=== PATIENT | male | born 1970 | race Two or more races ===

== ENCOUNTER 2024-03-09 21:14 | Inpatient (IN) | payer OTHER, SELFPAY ==
[~2024-03-09] VITALS: Ht 180.3 cm; Wt 65.9 kg
--- NOTE | 2024-03-09 21:38 | ED.PDOC ---
GI ASSESSMENT HPI Comments 53y M who presents to the ED for chief complaint of abdominal pain. Pt presents with the following ED course: - pt has been having epigastric abdominal pain radiating to the RUQ for the past 6 days. - pt states the pain is intermittent, with no noted exacerbating or relieving factors - pt has associated green vomit and states he has also has green colored bowel movements for 4 days - pt states over the past 2 weeks, he had had bowel troubles and has had episodes of diarrhea with intermittent episodes of constipation with noted bowel movement today - pt states he has been alternating taking Tylenol and ibuprofen for his pain - pt has noted history of gallstones past medical history; gallstones, thyroid past surgical history: intestinal blockage as infant medications; denies; social history; denies tobacco use, denies drug use, denies ETOH use allergies: denies Esperanza HPI: Poor Historian. 53-year-old male presents to emergency department for five day history of epigastric right upper quadrant pain that is intermittent in nature with the associated nausea and vomiting nonbloody. Patient denies any particular alleviating or precipitating factors. Patient states he had these episodes at least twice in the past and had imaging studies and he was told he has got gallbladder problems. Patient denies any diarrhea. Past Medcial History: Thyroid disease Past Surgical History: REVIEW OF SYSTEMS: CONSTITUTIONAL: Denies acute: fever, diaphoresis, chills, generalized weakness. HEAD: Denies acute: headache, photophobia Eyes: Denies acute: Double vision, vision loss, eye pain, eye discharge. EARS: Denies acute: tinnitus, hearing loss, ear discharge, ear pain, THROAT: Denies acute: sore throat, swelling, difficulty swallowing , pain with swallowing, change in voice. NECK: Denies acute: neck pain, neck swelling, stiff neck. HEART: Denies acute : chest pain, palpitations, LUNGS: Denies acute: SOB, wheezing, cough, hemoptysis ABDOMEN: Denies acute: diarrhea, melena , hematemesis, hematochezia SKIN: Denies acute: rash, redness, lesions, itchiness. EXTREMITIES: Denies acute: calf pain, numbness, tingling, weakness, denies pain in extremity. Denies acute: Low back pain. Neuro: Denies acute: focal neurological deficit, motor or sensory focal neurological deficit, tremors, seizure like activity, confusion, dizziness, change in mental status, loss of bowel or bladder function, cauda equina like symptoms. : Denies acute: dysuria, hematuria, flank pain, increase in urinary frequency. PSYCH: Denies acute: hallucination, suicidal ideation, homicidal ideation. PHYSICAL EXAM: General: Mild acute distress, awake and alert. Head: normocephalic, atraumatic. Neck: supple, trachea is midline, no swelling. Throat: Normal phonation. Eyes:, no erythema, no purulent discharge, no proptosis, no icterus. Heart: regular rate, regular rhythm, no significant murmur appreciated. Lungs: no apparent respiratory distress, Able to speak in full sentences. No wheezing, no rhonchi, no crackles. No stridors Clear to auscultation bilaterally. Abdomen: Epigastric and right upper quadrant tender to palpation, non distended, soft, no guarding, no rebound, + bowel sounds. Neuro: Awake, Alert, oriented to name, self, situation, follows commands GCS=15. Speech is normal. Skin: no petechia, no purpura, no cyanosis, non-pale, not jaundice. Lower extremities: --no - Pitting edema no deformity, no focal swelling, no calf TTP. Makes eye contact. moves all four extremities. Face: no apparent facial droop. Ambulating in the ED independently. Chief Complaint: Abdominal Pain Time Seen by MD: 21:37 Reviewed Notes: Medications, Allergies Allergies: Coded Allergies: No Known Drug Allergy (Verified Allergy, Unknown, 03/09/24) Home Meds Reported Medications Levothyroxine Sodium (Levothyroxine Sodium) 88 Mcg Tab, 88 MCG PO DAILY, TAB 03/10/24 Omeprazole (Gnp Omeprazole) 20 Mg Tab, 1 TAB PO DAILY, #90 TAB 1 Refill 03/10/24 Information Source: Patient Mode of Arrival: Ambulatory Brought in by: self Past Medical History PAST MEDICAL HISTORY: Thyroid Family History Family History: Unknown Social History Smoker: Non-Smoker Alcohol: Denies ETOH Use Drugs: Denies Drug Use Lives In: Home Was a procedure done? Was a procedure done?: No GI differential Dx Differential Diagnosis: Other (DDX include but not limited to diverticulitis, colitis, gastroenteritis, acute abdomen, SBO, enteritis, constipation, volvulus, appendicitis, Gallbladder disease, choledocolithiasis, ascending cholangitis, pancreatitis, intraAbdominal mass/neoplasm, hepatitis, UTI, pylonephritis, kidney stone, aneurysm, dissection, Inflammatory bowel disease, gastroparesis, ischemic bowel.) X-Ray, Labs, Meds, VS Vital Signs Date Time Temp Pulse Resp B/P (MAP) Pulse Ox O2 Delivery O2 Flow Rate FiO2 03/09/24 21:35 99.2 106 18 107/79 (88) 98 Lab Test 03/09/24 22:57 03/09/24 22:01 03/09/24 21:51 Range/Units Troponin I High Sensitivity 5 3 L </=54 ng/L Urine Color Yellow Yellow Urine Clarity Clear Clear Urine pH 6.0 5.0-9.0 Urine Specific [place] 1.030 1.001-1.035 Urine Protein 1+ H Negative Urine Ketones Negative Negative Urine Blood Negative Negative /uL Urine Nitrite Negative Negative Urine Bilirubin Negative Negative Urine Urobilinogen Normal Negative mg/dL Urine Leukocyte Esterase Negative Negative /uL Urine RBC 10 0 - 3 /hpf Urine Microscopic WBC 1 0-3 /HPF Urine Squamous Epithelial Cells None seen <5 /hpf Urine Bacteria None seen None Seen /hpf Urine Mucus Few None Seen Urine Glucose Normal Normal mg/dL White Blood Count 10.4 4.4-10.8 10^3/uL Red Blood Count 4.88 4.5-5.90 10^6/uL Hemoglobin 14.3 13.5-17.5 g/dL Hematocrit 41.9 41.0-53.0 % Mean Corpuscular Volume 85.8 80.0-100.0 fL Mean Corpuscular Hemoglobin 29.3 28.0-32.0 pg Mean Corpuscular Hemoglobin Concent 34.2 32.0-36.0 g/dL Red Cell Distribution Width 14.5 H 11.8-14.3 % Platelet Count 336 140-450 10^3/uL Mean Platelet Volume 7.3 6.9-10.8 fL Neutrophils (%) (Auto) 80.2 H 37.0-80.0 % Lymphocytes (%) (Auto) 12.9 10.0-50.0 % Monocytes (%) (Auto) 5.5 0.0-12.0 % Eosinophils (%) (Auto) 1.0 0.0-7.0 % Basophils (%) (Auto) 0.4 0.0-2.0 % Neutrophils # (Auto) 8.4 1.6-8.6 10 ^3/uL Lymphocytes # (Auto) 1.3 0.4-5.4 10 ^3/uL Monocytes # (Auto) 0.6 0-1.3 10 ^3/uL Eosinophils # (Auto) 0.1 0-0.8 10 ^3/uL Basophils # (Auto) 0 0-0.2 10 ^3/uL Nucleated Red Blood Cells 0.0 % Sodium Level 140 136-145 mmol/L Potassium Level 3.4 L 3.5-5.1 mmol/L Chloride Level 101 98-107 mmol/L Carbon Dioxide Level 31 20-31 mmol/L Anion Gap 8 5-15 Blood Urea Nitrogen 11 9-23 mg/dL Creatinine 0.92 0.700-1.30 mg/dL Glomerular Filtration Rate Calc 99 >90 mL/min BUN/Creatinine Ratio 12.0 10.0-20.0 Serum Glucose 111 H 74-106 mg/dL Lactic Acid Level 1.4 0.4-2.0 mmol/L Calcium Level 10.2 8.7-10.4 mg/dL Total Bilirubin 0.3 0.2-1.0 mg/dL Aspartate Amino Transferase (AST) 12 L 13-40 U/L Alanine Aminotransferase (ALT) 9 7-40 U/L Alkaline Phosphatase 70 46-116 U/L Total Protein 7.2 5.7-8.2 g/dL Albumin 4.5 3.2-4.8 g/dL Lipase 55 H 12-53 U/L [place] [id number] Ph: [phone] DIAGNOSTIC IMAGING Diagnostic Imaging Report : [id number] Signed PATIENT: DIANA TAMAYO ACCT: [id number] UNIT: [id number] : 1970 LOC: ER ROOM / BED: / AGE / SEX: 53 / M ADM STATUS: REG ER SERVICE 26 ORDERING PHYSICIAN: OSBALDO PLASCENCIA DO PROCEDURE(s): ABPL - CT AB PEL WO CON-NO ORAL OR IV REASON: epig/ruq pain n/v ORDER NUMBER(s): [id number], ACCESSION NUMBER(s): [id number] Exam: CT CT AB PEL WO CON-NO ORAL OR IV History: epig/ruq pain n/v Comparison Study: None available at time of dictation. TECHNIQUE: Multidetector CT of the abdomen and pelvis without contrast. Axial, coronal and sagittal multiplanar reformats were obtained from the axial data set by the technologist. Radiation Dose Information: CT Dose: CTDI volume is 5.67 mGy. Dose-length product is 286.61 mGy*cm FINDINGS: Bibasilar atelectasis. Partially visualized heart is unremarkable. Subcentimeter hypodense hepatic lesion that is too small to characterize. Otherwise, liver, spleen, adrenal glands unremarkable. Cholelithiasis with limited evaluation for acute cholecystitis. Punctate nonobstructing right renal calculi. Duplicated right renal collecting system Otherwise, kidneysureters unremarkable. Minimal wall thickening of the urinary bladder. Prostate measures 3.6 x 5 by 4.6 cm. There is moderate distention of the proximal stomach with the wall thickening of the mid stomach. There is wall thickening of the duodenum and proximal jejunum with distended loops of small bowel noted extending from the distal end of the thickened proximal duodenum measuring up to 4.7 cm. Segmental wall thickening of the distal transverse colon with liquid stool filled colon proximal to in the wall thickening. The descending colon and sigmoid are unremarkable. Unable to distinguish the cecum from the liquid stool filled proximal large bowel. The appendix is not visualized. Rectal wall thickening. No evidence of intraperitoneal free air or free fluid. No evidence of aortic aneurysm. No significant lymphadenopathy. Possibly scarring of the right paraumbilical region. No destructive osseous lesions are noted. IMPRESSION: Wall thickening of the mid stomach which may be due to gastritis/neoplasm. Wall thickening of the duodenum and proximal jejunum with fluid-filled distended small bowel loops extending from the wall thickened proximal jejunum which may represent enteritis with associated ileus/ bowel obstruction. There is focal wall thickening of the distal transverse colon concerning for possible neoplasm with liquid stool within the borderline distended proximal large bowel measuring up to 6 cm. The descending colon and sigmoid are unremarkable. Rectal wall thickening. Correlate for proctitis/neoplasm. ATED BY: LILLY PITT DO DICTATED DATE/TIME: 03/09/242209 SIGNED BY: LILLY PITT DO SIGNED DATE/TIME: 03/09/24 2210 CC: Time of 1ST Reevaluation: 00:00 Reevaluation 1ST: Improved Patient Education/Counseling: Diagnosis, Treatment Family Education/Counseling: No Family Present Comments Patient presented with the above HPI. Gastrointestinal workup was initiated. patient was found with the above mentioned diagnosis. the following medications were ordered: lidocaine, Protonix, sucralfate, Zofran, IV fluids the following tests were ordered: CMP, CBC, UA, EKG, CT abdomen/pelvis w/o contrast, troponin, lipase, lactic acid please refer to order lists of meds and tests obtained by myself Dr. Plascencia. Patient ED course and VS have been stabilized. Patient has been reassessed in the ED and remained in a stable condition. Pertinent incidental findings were discussed with the patient and/or family. Patient/family voices understanding and is agreeable with plan. Patient has been observed in the ED adequate length of time to insure improvement/stability. Escalation of care considered: Consideration of escalation to observation or admission Patient was ADMITTED to the medicine team for further evaluation and treatment of their presentation. All the reports of any imaging studies that were ordered by myself were reviewed by myself. Departure 1 Departure Time of Disposition: 22:39 Impression: Primary Impression: Abdominal pain Additional Impressions: Abnormal finding on CT scan Nausea and vomiting Disposition: ADMITTED INPATIENT Admit to: [facility] Condition: Guarded Discharged With: Self Critical Care Note Critical Care Time?: No I personally scribed for OSBALDO PLASCENCIA DO ([email or web address]) on 03/09/24 at 21:38. Electronically submitted by Bill Kearney ([email or web address]). I personally scribed for OSBALDO PLASCENCIA DO ([email or web address]) on 03/10/24 at 00:35. Electronically submitted by Braden Dutton ([email or web address]). OSBALDO PLASCENCIA DO Mar 09, 2024 21:38
[2024-03-09 22:02] LABS: Urine Bacteria None Seen /hpf (None Seen)
[2024-03-09 22:08] LABS: Basophils # (auto) 0 10 ^3/uL (0-0.2); Basophils % (auto) 0.4 % (0.0-2.0); Eosinophils # (auto) 0.1 10 ^3/uL (0-0.8); Hematocrit 41.9 % (41.0-53.0); Hemoglobin 14.3 g/dL (13.5-17.5); Lymphocytes # (auto) 1.3 10 ^3/uL (0.4-5.4); Lymphocytes % (auto) 12.9 % (10.0-50.0); Mean Corpuscular Hemoglobin 29.3 pg (28.0-32.0); Mean Corpuscular Hgb Conc. 34.2 g/dL (32.0-36.0); Mean Corpuscular Volume 85.8 fL (80.0-100.0); Monocytes # (auto) 0.6 10 ^3/uL (0-1.3); Monocytes % (auto) 5.5 % (0.0-12.0); Neutrophils # (auto) 8.4 10 ^3/uL (1.6-8.6); Neutrophils % (auto) 80.2 % (37.0-80.0); Platelet Count (auto) 336 10^3/uL (140-450); Red Blood Cells 4.88 10^6/uL (4.5-5.90); Red Cell Distribution Width 14.5 % (11.8-14.3); White Blood Cell 10.4 10^3/uL (4.4-10.8)
--- NOTE | 2024-03-09 22:13 | DVH ---
Exam: CT CT AB PEL WO CON-NO ORAL OR IV History: epig/ruq pain n/v Comparison Study: None available at time of dictation. TECHNIQUE: Multidetector CT of the abdomen and pelvis without contrast. Axial, coronal and sagittal m ultiplanar reformats were obtained from the axial data set by the technologist. Radiation Dose Information: CT Dose: CTDI volume is 5.67 mGy. Dose-length product is 286.61 mGy*cm FINDINGS: Bibasilar atelectasis. Partially visualized heart is unremarkable. Subcentimeter hypodense hepatic lesion that is too small to characterize. Otherwise, liver, spleen, adrenal glands unremarkable. Cholelithiasis with limited evaluation for acute cholecystitis. Punctate nonobstructing right renal calculi. Duplicated right renal collecting system Otherwise, kidn eysureters unremarkable. Minimal wall thickening of the urinary bladder. Prostate measures 3.6 x 5 by 4.6 cm. There is moderate distention of the proximal stomach with the wall thickening of the mid stomach. Th ere is wall thickening of the duodenum and proximal jejunum with distended loops of small bowel noted extending from the distal end of the thickened proximal duodenum measuring up to 4.7 cm. Segmental w all thickening of the distal transverse colon with liquid stool filled colon proximal to in the wall thickening. The descending colon and sigmoid are unremarkable. Unable to distinguish the cecum from the liquid stool filled proximal large bowel. The appendix is not visualized. Rectal wall thickening . No evidence of intraperitoneal free air or free fluid. No evidence of aortic aneurysm. No significant lymphadenopathy. Possibly scarring of the right paraumbilical region. No destructive osseous lesions are noted. IMPRESSION: Wall thickening of the mid stomach which may be due to gastritis/neoplasm. Wall thickening of the duodenum and proximal jejunum with fluid-filled distended small bowel loops ex tending from the wall thickened proximal jejunum which may represent enteritis with associated ileus/ bowel obstruction. There is focal wall thickening of the distal transverse colon concerning for possible neoplasm with l iquid stool within the borderline distended proximal large bowel measuring up to 6 cm. The descending colon and sigmoid are unremarkable. Rectal wall thickening. Correlate for proctitis/neoplasm.
[2024-03-09 22:19] LABS: Urine Blood Negative /uL (Negative); Urine Clarity Clear (Clear); Urine Color Yellow (Yellow); Urine Mucus FEW (None Seen); Urine Protein, UAD 1+ (Negative); Urine Squamous Epithelial Cell None Seen /hpf (<5); Urine Urobilinogen Normal (Negative); Urine WBC 1 /HPF (0-3)
[2024-03-09 22:37] LABS: Albumin 4.5 g/dL (3.2-4.8); Alkaline Phosphatase 70 U/L (46-116); Anion Gap 8 (5-15); Bilirubin, Total 0.3 mg/dL (0.2-1.0); Blood Urea Nitrogen 11 mg/dL (9-23); Calcium 10.2 mg/dL (8.7-10.4); Chloride 101 mmol/L (98-107); Sodium 140 mmol/L (136-145); Total Protein 7.2 g/dL (5.7-8.2)
[2024-03-09 22:41] LABS: Alanine Aminotransferase 9 U/L (7-40); Aspartate Aminotransferase 12 U/L (13-40); Carbon Dioxide 31 mmol/L (20-31); Glucose 111 mg/dL (74-106); Lipase 55 U/L (12-53); Potassium 3.4 mmol/L (3.5-5.1)
[2024-03-09] MEDS ORDERED: MORPHINE SULFATE INJ 2 MG/ml SYRG IV PRN (23:30)
[2024-03-09] MEDS ORDERED: ONDANSETRON HCL 4 MG/2 ML VIAL IV PRN (23:30)
[2024-03-09] MEDS ORDERED: NITROGLYCERIN 0.4 MG SL TAB SL PRN (23:30)
--- NOTE | 2024-03-10 02:31 | DVHHPRES ---
History of Present Illness Resident Creating Document: JOANNA WEBB RESIDENT Reason for Visit: Abdominal pain History of Present Illness 53-year-old male presents to the ED with severe abdominal pain. The pain has been present for more than one week, localized to the epigastric and right upper quadrant regions. Initially intermittent, the pain worsened today, accompanied by nausea and vomiting 4-5 times. Patient rates the pain as 9.5/10 in severity. The pain is constant with intermittent sharp exacerbations, significantly impacting daily activities. Associated symptoms include heartburn, nausea, and vomiting. Patient reports an ultrasound one month ago revealed gallstones. He al so experiences intermittent episodes of weakness and dizziness with movement. Patient reports constipation and green-colored bowel movements for 4 days. Over the past 2 weeks, he has experienced bowel troubles with episodes of diarrhea alternating with constipation. He has been taking Tylenol and Ibuprofen for pain relief without significant improvement. Patient denies hematochezia, melena, fever, cough, runny nose, shortness of breath, chest pain, chest tightness, urinary symptoms, joint pain, or edema. Past Social History Denies tobacco use, alcohol use, or any other drug abuse Review of Systems Review of Systems - Constitutional: Weakness, dizziness with movement - Gastrointestinal: Admits abdominal pain, epigastric and right upper quadrant pain, nausea, vomiting, heartburn, constipation, diarrhea, green-colored bowel movements - Respiratory: Denies cough, runny nose, shortness of breath - Cardiovascular: Denies chest pain, chest tightness - Genitourinary: Denies urinary urgency, frequency - Musculoskeletal: Denies joint pain, edema - Neurological: Denies headache, photophobia Allergies: Coded Allergies: No Known Drug Allergy (Verified Allergy, Unknown, 03/09/24) Medications Current Medications Medications Dose Ordered Sig/Yasmany Route Start Time Stop Time Status Last Admin Dose Admin Sodium Chloride 10 ml Q8HR IV 03/10/24 06:00 Ondansetron HCl 4 mg Q4HP PRN IV 03/09/24 23:30 Morphine Sulfate 2 mg Q4HPRN PRN IV 03/09/24 23:30 Nitroglycerin 0.4 mg Q5MINP PRN SL 03/09/24 23:30 Morphine Sulfate 2 mg Q30M PRN IV 03/09/24 23:30 Sodium Chloride 1,000 ml @ 100 mls/hr Q10H IV 03/09/24 23:30 Pantoprazole Sodium 40 mg DAILY IV 03/10/24 10:00 Ceftriaxone Sodium 50 ml @ 100 mls/hr DAILY@0900 IV 03/11/24 09:00 Metronidazole 100 ml @ 100 mls/hr Q8HR IV 03/10/24 06:00 Exam Vital Signs Vital Signs Date Time Temp Pulse Resp B/P (MAP) Pulse Ox O2 Delivery O2 Flow Rate FiO2 03/09/24 21:35 99.2 106 18 107/79 (88) 98 Exam Physical Examination - General: Not in acute distress - Cardiovascular: normal rate and rhythm with S1, S2, and no murmur. - Respiratory: Lungs are clear on auscultation. - Abdomen: Tenderness on palpation on the right side of the abdomen. Abdomen is non-distended. Bowel sounds are present. - Neurological: Patient is alert and oriented X 4. No focal deficit. Labs/Xrays Labs Test 03/09/24 22:57 03/09/24 22:01 03/09/24 21:51 Range/Units Troponin I High Sensitivity 5 </=54 ng/L Urine Color Yellow Yellow Urine Clarity Clear Clear Urine pH 6.0 5.0-9.0 Urine Specific [place] 1.030 1.001-1.035 Urine Protein 1+ H Negative Urine Ketones Negative Negative Urine Blood Negative Negative /uL Urine Nitrite Negative Negative Urine Bilirubin Negative Negative Urine Urobilinogen Normal Negative mg/dL Urine Leukocyte Esterase Negative Negative /uL Urine RBC 10 0 - 3 /hpf Urine Microscopic WBC 1 0-3 /HPF Urine Squamous Epithelial Cells None seen <5 /hpf Urine Bacteria None seen None Seen /hpf Urine Mucus Few None Seen Urine Glucose Normal Normal mg/dL White Blood Count 10.4 4.4-10.8 10^3/uL Red Blood Count 4.88 4.5-5.90 10^6/uL Hemoglobin 14.3 13.5-17.5 g/dL Hematocrit 41.9 41.0-53.0 % Mean Corpuscular Volume 85.8 80.0-100.0 fL Mean Corpuscular Hemoglobin 29.3 28.0-32.0 pg Mean Corpuscular Hemoglobin Concent 34.2 32.0-36.0 g/dL Red Cell Distribution Width 14.5 H 11.8-14.3 % Platelet Count 336 140-450 10^3/uL Mean Platelet Volume 7.3 6.9-10.8 fL Neutrophils (%) (Auto) 80.2 H 37.0-80.0 % Lymphocytes (%) (Auto) 12.9 10.0-50.0 % Monocytes (%) (Auto) 5.5 0.0-12.0 % Eosinophils (%) (Auto) 1.0 0.0-7.0 % Basophils (%) (Auto) 0.4 0.0-2.0 % Neutrophils # (Auto) 8.4 1.6-8.6 10 ^3/uL Lymphocytes # (Auto) 1.3 0.4-5.4 10 ^3/uL Monocytes # (Auto) 0.6 0-1.3 10 ^3/uL Eosinophils # (Auto) 0.1 0-0.8 10 ^3/uL Basophils # (Auto) 0 0-0.2 10 ^3/uL Nucleated Red Blood Cells 0.0 % Sodium Level 140 136-145 mmol/L Potassium Level 3.4 L 3.5-5.1 mmol/L Chloride Level 101 98-107 mmol/L Carbon Dioxide Level 31 20-31 mmol/L Anion Gap 8 5-15 Blood Urea Nitrogen 11 9-23 mg/dL Creatinine 0.92 0.700-1.30 mg/dL Glomerular Filtration Rate Calc 99 >90 mL/min BUN/Creatinine Ratio 12.0 10.0-20.0 Serum Glucose 111 H 74-106 mg/dL Lactic Acid Level 1.4 0.4-2.0 mmol/L Calcium Level 10.2 8.7-10.4 mg/dL Total Bilirubin 0.3 0.2-1.0 mg/dL Aspartate Amino Transferase (AST) 12 L 13-40 U/L Alanine Aminotransferase (ALT) 9 7-40 U/L Alkaline Phosphatase 70 46-116 U/L Total Protein 7.2 5.7-8.2 g/dL Albumin 4.5 3.2-4.8 g/dL Lipase 55 H 12-53 U/L Assessment/Plan Assessment/Plan Assessment & Plan : # Acute abdominal pain with suspected gastritis and possible neoplasm # intractable nausea and vomiting - CT abdomen shows wall thickening of mid-stomach, duodenum, and proximal jejunum with fluid-filled distended small bowel loops. There is also focal wall thickening of the distal transverse colon and rectal wall, concerning for possible neoplasm. - NPO status -IV fluid NS 100 mL/hour - Protonix 40 mg IV daily - Empiric antibiotic therapy with Rocephin - GI consultation - Follow-up on CT abdomen findings # Possible proctitis - CT shows Rectal wall thickening. Correlate for proctitis/neoplasm. - continue antibiotics # cholelithiasis without cholecystitis - Schwartz's sign is negative - Recent ultrasound revealed gallstones. # Altered bowel habits - Patient reports alternating episodes of diarrhea and constipation over the past 2 weeks, Monitor bowel movements - GI consultation # Mild hypokalemia Patient has mild hypokalemia, likely secondary to vomiting. - Follow-up morning BMP Goal of care discussed with patient for 39 minutes: Full code Case discussed with Dr. Lopez Plan discussed with: Patient My Orders Orders - JOANNA WEBB RESIDENT Procedure Category Date Status Time Admit ADMIT 03/09/24 Transmitted 23:19 Allergies MAXIMILIANO 03/09/24 In Process 23:19 Code Status CODE 03/09/24 Transmitted 23:19 Sodium Chloride Lock PHA 03/10/24 In Process (Saline Lock Ns) 06:00 Ondansetron Hcl PHA 03/09/24 In Process (Zofran) 23:30 Complete Blood Count LAB 03/10/24 Logged 04:00 Comprehensive LAB 03/10/24 Logged Metabolic Panel 04:00 Npo (Nothing By DIET 03/10/24 Transmitted Mouth) Diet Breakfast Morphine Sulfate PHA 03/09/24 In Process Injection 23:30 Nitroglycerin PHA 03/09/24 In Process Sublingual (Ntrostat 23:30 Morphine Sulfate PHA 03/09/24 In Process Injection 23:30 Oxygen By Nasal RT 03/09/24 Transmitted Cannula 23:19 Stat Ekg For Chest MAXIMILIANO 03/09/24 In Process Pain 23:19 Notify Md Of Changes MAXIMILIANO 03/09/24 In Process From Base 23:19 Template Cutter For MAXIMILIANO 03/09/24 In Process 24 Hours 23:19 Emergency Dysrhythmia MAXIMILIANO 03/09/24 In Process Protocol 23:19 Rhythm Strips Once MAXIMILIANO 03/09/24 In Process Every Shift 23:19 Sodium Chloride 0.9% PHA 03/09/24 In Process 23:30 Pantoprazole PHA 03/10/24 In Process (Protonix) 10:00 Ceftriaxone 1gm/50ml PHA 03/10/24 In Process D5w (Rocephin) 02:15 Metronidazole PHA 03/10/24 In Process 500mg/100ml (Flagyl 06:00 Ceftriaxone 1gm/50ml PHA 03/11/24 In Process D5w (Rocephin) 09:00 Date of Service: Mar 09, 2024 Billing Provider: ZOHREH VELIZ MD Common Visit Codes: [id number] INP/OBS CARE (HIGH) JOANNA WEBB RESIDENT Mar 10, 2024 02:31 ZOHREH VELIZ MD Mar 10, 2024 23:14
[2024-03-10 03:03] VITALS: O2SAT 99
[2024-03-10] MEDS: ONDANSETRON HCL 4 MG/2 ML VIAL IV ONE (03:17)
[2024-03-10] MEDS: PANTOPRAZOLE 40 MG/10 ML VIAL INJ IV ONE (03:17)
[2024-03-10] MEDS: SODIUM CHLORIDE 0.9% 1,000 ML IV ONE (03:18)
[2024-03-10] MEDS: cefTRIAXone 1GM/50ML D5W 50 ML IV ONE (03:18)
[2024-03-10] MEDS: LIDOCAINE VISCOUS 2% 15ML UD PO ONE (03:19)
[2024-03-10] MEDS: SUCRALFATE 1 GM TAB PO ONE (03:19)
[2024-03-10] MEDS: SODIUM CHLORIDE 0.9% 1,000 ML IV SCH (03:53)
[2024-03-10 04:57] LABS: Basophils # (auto) 0 10 ^3/uL (0-0.2); Basophils % (auto) 0.5 % (0.0-2.0); Eosinophils # (auto) 0.1 10 ^3/uL (0-0.8); Eosinophils % (auto) 1.6 % (0.0-7.0); Hematocrit 35.9 % (41.0-53.0); Lymphocytes # (auto) 1.3 10 ^3/uL (0.4-5.4); Lymphocytes % (auto) 17.1 % (10.0-50.0); Mean Corpuscular Hemoglobin 28.5 pg (28.0-32.0); Mean Corpuscular Hgb Conc. 33.4 g/dL (32.0-36.0); Mean Corpuscular Volume 85.4 fL (80.0-100.0); Monocytes # (auto) 0.5 10 ^3/uL (0-1.3); Monocytes % (auto) 6.3 % (0.0-12.0); Neutrophils # (auto) 5.9 10 ^3/uL (1.6-8.6); Neutrophils % (auto) 74.5 % (37.0-80.0); Platelet Count (auto) 273 10^3/uL (140-450); Red Blood Cells 4.21 10^6/uL (4.5-5.90); Red Cell Distribution Width 14.4 % (11.8-14.3); White Blood Cell 7.9 10^3/uL (4.4-10.8)
[2024-03-10 05:18] LABS: Alanine Aminotransferase < 9 U/L (7-40); Albumin 3.8 g/dL (3.2-4.8); Alkaline Phosphatase 61 U/L (46-116); Anion Gap 8 (5-15); Aspartate Aminotransferase 11 U/L (13-40); BUN/Creatinine Ratio 13.3 (10.0-20.0); Bilirubin, Total 0.3 mg/dL (0.2-1.0); Blood Urea Nitrogen 12 mg/dL (9-23); Calcium 8.4 mg/dL (8.7-10.4); Carbon Dioxide 28 mmol/L (20-31); Chloride 105 mmol/L (98-107); Glucose 104 mg/dL (74-106); Sodium 141 mmol/L (136-145); Total Protein 5.8 g/dL (5.7-8.2)
[2024-03-10] MEDS: SODIUM CHLOR 0.9% PF (SALINE LOCK) 10ML VIAL/SYR IV SCH (05:30)
[2024-03-10] MEDS: metroNIDAZOLE 500MG/100ML 100 ML IV SCH (05:30)
[2024-03-10] MEDS: MORPHINE SULFATE INJ 2 MG/ml SYRG IV PRN (05:35)
--- NOTE | 2024-03-10 09:00 | DVH ---
CHEST RADIOGRAPH Indication: chest pain Technique: Single frontal view of the chest was obtained Comparison: None FINDINGS: Lines and Tubes: None Lungs: No focal consolidation. Pleura: No effusion. No pneumothorax. Cardiomediastinal contours: Unremarkable Bones: No acute osseous abnormality. IMPRESSION: No acute cardiopulmonary disease.
[2024-03-10 09:47] VITALS: BP 113/75; PULSE 80; RESP 16; TEMP 98.5; O2SAT 94
[2024-03-10] MEDS ORDERED: PNEUMOCOCCAL VACC POLYS 25 MCG/0.5 ML VIAL IM ONE (10:15)
[2024-03-10] MEDS: POTASSIUM EFFERVESENT TAB 25 MEQ PO ONE (10:21)
[2024-03-10] MEDS: PANTOPRAZOLE 40 MG/10 ML VIAL INJ IV SCH (10:21)
[2024-03-10] MEDS ORDERED: OMEP20TA PO (11:15)
[2024-03-10 12:41] VITALS: BP 114/70; PULSE 76; RESP 18; TEMP 98.2; O2SAT 97
--- NOTE | 2024-03-10 13:55 | DVHCONRES ---
Date Seen: Mar 10, 2024 Resident Creating Document: RISA CEE History of Present Illness Mr. Kenyon is a 53-year-old male with intestinal surgery as a child who presented to the ER with the chief complaint of right upper quadrant and epigastric pain for about a week associated with nausea and vomiting for the same time. He reports that the vomiting preceded the pain which is yellowish greenish in color, he is unable to tolerate any solid or liquid diet. 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 He reports unintentional weight loss of around 20 lb. He reports intermittent diarrhea for whole of his life which is greenish bilious in color and foul-smelling. He has a colonoscopy more than 20 years back and does not remember the results. CT abdomen completed shows wall thickening of med stomach consistent with gastritis. Distal colon thickening and rectal wall thickening. Patient seen and examined at the bedside. No active complaint. Family History: Diabetes mellitus G8 MOTHER Allergies: Coded Allergies: No Known Drug Allergy (Verified Allergy, Unknown, 03/09/24) Home Meds Reported Medications Omeprazole (Gnp Omeprazole) 20 Mg Tab, 1 TAB PO DAILY, #90 TAB 1 Refill 03/10/24 Current Medications Current Medications Medications (Trade) Dose Ordered Sig/Yasmany Route PRN Reason Start Time Stop Time Status Last Admin Sodium Chloride (Saline Lock Ns) 10 ml Q8HR IV 03/10/24 06:00 03/10/24 05:30 Ondansetron HCl (Zofran) 4 mg Q4HP PRN IV NAUSEA / VOMITING 03/09/24 23:30 Morphine Sulfate 2 mg Q4HPRN PRN IV SEVERE PAIN (7-10 PAIN SCALE) 03/09/24 23:30 03/10/24 05:35 Nitroglycerin (Ntrostat Sublingual) 0.4 mg Q5MINP PRN SL FOR CHEST PAIN 03/09/24 23:30 Morphine Sulfate 2 mg Q30M PRN IV FOR CHEST PAIN 03/09/24 23:30 Sodium Chloride 1,000 ml @ 100 mls/hr Q10H IV 03/09/24 23:30 03/10/24 03:53 Pantoprazole Sodium (Protonix) 40 mg DAILY IV 03/10/24 10:00 03/10/24 10:21 Ceftriaxone Sodium 50 ml @ 100 mls/hr DAILY@0900 IV 03/11/24 09:00 Metronidazole 100 ml @ 100 mls/hr Q8HR IV 03/10/24 06:00 03/10/24 05:30 Acetaminophen (Tylenol Tablet) 650 mg Q8HP PRN PO PAIN SCALE 1-3 OR TEMP>100.4 03/10/24 09:45 Vital Signs Vital Signs Date Time Temp Pulse Resp B/P (MAP) Pulse Ox O2 Delivery O2 Flow Rate FiO2 03/10/24 12:41 98.2 76 18 114/70 (85) 97 98.2 03/10/24 09:47 Room Air* 0 21 Physical Exam Patient lying in bed, in no acute distress General: Well-built, afebrile, palor, mucosae are moist Cardiovascular: Regular S1 and S2. No murmurs, gallops or rubs. No JVD elevation. No pedal edema Respiratory: Normal B/L air entry on room air. Clear lung sounds on ausculta tion Abdomen: Soft, nontender, nondistended, normoactive bowel sounds, no rebound tenderness, no organomegaly, no masses Genitourinary: Deferred MSK/skin: Mobilizes 4 limbs. Skin is dry and warm Neurological: No motor, no sensitive deficits, normal speech. Pupils are isocoric and reactive. Psych/Mental Status: A/Ox3 Labs/Diagnostic Data Labs Test 03/10/24 09:23 03/10/24 04:36 03/09/24 22:57 03/09/24 22:01 Range/Units Carcinoembryonic Antigen 3.57 <=5.0 ng/mL White Blood Count 7.9 4.4-10.8 10^3/uL Red Blood Count 4.21 L 4.5-5.90 10^6/uL Hemoglobin 12.0 #L 13.5-17.5 g/dL Hematocrit 35.9 #L 41.0-53.0 % Mean Corpuscular Volume 85.4 80.0-100.0 fL Mean Corpuscular Hemoglobin 28.5 28.0-32.0 pg Mean Corpuscular Hemoglobin Concent 33.4 32.0-36.0 g/dL Red Cell Distribution Width 14.4 H 11.8-14.3 % Platelet Count 273 140-450 10^3/uL Mean Platelet Volume 7.3 6.9-10.8 fL Neutrophils (%) (Auto) 74.5 37.0-80.0 % Lymphocytes (%) (Auto) 17.1 10.0-50.0 % Monocytes (%) (Auto) 6.3 0.0-12.0 % Eosinophils (%) (Auto) 1.6 0.0-7.0 % Basophils (%) (Auto) 0.5 0.0-2.0 % Neutrophils # (Auto) 5.9 1.6-8.6 10 ^3/uL Lymphocytes # (Auto) 1.3 0.4-5.4 10 ^3/uL Monocytes # (Auto) 0.5 0-1.3 10 ^3/uL Eosinophils # (Auto) 0.1 0-0.8 10 ^3/uL Basophils # (Auto) 0 0-0.2 10 ^3/uL Nucleated Red Blood Cells 0.0 % Sodium Level 141 136-145 mmol/L Potassium Level 3.0 L 3.5-5.1 mmol/L Chloride Level 105 98-107 mmol/L Carbon Dioxide Level 28 20-31 mmol/L Anion Gap 8 5-15 Blood Urea Nitrogen 12 9-23 mg/dL Creatinine 0.90 0.700-1.30 mg/dL Glomerular Filtration Rate Calc 102 >90 mL/min BUN/Creatinine Ratio 13.3 10.0-20.0 Serum Glucose 104 74-106 mg/dL Hemoglobin A1c 5.4 <5.7 % A1C Calcium Level 8.4 L 8.7-10.4 mg/dL Total Bilirubin 0.3 0.2-1.0 mg/dL Aspartate Amino Transferase (AST) 11 L 13-40 U/L Alanine Aminotransferase (ALT) < 9 7-40 U/L Alkaline Phosphatase 61 46-116 U/L Total Protein 5.8 5.7-8.2 g/dL Albumin 3.8 3.2-4.8 g/dL Thyroid Stimulating Hormone (TSH) 2.65 0.55-4.78 uIU/mL Troponin I High Sensitivity 5 </=54 ng/L Urine Color Yellow Yellow Urine Clarity Clear Clear Urine pH 6.0 5.0-9.0 Urine Specific [place] 1.030 1.001-1.035 Urine Protein 1+ H Negative Urine Ketones Negative Negative Urine Blood Negative Negative /uL Urine Nitrite Negative Negative Urine Bilirubin Negative Negative Urine Urobilinogen Normal Negative mg/dL Urine Leukocyte Esterase Negative Negative /uL Urine RBC 10 0 - 3 /hpf Urine Microscopic WBC 1 0-3 /HPF Urine Squamous Epithelial Cells None seen <5 /hpf Urine Bacteria None seen None Seen /hpf Urine Mucus Few None Seen Urine Glucose Normal Normal mg/dL Test 03/09/24 21:51 Range/Units Lactic Acid Level 1.4 0.4-2.0 mmol/L Lipase 55 H 12-53 U/L Assessment Intractable nausea and vomiting Abdominal pain secondary to possible gastritis Probable proctitis Focal wall thickening of the distal transverse colon ? 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 Wall thickening of the duodenum and proximal jejunum with fluid-filled distended small bowel loops extending from the wall thickened proximal jejunum which may represent enteritis with associated ileus/ bowel ob struction. There is focal wall thickening of the distal transverse colon concerning for possible neoplasm with liquid stool within the borderline distended proximal large bowel measuring up to 6 cm. Plan: Scheduled for upper EGD 03/11. NPO starting breakfast 03/11 Patient will require colonoscopy once stabilized. Last colonoscopy more than 20 years back Continue Protonix 40 mg daily, Carafate q.i.d. and clear liquid diet for now Continue antibiotics per primary team Follow up with the stool studies Correct underlying electrolyte imbalances Plan discussed with patient in which all questions have been answered Case discussed with Dr. Henderson Plan discussed with: Patient RISA CEE RESIDENT Mar 10, 2024 13:55
[2024-03-10 16:10] VITALS: BP 116/77; PULSE 61; RESP 17; TEMP 98.3; O2SAT 99
--- NOTE | 2024-03-10 17:51 | DVHPNRES ---
Progress Note Date Seen: Mar 10, 2024 Resident Creating Document: LAURIE FINCH RESIDENT Medical Necessity Reason Pt with a Central, PICC or Fol: No Subjective Review of Systems This is a 53 year-old man with past medical history of GERD presented to the ED with a chief complaint of abdominal pain with vomiting for last 1 week prior to this presentation. the patient stated that abdominal pain started intermittently 1 month ago and located in the epigastric and right subcostal region, sharp colicky in nature, 10/10 and radiates to the back and associated with nausea and vomiting and he also mentioned altered bowel habits for last 1 month. He had this kind of pain 1 year ago and lost almost 20 lb unintentionally in last 1 year. Patient was seen and examined on the blood side. He is alert oriented x3. Complains of abdominal pain, nausea and generalized weakness. Constitutional: No: Fever, Chills, Sweats, Weakness, Malaise, Other Eyes: No: Pain, Vision change, Conjunctivae inflammation, Eyelid inflammation, Other, Redness ENT: No: Ear pain, Ear discharge, Nose pain, Nose discharge, Nose congestion, Mouth pain, Mouth swelling, Throat pain, Throat swelling, Other Respiratory: Shortness of breath, improving No: Cough, Dry,Wheezing, Hemoptysis, Pleuritic Pain, Sputum, Wheezing, Other Cardiovascular: No: Chest Pain, Palpitations, Orthopnea, Paroxysmal Noc. Dyspnea, Edema, Lt Headedness, Other Gastrointestinal: Nausea, Vomiting, Abdominal Pain, Diarrhea, Constipation, no Melena, Hematochezia, Other Musculoskeletal: No: other, neck pain, shoulder pain, arm pain, back pain, hand pain, leg pain, foot pain Neurological:; No: Weakness, Numbness, Incoordination, Change in speech, Confusion, Seizures Objective vital signs Vital Sign Date Time Temp Pulse Resp B/P (MAP) Pulse Ox O2 Delivery O2 Flow Rate FiO2 03/10/24 16:10 98.3 61 17 116/77 (90) 99 98.3 03/10/24 09:47 Room Air* 0 21 Total Intake and Output 03/09/24 03/09/24 03/10/24 15:00 23:00 07:00 Intake Total 300 ml Balance 300 ml medications Current Medications Medications Dose Ordered Sig/Yasmany Route Start Time Stop Time Status Last Admin Dose Admin Sodium Chloride 10 ml Q8HR IV 03/10/24 06:00 03/10/24 14:00 10 ML Ondansetron HCl 4 mg Q4HP PRN IV 03/09/24 23:30 Morphine Sulfate 2 mg Q4HPRN PRN IV 03/09/24 23:30 03/10/24 05:35 2 MG Nitroglycerin 0.4 mg Q5MINP PRN SL 03/09/24 23:30 Morphine Sulfate 2 mg Q30M PRN IV 03/09/24 23:30 Sodium Chloride 1,000 ml @ 100 mls/hr Q10H IV 03/09/24 23:30 03/10/24 15:05 100 MLS/HR Pantoprazole Sodium 40 mg DAILY IV 03/10/24 10:00 03/10/24 10:21 40 MG Ceftriaxone Sodium 50 ml @ 100 mls/hr DAILY@0900 IV 03/11/24 09:00 Metronidazole 100 ml @ 100 mls/hr Q8HR IV 03/10/24 06:00 03/10/24 15:03 100 MLS/HR Acetaminophen 650 mg Q8HP PRN PO 03/10/24 09:45 Examination Physical examination: General Appearance: Alert, Oriented X3, Cooperative, No acute distress HEENT: Atraumatic, PERRLA, EOMI, Mucous membrane moist/pink Respiratory: Clear to auscultation, Normal air movement Cardiovascular: Regular rate, Normal S1, Normal S2, No murmurs, no chest wall tenderness Abdominal: Normal bowel sounds, Soft, tenderness in the rt subcostal region, No hepatospenomegaly, No masses Extremities: No clubbing, No cyanosis, No edema, Normal pulses, No tenderness/swelling Skin: No rashes, No breakdown, No significant lesion Neuro: Normal gait, Normal speech, Strength at 5/5 X4 ext, Normal tone, Sensation intact, grossly intact cranial nerves. Psych/Mental Status: Mental status NL, Mood NL laboratory and microbiology Laboratory Tests 03/10/24 04:36 Test 03/10/24 04:36 Range/Units Serum Glucose 104 74-106 mg/dL Labs and/or images reviewed: Labs reviewed by me, Image(s) reviewed by me Problem List/Assessment/Plan Problem List/Assessment/Plan Assessment and plan: # Intractable abdominal pain, nausea and vomiting # Possible gastritis, rule out GI malignancy # Possible Ileus, rule out colonic malignacy # Possible proctitis # History of cholelithiasis # Rule out pancreatitis - CT abdomen pelvis revealed Wall thickening of the mid stomach which may be due to gastritis/neoplasm. Wall thickening of the duodenum and proximal jejunum with fluid-filled distended small bowel loops extending from the wall thickened proximal jejunum which may represent enteritis with associated ileus/ bowel obstruction. There is focal wall thickening of the distal transverse colon concerning for possible neoplasm with liquid stool within the borderline distended proximal large bowel measuring up to 6 cm. - GI on board and recommended EGD on 03/11/24 - IV Protonix 40 mg daily - Clear liquid diet - IV normal saline at 100 mL/hours - IV ceftriaxone 1 g daily and IV metronidazole 500 mg t.i.d. - Acetaminophen 650 mg p.o. Q 8 hours p.r.n. - IV ondansetron 4 mg q.4 p.r.n. - Lipase is mildly elevated - CEA is negative and pending CA19-9 - Ordered stool occult blood # Hypokalemia - Replenished. Code status discussed with the patient for more than 20 minutes full code Plan discussed with Dr. Lopez Plan discussed with: Patient, Other My Orders My Orders Orders - LAURIE FINCH RESIDENT Procedure Category Date Status Time Stool Occult Blood LAB 03/10/24 Uncollected 08:17 Carbohydrate Antigen LAB 03/10/24 In Process 19-9 Chest Portable XY 03/10/24 Resulted 08:19 * Dietary Consult CONS 03/10/24 Transmitted 10:11 * [facility] CONS 03/10/24 Transmitted Consult LAURIE FINCH RESIDENT Mar 10, 2024 17:51
[2024-03-10 22:14] VITALS: PULSE 64; RESP 17; O2SAT 98
[2024-03-10 22:20] VITALS: BP 122/79; PULSE 64; RESP 17; TEMP 98.6; O2SAT 98
[2024-03-10] MEDS: ACETAMINOPHEN 325 MG TAB PO PRN (22:30)
[2024-03-10] MEDS ORDERED: LEVO88TA4 PO (22:35)
[2024-03-11] VITALS (8 sets, daily range): BP systolic 109–118; BP diastolic 69–79; PULSE 60–77; RESP 12–20; TEMP 97.6–98.5; O2SAT 96–100
[2024-03-11 08:01] LABS: Basophils # (auto) 0 10 ^3/uL (0-0.2); Basophils % (auto) 0.5 % (0.0-2.0); Eosinophils # (auto) 0.2 10 ^3/uL (0-0.8); Eosinophils % (auto) 3.9 % (0.0-7.0); Hematocrit 36.1 % (41.0-53.0); Lymphocytes # (auto) 1.2 10 ^3/uL (0.4-5.4); Lymphocytes % (auto) 18.7 % (10.0-50.0); Mean Corpuscular Hemoglobin 28.7 pg (28.0-32.0); Mean Corpuscular Hgb Conc. 33.2 g/dL (32.0-36.0); Mean Corpuscular Volume 86.6 fL (80.0-100.0); Monocytes # (auto) 0.4 10 ^3/uL (0-1.3); Monocytes % (auto) 5.6 % (0.0-12.0); Neutrophils # (auto) 4.5 10 ^3/uL (1.6-8.6); Neutrophils % (auto) 71.3 % (37.0-80.0); Platelet Count (auto) 254 10^3/uL (140-450); Red Blood Cells 4.17 10^6/uL (4.5-5.90); Red Cell Distribution Width 14.8 % (11.8-14.3); White Blood Cell 6.3 10^3/uL (4.4-10.8)
--- NOTE | 2024-03-11 08:18 | ECG ---
[facility] Test Date: 2024-03-11 Test Time: 00:52:06 Pat Name: DIANA TAMAYO Department: Room: 0295 B Gender: M Content Designer: [id number] : 1970 Requested By: LAURIE FINCH Order Number: [id number] Reading MD: Luis De Guzman Measurements Intervals [facility] Rate: 62 P: 75 MS: 123 QRS: 71 QRSD: 93 T: 63 QT: 418 QTc: 425 Interpretive Statements Sinus rhythm Electronically Signed On 03-11-2024 8:52:12 PST by Luis De Guzman Please click the below link to view image of tracing.
[2024-03-11] MEDS: cefTRIAXone 1GM/50ML D5W 50 ML IV SCH (08:50)
[2024-03-11 09:23] LABS: Albumin 3.3 g/dL (3.2-4.8); Alkaline Phosphatase 56 U/L (46-116); Anion Gap 5 (5-15); BUN/Creatinine Ratio 8.5 (10.0-20.0); Carbon Dioxide 28 mmol/L (20-31); Glucose 102 mg/dL (74-106); Sodium 141 mmol/L (136-145)
[2024-03-11 09:24] LABS: Bilirubin, Total 0.4 mg/dL (0.2-1.0)
[2024-03-11 09:25] LABS: Alanine Aminotransferase < 9 U/L (7-40); Aspartate Aminotransferase < 8 U/L (13-40); Blood Urea Nitrogen 7 mg/dL (9-23); Calcium 8.5 mg/dL (8.7-10.4); Chloride 108 mmol/L (98-107); Potassium 3.3 mmol/L (3.5-5.1); Total Protein 4.9 g/dL (5.7-8.2)
[2024-03-11 09:49] LABS: INR 1.07 (0.9-1.15); Partial Thromboplastin Time 28.1 SEC (24.5-34.5); Prothrombin Time 11.3 sec (9.3-11.8)
[2024-03-11] MEDS: KETOROLAC TROMETH 30 MG/ML 1ML VIAL IV ONE (11:02)
[2024-03-11] MEDS ORDERED: LIDOCAINE VISCOUS 2% 15ML UD ONE (14:18)
[2024-03-11] MEDS ORDERED: MIDAZOLAM HCL 2MG/2ML 2ml VIAL (1mg/ml) ONE (14:22)
[2024-03-11] MEDS ORDERED: fentaNYL CITRATE 100 MCG/2 ML VL ONE (14:22)
[2024-03-11] MEDS ORDERED: DexAMETHasone SOD PHOS 10MG/1ML VIAL INJ ONE (14:50)
[2024-03-11] MEDS ORDERED: PROPOFOL 10 MG/ML 20 ML IV ONE (14:50)
--- NOTE | 2024-03-11 14:59 | DVHOP2 ---
Operative Report DATE OF OPERATION: 03/11/24 PROCEDURE: Upper Endoscopy with biopsy. PREOPERATIVE INDICATION: The patient is a 53 -year-old male undergoing endoscopy for abdominal pain and abnormal finding GI tract imaging POSTOPERATIVE DIAGNOSES: 1. 2 cm sliding-type hiatal hernia with the acute grade B linear erosive esophagitis with esophageal ulcers extending into the distal 5 cm of the esophagus from which biopsies were obtained 2. Mild to moderate gastritis with multiple pre-pyloric antral gastric erosions 3. Otherwise normal examination up to the 2nd and 3rd part of the duodenal with good bile drainage and no active bleeding PROCEDURE PERFORMED BY: Chapo Henderson GI NURSE: Anclemo SCOPE: Olympus videoendoscope. ASA CLASS: 2. PREOPERATIVE MEDICATIONS: Mac sedation, Dr. Orozco PROCEDURE IN DETAIL: After obtaining an informed consent, the patient was placed on left lateral decubitus position. The patient was then sedated with the above medications. A bite block was placed between his teeth. The endoscope was then passed through the oropharynx, into the esophagus, and through the stomach and pylorus up to the second and third part of the duodenum. The endoscope was then withdrawn. The 2nd and 3rd part of the duodenal and the duodenal bulb were normal. Patient had good bile drainage The pre-pyloric area antrum and distal body showed [id number] gastritis and there were multiple pre-pyloric antral gastric erosions On retroflexion the fundus cardia and angularis were normal. Duodenal and gastric biopsies were obtained. The endoscope was then withdrawn into the distal esophagus where the patient had a 2 cm sliding-type hiatal hernia with acute grade B linear erosive esophagitis There were esophageal ulcers that were healing and extending into the distal 5 cm of the esophagus from which biopsies were obtained The remaining mid to proximal esophagus and oropharynx were unremarkable The patient tolerated the procedure well without difficulty. COMPLICATIONS : None SPECIMENS: Duodenal biopsies Gastric biopsies GE junction biopsies DISPOSITION: Transfer back to the floor Stable PLAN: 1. Await for biopsy result 2. Will place pt on Protonix 40 mg bid 3. Carafate 1 g p.o. 4 times a day 4. Resume full liquid diet advance as tolerated 5. Outpatient follow up with me in two weeks to arrange outpatient elective colonoscopy CHAPO HENDERSON MD Mar 11, 2024 14:59
[2024-03-11] MEDS: SUCRALFATE 1 GM/10 ML ORAL SUSP PO SCH (17:53)
--- NOTE | 2024-03-11 19:11 | DVHPNRES ---
Progress Note Date Seen: Mar 11, 2024 Resident Creating Document: LAURIE FINCH RESIDENT Medical Necessity Reason Pt with a Central, PICC or Fol: No Objective vital signs Vital Sign Date Time Temp Pulse Resp B/P (MAP) Pulse Ox O2 Delivery O2 Flow Rate FiO2 03/11/24 17:00 97.8 61 17 116/73 (87) 100 97.8 03/11/24 14:40 Mask 6.0 100 Total Intake and Output 03/10/24 03/10/24 03/11/24 15:00 23:00 07:00 Intake Total 100 ml 1300 ml Balance 100 ml 1300 ml medications Current Medications Medications Dose Ordered Sig/Yasmany Route Start Time Stop Time Status Last Admin Dose Admin Sodium Chloride 10 ml Q8HR IV 03/10/24 06:00 03/11/24 15:23 10 ML Ondansetron HCl 4 mg Q4HP PRN IV 03/09/24 23:30 Nitroglycerin 0.4 mg Q5MINP PRN SL 03/09/24 23:30 Morphine Sulfate 2 mg Q30M PRN IV 03/09/24 23:30 Sodium Chloride 1,000 ml @ 100 mls/hr Q10H IV 03/09/24 23:30 03/10/24 15:05 100 MLS/HR Pantoprazole Sodium 40 mg DAILY IV 03/10/24 10:00 03/11/24 09:18 40 MG Ceftriaxone Sodium 50 ml @ 100 mls/hr DAILY@0900 IV 03/11/24 09:00 03/11/24 08:50 100 MLS/HR Metronidazole 100 ml @ 100 mls/hr Q8HR IV 03/10/24 06:00 03/11/24 15:23 100 MLS/HR Acetaminophen 650 mg Q8HP PRN PO 03/10/24 09:45 03/10/24 22:30 650 MG Sucralfate 1 gm QID@0600,1130,1700,2200 PO 03/11/24 17:00 03/11/24 17:53 1 GM laboratory and microbiology Laboratory Tests 03/11/24 07:24 Test 03/11/24 07:24 Range/Units Serum Glucose 102 74-106 mg/dL Microbiology Date/Time Source Procedure Growth Status 03/10/24 23:25 Stool Stool Culture - Preliminary Resulted 03/10/24 23:25 Stool Shiga Toxin I & II - Final Resulted Problem List/Assessment/Plan Problem List/Assessment/Plan Assessment and plan: # Intractable abdominal pain, nausea and vomiting # Possible gastritis, rule out GI malignancy # Possible Ileus, rule out colonic malignacy # Possible proctitis # History of cholelithiasis # Rule out pancreatitis - CT abdomen pelvis revealed Wall thickening of the mid stomach which may be due to gastritis/neoplasm. Wall thickening of the duodenum and proximal jejunum with fluid-filled distended small bowel loops extending from the wall thickened proximal jejunum which may represent enteritis with associated ileus/ bowel obstruction. There is focal wall thickening of the distal transverse colon concerning for possible neoplasm with liquid stool within the borderline distended proximal large bowel measuring up to 6 cm. - GI on board and recommended EGD on 03/11/24 - IV Protonix 40 mg daily - Clear liquid diet - IV normal saline at 100 mL/hours - IV ceftriaxone 1 g daily and IV metronidazole 500 mg t.i.d. - Acetaminophen 650 mg p.o. Q 8 hours p.r.n. - IV ondansetron 4 mg q.4 p.r.n. - Lipase is mildly elevated - CEA is negative and pending CA19-9 - Ordered stool occult blood # Hypokalemia - Replenished. Code status discussed with the patient for more than 20 minutes full code Plan discussed with Dr. John Wynn Orders My Orders Orders - LAURIE FINCH Procedure Category Date Status Time Electrocardigram EKG 03/11/24 Logged 00:59 Electrocardigram EKG 03/11/24 Resulted 01:59 LAURIE FINCH RESIDENT Mar 11, 2024 19:11
--- NOTE | 2024-03-11 19:21 | DVHPNRES ---
Progress Note Date Seen: Mar 11, 2024 Resident Creating Document: LAURIE FINCH RESIDENT Medical Necessity Reason Pt with a Central, PICC or Fol: No Subjective Review of Systems This is a 53 year-old man with past medical history of GERD presented to the ED with a chief complaint of abdominal pain with vomiting for last 1 week prior to this presentation. the patient stated that abdominal pain started intermittently 1 month ago and located in the epigastric and right subcostal region, sharp colicky in nature, 10/10 and radiates to the back and associated with nausea and vomiting and he also mentioned altered bowel habits for last 1 month. He had this kind of pain 1 year ago and lost almost 20 lb unintentionally in last 1 year. Patient was seen and examined on the blood side. He is alert oriented x3. Complains of improved abdominal pain, and 2 bowel movement sice yesterday. EGD today on 03/11/2024 2 cm sliding hiatal hernia with acute grade B linear erosive esophagitis with esophageal ulcer extending into the distal 5 cm of the esophagus, [id number] gastritis with multiple pre-pyloric antral gastric erosion and otherwise normal examination examination of 2nd and that part of the duodenum with good bile drainage and no active bleeding. GI recommended Protonix 40 mg b.i.d., Carafate 1 g p.o. 4 times daily and full liquid diet and advance as tolerated and outpatient follow up in 2 weeks to arrange outpatient elective colonoscopy. Objective vital signs Vital Sign Date Time Temp Pulse Resp B/P (MAP) Pulse Ox O2 Delivery O2 Flow Rate FiO2 03/11/24 17:00 97.8 61 17 116/73 (87) 100 97.8 03/11/24 14:40 Mask 6.0 100 Total Intake and Output 03/10/24 03/10/24 03/11/24 15:00 23:00 07:00 Intake Total 100 ml 1300 ml Balance 100 ml 1300 ml medications Current Medications Medications Dose Ordered Sig/Yasmany Route Start Time Stop Time Status Last Admin Dose Admin Sodium Chloride 10 ml Q8HR IV 03/10/24 06:00 03/11/24 15:23 10 ML Ondansetron HCl 4 mg Q4HP PRN IV 03/09/24 23:30 Nitroglycerin 0.4 mg Q5MINP PRN SL 03/09/24 23:30 Morphine Sulfate 2 mg Q30M PRN IV 03/09/24 23:30 Sodium Chloride 1,000 ml @ 100 mls/hr Q10H IV 03/09/24 23:30 03/10/24 15:05 100 MLS/HR Pantoprazole Sodium 40 mg DAILY IV 03/10/24 10:00 03/11/24 09:18 40 MG Ceftriaxone Sodium 50 ml @ 100 mls/hr DAILY@0900 IV 03/11/24 09:00 03/11/24 08:50 100 MLS/HR Metronidazole 100 ml @ 100 mls/hr Q8HR IV 03/10/24 06:00 03/11/24 15:23 100 MLS/HR Acetaminophen 650 mg Q8HP PRN PO 03/10/24 09:45 03/10/24 22:30 650 MG Sucralfate 1 gm QID@0600,1130,1700,2200 PO 03/11/24 17:00 03/11/24 17:53 1 GM Examination Physical examination: General Appearance: Alert, Oriented X3, Cooperative, No acute distress HEENT: Atraumatic, PERRLA, EOMI, Mucous membrane moist/pink Respiratory: Clear to auscultation, Normal air movement Cardiovascular: Regular rate, Normal S1, Normal S2, No murmurs, no chest wall tenderness Abdominal: Normal bowel sounds, Soft, tenderness in the rt subcostal region, No hepatospenomegaly, No masses Extremities: No clubbing, No cyanosis, No edema, Normal pulses, No tenderness/swelling Skin: No rashes, No breakdown, No significant lesion Neuro: Normal gait, Normal speech, Strength at 5/5 X4 ext, Normal tone, Sensation intact, grossly intact cranial nerves. Psych/Mental Status: Mental status NL, Mood NL laboratory and microbiology Laboratory Tests 03/11/24 07:24 Test 03/11/24 07:24 Range/Units Serum Glucose 102 74-106 mg/dL Microbiology Date/Time Source Procedure Growth Status 03/10/24 23:25 Stool Stool Culture - Preliminary Resulted 03/10/24 23:25 Stool Shiga Toxin I & II - Final Resulted Labs and/or images reviewed: Labs reviewed by me, Image(s) reviewed by me Problem List/Assessment/Plan Problem List/Assessment/Plan Assessment and plan: # Intractable abdominal pain, nausea and vomiting # Possible gastritis, rule out GI malignancy # Possible Ileus, rule out colonic malignacy # Possible proctitis # History of cholelithiasis # Rule out pancreatitis - CT abdomen pelvis revealed Wall thickening of the mid stomach which may be due to gastritis/neoplasm. Wall thickening of the duodenum and proximal jejunum with fluid-filled distended small bowel loops extending from the wall thickened proximal jejunum which may represent enteritis with associated ileus/ bowel obstruction. There is focal wall thickening of the distal transverse colon concerning for possible neoplasm with liquid stool within the borderline distended proximal large bowel measuring up to 6 cm. - GI on board and recommended EGD on 03/11/24 Patient underwent EGD today on 03/11/2024 and revealed 2 cm sliding hiatal hernia with acute grade B linear erosive esophagitis with esophageal ulcer extending into the distal 5 cm of the esophagus, [id number] gastritis with multiple pre-pyloric antral gastric erosion and otherwise normal examination examination of 2nd and that part of the duodenum with good bile drainage and no active bleeding. GI recommended Protonix 40 mg b.i.d., Carafate 1 g p.o. 4 times daily and full liquid diet and advance as tolerated and outpatient follow up in 2 weeks to arrange outpatient elective colonoscopy. - Clear liquid diet - Protonix 40 mg b.i.d, carafate 1 gm q.i.d - IV normal saline at 100 mL/hours - IV ceftriaxone 1 g daily and IV metronidazole 500 mg t.i.d. - Acetaminophen 650 mg p.o. Q 8 hours p.r.n. - IV ondansetron 4 mg q.4 p.r.n. - Lipase is mildly elevated - CEA is negative and pending [id number] - Ordered stool occult blood # Hypokalemia - Replenished. Code status discussed with the patient for more than 20 minutes full code Plan discussed with Dr. Lopez Plan discussed with: Patient, Other My Orders My Orders Orders - LAURIE FINCH Procedure Category Date Status Time Electrocardigram EKG 03/11/24 Logged 00:59 Electrocardigram EKG 03/11/24 Resulted 01:59 LAURIE FINCH Mar 11, 2024 19:21
[2024-03-12 01:00] VITALS: BP 114/78; PULSE 68; RESP 20; TEMP 98.2; O2SAT 97
[2024-03-12 05:00] VITALS: BP 104/70; PULSE 62; RESP 20; TEMP 97.9; O2SAT 96
[2024-03-12] MEDS: PANTOPRAZOLE 40 MG TAB PO SCH (05:42)
[2024-03-12] MEDS: POTASSIUM CHL 20 Meq TABLET PO ONE (06:38)
[2024-03-12 07:26] LABS: Basophils # (auto) 0 10 ^3/uL (0-0.2); Basophils % (auto) 0.3 % (0.0-2.0); Eosinophils # (auto) 0.1 10 ^3/uL (0-0.8); Eosinophils % (auto) 2.1 % (0.0-7.0); Hematocrit 35.8 % (41.0-53.0); Hemoglobin 12.2 g/dL (13.5-17.5); Lymphocytes # (auto) 1.3 10 ^3/uL (0.4-5.4); Lymphocytes % (auto) 19.1 % (10.0-50.0); Mean Corpuscular Hemoglobin 29.8 pg (28.0-32.0); Mean Corpuscular Hgb Conc. 34.1 g/dL (32.0-36.0); Mean Corpuscular Volume 87.5 fL (80.0-100.0); Monocytes # (auto) 0.3 10 ^3/uL (0-1.3); Monocytes % (auto) 4.9 % (0.0-12.0); Neutrophils # (auto) 4.9 10 ^3/uL (1.6-8.6); Neutrophils % (auto) 73.6 % (37.0-80.0); Platelet Count (auto) 274 10^3/uL (140-450); Red Blood Cells 4.09 10^6/uL (4.5-5.90); Red Cell Distribution Width 14.7 % (11.8-14.3); White Blood Cell 6.7 10^3/uL (4.4-10.8)
[2024-03-12 07:39] LABS: Alanine Aminotransferase < 9 U/L (7-40); Alkaline Phosphatase 59 U/L (46-116); Anion Gap 9 (5-15); Calcium 8.9 mg/dL (8.7-10.4); Carbon Dioxide 26 mmol/L (20-31); Chloride 107 mmol/L (98-107); Glucose 95 mg/dL (74-106); Potassium 3.3 mmol/L (3.5-5.1); Sodium 142 mmol/L (136-145)
[2024-03-12 07:40] LABS: Albumin 3.6 g/dL (3.2-4.8); Aspartate Aminotransferase < 8 U/L (13-40); BUN/Creatinine Ratio 6.3 (10.0-20.0); Blood Urea Nitrogen < 5 mg/dL (9-23)
[2024-03-12 07:42] LABS: Bilirubin, Total 0.3 mg/dL (0.2-1.0); Total Protein 5.5 g/dL (5.7-8.2)
[2024-03-12 08:00] VITALS: PULSE 67; RESP 16; O2SAT 100
[2024-03-12 09:00] VITALS: BP 106/61; PULSE 67; RESP 16; TEMP 98; O2SAT 100
--- NOTE | 2024-03-12 10:14 | DVH ---
Date: 03/12/2024 09:42 AM Examination: XY KUB ABDOMEN SINGLE VIEW History: EVAL INTERVAL CHANGES Comparison: 03/09/2024 TECHNIQUE: Frontal views of the abdomen was obtained. FINDINGS: Bowel gas pattern is unremarkable. The lung bases are collimated from field of view. No acute osseous abnormality identified. IMPRESSION: Nonobstructive bowel gas pattern.
--- NOTE | 2024-03-12 10:26 | DVHPN2 ---
Progress Note Date Seen: Mar 12, 2024 Resident Creating Document: RISA CEE RESIDENT Medical Necessity Reason Pt with a Central, PICC or Fol: No Subjective Review of Systems Mr. Kenyon is a 53-year-old male with intestinal surgery as a child who presented to the ER with the chief complaint of right upper quadrant and epigastric pain for about a week associated with nausea and vomiting for the same time. He reports that the vomiting preceded the pain which is yellowish greenish in color, he is unable to tolerate any solid or liquid diet. 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 He reports unintentional weight loss of around 20 lb. He reports intermittent diarrhea for whole of his life which is greenish bilious in color and foul-smelling. He has a colonoscopy more than 20 years back and does not remember the results. CT abdomen completed shows wall thickening of med stomach consistent with gastritis. Distal colon thickening and rectal wall thickening. Patient seen and examined at the bedside. No active complaint. Objective vital signs Vital Sign Date Time Temp Pulse Resp B/P (MAP) Pulse Ox O2 Delivery O2 Flow Rate FiO2 03/12/24 09:00 98.0 67 16 106/61 (76) 100 98.0 03/12/24 08:00 Room Air* 0 21 Total Intake and Output 03/11/24 03/11/24 03/12/24 15:00 23:00 07:00 Intake Total 150 ml 336 ml 1300 ml Output Total 850 ml Balance 150 ml 336 ml 450 ml medications Current Medications Medications Dose Ordered Sig/Yasmany Route Start Time Stop Time Status Last Admin Dose Admin Sodium Chloride 10 ml Q8HR IV 03/10/24 06:00 03/12/24 05:42 10 ML Ondansetron HCl 4 mg Q4HP PRN IV 03/09/24 23:30 Nitroglycerin 0.4 mg Q5MINP PRN SL 03/09/24 23:30 Morphine Sulfate 2 mg Q30M PRN IV 03/09/24 23:30 Sodium Chloride 1,000 ml @ 100 mls/hr Q10H IV 03/09/24 23:30 03/10/24 15:05 100 MLS/HR Ceftriaxone Sodium 50 ml @ 100 mls/hr DAILY@0900 IV 03/11/24 09:00 03/12/24 09:07 100 MLS/HR Metronidazole 100 ml @ 100 mls/hr Q8HR IV 03/10/24 06:00 03/12/24 05:42 100 MLS/HR Acetaminophen 650 mg Q8HP PRN PO 03/10/24 09:45 03/11/24 22:12 650 MG Sucralfate 1 gm QID@0600,1130,1700,2200 PO 03/11/24 17:00 03/12/24 05:42 1 GM Pantoprazole Sodium 40 mg BID@0600,1700 PO 03/12/24 06:00 03/12/24 05:42 40 MG Examination Patient lying in bed, in no acute distress General: Well-built, afebrile, palor, mucosae are moist Cardiovascular: Regular S1 and S2. No murmurs, gallops or rubs. No JVD elevation. No pedal edema Respiratory: Normal B/L air entry on room air. Clear lung sounds on auscultation Abdomen: Soft, nontender, nondistended, normoactive bowel sounds, no rebound tenderness, no organomegaly, no masses Genitourinary: Deferred MSK/skin: Mobilizes 4 limbs. Skin is dry and warm Neurological: No motor, no sensitive deficits, normal speech. Pupils are isocoric and reactive. Psych/Mental Status: A/Ox3 laboratory and microbiology Laboratory Tests 03/12/24 06:05 Test 03/12/24 06:05 Range/Units Serum Glucose 95 74-106 mg/dL Microbiology Date/Time Source Procedure Growth Status 03/10/24 23:25 Stool Stool Culture - Preliminary Resulted 03/10/24 23:25 Stool Shiga Toxin I & II - Final Resulted Labs and/or images reviewed: Labs reviewed by me, Image(s) reviewed by me Problem List/Assessment/Plan Problem List/Assessment/Plan Intractable nausea and vomiting Abdominal pain secondary to erosive esophagitis and moderate gastritis 2 cm sliding-type hiatal hernia Probable proctitis Focal wall thickening of the distal transverse colon ? 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 Wall thickening of the duodenum and proximal jejunum with fluid-filled distended small bowel loops extending from the wall thickened proximal jejunum which may represent enteritis with associated ileus/ bowel obstruction. There is focal wall thickening of the distal transverse colon concerning for possible neoplasm with liquid stool within the borderline distended proximal large bowel measuring up to 6 cm. EGD completed shows 2 cm sliding-type hiatal hernia with grade B a linear erosive esophagitis with esophageal ulcer extending into the distal 5 cm of the suspicious biopsies were obtained. [id number] gastritis Plan: EGD completed 03/11/2024. Patient advised for outpatient GI follow up for screening colonoscopy and biopsy results and further management. Continue Protonix 40 mg twice daily and Carafate 1 g p.o. 4 times a day. Advanced diet as tolerated. Patient is stable to be discharged. Last colonoscopy more than 20 years back Continue antibiotics per primary team Stool culture negative Correct underlying electrolyte imbalances Plan discussed with patient in which all questions have been answered Case discussed with Dr. Henderson Plan discussed with: Patient RISA CEE RESIDENT Mar 12, 2024 10:26
[2024-03-12] MEDS ORDERED: SUCR1SUS5 PO (11:36)
[2024-03-12] MEDS ORDERED: PANT40TA2 PO (11:36)
--- NOTE | 2024-03-12 11:43 | DVHDSRES ---
Discharge Summary Date of Admission Resident Creating Document: RISA CEE RESIDENT Mar 09, 2024 at 23:19 Date of Discharge: Mar 12, 2024 Admitting Diagnosis Intractable abdominal pain, vomiting and diarrhea Wounds: No wound was present Labs/Diagnostic Data: Laboratory Results Test 03/12/24 06:05 03/11/24 07:24 03/10/24 23:25 03/10/24 09:23 White Blood Count 6.7 10^3/uL (4.4-10.8) Red Blood Count 4.09 10^6/uL (4.5-5.90) Hemoglobin 12.2 g/dL (13.5-17.5) Hematocrit 35.8 % (41.0-53.0) Mean Corpuscular Volume 87.5 fL (80.0-100.0) Mean Corpuscular Hemoglobin 29.8 pg (28.0-32.0) Mean Corpuscular Hemoglobin Concent 34.1 g/dL (32.0-36.0) Red Cell Distribution Width 14.7 % (11.8-14.3) Platelet Count 274 10^3/uL (140-450) Mean Platelet Volume 7.8 fL (6.9-10.8) Neutrophils (%) (Auto) 73.6 % (37.0-80.0) Lymphocytes (%) (Auto) 19.1 % (10.0-50.0) Monocytes (%) (Auto) 4.9 % (0.0-12.0) Eosinophils (%) (Auto) 2.1 % (0.0-7.0) Basophils (%) (Auto) 0.3 % (0.0-2.0) Neutrophils # (Auto) 4.9 10 ^3/uL (1.6-8.6) Lymphocytes # (Auto) 1.3 10 ^3/uL (0.4-5.4) Monocytes # (Auto) 0.3 10 ^3/uL (0-1.3) Eosinophils # (Auto) 0.1 10 ^3/uL (0-0.8) Basophils # (Auto) 0 10 ^3/uL (0-0.2) Nucleated Red Blood Cells 0.0 % Sodium Level 142 mmol/L (136-145) Potassium Level 3.3 mmol/L (3.5-5.1) Chloride Level 107 mmol/L (98-107) Carbon Dioxide Level 26 mmol/L (20-31) Anion Gap 9 (5-15) Blood Urea Nitrogen < 5 mg/dL (9-23) Creatinine 0.80 mg/dL (0.700-1.30) Glomerular Filtration Rate Calc 106 mL/min (>90) BUN/Creatinine Ratio 6.3 (10.0-20.0) Serum Glucose 95 mg/dL (74-106) Calcium Level 8.9 mg/dL (8.7-10.4) Total Bilirubin 0.3 mg/dL (0.2-1.0) Aspartate Amino Transferase (AST) < 8 U/L (13-40) Alanine Aminotransferase (ALT) < 9 U/L (7-40) Alkaline Phosphatase 59 U/L (46-116) Total Protein 5.5 g/dL (5.7-8.2) Albumin 3.6 g/dL (3.2-4.8) Prothrombin Time 11.3 sec (9.3-11.8) Prothrombin Time INR 1.07 (0.9-1.15) Activated Partial Thromboplast Time 28.1 SEC (24.5-34.5) Stool Occult Blood Negative (Negative) Stool Occult Blood Sample #3 (Negative) Stool for White Cells None seen Carcinoembryonic Antigen 3.57 ng/mL (<=5.0) CA 19-9 Antigen 8 U/mL (0-35) Test 03/10/24 04:36 03/09/24 22:57 03/09/24 22:01 03/09/24 21:51 Hemoglobin A1c 5.4 % A1C (<5.7) Thyroid Stimulating Hormone (TSH) 2.65 uIU/mL (0.55-4.78) Troponin I High Sensitivity 5 ng/L (</=54) Urine Color Yellow (Yellow) Urine Clarity Clear (Clear) Urine pH 6.0 (5.0-9.0) Urine Specific [place] 1.030 (1.001-1.035) Urine Protein 1+ (Negative) Urine Ketones Negative (Negative) Urine Blood Negative /uL (Negative) Urine Nitrite Negative (Negative) Urine Bilirubin Negative (Negative) Urine Urobilinogen Normal mg/dL (Negative) Urine Leukocyte Esterase Negative /uL (Negative) Urine RBC 10 /hpf (0 - 3) Urine Microscopic WBC 1 /HPF (0-3) Urine Squamous Epithelial Cells None seen /hpf (<5) Urine Bacteria None seen /hpf (None Seen) Urine Mucus Few (None Seen) Urine Glucose Normal mg/dL (Normal) Lactic Acid Level 1.4 mmol/L (0.4-2.0) Lipase 55 U/L (12-53) Other Laboratory Tests 03/12/24 06:05 Brief Hx & Hospital Course: This is a 53 year-old man with past medical history of GERD presented to the ED with a chief complaint of abdominal pain with vomiting for last 1 week prior to this presentation. the patient stated that abdominal pain started intermittently 1 month ago and located in the epigastric and right subcostal region, sharp colicky in nature, 10/10 and radiates to the back and associated with nausea and vomiting and he also mentioned altered bowel habits for last 1 month. He also had this kind of pain 1 year ago and lost almost 20 lb unintentionally in last 1 year. Hospital course: CT abdomen pelvis revealed Wall thickening of the mid stomach which may be due to gastritis/neoplasm. Wall thickening of the duodenum and proximal jejunum with fluid-filled distended small bowel loops extending from the wall thickened proximal jejunum which may represent enteritis with associated ileus/ bowel obstruction. There is focal wall thickening of the distal transverse colon concerning for possible neoplasm with liquid stool within the borderline distended proximal large bowel measuring up to 6 cm. was treated with 1st NPO and then advanced diet to mechanical soft diet, IV normal saline nonlabored mL per hours, IV ceftriaxone 1 g daily, IV metronidazole 500 mg t.i.d., IV ondansetron 4 mg q.4 p.r.n. stool occult blood was negative and CEA, CA 19-9 were also negative.Patient underwent EGD today on 03/11/2024 and revealed 2 cm sliding hiatal hernia with acute grade B linear erosive esophagitis with esophageal ulcer extending into the distal 5 cm of the esophagus, [id number] gastritis with multiple pre-pyloric antral gastric erosion and otherwise normal examination examination of 2nd and that part of the duodenum with good bile drainage and no active bleeding. GI recommended Protonix 40 mg b.i.d., Carafate 1 g p.o. 4 times daily and full liquid diet and advance as tolerated and outpatient follow up in 2 weeks to arrange outpatient elective colonoscopy. Discharge plan was discussed with the patient and all questions were answered. Patient is being discharged to home Discharge diagnosis: # Intractable abdominal pain, nausea and vomiting # Gastritis/PUD, rule out GI malignancy # Possible Ileus, rule out colonic malignacy # Possible proctitis # History of cholelithiasis # Ruled out pancreatitis # Hypokalemia Discharge plan: Disposition : Home Medications : Protonix 40 mg p.o. daily, Carafate 1 g p.o. q.i.d. and continue home medication Follow up : [facility] 1 week Outpatient GI in 2 weeks to schedule elective colonoscopy Consults/Reason for consult GI was consulted Operations or Procedures Exam: CT CT AB PEL WO CON-NO ORAL OR IV History: epig/ruq pain n/v Comparison Study: None available at time of dictation. TECHNIQUE: Multidetector CT of the abdomen and pelvis without contrast. Axial, coronal and sagittal multiplanar reformats were obtained from the axial data set by the technologist. Radiation Dose Information: CT Dose: CTDI volume is 5.67 mGy. Dose-length product is 286.61 mGy*cm FINDINGS: Bibasilar atelectasis. Partially visualized heart is unremarkable. Subcentimeter hypodense hepatic lesion that is too small to characterize. Otherwise, liver, spleen, adrenal glands unremarkable. Cholelithiasis with limited evaluation for acute cholecystitis. Punctate nonobstructing right renal calculi. Duplicated right renal collecting system Otherwise, kidneysureters unremarkable. Minimal wall thickening of the urinary bladder. Prostate measures 3.6 x 5 by 4.6 cm. There is moderate distention of the proximal stomach with the wall thickening of the mid stomach. There is wall thickening of the duodenum and proximal jejunum with distended loops of small bowel noted extending from the distal end of the thickened proximal duodenum measuring up to 4.7 cm. Segmental wall thickening of the distal transverse colon with liquid stool filled colon proximal to in the wall thickening. The descending colon and sigmoid are unremarkable. Unable to distinguish the cecum from the liquid stool filled proximal large bowel. The appendix is not visualized. Rectal wall thickening. No evidence of intraperitoneal free air or free fluid. No evidence of aortic aneurysm. No significant lymphadenopathy. Possibly scarring of the right paraumbilical region. No destructive osseous lesions are noted. IMPRESSION: Wall thickening of the mid stomach which may be due to gastritis/neoplasm. Wall thickening of the duodenum and proximal jejunum with fluid-filled distended small bowel loops extending from the wall thickened proximal jejunum which may represent enteritis with associated ileus/ bowel obstruction. There is focal wall thickening of the distal transverse colon concerning for possible neoplasm with liquid stool within the borderline distended proximal large bowel measuring up to 6 cm. The descending colon and sigmoid are unremarkable. Rectal wall thickening. Correlate for proctitis/neoplasm. DATE OF OPERATION: 03/11/24 PROCEDURE: Upper Endoscopy with biopsy. PREOPERATIVE INDICATION: The patient is a 53 -year-old male undergoing endoscopy for abdominal pain and abnormal finding GI tract imaging POSTOPERATIVE DIAGNOSES: 1. 2 cm sliding-type hiatal hernia with the acute grade B linear erosive esophagitis with esophageal ulcers extending into the distal 5 cm of the esophagus from which biopsies were obtained 2. Mild to moderate gastritis with multiple pre-pyloric antral gastric erosions 3. Otherwise normal examination up to the 2nd and 3rd part of the duodenal with good bile drainage and no active bleeding PROCEDURE PERFORMED BY: Angelita Henderson GI NURSE: Ancelmo SCOPE: Olympus videoendoscope. ASA CLASS: 2. PREOPERATIVE MEDICATIONS: Dr. Pam Stephens PROCEDURE IN DETAIL: After obtaining an informed consent, the patient was placed on left lateral decubitus position. The patient was then sedated with the above medications. A bite block was placed between his teeth. The endoscope was then passed through the oropharynx, into the esophagus, and through the stomach and pylorus up to the second and third part of the duodenum. The endoscope was then withdrawn. The 2nd and 3rd part of the duodenal and the duodenal bulb were normal. Patient had good bile drainage The pre-pyloric area antrum and distal body showed [id number] gastritis and there were multiple pre-pyloric antral gastric erosions On retroflexion the fundus cardia and angularis were normal. Duodenal and gastric biopsies were obtained. The endoscope was then withdrawn into the distal esophagus where the patient had a 2 cm sliding-type hiatal hernia with acute grade B linear erosive esophagitis There were esophageal ulcers that were healing and extending into the distal 5 cm of the esophagus from which biopsies were obtained The remaining mid to proximal esophagus and oropharynx were unremarkable The patient tolerated the procedure well without difficulty. COMPLICATIONS : None SPECIMENS: Duodenal biopsies Gastric biopsies GE junction biopsies DISPOSITION: Transfer back to the floor Stable PLAN: 1. Await for biopsy result 2. Will place pt on Protonix 40 mg bid 3. Carafate 1 g p.o. 4 times a day 4. Resume full liquid diet advance as tolerated 5. Outpatient follow up with me in two weeks to arrange outpatient elective colonoscopy Condition at Discharge: Guarded Final Diagnosis/Problems List # Intractable abdominal pain, nausea and vomiting # Gastritis/PUD, rule out GI malignancy # Possible Ileus, rule out colonic malignacy # Possible proctitis # History of cholelithiasis # Ruled out pancreatitis # Hypokalemia Discharge Disposition: Home Discharge Instruct/Medications Diet: Regular Diet comment: Mechanical soft diet Activity: No Restrictions, As Tolerated Follow Up/Referral: Follow up with [facility] clinic in 1 week Follow up with outpatient GI to schedule elective colonoscopy. Medications: As per EMR Discharge Statement: "Patient was advised to return to the ER or call 911 if any headaches, dizziness, shortness of breath, chest pain, abdominal pain, bleeding, fevers, or worsening of medical condition. Patient was counseled about treatment plan, medications, possible side effects, patientverbalized understanding. All questions were answered to the best of my ability. This discharge took greater then 30 minutes in planning, reviewing documentation, counseling the patient, and discussing with other team members." ASSESSMENT ASSESSMENT Assessment # Intractable abdominal pain, nausea and vomiting # Gastritis/PUD, rule out GI malignancy # Possible Ileus, rule out colonic malignacy # Possible proctitis # History of cholelithiasis # Ruled out pancreatitis # Hypokalemia LAURIE FINCH RESIDENT Mar 12, 2024 11:42
[2024-03-12] MEDS: PNEUMOCOCCAL VACC POLYS 25 MCG/0.5 ML VIAL IM ONE (12:19)
[2024-03-12 12:41] VITALS: BP 106/61; PULSE 67; RESP 16; TEMP 98; O2SAT 100
[2024-03-12 13:00] VITALS: BP 114/73; PULSE 65; RESP 18; TEMP 97.9; O2SAT 100
== END 2024-03-12 15:11 | disposition home or self-care (01) | DRG 381 ==
LOC: ER 21:14 → OVERFLOW 23:19 → WEST WING 03-10 21:41
PROVIDERS: ADMIT Student in an Organized Health Care Education/Training Program; ATTEND Student in an Organized Health Care Education/Training Program
PROC: 0DB98ZX Excision of Duodenum, Via Natural or Artificial Opening Endoscopic, Diagnostic (ICD-10-PCS; 2024-03-11)
PROC: 0DB48ZX Excision of Esophagogastric Junction, Via Natural or Artificial Opening Endoscopic, Diagnostic (ICD-10-PCS; 2024-03-11)
PROC: 0DB68ZX Excision of Stomach, Via Natural or Artificial Opening Endoscopic, Diagnostic (ICD-10-PCS; principal; 2024-03-11 14:20)
DX: K22.10 Ulcer of esophagus without bleeding (principal); C18.9 Malignant neoplasm of colon, unspecified; K56.7 Ileus, unspecified; K29.70 Gastritis, unspecified, without bleeding; K25.9 Gastric ulcer, unspecified as acute or chronic, without hemorrhage or perforation; K62.89 Other specified diseases of anus and rectum; E87.6 Hypokalemia; K44.9 Diaphragmatic hernia without obstruction or gangrene; K21.9 Gastro-esophageal reflux disease without esophagitis; K80.20 Calculus of gallbladder without cholecystitis without obstruction; Z83.3 Family history of diabetes mellitus; Z79.899 Other long term (current) drug therapy
CPT/HCPCS: 36415; 71045; 74018; 74176; 80053; 81001; 82270; 82378; 83036; 83605; 83690; 84132; 84443; 84484; 85025; 85048; 85610; 85730; 86301; 86850; 86900; 86901; 87045; 87427; 93005; G0378; J1100; J1885; J2250; J2405; J2470; J2704; J3490

== ENCOUNTER 2024-03-19 15:14 | Inpatient (IN) | payer SELFPAY ==
[~2024-03-19] VITALS: Ht 180.3 cm; Wt 64.2 kg
[~2024-03-19 15:14] MED LIST: LEVO88TA4 PO; PANT40TA2 PO; SUCR1SUS5 PO
--- NOTE | 2024-03-19 15:37 | ED.PDOC ---
GI ASSESSMENT HPI Comments 53-year-old male with PMHx Gallstones presents with a chief complaint of abdominal pain with associated nausea and diarrhea. Patient states that his pain is localized to his epigastric region, nonradiating, describes as aching, and rates his pain a 8/10. Patient mentions that he was recently here and discharged from upstairs after being inpatient for a few days. Patient had a esophageal ulcer related to a hiatal hernia that extended into his stomach at that time. Patient mentions that the pain is similar to his gallstones problem. Patient denies any new injuries or trauma prior to onset of symptoms this episode. Patient states he has been noncompliant with the medication as directed by the discharging provider. Patient denies any new pain concerns. Time Seen by MD: 15:22 Reviewed Notes: Nurses Notes, Medications, Allergies Allergies: Coded Allergies: No Known Drug Allergy (Verified Allergy, Unknown, 03/09/24) Home Meds Active Scripts Sucralfate (Carafate) 1 Gm/10 Ml Jeanne, 1 GM PO QID for 30 Days, #120 GM Prov:LAURIE FINCH RESIDENT 03/12/24 Pantoprazole Sodium Sesquihydr (Protonix) 40 Mg Tab, 40 MG PO BID for 30 Days, #60 TAB Prov:LAURIE FINCH RESIDENT 03/12/24 Reported Medications Levothyroxine Sodium (Levothyroxine Sodium) 88 Mcg Tab, 88 MCG PO DAILY, TAB 03/10/24 Discontinued Reported Medications Omeprazole (Gnp Omeprazole) 20 Mg Tab, 1 TAB PO DAILY, #90 TAB 1 Refill 03/10/24 Information Source: Patient Mode of Arrival: Ambulatory Timing: Days Duration: Intermittent Prehospital treatment: Treatment Quality: Aching Vomitus: None Stool: Watery, Brown Severity: Moderate Recent: None Recent Hx of: Other (Esophageal ulceration extending into the stomach due to a hiatal hernia) Pain Location: Epigastric Associated sign and symptoms: Nausea, Diarrhea, Abdominal Pain Past Medical History PAST MEDICAL HISTORY: Gallstones, Thyroid Past Medical History (Other): Recent history of esophageal ulcer due to hiatal hernia Surgical History: Denies all surgeries Family History Family History: Unknown Social History Smoker: Non-Smoker Alcohol: Denies ETOH Use Drugs: Denies Drug Use Lives In: Home Constitutional: denies: chills, diaphoresis, fatigue, fever, malaise, sweats, weakness, others EENTM: denies: blurred vision, double vision, ear bleeding, ear discharge, ear drainage, ear pain, ear ringing, eye pain, eye redness, hearing loss, mouth pain, mouth swelling, nasal discharge, nose bleeding, nose congestion, nose pain, photophobia, tearing, throat pain, throat swelling, voice changes, others Respiratory: denies: cough, hemoptysis, orthopnea, SOB at rest, shortness of breath, SOB with excertion, stridor, wheezing, others Cardiovascular: denies: chest pain, dizzy spells, diaphoresis, Dyspnea on exertion, edema, irregular heart beat, left arm pain, lightheadedness, palpitations, PND, syncope, others Gastrointestinal: reports: abdominal pain, diarrhea, nausea; denies: abdomen distended, blood streaked bowels, constipated, dysphagia, difficulty swallowing, hematemesis, melena, poor appetite, poor fluid intake, rectal bleeding, rectal pain, vomiting, others Genitourinary: denies: burning, dysuria, flank pain, frequency, hematuria, in continence, penile discharge, penile sore, pain, testicle pain, testicle swelling, urgency, others Neurological: denies: dizziness, fainting, headache, left sided numbness, left sided weakness, numbness, paresthesia, pre-existing deficit, right sided numbness, right sided weakness, seizure, speech problems, tingling, tremors, weakness, others Musculoskeletal: denies: back pain, gout, joint pain, joint swelling, muscle pain, muscle stiffness, neck pain, others Integumetry: denies: bruises, change in color, change in hair/nails, dryness, laceration, lesions, lumps, rash, wounds, others Allergic/Immunocompromised: denies: Difficulty Healing, Frequent Infections, Hives, Itching, others Hematologic/Lymphatic: denies: anemia, blood clots, easy bleeding, easy bruising, swollen glands, others Endocrine: denies: excessive hunger, excessive sweating, excessive thirst, excessive urination, flushing, intolerance to cold, intolerance to heat, unexplained weight gain, unexplained weight loss, others Psychiatric: denies: anxiety, bipolar disorder, depression, hopeless, panic disorder, schizophrenia, sleepless, suicidal, others All Other Systems: Reviewed and Negative Physical Exam General Appearance: Moderate Distress (Due to abdominal pain concerns.), Obese, Thin HEENT: Normal ENT Inspection, Pharynx Normal, TMs Normal Neck: Full Range of Motion, Non-Tender, Normal, Normal Inspection Respiratory: Chest Non-Tender, Lungs Clear, No Accessory Muscle Use, No Respiratory Distress, Normal Breath Sounds Cardiovascular: No Edema, No JVD, No Murmur, No Gallop, Normal Peripheral Pulses, Regular Rate/Rhythm Breast Exam: Deferred Gastrointestinal: Other (Diffuse epigastric tenderness to palpation extending mildly towards the umbilicus. Abdomen was mildly rigid. No pulsatile masses. No signs of trauma.) Genitalia: Deferred Pelvic: Deferred Rectal: Deferred Extremities: No calf tenderness, Normal capillary refill, Normal inspection, Normal range of motion, Non-tender, No pedal edema Musculoskeletal : Apperance: Normal Neurologic: Alert, No Motor Deficits, Normal Affect, Normal Mood, No Sensory Deficits Cerebellar Function: Normal Reflexes: Normal Skin: Dry, Normal Color, Warm Lymphatic: No Adenopathy Was a procedure done? Was a procedure done?: No GI differential Dx Differential Diagnosis: Other (Sepsis, electrolyte abnormality, pancreatitis, gastric ulcers) X-Ray, Labs, Meds, VS Vital Signs Date Time Temp Pulse Resp B/P (MAP) Pulse Ox O2 Delivery O2 Flow Rate FiO2 03/19/24 16:20 93 16 98 Room Air 03/19/24 16:20 98.4 93 16 111/75 (87) 98 98.4 03/19/24 15:43 97.6 93 16 125/85 (98) 97 Lab Test 03/19/24 15:41 03/19/24 15:38 Range/Units Urine Color Yellow Yellow Urine Clarity Clear Clear Urine pH 5.5 5.0-9.0 Urine Specific [place] 1.028 1.001-1.035 Urine Protein Trace H Negative Urine Ketones Trace Negative Urine Blood Negative Negative /uL Urine Nitrite Negative Negative Urine Bilirubin Negative Negative Urine Urobilinogen Normal Negative mg/dL Urine Leukocyte Esterase Negative Negative /uL Urine RBC 6 0 - 3 /hpf Urine Microscopic WBC < 1 0-3 /HPF Urine Squamous Epithelial Cells Few <5 /hpf Urine Bacteria None seen None Seen /hpf Urine Mucus Few None Seen Urine Glucose Normal Normal mg/dL White Blood Count 10.3 4.4-10.8 10^3/uL Red Blood Count 4.17 L 4.5-5.90 10^6/uL Hemoglobin 13.2 L 13.5-17.5 g/dL Hematocrit 38.0 L 41.0-53.0 % Mean Corpuscular Volume 91.1 80.0-100.0 fL Mean Corpuscular Hemoglobin 31.6 28.0-32.0 pg Mean Corpuscular Hemoglobin Concent 34.7 32.0-36.0 g/dL Red Cell Distribution Width 15.1 H 11.8-14.3 % Platelet Count 372 140-450 10^3/uL Mean Platelet Volume 7.4 6.9-10.8 fL Neutrophils (%) (Auto) 83.9 H 37.0-80.0 % Lymphocytes (%) (Auto) 8.9 L 10.0-50.0 % Monocytes (%) (Auto) 6.0 0.0-12.0 % Eosinophils (%) (Auto) 0.8 0.0-7.0 % Basophils (%) (Auto) 0.4 0.0-2.0 % Neutrophils # (Auto) 8.6 1.6-8.6 10 ^3/uL Lymphocytes # (Auto) 0.9 0.4-5.4 10 ^3/uL Monocytes # (Auto) 0.6 0-1.3 10 ^3/uL Eosinophils # (Auto) 0.1 0-0.8 10 ^3/uL Basophils # (Auto) 0 0-0.2 10 ^3/uL Nucleated Red Blood Cells 0.0 % Sodium Level 140 136-145 mmol/L Potassium Level 3.7 3.5-5.1 mmol/L Chloride Level 102 98-107 mmol/L Carbon Dioxide Level 31 20-31 mmol/L Anion Gap 7 5-15 Blood Urea Nitrogen 9 9-23 mg/dL Creatinine 0.94 0.700-1.30 mg/dL Glomerular Filtration Rate Calc 97 >90 mL/min BUN/Creatinine Ratio 9.6 L 10.0-20.0 Serum Glucose 111 H 74-106 mg/dL Lactic Acid Level 1.3 0.4-2.0 mmol/L Calcium Level 9.4 8.7-10.4 mg/dL Total Bilirubin 0.5 0.2-1.0 mg/dL Aspartate Amino Transferase (AST) 13 13-40 U/L Alanine Aminotransferase (ALT) 16 7-40 U/L Alkaline Phosphatase 67 46-116 U/L Total Protein 6.8 5.7-8.2 g/dL Albumin 4.4 3.2-4.8 g/dL Lipase 43 12-53 U/L Current Medications Medications (Trade) Dose Ordered Sig/Yasmany Route Start Time Stop Time Status Last Admin Al Hydrox/Mg Hydrox/Simethicone (Maalox Plus) 30 ml ONCE ONCE PO 03/19/24 15:30 03/19/24 15:32 DC 03/19/24 16:17 Lidocaine HCl (Xylocaine 2% Viscous) 3 ml ONCE ONCE PO 03/19/24 15:30 03/19/24 15:32 DC 03/19/24 16:17 X-Ray, Labs, Meds, VS Comment All studies performed the ED were evaluated by me personally. Laboratories were unremarkable for any acute concern. Due to the recent admission due to the same complaints with the patient's presenting with today, patient will be admitted for a GI evaluation and medication options moving forward. Time of 1ST Reevaluation: 16:57 Reevaluation 1ST: Improved Consultation: PCP, GI Patient Education/Counseling: Diagnosis, Treatment, Prognosis Family Education/Counseling: Diagnosis, Treatment, Prognosis Departure 1 Departure Time of Disposition: 16:57 Impression: Primary Impression: Intractable abdominal pain Additional Impression: Gastric ulcer Disposition: ADMITTED INPATIENT Condition: Stable Discharged With: Self Critical Care Note Critical Care Time?: No Stability Stability form required: No I personally scribed for DANYA ROWELL PAC ([email or web address]) on 03/19/24 at 15:36. Electronically submitted by Richard Holder ([email or web address]). DANYA ROWELL PAC Mar 19, 2024 15:36
[2024-03-19 15:55] LABS: Urine Bacteria None Seen /hpf (None Seen)
[2024-03-19 16:08] LABS: Urine Blood Negative /uL (Negative); Urine Clarity Clear (Clear); Urine Color Yellow (Yellow); Urine Mucus FEW (None Seen); Urine Protein, UAD TRACE (Negative); Urine Specific Gravity 1.028 (1.001-1.035); Urine Squamous Epithelial Cell FEW /hpf (<5); Urine Urobilinogen Normal (Negative); Urine WBC < 1 /HPF (0-3); Urine pH 5.5 (5.0-9.0)
[2024-03-19 16:17] LABS: Alanine Aminotransferase 16 U/L (7-40); Albumin 4.4 g/dL (3.2-4.8); Alkaline Phosphatase 67 U/L (46-116); Anion Gap 7 (5-15); BUN/Creatinine Ratio 9.6 (10.0-20.0); Calcium 9.4 mg/dL (8.7-10.4); Carbon Dioxide 31 mmol/L (20-31); Chloride 102 mmol/L (98-107); Potassium 3.7 mmol/L (3.5-5.1); Sodium 140 mmol/L (136-145)
[2024-03-19] MEDS: LIDOCAINE VISCOUS 2% 15ML UD PO ONE (16:17)
[2024-03-19] MEDS: MAALOX PLUS or MAALOX 30 ML PO ONE (16:17)
[2024-03-19 16:18] LABS: Bilirubin, Total 0.5 mg/dL (0.2-1.0); Total Protein 6.8 g/dL (5.7-8.2)
[2024-03-19 16:22] LABS: Aspartate Aminotransferase 13 U/L (13-40); Blood Urea Nitrogen 9 mg/dL (9-23); Glucose 111 mg/dL (74-106)
[2024-03-19 16:24] LABS: Basophils # (auto) 0 10 ^3/uL (0-0.2); Basophils % (auto) 0.4 % (0.0-2.0); Eosinophils # (auto) 0.1 10 ^3/uL (0-0.8); Eosinophils % (auto) 0.8 % (0.0-7.0); Hemoglobin 13.2 g/dL (13.5-17.5); Lymphocytes # (auto) 0.9 10 ^3/uL (0.4-5.4); Lymphocytes % (auto) 8.9 % (10.0-50.0); Mean Corpuscular Hemoglobin 31.6 pg (28.0-32.0); Mean Corpuscular Hgb Conc. 34.7 g/dL (32.0-36.0); Mean Corpuscular Volume 91.1 fL (80.0-100.0); Monocytes # (auto) 0.6 10 ^3/uL (0-1.3); Neutrophils # (auto) 8.6 10 ^3/uL (1.6-8.6); Neutrophils % (auto) 83.9 % (37.0-80.0); Platelet Count (auto) 372 10^3/uL (140-450); Red Blood Cells 4.17 10^6/uL (4.5-5.90); Red Cell Distribution Width 15.1 % (11.8-14.3); White Blood Cell 10.3 10^3/uL (4.4-10.8)
[2024-03-19 16:32] LABS: Lipase 43 U/L (12-53)
[2024-03-19] MEDS ORDERED: ACETAMINOPHEN 325 MG TAB PO PRN (21:45)
[2024-03-19] MEDS ORDERED: ONDANSETRON HCL 4 MG/2 ML VIAL IV PRN (21:45)
[2024-03-19] MEDS ORDERED: DOCUSATE SOD 100 MG CAP PO PRN (21:45)
[2024-03-19] MEDS ORDERED: HYDROcodone-ACET 5/325MG TAB PO PRN (21:45)
[2024-03-19] MEDS ORDERED: MORPHINE SULFATE INJ 2 MG/ml SYRG IV PRN ×2 (21:45→23:45)
[2024-03-19] MEDS: SODIUM CHLOR 0.9% PF (SALINE LOCK) 10ML VIAL/SYR IV SCH (23:10)
[2024-03-19] MEDS: PANTOPRAZOLE 40 MG/10 ML VIAL INJ IV SCH (23:13)
[2024-03-19 23:22] VITALS: PULSE 74; RESP 18; O2SAT 96
--- NOTE | 2024-03-19 23:37 | DVHHP2 ---
History of Present Illness Reason for Visit: Acute abdominal pain History of Present Illness The patient is a 53-year-old male with past medical history of thyroid disease, esophageal ulcer, and gallstones who presented to [facility] ED with complaint of abdominal pain. Patient reports symptoms progressively get worse with diarrhea, associated nausea, vomiting, rating pain 8/10 numeric scale, getting worse today that prompted this visit. Patient had a esophageal ulcer related to a hiatal hernia that extended into his stomach at that time. Patient mentions that the pain is similar to his gallstones problem. Patient was seen and evaluated in the ED, laboratory data shows WBC 10.2, platelets 372, sodium 140, potassium 3.7, BUN nine, creatinine 0.94, GFR 97, glucose 111, lipase 43. Abdomen/pelvis CT revealing nonobstructive bowel gas pattern. Please see medication orders section in the computer. On my assessment, patient denied chest pain, no diaphoresis, no headache, no dizziness, no abdominal pain, nausea, or vomiting at this moment, no diarrhea, no fever, no chills. Patient was admitted for further evaluation and medical management. Past Medical History Gallstones, Thyroid disease, Esophageal ulcer due to hiatal hernia Past Surgical History Denies all surgeries Family History Reviewed, noncontributory to the management of this case. Past Social History The patient lives at home, denies smoking, alcohol or illicit drugs abuse. Review of Systems Constitutional: No: Fever, Chills, Sweats, Weakness, Malaise, Other Eyes: No: Pain, Vision change, Conjunctivae inflammation, Eyelid inflammation, Other, Redness ENT: No: Ear pain, Ear discharge, Nose pain, Nose discharge, Nose congestion, Mouth pain, Mouth swelling, Throat pain, Throat swelling, Other Respiratory: No: Cough, Dry, Shortness of breath, SOB with excertion, Wheezing, Hemoptysis, Pleuritic Pain, Sputum, Wheezing, Other Cardiovascular: No: Chest Pain, Palpitations, Orthopnea, Paroxysmal Noc. Dyspnea, Edema, Lt Headedness, Other Gastrointestinal: Nausea, Vomiting, Abdominal Pain; No: Diarrhea, Constipation, Melena, Hematochezia, Other Genitourinary: No Dysuria, No Frequency, No Incontinence, No Hematuria, No Re tention, No Other Musculoskeletal: No: other, neck pain, shoulder pain, arm pain, back pain, hand pain, leg pain, foot pain Skin: No: Rash, Lesions, Jaundice, Bruising, Other Neurological: No: Weakness, Numbness, Incoordination, Change in speech, Confusion, Seizures, Other Allergies: Coded Allergies: No Known Drug Allergy (Verified Allergy, Unknown, 03/09/24) Medications Current Medications Medications Dose Ordered Sig/Yasmany Route Start Time Stop Time Status Last Admin Dose Admin Pantoprazole Sodium 40 mg BID IV 03/19/24 22:00 03/19/24 23:13 40 MG Levothyroxine Sodium 88 mcg QAM@0600 PO 03/20/24 06:00 Sodium Chloride 10 ml Q8HR IV 03/19/24 22:00 03/19/24 23:10 10 ML Acetaminophen/ Hydrocodone Bitart 1 tab Q4HP PRN PO 03/19/24 21:45 Ondansetron HCl 4 mg Q4HP PRN IV 03/19/24 21:45 Docusate Sodium 100 mg BIDPRN PRN PO 03/19/24 21:45 Acetaminophen 650 mg Q6HP PRN PO 03/19/24 21:45 Morphine Sulfate 2 mg Q4HPRN PRN IV 03/19/24 21:45 Exam Vital Signs Vital Signs Date Time Temp Pulse Resp B/P (MAP) Pulse Ox O2 Delivery O2 Flow Rate FiO2 03/19/24 23:22 74 18 96 Room Air* 0 21 03/19/24 23:09 98.3 121/77 (92) 98.3 General Appearance: Alert, Oriented X3, Cooperative, No acute distress HEENT: Atraumatic, PERRLA, EOMI, Mucous membr. moist/pink Respiratory: Normal air movement Cardiovascular: Regular rate, Normal S1, Normal S2, No murmurs Abdominal: Normal bowel sounds, Soft, No tenderness, No hepatospenomegaly, No masses Extremities: No clubbing, No cyanosis, No edema, Normal pulses, No tenderness/swelling Skin: No rashes, No breakdown, No significant lesion Neuro: Normal gait, Normal speech, Strength at 5/5 X4 ext, Normal tone, Sensation intact, Cranial nerves 3-12 NL, Reflexes 2+, Other (Generalized weakness) Psych/Mental Status: Mental status NL, Mood NL Labs/Xrays Labs Test 03/19/24 15:41 03/19/24 15:38 Range/Units Urine Color Yellow Yellow Urine Clarity Clear Clear Urine pH 5.5 5.0-9.0 Urine Specific [place] 1.028 1.001-1.035 Urine Protein Trace H Negative Urine Ketones Trace Negative Urine Blood Negative Negative /uL Urine Nitrite Negative Negative Urine Bilirubin Negative Negative Urine Urobilinogen Normal Negative mg/dL Urine Leukocyte Esterase Negative Negative /uL Urine RBC 6 0 - 3 /hpf Urine Microscopic WBC < 1 0-3 /HPF Urine Squamous Epithelial Cells Few <5 /hpf Urine Bacteria None seen None Seen /hpf Urine Mucus Few None Seen Urine Glucose Normal Normal mg/dL White Blood Count 10.3 4.4-10.8 10^3/uL Red Blood Count 4.17 L 4.5-5.90 10^6/uL Hemoglobin 13.2 L 13.5-17.5 g/dL Hematocrit 38.0 L 41.0-53.0 % Mean Corpuscular Volume 91.1 80.0-100.0 fL Mean Corpuscular Hemoglobin 31.6 28.0-32.0 pg Mean Corpuscular Hemoglobin Concent 34.7 32.0-36.0 g/dL Red Cell Distribution Width 15.1 H 11.8-14.3 % Platelet Count 372 140-450 10^3/uL Mean Platelet Volume 7.4 6.9-10.8 fL Neutrophils (%) (Auto) 83.9 H 37.0-80.0 % Lymphocytes (%) (Auto) 8.9 L 10.0-50.0 % Monocytes (%) (Auto) 6.0 0.0-12.0 % Eosinophils (%) (Auto) 0.8 0.0-7.0 % Basophils (%) (Auto) 0.4 0.0-2.0 % Neutrophils # (Auto) 8.6 1.6-8.6 10 ^3/uL Lymphocytes # (Auto) 0.9 0.4-5.4 10 ^3/uL Monocytes # (Auto) 0.6 0-1.3 10 ^3/uL Eosinophils # (Auto) 0.1 0-0.8 10 ^3/uL Basophils # (Auto) 0 0-0.2 10 ^3/uL Nucleated Red Blood Cells 0.0 % Sodium Level 140 136-145 mmol/L Potassium Level 3.7 3.5-5.1 mmol/L Chloride Level 102 98-107 mmol/L Carbon Dioxide Level 31 20-31 mmol/L Anion Gap 7 5-15 Blood Urea Nitrogen 9 9-23 mg/dL Creatinine 0.94 0.700-1.30 mg/dL Glomerular Filtration Rate Calc 97 >90 mL/min BUN/Creatinine Ratio 9.6 L 10.0-20.0 Serum Glucose 111 H 74-106 mg/dL Lactic Acid Level 1.3 0.4-2.0 mmol/L Calcium Level 9.4 8.7-10.4 mg/dL Total Bilirubin 0.5 0.2-1.0 mg/dL Aspartate Amino Transferase (AST) 13 13-40 U/L Alanine Aminotransferase (ALT) 16 7-40 U/L Alkaline Phosphatase 67 46-116 U/L Total Protein 6.8 5.7-8.2 g/dL Albumin 4.4 3.2-4.8 g/dL Lipase 43 12-53 U/L Thyroid Stimulating Hormone (TSH) 3.49 0.55-4.78 uIU/mL PATIENT: DIANA TAMAYO ACCT: [id number] UNIT: [id number] : 1970 LOC: [facility] ROOM / BED: [address] [place] [address] AGE / SEX: 53 / M ADM STATUS: ADM IN SERVICE 3 ORDERING PHYSICIAN: ZOHREH VELIZ MD PROCEDURE(s): KUB - KUB ABDOMEN SINGLE VIEW REASON: EVAL INTERVAL CHANGES ORDER NUMBER(s): [id number], ACCESSION NUMBER(s): [id number] Date: 03/12/2024 09:42 AM Examination: XY KUB ABDOMEN SINGLE VIEW History: EVAL INTERVAL CHANGES Comparison: 03/09/2024 TECHNIQUE: Frontal views of the abdomen was obtained. FINDINGS: Bowel gas pattern is unremarkable. The lung bases are collimated from field of view. No acute osseous abnormality identified. IMPRESSION: Nonobstructive bowel gas pattern. Assessment/Plan Assessment/Plan Intractable abdominal pain Gastric ulcer Nausea and vomiting Plan 1. Admit to med surge unit 2. Breathing treatment 3. Pain control management 4. Management of fluids and electrolytes 5. Consultation for hospitalist 6. Diagnostic tests abdomen/pelvis CT 7. DVT prophylaxis-on SCDs 8. Repeat labs CBC, CMP in a.m. 9. Continue with current medical management 10. Treatment plan discussed with patient and RN. Patient verbalized understanding. Plan discussed with: Patient, Other (RN) My Orders Orders - APURVA BERNAL DNP Procedure Category Date Status Time Pantoprazole PHA 03/19/24 In Process (Protonix) 22:00 Levothyroxine Tablet PHA 03/20/24 In Process (Synthroid Tablet) 06:00 Allergies MAXIMILIANO 03/19/24 In Process 21:42 Code Status CODE 03/19/24 Transmitted 21:42 Sodium Chloride Lock PHA 03/19/24 In Process (Saline Lock Ns) 22:00 Oxygen Per Hour RT 03/19/24 Transmitted 21:42 Hydrocodone-Acet PHA 03/19/24 In Process 5/325mg Tab (Harmony 21:45 Ondansetron Hcl PHA 03/19/24 In Process (Zofran) 21:45 Docusate Sodium PHA 03/19/24 In Process Capsule (Colace 21:45 Complete Blood Count LAB 03/20/24 Verified 04:00 Comprehensive LAB 03/20/24 Verified Metabolic Panel 04:00 Condition: Serious MAXIMILIANO 03/19/24 In Process 21:42 Acetaminophen Tablet PHA 03/19/24 In Process (Tylenol Tablet) 21:45 Clear Liq Diet DIET 03/20/24 Transmitted Breakfast Bedrest With Bathroom MAXIMILIANO 03/19/24 In Process Privileg 21:42 Morphine Sulfate PHA 03/19/24 In Process Injection 21:45 Sequential MAXIMILIANO 03/19/24 In Process Compression Device Saline Lock MAXIMILIANO 03/19/24 In Process 22:57 Problem List: (1) Intractable abdominal pain (2) Gastric ulcer (3) Nausea and vomiting Date of Service: Mar 19, 2024 Billing Provider: APURVA BERNAL DNP Common Visit Codes: 71502-XIDXLID INP/OBS CARE (HIGH) APURVA BERNAL DNP Mar 19, 2024 23:37
[2024-03-19] MEDS ORDERED: NITROGLYCERIN 0.4 MG SL TAB SL PRN (23:45)
[2024-03-20 04:36] LABS: Basophils # (auto) 0 10 ^3/uL (0-0.2); Basophils % (auto) 0.6 % (0.0-2.0); Eosinophils # (auto) 0.2 10 ^3/uL (0-0.8); Eosinophils % (auto) 2.3 % (0.0-7.0); Hematocrit 35.8 % (41.0-53.0); Hemoglobin 12.3 g/dL (13.5-17.5); Lymphocytes # (auto) 1.4 10 ^3/uL (0.4-5.4); Lymphocytes % (auto) 20.5 % (10.0-50.0); Mean Corpuscular Hemoglobin 30.6 pg (28.0-32.0); Mean Corpuscular Hgb Conc. 34.4 g/dL (32.0-36.0); Monocytes # (auto) 0.5 10 ^3/uL (0-1.3); Monocytes % (auto) 7.1 % (0.0-12.0); Neutrophils # (auto) 4.7 10 ^3/uL (1.6-8.6); Neutrophils % (auto) 69.5 % (37.0-80.0); Nucleated Red Blood Cells % 0.1 %; Platelet Count (auto) 337 10^3/uL (140-450); Red Blood Cells 4.02 10^6/uL (4.5-5.90); Red Cell Distribution Width 14.9 % (11.8-14.3); White Blood Cell 6.7 10^3/uL (4.4-10.8)
[2024-03-20 04:42] LABS: Alanine Aminotransferase 15 U/L (7-40); Albumin 4.1 g/dL (3.2-4.8); Alkaline Phosphatase 61 U/L (46-116); Anion Gap 7 (5-15); BUN/Creatinine Ratio 11.7 (10.0-20.0); Bilirubin, Total 0.5 mg/dL (0.2-1.0); Blood Urea Nitrogen 9 mg/dL (9-23); Calcium 9.8 mg/dL (8.7-10.4); Chloride 102 mmol/L (98-107); Glucose 105 mg/dL (74-106); Potassium 4.1 mmol/L (3.5-5.1); Sodium 141 mmol/L (136-145); Total Protein 6.3 g/dL (5.7-8.2)
[2024-03-20 04:46] LABS: Aspartate Aminotransferase 11 U/L (13-40); Carbon Dioxide 32 mmol/L (20-31)
[2024-03-20] MEDS: LEVOTHYROXINE SODIUM 88 MCG TAB PO SCH (06:09)
[2024-03-20 12:05] VITALS: PULSE 74; RESP 20; O2SAT 96
[2024-03-20] MEDS ORDERED: PERCOT PO (12:20)
[2024-03-20] MEDS ORDERED: SUCR1SUS26 PO (12:20)
[2024-03-20] MEDS ORDERED: ALUMSUS16 PO (12:20)
--- NOTE | 2024-03-20 12:27 | DVHDS2 ---
Discharge Summary Date of Admission Mar 19, 2024 at 23:36 Date of Discharge: Mar 20, 2024 Labs/Diagnostic Data: Laboratory Results Test 03/20/24 03:39 03/19/24 15:41 03/19/24 15:38 White Blood Count 6.7 10^3/uL (4.4-10.8) Red Blood Count 4.02 10^6/uL (4.5-5.90) Hemoglobin 12.3 g/dL (13.5-17.5) Hematocrit 35.8 % (41.0-53.0) Mean Corpuscular Volume 89.0 fL (80.0-100.0) Mean Corpuscular Hemoglobin 30.6 pg (28.0-32.0) Mean Corpuscular Hemoglobin Concent 34.4 g/dL (32.0-36.0) Red Cell Distribution Width 14.9 % (11.8-14.3) Platelet Count 337 10^3/uL (140-450) Mean Platelet Volume 7.1 fL (6.9-10.8) Neutrophils (%) (Auto) 69.5 % (37.0-80.0) Lymphocytes (%) (Auto) 20.5 % (10.0-50.0) Monocytes (%) (Auto) 7.1 % (0.0-12.0) Eosinophils (%) (Auto) 2.3 % (0.0-7.0) Basophils (%) (Auto) 0.6 % (0.0-2.0) Neutrophils # (Auto) 4.7 10 ^3/uL (1.6-8.6) Lymphocytes # (Auto) 1.4 10 ^3/uL (0.4-5.4) Monocytes # (Auto) 0.5 10 ^3/uL (0-1.3) Eosinophils # (Auto) 0.2 10 ^3/uL (0-0.8) Basophils # (Auto) 0 10 ^3/uL (0-0.2) Nucleated Red Blood Cells 0.1 % Sodium Level 141 mmol/L (136-145) Potassium Level 4.1 mmol/L (3.5-5.1) Chloride Level 102 mmol/L (98-107) Carbon Dioxide Level 32 mmol/L (20-31) Anion Gap 7 (5-15) Blood Urea Nitrogen 9 mg/dL (9-23) Creatinine 0.77 mg/dL (0.700-1.30) Glomerular Filtration Rate Calc 107 mL/min (>90) BUN/Creatinine Ratio 11.7 (10.0-20.0) Serum Glucose 105 mg/dL (74-106) Calcium Level 9.8 mg/dL (8.7-10.4) Total Bilirubin 0.5 mg/dL (0.2-1.0) Aspartate Amino Transferase (AST) 11 U/L (13-40) Alanine Aminotransferase (ALT) 15 U/L (7-40) Alkaline Phosphatase 61 U/L (46-116) Total Protein 6.3 g/dL (5.7-8.2) Albumin 4.1 g/dL (3.2-4.8) Urine Color Yellow (Yellow) Urine Clarity Clear (Clear) Urine pH 5.5 (5.0-9.0) Urine Specific [place] 1.028 (1.001-1.035) Urine Protein Trace (Negative) Urine Ketones Trace (Negative) Urine Blood Negative /uL (Negative) Urine Nitrite Negative (Negative) Urine Bilirubin Negative (Negative) Urine Urobilinogen Normal mg/dL (Negative) Urine Leukocyte Esterase Negative /uL (Negative) Urine RBC 6 /hpf (0 - 3) Urine Microscopic WBC < 1 /HPF (0-3) Urine Squamous Epithelial Cells Few /hpf (<5) Urine Bacteria None seen /hpf (None Seen) Urine Mucus Few (None Seen) Urine Glucose Normal mg/dL (Normal) Lactic Acid Level 1.3 mmol/L (0.4-2.0) Lipase 43 U/L (12-53) Thyroid Stimulating Hormone (TSH) 3.49 uIU/mL (0.55-4.78) Other Laboratory Tests 03/20/24 03:39 Brief Hx & Hospital Course: 53 yo M with prior EGD 1 week [employer] with nonbleeding ulcer and hiatal hernia, admitted for abdominal pain, patient compliant with meds, able to tolearate oral intake, discussed with patient to intensify therapy and to follow up outpatient with GI. stable to [place] home. maalox added on top of carafate and protonix, pain meds PRN given. Condition at Discharge: Fair Final Diagnosis/Problems List gastric ulcer non bleeding Discharge Disposition: Home Discharge Instruct/Medications Diet: See Comment Diet comment: small frequent feeding Activity: No Restrictions, As Tolerated Follow Up/Referral: GI PCP Medications: carafate maalox protonix bid 39 Discharge Statement: "Patient was advised to return to the ER or call 911 if any headaches, dizziness, shortness of breath, chest pain, abdominal pain, bleeding, fevers, or worsening of medical condition. Patient was counseled about treatment plan, medications, possible side effects, patientverbalized understanding. All questions were answered to the best of my ability. This discharge took greater then 30 minutes in planning, reviewing documentation, counseling the patient, and discussing with other team members." ASSESSMENT ASSESSMENT Assessment gastric ulcer non bleeding Date of Service: Mar 20, 2024 Billing Provider: SILVANO LAWLER MD Common Visit Codes: 95426-SMQ/OBS DISCH DAY >30min SILVANO LAWLER MD Mar 20, 2024 12:27
[2024-03-20 13:46] VITALS: BP 123/85; PULSE 75; RESP 18; TEMP 98; O2SAT 96
== END 2024-03-20 13:49 | disposition home or self-care (01) | DRG 384 ==
LOC: ER 15:14 → OVERFLOW 23:36
PROVIDERS: ADMIT Nurse Practitioner Family; ATTEND Nurse Practitioner Family
DX: K25.9 Gastric ulcer, unspecified as acute or chronic, without hemorrhage or perforation (principal); K80.20 Calculus of gallbladder without cholecystitis without obstruction; Z79.899 Other long term (current) drug therapy; Z87.19 Personal history of other diseases of the digestive system
CPT/HCPCS: 36415; 80053; 81001; 83605; 83690; 84443; 85025; G0378; J2470

== ENCOUNTER 2024-03-31 16:18 | Inpatient (IN) | payer OTHER, SELFPAY ==
[~2024-03-31] VITALS: Ht 180.3 cm; Wt 60.4 kg
[~2024-03-31 16:18] MED LIST changes: +ALUMSUS16 PO; +PERCOT PO; +SUCR1SUS26 PO
--- NOTE | 2024-03-31 16:59 | ED.PDOC ---
GI ASSESSMENT HPI Comments 53y M who presents to the ED for chief complaint of abdominal pain. Pt states he has been having diffuse abdominal pain since Dec 2023. Pt states the pain is located to the LUQ and RUQ, radiating to the back, intermittent, with associated exacerbation of pain after eating and no relieving factors. Pt states he was told he has gallstones but states no surgery was required. Pt states 3 weeks prior, she was hospitalized and states he was dx with infection in his intestines. Pt states the pain is intermittent but states the pain comes and goes and the pain became exacerbated so he came to the ED for further evaluation. Pt otherwise denies any other symptoms at this time. Chief Complaint: Abdominal Pain Time Seen by MD: 16:55 Primary Care Provider: UNKNOWN Reviewed Notes: Nurses Notes, Medications, Allergies (No allergies to medications) Allergies: Coded Allergies: No Known Drug Allergy (Verified Allergy, Unknown, 03/09/24) Home Meds Active Scripts Oxycodone W/ Acetaminophen (Percocet 5/325MG) 1 Tab Tb, 1 TAB PO TID PRN for 3 Days, #9 TAB Prov:SILVANO LAWLER MD 03/20/24 Alum & Mag Hydrox-Simethicone (Maalox Multi Symptom Maxi) Symp Max Jeanne, 1 MAX PO Q6HP PRN for 30 Days, #1200 ML Prov:SILVANO LAWLER MD 03/20/24 Sucralfate (CARAFATE SUSP) 1 Gm/10 Ml Ss, 10 ML PO QID for 30 Days, #1200 ML 3 Refills Prov:SILVANO LAWLER MD 03/20/24 Sucralfate (Carafate) 1 Gm/10 Ml Jeanne, 1 GM PO QID for 30 Days, #120 GM Prov:LAURIE FINCH RESIDENT 03/12/24 Pantoprazole Sodium Sesquihydr (Protonix) 40 Mg Tab, 40 MG PO BID for 30 Days, #60 TAB Prov:LAURIE FINCH RESIDENT 03/12/24 Reported Medications Levothyroxine Sodium (Levothyroxine Sodium) 88 Mcg Tab, 88 MCG PO DAILY, TAB 03/10/24 Information Source: Patient Mode of Arrival: Ambulatory Brought in by: self Timing: Hours, Weeks, Months Duration: Since onset Prehospital treatment: None Quality: Aching Vomitus: None Stool: Normal Severity: Moderate Recent: None Recent Hx of: None Pain Location: RUQ, LUQ Modifying Factors: Food Associated sign and symptoms: Abdominal Pain Past Medical History PAST MEDICAL HISTORY: Gallstones, Thyroid Surgical History: Denies all surgeries Family History Family History: Family hx of DM Social History Smoker: Non-Smoker Alcohol: Denies ETOH Use Drugs: Denies Drug Use Lives In: Home Constitutional: denies: chills, diaphoresis, fatigue, fever, malaise, sweats, weakness, others EENTM: denies: blurred vision, double vision, ear bleeding, ear discharge, ear drainage, ear pain, ear ringing, eye pain, eye redness, hearing loss, mouth pain, mouth swelling, nasal discharge, nose bleeding, nose congestion, nose p ain, photophobia, tearing, throat pain, throat swelling, voice changes, others Respiratory: denies: cough, hemoptysis, orthopnea, SOB at rest, shortness of breath, SOB with excertion, stridor, wheezing, others Cardiovascular: denies: chest pain, dizzy spells, diaphoresis, Dyspnea on exertion, edema, irregular heart beat, left arm pain, lightheadedness, palpitations, PND, syncope, others Gastrointestinal: reports: abdominal pain; denies: abdomen distended, blood streaked bowels, constipated, diarrhea, dysphagia, difficulty swallowing, hematemesis, melena, nausea, poor appetite, poor fluid intake, rectal bleeding, rectal pain, vomiting, others Genitourinary: denies: burning, dysuria, flank pain, frequency, hematuria, incontinence, penile discharge, penile sore, pain, testicle pain, testicle swelling, urgency, others Neurological: denies: dizziness, fainting, headache, left sided numbness, left sided weakness, numbness, paresthesia, pre-existing deficit, right sided numbness, right sided weakness, seizure, speech problems, tingling, tremors, weakness, others Musculoskeletal: denies: back pain, gout, joint pain, joint swelling, muscle pain, muscle stiffness, neck pain, others Integumetry: denies: bruises, change in color, change in hair/nails, dryness, laceration, lesions, lumps, rash, wounds, others Allergic/Immunocompromised: denies: Difficulty Healing, Frequent Infections, Hives, Itching, others Hematologic/Lymphatic: denies: anemia, blood clots, easy bleeding, easy bruising, swollen glands, others Endocrine: denies: excessive hunger, excessive sweating, excessive thirst, excessive urination, flushing, intolerance to cold, intolerance to heat, unexplained weight gain, unexplained weight loss, others Psychiatric: denies: anxiety, bipolar disorder, depression, hopeless, panic disorder, schizophrenia, sleepless, suicidal, others All Other Systems: Reviewed and Negative Physical Exam General Appearance: Moderate Distress HEENT: Normal ENT Inspection, Pharynx Normal, TMs Normal Neck: Full Range of Motion, Non-Tender, Normal, Normal Inspection Respiratory: Chest Non-Tender, Lungs Clear, No Accessory Muscle Use, No Respiratory Distress, Normal Breath Sounds Cardiovascular: No Edema, No JVD, No Murmur, No Gallop, Normal Peripheral Pulses, Regular Rate/Rhythm Breast Exam: Deferred Gastrointestinal: No Organomegaly, No Pulsatile Mass, Normal Bowel Sounds, RUQ, Soft, Suprapubic Genitalia: Deferred Pelvic: Deferred Rectal: Deferred Extremities: No calf tenderness, Normal capillary refill, Normal inspection, Normal range of motion, Non-tender, No pedal edema Musculoskeletal : Apperance: Normal Neurologic: Alert, trekking guide II-XII nml as Tested, No Motor Deficits, Normal Affect, Normal Mood, No Sensory Deficits Cerebellar Function: Normal Reflexes: Normal Skin: Dry, Normal Color, Warm Lymphatic: No Adenopathy Was a procedure done? Was a procedure done?: No GI differential Dx Differential Diagnosis: Cholangitis, Cholecystitis, Constipation, Gastritis/PUD, Gastroenteritis, Pancreatitis, Electrolyte Imbalance, Bacterial, Viral, Stress Ulcer, Kidney Stone Other Differential Diagnosis biliary colic, gallstones X-Ray, Labs, Meds, VS Vital Signs Date Time Temp Pulse Resp B/P (MAP) Pulse Ox O2 Delivery O2 Flow Rate FiO2 03/31/24 18:29 86 16 115/68 03/31/24 18:29 86 16 115/68 (84) 97 03/31/24 17:47 99 16 98 Room Air* 0 21 03/31/24 17:47 98.0 99 98 116/76 (89) 98 98.0 03/31/24 17:41 99 16 116/76 03/31/24 16:24 97.4 114 20 114/74 (87) 98 Lab Test 03/31/24 17:29 Range/Units White Blood Count 7.6 4.4-10.8 10^3/uL Red Blood Count 4.86 4.5-5.90 10^6/uL Hemoglobin 13.5 13.5-17.5 g/dL Hematocrit 41.1 41.0-53.0 % Mean Corpuscular Volume 84.7 80.0-100.0 fL Mean Corpuscular Hemoglobin 27.7 L 28.0-32.0 pg Mean Corpuscular Hemoglobin Concent 32.7 32.0-36.0 g/dL Red Cell Distribution Width 14.7 H 11.8-14.3 % Platelet Count 345 140-450 10^3/uL Mean Platelet Volume 7.3 6.9-10.8 fL Neutrophils (%) (Auto) 77.1 37.0-80.0 % Lymphocytes (%) (Auto) 15.2 10.0-50.0 % Monocytes (%) (Auto) 6.0 0.0-12.0 % Eosinophils (%) (Auto) 1.2 0.0-7.0 % Basophils (%) (Auto) 0.5 0.0-2.0 % Neutrophils # (Auto) 5.9 1.6-8.6 10 ^3/uL Lymphocytes # (Auto) 1.2 0.4-5.4 10 ^3/uL Monocytes # (Auto) 0.5 0-1.3 10 ^3/uL Eosinophils # (Auto) 0.1 0-0.8 10 ^3/uL Basophils # (Auto) 0 0-0.2 10 ^3/uL Nucleated Red Blood Cells 0.0 % Sodium Level 141 136-145 mmol/L Potassium Level 4.0 3.5-5.1 mmol/L Chloride Level 104 98-107 mmol/L Carbon Dioxide Level 31 20-31 mmol/L Anion Gap 6 5-15 Blood Urea Nitrogen 13 9-23 mg/dL Creatinine 0.97 0.700-1.30 mg/dL Glomerular Filtration Rate Calc 93 >90 mL/min BUN/Creatinine Ratio 13.4 10.0-20.0 Serum Glucose 99 74-106 mg/dL Calcium Level 10.2 8.7-10.4 mg/dL Total Bilirubin 0.4 0.2-1.0 mg/dL Aspartate Amino Transferase (AST) 10 L 13-40 U/L Alanine Aminotransferase (ALT) 12 7-40 U/L Alkaline Phosphatase 64 46-116 U/L Total Protein 6.4 5.7-8.2 g/dL Albumin 4.4 3.2-4.8 g/dL Lipase 43 12-53 U/L Current Medications Medications (Trade) Dose Ordered Sig/Yasmany Route Start Time Stop Time Status Last Admin Ondansetron HCl (Zofran) 4 mg ONCE ONCE IV 03/31/24 16:45 03/31/24 16:46 DC 03/31/24 17:41 Sodium Chloride 1,000 ml @ 1,000 mls/hr Q1H ONCE IVB 03/31/24 16:45 03/31/24 17:44 DC 03/31/24 17:42 Morphine Sulfate 4 mg ONCE ONCE IV 03/31/24 16:45 03/31/24 16:46 DC 03/31/24 17:41 Pantoprazole Sodium (Protonix) 40 mg ONCE ONCE IV 03/31/24 16:45 03/31/24 16:46 DC 03/31/24 17:40 Procedure: US GALLBLADDER Impression: Cholelithiasis with no evidence of acute cholecystitis. 2.1 x 1.8 x 1.6 cm echogenic anterior hepatic lesion. Hepatic protocol CT / MRI is recommended for further evaluation. 0.4 cm nonobstructing right renal calculus. Pancreas is obscured by bowel gas. IV Hep-Lock was established The patient was given morphine 4 mg IV push The patient was given Zofran 4 mg IV push The patient was given Protonix 40 mg IV push The patient was given a 1 L bolus of normal saline The lipase is within normal limits The CBC and chemistry panel are within normal limits The patient was being admitted at this time with intractable abdominal pain and cholelithiasis Images Reviewed?: Images reviewed and evaluated by me Time of 1ST Reevaluation: 17:25 Reevaluation 1ST: Unchanged Patient Education/Counseling: Diagnosis, Treatment, Prognosis Family Education/Counseling: No Family Present Additional Information - I reviewed the following notes from patient's past medical encounters: - The following tests were ordered, and results were reviewed by me: (Labs, X- Ray, EKG): cbc, cmp, lipase, ua, gallbladder us, - Additional information was gathered from interviewing the following inde pendent Historian: (Family, Other Providers, EMT): self - I reviewed and agreed with the following test results read by other provider: (X-ray, CT, US): radiologist - I discussed treatments and results with medical personnel and: (consultants, family): none Departure 1 Departure Time of Disposition: 19:42 Impression: Primary Impression: Intractable abdominal pain Additional Impression: Cholelithiasis Qualified Codes: K80.20 - Calculus of gallbladder without cholecystitis without obstruction Disposition: ADMITTED INPATIENT Admit to: Med Surg Condition: Fair Critical Care Note Critical Care Time?: No Stability Stability form required: Yes Unstable for transfer: ED Physician Assesment (Clinical assesment) Heart Score Heart Score: Heart Score Response (Comments) Value History N/A 0 EKG N/A 0 Age N/A 0 Risk Factors N/A 0 Troponin N/A 0 Total 0 I personally scribed for SAPPHIRE LOPEZ MD ([email or web address]) on 03/31/24 at 16:59. Electronically submitted by Bill Kearney ([email or web address]). I personally scribed for SAPPHIRE LOPEZ MD ([email or web address]) on 03/31/24 at 18:07. Electronically submitted by Bill LE). SAPPHIRE LOPEZ MD Mar 31, 2024 16:59
[2024-03-31] MEDS: PANTOPRAZOLE 40 MG/10 ML VIAL INJ IV ONE (17:40)
[2024-03-31] MEDS: MORPHINE SULFATE 4 MG/ML SYR/VIAL IV ONE ×2 (17:41→17:42)
[2024-03-31] MEDS: ONDANSETRON HCL 4 MG/2 ML VIAL IV ONE ×2 (17:41→17:42)
[2024-03-31] MEDS: SODIUM CHLORIDE 0.9% 1,000 ML IVB ONE (17:42)
[2024-03-31 17:47] VITALS: PULSE 99; RESP 16; O2SAT 98
--- NOTE | 2024-03-31 17:59 | DVH ---
Procedure: US GALLBLADDER Study Date and Requested Time: 03/31/2024 04:38 PM History: pain Comparison: Abdomen and pelvis 03/09/2024 Technique: Multiple high resolution morrow-scale images obtained of the right upper quadrant of the abd omen with color Doppler for evaluation of blood flow and vascularity as indicated. Findings: Liver normal in size, measuring 14 cm in length, with 2.1 x 1.8 x 1.6 cm echogenic mass of the anteri or right hepatic lobe. Common bile duct measures 0.3 cm in diameter. 0.9 cm gallstone within the gallbladder. No gallbladder wall thickening or pericholecystic fluid. Ne gative sonographic Schwartz's sign. Pancreas is obscured by bowel gas Right kidney measures 9.9 cm in length, with normal contours, echotexture, and cortical thickness. No evidence of hydronephrosis. 0.4 cm echogenic focus of the interpolar region of the right kidney. Partially visualized inferior vena cava unremarkable. Impression: Cholelithiasis with no evidence of acute cholecystitis. 2.1 x 1.8 x 1.6 cm echogenic anterior hepatic lesion. Hepatic protocol CT / MRI is recommended for fu rther evaluation. 0.4 cm nonobstructing right renal calculus. Pancreas is obscured by bowel gas.
[2024-03-31 18:06] LABS: Basophils # (auto) 0 10 ^3/uL (0-0.2); Basophils % (auto) 0.5 % (0.0-2.0); Eosinophils # (auto) 0.1 10 ^3/uL (0-0.8); Eosinophils % (auto) 1.2 % (0.0-7.0); Hematocrit 41.1 % (41.0-53.0); Hemoglobin 13.5 g/dL (13.5-17.5); Lymphocytes # (auto) 1.2 10 ^3/uL (0.4-5.4); Lymphocytes % (auto) 15.2 % (10.0-50.0); Mean Corpuscular Hemoglobin 27.7 pg (28.0-32.0); Mean Corpuscular Hgb Conc. 32.7 g/dL (32.0-36.0); Mean Corpuscular Volume 84.7 fL (80.0-100.0); Monocytes # (auto) 0.5 10 ^3/uL (0-1.3); Neutrophils # (auto) 5.9 10 ^3/uL (1.6-8.6); Neutrophils % (auto) 77.1 % (37.0-80.0); Platelet Count (auto) 345 10^3/uL (140-450); Red Blood Cells 4.86 10^6/uL (4.5-5.90); Red Cell Distribution Width 14.7 % (11.8-14.3); White Blood Cell 7.6 10^3/uL (4.4-10.8)
[2024-03-31 18:17] LABS: Alanine Aminotransferase 12 U/L (7-40); Albumin 4.4 g/dL (3.2-4.8); Alkaline Phosphatase 64 U/L (46-116); Anion Gap 6 (5-15); BUN/Creatinine Ratio 13.4 (10.0-20.0); Bilirubin, Total 0.4 mg/dL (0.2-1.0); Blood Urea Nitrogen 13 mg/dL (9-23); Calcium 10.2 mg/dL (8.7-10.4); Carbon Dioxide 31 mmol/L (20-31); Chloride 104 mmol/L (98-107); Glucose 99 mg/dL (74-106); Lipase 43 U/L (12-53); Sodium 141 mmol/L (136-145); Total Protein 6.4 g/dL (5.7-8.2)
[2024-03-31 18:39] LABS: Aspartate Aminotransferase 10 U/L (13-40)
[2024-03-31] MEDS ORDERED: ONDANSETRON HCL 4 MG/2 ML VIAL IV PRN (21:30)
[2024-03-31] MEDS ORDERED: MORPHINE SULFATE INJ 2 MG/ml SYRG IV PRN ×2 (21:30)
[2024-03-31] MEDS ORDERED: NITROGLYCERIN 0.4 MG SL TAB SL PRN (21:30)
[2024-03-31] MEDS ORDERED: ACETAMINOPHEN 325 MG TAB PO PRN (21:30)
[2024-03-31 22:36] LABS: INR 1.07 (0.9-1.15); Partial Thromboplastin Time 27.3 SEC (24.5-34.5); Prothrombin Time 11.3 sec (9.3-11.8)
--- NOTE | 2024-03-31 22:38 | DVHHPRES ---
History of Present Illness Resident Creating Document: AUGIE CRUZ RESIDENT History of Present Illness DIANA TAMAYO is a 53-year-old male with a PMH of gallstones, hypothyroidism, esophageal, gastric ulcer, hiatal hernia, PUD presented to the ED with the chief complaints of abdominal pain right upper quadrant and epigastric pain. Patient reported he has been diagnosed with gallstones 4 months back since then he has been having on and off pain but for past 3 weeks the pain is getting worse with vomiting, diarrhea, constipation, weight loss which prompted him to visit ED. on my assessment patient denies fever, chest pain, shortness of breath, and other acute associated symptoms. PMH: Gallstones, hypothyroidism, PUD, hiatal hernia, PSH: Intestinal obstruction surgery during childhood Family history: Noncontributory Social history: Lives with the family. Stopped smoking 30 days ago used to smoke less than 1 pack per day for 30 years but denies alcohol and other drug abuse Allergies: No known allergies Home medications: Protonix and levothyroxine 100 mcg Review of Systems Constitutional: No: Fever, Chills, Sweats, Weakness, Malaise, Other Eyes: No: Pain, Vision change, Conjunctivae inflammation, Eyelid inflammation, Other, Redness ENT: No: Ear pain, Ear discharge, Nose pain, Nose discharge, Nose congestion, Mouth pain, Mouth swelling, Throat pain, Throat swelling, Other Respiratory: No: Cough, Dry, Shortness of breath, SOB with excertion, Wheezing, Hemoptysis, Pleuritic Pain, Sputum, Wheezing, Other Cardiovascular: No: Chest Pain, Palpitations, Orthopnea, Paroxysmal Noc. Dyspnea, Edema, Lt Headedness, Other Gastrointestinal: Nausea, Vomiting, Abdominal Pain, Diarrhea, Constipation Genitourinary: No Dysuria, No Frequency, No Incontinence, No Hematuria, No Retention, No Other Musculoskeletal: No: other, neck pain, shoulder pain, arm pain, back pain, hand pain, leg pain, foot pain Skin: No: Rash, Lesions, Jaundice, Bruising, Other Neurological: No: Weakness, Numbness, Incoordination, Change in speech, Confusion, Seizures, Other Allergies: Coded Allergies: No Known Drug Allergy (Verified Allergy, Unknown, 03/09/24) Medications Current Medications Medications Dose Ordered Sig/Yasmany Route Start Time Stop Time Status Last Admin Dose Admin Sodium Chloride 1,000 ml @ 120 mls/hr Q8H20M IV 03/31/24 21:30 Ondansetron HCl 4 mg Q4HP PRN IV 03/31/24 21:30 Enoxaparin Sodium 40 mg DAILY SC 04/01/24 10:00 Acetaminophen 650 mg Q6HP PRN PO 03/31/24 21:30 Morphine Sulfate 2 mg Q4HPRN PRN IV 03/31/24 21:30 Nitroglycerin 0.4 mg Q5MINP PRN SL 03/31/24 21:30 Morphine Sulfate 2 mg Q30M PRN IV 03/31/24 21:30 Pantoprazole Sodium 40 mg DAILY IV 04/01/24 10:00 UNV Exam Vital Signs Vital Signs Date Time Temp Pulse Resp B/P (MAP) Pulse Ox O2 Delivery O2 Flow Rate FiO2 03/31/24 18:29 86 16 115/68 03/31/24 18:29 97 03/31/24 17:47 Room Air* 0 21 03/31/24 17:47 98.0 98.0 Exam General Appearance: Alert, Oriented X3, Cooperative, Not in acute distress HEENT: Atraumatic, Mucous membranes moist/pink Respiratory: Clear to auscultation, Normal air movement, No added sounds Cardiovascular: Regular rate, Normal S1, Normal S2, No murmurs Abdominal: RUQ, epigastric tenderness but no bloating Extremities: No edema, Normal pulses, No tenderness/swelling Skin: No Significant rash, except past surgical scars Neuro: Normal speech, sensorimotor deficits none Psych/Mental Status: Mental status NL, Mood NL Labs/Xrays Labs Test 03/31/24 22:07 03/31/24 17:29 Range/Units White Blood Count 7.6 4.4-10.8 10^3/uL Red Blood Count 4.86 4.5-5.90 10^6/uL Hemoglobin 13.5 13.5-17.5 g/dL Hematocrit 41.1 41.0-53.0 % Mean Corpuscular Volume 84.7 80.0-100.0 fL Mean Corpuscular Hemoglobin 27.7 L 28.0-32.0 pg Mean Corpuscular Hemoglobin Concent 32.7 32.0-36.0 g/dL Red Cell Distribution Width 14.7 H 11.8-14.3 % Platelet Count 345 140-450 10^3/uL Mean Platelet Volume 7.3 6.9-10.8 fL Neutrophils (%) (Auto) 77.1 37.0-80.0 % Lymphocytes (%) (Auto) 15.2 10.0-50.0 % Monocytes (%) (Auto) 6.0 0.0-12.0 % Eosinophils (%) (Auto) 1.2 0.0-7.0 % Basophils (%) (Auto) 0.5 0.0-2.0 % Neutrophils # (Auto) 5.9 1.6-8.6 10 ^3/uL Lymphocytes # (Auto) 1.2 0.4-5.4 10 ^3/uL Monocytes # (Auto) 0.5 0-1.3 10 ^3/uL Eosinophils # (Auto) 0.1 0-0.8 10 ^3/uL Basophils # (Auto) 0 0-0.2 10 ^3/uL Nucleated Red Blood Cells 0.0 % Sodium Level 141 136-145 mmol/L Potassium Level 4.0 3.5-5.1 mmol/L Chloride Level 104 98-107 mmol/L Carbon Dioxide Level 31 20-31 mmol/L Anion Gap 6 5-15 Blood Urea Nitrogen 13 9-23 mg/dL Creatinine 0.97 0.700-1.30 mg/dL Glomerular Filtration Rate Calc 93 >90 mL/min BUN/Creatinine Ratio 13.4 10.0-20.0 Serum Glucose 99 74-106 mg/dL Calcium Level 10.2 8.7-10.4 mg/dL Total Bilirubin 0.4 0.2-1.0 mg/dL Aspartate Amino Transferase (AST) 10 L 13-40 U/L Alanine Aminotransferase (ALT) 12 7-40 U/L Alkaline Phosphatase 64 46-116 U/L Total Protein 6.4 5.7-8.2 g/dL Albumin 4.4 3.2-4.8 g/dL Lipase 43 12-53 U/L Assessment/Plan Assessment/Plan # Symptomatic cholelithiasis # Rule out acute cholecystitis - evident on gallbladder ultrasound - currently on IVF and pain management as needed - NPO - Surgical consult - no antibiotics for now # hypothyroidism - resume home dose # hiatal hernia # esophageal and gastric ulcer - Protonix PUD PPX: Protonix VTE PPX: Lovenox Diet: NPO after midnight Goals of care discussed with the patient for more than 29 minutes: Full code status Case discussed with Dr. Mack, patient and nurse. Plan discussed with: Patient My Orders Orders - AUGIE CRUZ RESIDENT Procedure Category Date Status Time Admit ADMIT 03/31/24 Transmitted 21:18 Allergies MAXIMILIANO 03/31/24 In Process 21:18 Code Status CODE 03/31/24 Transmitted 21:18 Sodium Chloride 0.9% PHA 03/31/24 In Process 21:30 Ondansetron Hcl PHA 03/31/24 In Process (Zofran) 21:30 Enoxaparin Sodium PHA 04/01/24 In Process (Lovenox) 10:00 Complete Blood Count LAB 04/01/24 Verified 04:00 Comprehensive LAB 04/01/24 Verified Metabolic Panel 04:00 Npo (Nothing By DIET 04/01/24 Transmitted Mouth) Diet Breakfast Condition: Stable MAXIMILIANO 03/31/24 In Process 21:18 Acetaminophen Tablet PHA 03/31/24 In Process (Tylenol Tablet) 21:30 Morphine Sulfate PHA 03/31/24 In Process Injection 21:30 Nitroglycerin PHA 03/31/24 In Process Sublingual (Ntrostat 21:30 Morphine Sulfate PHA 03/31/24 In Process Injection 21:30 Oxygen By Nasal RT 03/31/24 Transmitted Cannula 21:18 Stat Ekg For Chest MAXIMILIANO 03/31/24 In Process Pain 21:18 Notify Of Changes MAXIMILIANO 03/31/24 In Process From Base 21:18 Chest Xray 1 View XY 03/31/24 Logged 21:54 * Surgical Consult CONS 03/31/24 Transmitted PTPTT LAB 03/31/24 In Process 21:54 Magnesium LAB 03/31/24 In Process 21:54 Drug Screen LAB 03/31/24 Logged 21:54 Covid19 Antigen Amelia LAB 03/31/24 Logged Blood Alcohol LAB 03/31/24 In Process 21:54 B-Type Natriuretic LAB 03/31/24 In Process Peptide 21:54 Thyroid Stimulating LAB 03/31/24 In Process Hormone 21:54 Urinalysis LAB 03/31/24 Logged 21:54 Rapid Influenza A&B LAB 03/31/24 Logged 21:54 Pantoprazole PHA 04/01/24 Transmitted (Protonix) 10:00 Date of Service: Mar 31, 2024 Billing Provider: JARED MACK MD Common Visit Codes: [id number] INP/OBS CARE (HIGH) AUGIE CRUZ RESIDENT Mar 31, 2024 22:38 JARED MACK MD Apr 01, 2024 13:02
[2024-03-31 22:53] LABS: Blood Alcohol < 3.0 mg/dL (<10); Magnesium 1.5 mg/dL (1.6-2.6)
[2024-04-01] VITALS (7 sets, daily range): BP systolic 107–113; BP diastolic 65–79; PULSE 75–84; RESP 18–19; TEMP 97.7–98; O2SAT 94–100
[2024-04-01] MEDS: SODIUM CHLORIDE 0.9% 1,000 ML IV SCH ×2 (02:33→12:40)
[2024-04-01 04:43] LABS: Urine Bacteria None Seen /hpf (None Seen)
[2024-04-01 04:59] LABS: Urine Blood TRACE /uL (Negative); Urine Clarity Clear (Clear); Urine Color Light-Yellow (Yellow); Urine Mucus FEW (None Seen); Urine Protein, UAD TRACE (Negative); Urine Specific Gravity 1.024 (1.001-1.035); Urine Squamous Epithelial Cell None Seen /hpf (<5); Urine Urobilinogen Normal (Negative); Urine WBC 1 /HPF (0-3); Urine pH 5.5 (5.0-9.0)
[2024-04-01 05:06] LABS: Amphetamine Screen, Urine Neg (NEGATIVE); Opiate Scree,Urine Neg (NEGATIVE)
[2024-04-01 05:09] LABS: Barbiturate Scree,Urine Neg (NEGATIVE); Benzodiazephine Screen, Urine Neg (NEGATIVE); Cannabinoid Screen, Urine Neg (NEGATIVE); Cocaine Screen, Urine Neg (NEGATIVE); Phencyclidine Screen, Urine Neg (NEGATIVE)
[2024-04-01] MEDS: LEVOTHYROXINE SODIUM 100 MCG TAB PO SCH (05:20)
[2024-04-01 05:34] LABS: COVID19 ANTIGEN SOFIA FIA NEGATIVE (NEGATIVE)
[2024-04-01 05:41] LABS: Rapid Influenza A Positive (Negative); Rapid Influenza B Positive (Negative)
--- NOTE | 2024-04-01 05:58 | DVH ---
EXAM: XR Chest, 1 View CLINICAL INDICATION: pre op TECHNIQUE: Frontal view of the chest. COMPARISON: XY CHEST PORTABLE on DOS: 03/10/24 FINDINGS: LUNGS AND PLEURAL SPACES: Unremarkable. No consolidation. No pneumothorax. HEART: Unremarkable. No cardiomegaly. MEDIASTINUM: Unremarkable. Normal mediastinal contour. BONES/JOINTS: Unremarkable. No acute fracture. OTHER FINDINGS: . None. ... IMPRESSION: No acute cardiopulmonary process.
[2024-04-01] MEDS: MAGNESIUM SULFATE 1GM/100ML 100 ML IV SCH ×2 (08:00→14:24)
--- NOTE | 2024-04-01 08:01 | DVHPNRES ---
Progress Note Date Seen: Apr 01, 2024 Resident Creating Document: RISA CEE RESIDENT Medical Necessity Reason Pt with a Central, PICC or Fol: No Subjective Review of Systems Mr. Kenyon is a 53-year-old male with intestinal surgery as a child who presented to the ER with the chief complaint of right upper quadrant and epigastric pain for the past 3 months. He has been admitted here twice in the past couple of months for similar complaints. This time, patient reports that he started having worsening right upper quadrant pain along with nausea and vomiting and diarrhea for the same time. He reports that the vomiting preceded the pain which is yellowish greenish in color, he is unable to tolerate any solid or liquid diet. 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 He reports unintentional weight loss of around 20 lb in the past year. He reports intermittent diarrhea for whole of his life which is greenish bilious in color and foul-smelling. He has a colonoscopy more than 20 years back and does not remember the results. 03/09 CT abdomen completed shows wall thickening of med stomach consistent with gastritis. Distal colon thickening and rectal wall thickening. EGD 03/11 showed 2 cm sliding-type hiatal hernia with grade B a linear erosive esophagitis, esophageal ulcer, [id number] gastritis Past medical history: Cholelithiasis, hypothyroidism, 2 cm sliding-type hiatal hernia with grade B a linear erosive esophagitis, esophageal ulcer, Cjah-ru-yvbnjeor gastritis Past surgical history, intestinal surgery was a child secondary to obstruction Social history: Lives with the family. Stopped smoking 30 days ago used to smoke less than 1 pack per day for 30 years but denies alcohol and other drug abuse Patient seen and examined at the bedside. Reports right upper quadrant pain and tenderness. GI consulted surgeon consulted. MR liver protocol Few subcentimeter hepatic cysts. No suspicious liver mass identified. Focal fatty infiltration along the falciform ligament. Gallbladder is distended with sludge and stones. No evidence of biliary obstruction. Subcentimeter left renal cysts. Dilated small and large bowel with large amount of stool in the colon. Objective vital signs Vital Sign Date Time Temp Pulse Resp B/P (MAP) Pulse Ox O2 Delivery O2 Flow Rate FiO2 04/01/24 05:00 97.7 75 18 107/73 (84) 100 97.7 04/01/24 04:03 Room Air* 0 21 Total Intake and Output 03/31/24 03/31/24 04/01/24 15:00 23:00 07:00 Intake Total 0 ml Balance 0 ml medications Current Medications Medications Dose Ordered Sig/Yasmany Route Start Time Stop Time Status Last Admin Dose Admin Sodium Chloride 1,000 ml @ 120 mls/hr Q8H20M IV 03/31/24 21:30 04/01/24 04:21 120 MLS/HR Ondansetron HCl 4 mg Q4HP PRN IV 03/31/24 21:30 Enoxaparin Sodium 40 mg DAILY SC 04/01/24 10:00 Acetaminophen 650 mg Q6HP PRN PO 03/31/24 21:30 Morphine Sulfate 2 mg Q4HPRN PRN IV 03/31/24 21:30 Nitroglycerin 0.4 mg Q5MINP PRN SL 03/31/24 21:30 Morphine Sulfate 2 mg Q30M PRN IV 03/31/24 21:30 Pantoprazole Sodium 40 mg DAILY IV 04/01/24 10:00 Levothyroxine Sodium 100 mcg QAM@0600 PO 04/01/24 06:00 Oseltamivir Phosphate 75 mg Q12HR PO 04/01/24 10:00 04/06/24 09:59 Magnesium Sulfate/ Dextrose 100 ml @ 100 mls/hr Q1HR IV 04/01/24 08:00 04/01/24 09:59 UNV Sodium Chloride 1,000 ml @ 100 mls/hr Q10H IV 04/01/24 08:00 UNV Examination General: Thin-built, afebrile, palor, mucosae are moist Cardiovascular: Regular S1 and S2. No murmurs, gallops or rubs. No JVD elevation. No pedal edema Respiratory: Normal B/L air entry on room air. Clear lung sounds on auscultation Abdomen: Soft, right upper quadrant and epigastric tenderness, nondistended, normoactive bowel sounds, no rebound tenderness, no organomegaly, no masses Genitourinary: Deferred MSK/skin: Mobilizes 4 limbs. Skin is dry and warm Neurological: No motor, no sensitive deficits, normal speech. Pupils are isocoric and reactive. 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 [id number] gastritis 03/12 - CT abdomen pelvis revealed Wall thickening of the mid stomach which may be due to gastritis/neoplasm. Wall thickening of the duodenum and proximal jejunum with fluid-filled distended small bowel loops extending from the wall thickened proximal jejunum which may represent enteritis with associated ileus/ bowel obstruction. There is focal wall thickening of the distal transverse colon concerning for possible neoplasm with liquid stool within the borderline distended proximal large bowel measuring up to 6 cm. 03/31 - Liver ultrasound Cholelithiasis with no evidence of acute cholecystitis. 2.1 x 1.8 x 1.6 cm echogenic anterior hepatic lesion. Hepatic protocol CT / MRI is recommended for further evaluation. GI consulted-started IV ceftriaxone and metronidazole 11/29 Clear liquid diet for now MRI liver protocol Few subcentimeter hepatic cysts. No suspicious liver mass identified. Focal fatty infiltration along the falciform ligament. Gallbladder is distended with sludge and stones. No evidence of biliary obstruction. Subcentimeter left renal cysts. Dilated small and large bowel with large amount of stool in the colon. Continue home medication pantoprazole and Carafate Follow up with the stool studies Surgeon consulted MiraLax 1 g p.o. ordered along with lactulose 30 mL b.i.d. Active Influenza a and B infection Tamiflu 75 mg b.i.d. for 5 days starting 04/01 Hypokalemia and hypomagnesemia secondary to GI losses Replenishing Hypothyroidism Continue levothyroxine Former nicotine dependence Counseled regarding cessation for more than 20 minutes Diet: Clear liquid DVT prophylaxis Lovenox 40 mg sc daily Goals of care discussed with patient for more than 25 minutes, full code status Plan discussed with patient in which all questions have been answered Case discussed with Dr. Lopez Plan discussed with: Patient My Orders My Orders Orders - RISA CEE Procedure Category Date Status Time Magnesium Sulfate PHA 04/01/24 Logged 1gm/100ml 08:00 Afp Serum Tumor Marker LAB 04/01/24 Logged 07:51 Hepatitis B Surface LAB 04/01/24 Logged Antibody 07:51 Hepatitis B Surface LAB 04/01/24 Logged Antigen 07:51 Hepatitis C Antibody LAB 04/01/24 Logged 07:51 Sodium Chloride 0.9% PHA 04/01/24 Logged 08:00 Date of Service: Apr 01, 2024 Billing Provider: ZOHREH VELIZ MD Common Visit Codes: [id number] INP/OBS CARE(HIGH) RISA CEE Apr 01, 2024 08:01 ZOHREH VELIZ MD Apr 06, 2024 23:20
[2024-04-01] MEDS: PANTOPRAZOLE 40 MG/10 ML VIAL INJ IV SCH (09:31)
[2024-04-01] MEDS: OSELTAMIVIR 75 MG CAP PO SCH (09:32)
[2024-04-01] MEDS: ENOXAPARIN SOD 40 MG/0.4 ML SYRINGE SC SCH (09:32)
[2024-04-01 10:57] LABS: Basophils # (auto) 0 10 ^3/uL (0-0.2); Basophils % (auto) 0.6 % (0.0-2.0); Eosinophils # (auto) 0.2 10 ^3/uL (0-0.8); Hematocrit 32.9 % (41.0-53.0); Hemoglobin 11.2 g/dL (13.5-17.5); Lymphocytes % (auto) 21.6 % (10.0-50.0); Mean Corpuscular Hemoglobin 28.9 pg (28.0-32.0); Mean Corpuscular Hgb Conc. 33.9 g/dL (32.0-36.0); Monocytes # (auto) 0.3 10 ^3/uL (0-1.3); Monocytes % (auto) 5.7 % (0.0-12.0); Neutrophils # (auto) 3.2 10 ^3/uL (1.6-8.6); Neutrophils % (auto) 68.1 % (37.0-80.0); Nucleated Red Blood Cells % 0.1 %; Platelet Count (auto) 265 10^3/uL (140-450); Red Blood Cells 3.87 10^6/uL (4.5-5.90); Red Cell Distribution Width 14.6 % (11.8-14.3); White Blood Cell 4.7 10^3/uL (4.4-10.8)
[2024-04-01 11:17] LABS: Albumin 3.4 g/dL (3.2-4.8); Alkaline Phosphatase 53 U/L (46-116); Anion Gap 8 (5-15); BUN/Creatinine Ratio 14.1 (10.0-20.0); Blood Urea Nitrogen 12 mg/dL (9-23); Carbon Dioxide 27 mmol/L (20-31); Chloride 106 mmol/L (98-107); Glucose 85 mg/dL (74-106); Sodium 141 mmol/L (136-145)
[2024-04-01 11:18] LABS: Alanine Aminotransferase < 9 U/L (7-40); Aspartate Aminotransferase 9 U/L (13-40); Bilirubin, Total 0.5 mg/dL (0.2-1.0); Calcium 8.7 mg/dL (8.7-10.4); Potassium 3.2 mmol/L (3.5-5.1); Total Protein 5.2 g/dL (5.7-8.2)
[2024-04-01 11:33] LABS: Hepatitis B Surface Antibody Negative (Negative); Hepatitis B Surface Antigen Negative (Negative)
--- NOTE | 2024-04-01 11:42 | DVHCONRES ---
Date Seen: Apr 01, 2024 Resident Creating Document: LAURIE FINCH RESIDENT Referring Physician Omar Lugo resident Reason for Consultation Weight loss, right upper quadrant pain, liver mass, transverse colon thickening History of Present Illness Mr. Kenyon is a 53-year-old male with intestinal surgery as a child who presented to the ER with the chief complaint of right upper quadrant and epigastric pain for about a week associated with nausea and vomiting for the same time. He reports that the vomiting preceded the pain which is yellowish greenish in color, he is unable to tolerate any solid or liquid diet. 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 He reports unintentional weight loss of around 20 lb. He reports intermittent diarrhea for whole of his life which is greenish bilious in color and foul-smelling. He has a colonoscopy more than 20 years back and does not remember the results. 03/09 CT abdomen completed shows wall thickening of med stomach consistent with gastritis. Distal colon thickening and rectal wall thickening. Admitted twice in the past month for similar reason. EGD 03/11 showed 2 cm sliding-type hiatal hernia with grade B a linear erosive esophagitis, esophageal ulcer, Pfpr-sg-[id number] gastritis Patient was Seen and examined on the bedside. He is alert, Oriented x3. Complain of epigastric pain and nausea. No other active complaint Family History: Diabetes mellitus G8 MOTHER FH: lupus G8 MOTHER FH: peptic ulcer G8 FATHER Allergies: Coded Allergies: No Known Drug Allergy (Verified Allergy, Unknown, 03/09/24) Home Meds Active Scripts Oxycodone W/ Acetaminophen (Percocet 5/325MG) 1 Tab Tb, 1 TAB PO TID PRN for 3 Days, #9 TAB Prov:SILVANO LAWLER MD 03/20/24 Alum & Mag Hydrox-Simethicone (Maalox Multi Symptom Maxi) Symp Max Jeanne, 1 MAX PO Q6HP PRN for 30 Days, #1200 ML Prov:SILVANO LAWLER MD 03/20/24 Sucralfate (CARAFATE SUSP) 1 Gm/10 Ml Ss, 10 ML PO QID for 30 Days, #1200 ML 3 Refills Prov:SILVANO LAWLER MD 03/20/24 Sucralfate (Carafate) 1 Gm/10 Ml Jeanne, 1 GM PO QID for 30 Days, #120 GM Prov:LAURIE FINCH RESIDENT 03/12/24 Pantoprazole Sodium Sesquihydr (Protonix) 40 Mg Tab, 40 MG PO BID for 30 Days, #60 TAB Prov:LAURIE FINCH RESIDENT 03/12/24 Reported Medications Levothyroxine Sodium (Levothyroxine Sodium) 88 Mcg Tab, 88 MCG PO DAILY, TAB 03/10/24 Current Medications Current Medications Medications (Trade) Dose Ordered Sig/Yasmany Route PRN Reason Start Time Stop Time Status Last Admin Sodium Chloride 1,000 ml @ 120 mls/hr Q8H20M IV 03/31/24 21:30 04/01/24 04:21 Ondansetron HCl (Zofran) 4 mg Q4HP PRN IV NAUSEA / VOMITING 03/31/24 21:30 Enoxaparin Sodium (Lovenox) 40 mg DAILY SC 04/01/24 10:00 04/01/24 09:32 Acetaminophen (Tylenol Tablet) 650 mg Q6HP PRN PO PAIN SCALE 1-3 OR TEMP>100.4 03/31/24 21:30 Morphine Sulfate 2 mg Q4HPRN PRN IV SEVERE PAIN (7-10 PAIN SCALE) 03/31/24 21:30 Nitroglycerin (Ntrostat Sublingual) 0.4 mg Q5MINP PRN SL FOR CHEST PAIN 03/31/24 21:30 Morphine Sulfate 2 mg Q30M PRN IV FOR CHEST PAIN 03/31/24 21:30 Pantoprazole Sodium (Protonix) 40 mg DAILY IV 04/01/24 10:00 04/01/24 09:31 Levothyroxine Sodium (Synthroid Tablet) 100 mcg QAM@0600 PO 04/01/24 06:00 Oseltamivir Phosphate (Tamiflu 75MG Capsule) 75 mg Q12HR PO 04/01/24 10:00 04/06/24 09:59 04/01/24 09:32 Magnesium Sulfate/ Dextrose 100 ml @ 100 mls/hr Q1HR IV 04/01/24 08:00 04/01/24 09:59 Sodium Chloride 1,000 ml @ 100 mls/hr Q10H IV 04/01/24 08:00 Sucralfate (Carafate Susp) 1 gm QID@0600,1130,1700,2200 PO 04/01/24 11:30 UNV Ceftriaxone Sodium 50 ml @ 100 mls/hr DAILY@09 IV 04/02/24 09:00 Metronidazole 100 ml @ 100 mls/hr Q8HR IV 04/01/24 14:00 Vital Signs Vital Signs Date Time Temp Pulse Resp B/P (MAP) Pulse Ox O2 Delivery O2 Flow Rate FiO2 04/01/24 09:00 97.7 81 18 113/79 (90) 100 97.7 04/01/24 08:00 Room Air* 0 21 Physical Exam Physical examination: General Appearance: Alert, Oriented X3, Cooperative, No acute distress HEENT: Atraumatic, PERRLA, EOMI, Mucous membrane moist/pink Respiratory: Clear to auscultation, Normal air movement Cardiovascular: Regular rate, Normal S1, Normal S2, No murmurs, no chest wall tenderness Abdominal: Normal bowel sounds, Soft, No tenderness, No hepatospenomegaly, No masses Extremities: No clubbing, No cyanosis, No edema, Normal pulses, No tenderness/swelling Skin: No rashes, No breakdown, No significant lesion Neuro: Normal gait, Normal speech, Strength at 5/5 X4 ext, Normal tone, Sensation intact, Cranial nerves 3-12 NL, Reflexes 2+ Psych/Mental Status: Mental status NL, Mood NL Labs/Diagnostic Data Labs Test 04/01/24 09:38 04/01/24 04:30 04/01/24 04:20 03/31/24 22:07 Range/Units White Blood Count 4.7 # 4.4-10.8 10^3/uL Red Blood Count 3.87 L 4.5-5.90 10^6/uL Hemoglobin 11.2 #L 13.5-17.5 g/dL Hematocrit 32.9 #L 41.0-53.0 % Mean Corpuscular Volume 85.0 80.0-100.0 fL Mean Corpuscular Hemoglobin 28.9 28.0-32.0 pg Mean Corpuscular Hemoglobin Concent 33.9 32.0-36.0 g/dL Red Cell Distribution Width 14.6 H 11.8-14.3 % Platelet Count 265 140-450 10^3/uL Mean Platelet Volume 7.7 6.9-10.8 fL Neutrophils (%) (Auto) 68.1 37.0-80.0 % Lymphocytes (%) (Auto) 21.6 10.0-50.0 % Monocytes (%) (Auto) 5.7 0.0-12.0 % Eosinophils (%) (Auto) 4.0 0.0-7.0 % Basophils (%) (Auto) 0.6 0.0-2.0 % Neutrophils # (Auto) 3.2 1.6-8.6 10 ^3/uL Lymphocytes # (Auto) 1.0 0.4-5.4 10 ^3/uL Monocytes # (Auto) 0.3 0-1.3 10 ^3/uL Eosinophils # (Auto) 0.2 0-0.8 10 ^3/uL Basophils # (Auto) 0 0-0.2 10 ^3/uL Nucleated Red Blood Cells 0.1 % Sodium Level 141 136-145 mmol/L Potassium Level 3.2 L 3.5-5.1 mmol/L Chloride Level 106 98-107 mmol/L Carbon Dioxide Level 27 20-31 mmol/L Anion Gap 8 5-15 Blood Urea Nitrogen 12 9-23 mg/dL Creatinine 0.85 0.700-1.30 mg/dL Glomerular Filtration Rate Calc 104 >90 mL/min BUN/Creatinine Ratio 14.1 10.0-20.0 Serum Glucose 85 74-106 mg/dL Calcium Level 8.7 8.7-10.4 mg/dL Total Bilirubin 0.5 0.2-1.0 mg/dL Aspartate Amino Transferase (AST) 9 L 13-40 U/L Alanine Aminotransferase (ALT) < 9 7-40 U/L Alkaline Phosphatase 53 46-116 U/L Total Protein 5.2 L 5.7-8.2 g/dL Albumin 3.4 3.2-4.8 g/dL Hepatitis B Surface Antigen Negative Negative Hepatitis B Surface Antibody Negative Negative Influenza Type A Antigen Positive Negative Influenza Type B Antigen Positive Negative SARS-CoV-2 Antigen (Rapid) Negative NEGATIVE Urine Color Light-yellow Yellow Urine Clarity Clear Clear Urine pH 5.5 5.0-9.0 Urine Specific [place] 1.024 1.001-1.035 Urine Protein Trace H Negative Urine Ketones 1+ H Negative Urine Blood Trace H Negative /uL Urine Nitrite Negative Negative Urine Bilirubin Negative Negative Urine Urobilinogen Normal Negative mg/dL Urine Leukocyte Esterase Negative Negative /uL Urine RBC 5 0 - 3 /hpf Urine Microscopic WBC 1 0-3 /HPF Urine Squamous Epithelial Cells None seen <5 /hpf Urine Bacteria None seen None Seen /hpf Urine Mucus Few None Seen Urine Glucose Normal Normal mg/dL Urine Opiates Screen Neg NEGATIVE Urine Fentanyl Screen Neg NEGATIVE Urine Barbiturates Screen Neg NEGATIVE Urine Phencyclidine Screen Neg NEGATIVE Urine Amphetamines Screen Neg NEGATIVE Urine Benzodiazepines Screen Neg NEGATIVE Urine Cocaine Screen Neg NEGATIVE Urine Cannabinoids Screen Neg NEGATIVE Prothrombin Time 11.3 9.3-11.8 sec Prothrombin Time INR 1.07 0.9-1.15 Activated Partial Thromboplast Time 27.3 24.5-34.5 SEC Test 03/31/24 17:29 Range/Units Magnesium Level 1.5 L 1.6-2.6 mg/dL B-Type Natriuretic Peptide 7.30 0-100 pg/mL Lipase 43 12-53 U/L Thyroid Stimulating Hormone (TSH) 2.29 0.55-4.78 uIU/mL Plasma/Serum Blood Alcohol < 3.0 <10 mg/dL Assessment Assessment: # Intractable nausea and vomiting # Possible liver mass , rule out liver malignancy # cholelithiasis without acute cholecystitis # Abdominal pain secondary to erosive esophagitis and moderate gastritis # 2 cm sliding-type hiatal hernia # Probable proctitis # Focal wall thickening of the distal transverse colon ? Neoplasm # Chronic foul smelling diarrhea likely due to colitis # Unintentional weight loss # Hypokalemia # Hypomagnesemia CT abdomen pelvis revealed Wall thickening of the mid stomach which may be due to gastritis/neoplasm. Wall thickening of the duodenum and proximal jejunum with fluid-filled distended small bowel loops extending from the wall thickened proximal jejunum which may represent enteritis with associated ileus/ bowel obstruction. There is focal wall thickening of the distal transverse colon concerning for possible neoplasm with liquid stool within the borderline distended proximal large bowel measuring up to 6 cm. EGD completed on 03/11/24 showed 2 cm sliding-type hiatal hernia with grade B a linear erosive esophagitis with esophageal ulcer extending into the distal 5 cm of the suspicious biopsies were obtained. Somt-[id number] gastritis Plan: - Clear liquid diet - Stool studies for stool WBC, bacterial culture and occult blood - Continue Protonix 40 mg p.o. daily and Carafate 1 g q.i.d. - Pending AFP and MRI of the abdomen per liver protocol - Continue IV antibiotics for possible colitis and other management as per primary - Correct underlying electrolyte imbalances - We will follow the patient Plan discussed with Dr. Henderson Plan discussed with: Patient, Other LAURIE FINCH RESIDENT Apr 01, 2024 11:42
[2024-04-01] MEDS: GADOTERATE MEG 10 MMOL/20ml INJ (0.5MMOL/ml) IV ONE (11:43)
[2024-04-01 12:05] LABS: Hepatitis C Antibody Negative (Negative)
[2024-04-01] MEDS: POTASSIUM EFFERVESENT TAB 25 MEQ PO ONE (12:43)
[2024-04-01] MEDS: cefTRIAXone 1GM/50ML D5W 50 ML IV ONE (12:43)
[2024-04-01] MEDS: SUCRALFATE 1 GM/10 ML ORAL SUSP PO SCH (12:43)
[2024-04-01] MEDS: metroNIDAZOLE 500MG/100ML 100 ML IV SCH (13:59)
--- NOTE | 2024-04-01 16:16 | DVH ---
MRI Abdomen, with and without IV Contrast Exam Date: 04/01/2024 11:51 AM Comparison: None History: Liver protocol for liver mass Technique: Multisequence multiplanar MRI images were obtained of the abomen. 20 cc clariscan mL was administered intravenously during this examination. Initial imaging is obtai eleni without intravenous contrast. Findings: Liver: Subcentimeter hepatic cysts. No suspicious liver mass identified. Echogenic lesion seen on pr ior ultrasound could correspond to focal fatty infiltration along the falciform ligament. Spleen: Unremarkable. Pancreas: The pancreas is normal in appearance without focal lesions. Gallbladder and ducts: Distended gallbladder with sludge and stones. The cystic duct, right and left hepatic ducts, common hepatic duct, and common bile ducts are unremarkable. The pancreatic duct is within normal limits. Adrenal glands: Unremarkable. Kidneys: Subcentimeter left renal cysts. No hydronephrosis. Visualized bowel: Colon appears distended with stool. Small bowel loops appear mildly prominent. Vasculature: Unremarkable. Lymphadenopathy: No evidence for lymphadenopathy. Ascites: Absent. Musculoskeletal: Bone marrow signal is normal. IMPRESSION: 1. Few subcentimeter hepatic cysts. No suspicious liver mass identified. Focal fatty infiltration marcella ng the falciform ligament. Gallbladder is distended with sludge and stones. No evidence of biliary o bstruction. Subcentimeter left renal cysts. Dilated small and large bowel with large amount of stool in the colon. Consider further evaluation with CT of the abdomen and pelvis. HS:Angie
--- NOTE | 2024-04-01 17:03 | DVHINCON2 ---
Date of service: Apr 01, 2024 Family History: Diabetes mellitus G8 MOTHER FH: lupus G8 MOTHER FH: peptic ulcer G8 FATHER Allergies: Coded Allergies: No Known Drug Allergy (Verified Allergy, Unknown, 03/09/24) Home Meds Active Scripts Oxycodone W/ Acetaminophen (Percocet 5/325MG) 1 Tab Tb, 1 TAB PO TID PRN for 3 Days, #9 TAB Prov:SILVANO LAWLER MD 03/20/24 Alum & Mag Hydrox-Simethicone (Maalox Multi Symptom Maxi) Symp Max Jeanne, 1 MAX PO Q6HP PRN for 30 Days, #1200 ML Prov:SILVANO LAWLER MD 03/20/24 Sucralfate (CARAFATE SUSP) 1 Gm/10 Ml Ss, 10 ML PO QID for 30 Days, #1200 ML 3 Refills Prov:SILVANO LAWLER MD 03/20/24 Sucralfate (Carafate) 1 Gm/10 Ml Jeanne, 1 GM PO QID for 30 Days, #120 GM Prov:LAURIE FINCH RESIDENT 03/12/24 Pantoprazole Sodium Sesquihydr (Protonix) 40 Mg Tab, 40 MG PO BID for 30 Days, #60 TAB Prov:LAURIE FINCH RESIDENT 03/12/24 Reported Medications Levothyroxine Sodium (Levothyroxine Sodium) 88 Mcg Tab, 88 MCG PO DAILY, TAB 03/10/24 Current Medications Current Medications Medications (Trade) Dose Ordered Sig/Yasmany Route PRN Reason Start Time Stop Time Status Last Admin Sodium Chloride 1,000 ml @ 120 mls/hr Q8H20M IV 03/31/24 21:30 04/01/24 11:41 DC 04/01/24 04:21 Ondansetron HCl (Zofran) 4 mg Q4HP PRN IV NAUSEA / VOMITING 03/31/24 21:30 Enoxaparin Sodium (Lovenox) 40 mg DAILY SC 04/01/24 10:00 04/01/24 09:32 Acetaminophen (Tylenol Tablet) 650 mg Q6HP PRN PO PAIN SCALE 1-3 OR TEMP>100.4 03/31/24 21:30 Morphine Sulfate 2 mg Q4HPRN PRN IV SEVERE PAIN (7-10 PAIN SCALE) 03/31/24 21:30 Nitroglycerin (Ntrostat Sublingual) 0.4 mg Q5MINP PRN SL FOR CHEST PAIN 03/31/24 21:30 Morphine Sulfate 2 mg Q30M PRN IV FOR CHEST PAIN 03/31/24 21:30 Pantoprazole Sodium (Protonix) 40 mg DAILY IV 04/01/24 10:00 04/01/24 09:31 Levothyroxine Sodium (Synthroid Tablet) 100 mcg QAM@0600 PO 04/01/24 06:00 Oseltamivir Phosphate (Tamiflu 75MG Capsule) 75 mg Q12HR PO 04/01/24 10:00 04/06/24 09:59 04/01/24 09:32 Magnesium Sulfate/ Dextrose 100 ml @ 100 mls/hr Q1HR IV 04/01/24 08:00 04/01/24 11:40 DC Sodium Chloride 1,000 ml @ 100 mls/hr Q10H IV 04/01/24 08:00 04/01/24 12:40 Sucralfate (Carafate Susp) 1 gm QID@0600,1130,1700,2200 PO 04/01/24 11:30 04/01/24 12:43 Ceftriaxone Sodium 50 ml @ 100 mls/hr DAILY@09 IV 04/02/24 09:00 Metronidazole 100 ml @ 100 mls/hr Q8HR IV 04/01/24 14:00 04/01/24 13:59 Magnesium Sulfate/ Dextrose 100 ml @ 100 mls/hr Q1HR IV 04/01/24 14:00 04/01/24 15:59 DC 04/01/24 14:24 Lactulose 30 ml BID PO 04/01/24 16:45 Vital Signs Vital Signs Date Time Temp Pulse Resp B/P (MAP) Pulse Ox O2 Delivery O2 Flow Rate FiO2 04/01/24 13:00 98.0 77 18 112/65 (81) 94 98.0 04/01/24 08:00 Room Air* 0 21 Labs/Diagnostic Data Labs Test 04/01/24 11:45 04/01/24 09:38 04/01/24 04:30 04/01/24 04:20 Range/Units Stool Occult Blood Sample #3 Positive Negative Stool for White Cells None seen White Blood Count 4.7 # 4.4-10.8 10^3/uL Red Blood Count 3.87 L 4.5-5.90 10^6/uL Hemoglobin 11.2 #L 13.5-17.5 g/dL Hematocrit 32.9 #L 41.0-53.0 % Mean Corpuscular Volume 85.0 80.0-100.0 fL Mean Corpuscular Hemoglobin 28.9 28.0-32.0 pg Mean Corpuscular Hemoglobin Concent 33.9 32.0-36.0 g/dL Red Cell Distribution Width 14.6 H 11.8-14.3 % Platelet Count 265 140-450 10^3/uL Mean Platelet Volume 7.7 6.9-10.8 fL Neutrophils (%) (Auto) 68.1 37.0-80.0 % Lymphocytes (%) (Auto) 21.6 10.0-50.0 % Monocytes (%) (Auto) 5.7 0.0-12.0 % Eosinophils (%) (Auto) 4.0 0.0-7.0 % Basophils (%) (Auto) 0.6 0.0-2.0 % Neutrophils # (Auto) 3.2 1.6-8.6 10 ^3/uL Lymphocytes # (Auto) 1.0 0.4-5.4 10 ^3/uL Monocytes # (Auto) 0.3 0-1.3 10 ^3/uL Eosinophils # (Auto) 0.2 0-0.8 10 ^3/uL Basophils # (Auto) 0 0-0.2 10 ^3/uL Nucleated Red Blood Cells 0.1 % Sodium Level 141 136-145 mmol/L Potassium Level 3.2 L 3.5-5.1 mmol/L Chloride Level 106 98-107 mmol/L Carbon Dioxide Level 27 20-31 mmol/L Anion Gap 8 5-15 Blood Urea Nitrogen 12 9-23 mg/dL Creatinine 0.85 0.700-1.30 mg/dL Glomerular Filtration Rate Calc 104 >90 mL/min BUN/Creatinine Ratio 14.1 10.0-20.0 Serum Glucose 85 74-106 mg/dL Calcium Level 8.7 8.7-10.4 mg/dL Total Bilirubin 0.5 0.2-1.0 mg/dL Aspartate Amino Transferase (AST) 9 L 13-40 U/L Alanine Aminotransferase (ALT) < 9 7-40 U/L Alkaline Phosphatase 53 46-116 U/L Total Protein 5.2 L 5.7-8.2 g/dL Albumin 3.4 3.2-4.8 g/dL Hepatitis B Surface Antigen Negative Negative Hepatitis B Surface Antibody Negative Negative Hepatitis C Antibody Negative Negative Influenza Type A Antigen Positive Negative Influenza Type B Antigen Positive Negative SARS-CoV-2 Antigen (Rapid) Negative NEGATIVE Urine Color Light-yellow Yellow Urine Clarity Clear Clear Urine pH 5.5 5.0-9.0 Urine Specific [place] 1.024 1.001-1.035 Urine Protein Trace H Negative Urine Ketones 1+ H Negative Urine Blood Trace H Negative /uL Urine Nitrite Negative Negative Urine Bilirubin Negative Negative Urine Urobilinogen Normal Negative mg/dL Urine Leukocyte Esterase Negative Negative /uL Urine RBC 5 0 - 3 /hpf Urine Microscopic WBC 1 0-3 /HPF Urine Squamous Epithelial Cells None seen <5 /hpf Urine Bacteria None seen None Seen /hpf Urine Mucus Few None Seen Urine Glucose Normal Normal mg/dL Urine Opiates Screen Neg NEGATIVE Urine Fentanyl Screen Neg NEGATIVE Urine Barbiturates Screen Neg NEGATIVE Urine Phencyclidine Screen Neg NEGATIVE Urine Amphetamines Screen Neg NEGATIVE Urine Benzodiazepines Screen Neg NEGATIVE Urine Cocaine Screen Neg NEGATIVE Urine Cannabinoids Screen Neg NEGATIVE Test 03/31/24 22:07 03/31/24 17:29 Range/Units Prothrombin Time 11.3 9.3-11.8 sec Prothrombin Time INR 1.07 0.9-1.15 Activated Partial Thromboplast Time 27.3 24.5-34.5 SEC Magnesium Level 1.5 L 1.6-2.6 mg/dL B-Type Natriuretic Peptide 7.30 0-100 pg/mL Lipase 43 12-53 U/L Thyroid Stimulating Hormone (TSH) 2.29 0.55-4.78 uIU/mL Plasma/Serum Blood Alcohol < 3.0 <10 mg/dL Assessment [id number] RESOLVING BILIARY COLIC ONGOING FLU ABD PAIN RESOLVED CONSIDER ELECTIVE GB SURGERY BASED ON ONGOING EVAL Plan discussed with: Patient BOB HILTON MD Apr 01, 2024 17:03
[2024-04-01] MEDS: LACTULOSE 20Gm/30ML SOLN PO SCH (18:40)
[2024-04-01] MEDS: POLYETHYLENE GLYCOL 17 GM PWDR PO ONE (18:40)
--- NOTE | 2024-04-01 19:19 | DVHINCON2 ---
DATE OF CONSULTATION: 04/01/2024 HISTORY OF PRESENT ILLNESS: This patient is 53 years old, coming in with right upper quadrant pain, now feeling better. No nausea, vomiting. No constipation, diarrhea. No hematemesis, melena. He probably has fever. He has an ongoing flu. PAST MEDICAL HISTORY: Hypothyroidism, PUD, hiatal hernia. PAST SURGICAL HISTORY: Intestinal obstruction during childhood and surgery was done. Details are not clear. PHYSICAL EXAMINATION: VITAL SIGNS: Afebrile, stable signs. HEENT: With no evidence of pallor, cyanosis, or jaundice. NECK: Supple, nontender with no thyromegaly, lymphadenopathy. CHEST AND LUNGS: Clear. HEART: Within normal limits. ABDOMEN: Soft, minimally tender. No rebound. EXTREMITIES: Unremarkable. NEUROLOGIC: Intact. CLINICAL IMPRESSION: Resolving biliary colic. At this point, needs conservative management. He has ongoing flu that could put him in high risk category. PLAN: Plan will be to consider elective surgery as indicated based upon ongoing evaluation. MD DONITA Barros/RAFAELA TID: [id number] RECEIPT: [id number] cc: Tali Middleton
[2024-04-02 00:58] VITALS: BP 109/76; PULSE 69; RESP 18; TEMP 97.8; O2SAT 99
[2024-04-02 05:00] VITALS: BP 106/72; PULSE 79; RESP 18; TEMP 97.5; O2SAT 98
[2024-04-02 08:00] VITALS: PULSE 76; RESP 16; O2SAT 98
[2024-04-02 08:55] VITALS: BP 100/68; PULSE 76; RESP 16; TEMP 98; O2SAT 98
[2024-04-02] MEDS: cefTRIAXone 1GM/50ML D5W 50 ML IV SCH (09:17)
[2024-04-02 11:21] LABS: Basophils # (auto) 0 10 ^3/uL (0-0.2); Basophils % (auto) 0.6 % (0.0-2.0); Eosinophils # (auto) 0.2 10 ^3/uL (0-0.8); Eosinophils % (auto) 3.2 % (0.0-7.0); Hematocrit 40.9 % (41.0-53.0); Hemoglobin 13.5 g/dL (13.5-17.5); Lymphocytes # (auto) 0.8 10 ^3/uL (0.4-5.4); Lymphocytes % (auto) 12.6 % (10.0-50.0); Mean Corpuscular Hemoglobin 28.4 pg (28.0-32.0); Mean Corpuscular Volume 86.1 fL (80.0-100.0); Monocytes # (auto) 0.4 10 ^3/uL (0-1.3); Monocytes % (auto) 6.1 % (0.0-12.0); Neutrophils # (auto) 4.6 10 ^3/uL (1.6-8.6); Neutrophils % (auto) 77.5 % (37.0-80.0); Nucleated Red Blood Cells % 0.1 %; Platelet Count (auto) 314 10^3/uL (140-450); Red Blood Cells 4.76 10^6/uL (4.5-5.90); Red Cell Distribution Width 14.7 % (11.8-14.3)
[2024-04-02 11:24] LABS: Chloride 106 mmol/L (98-107); Potassium 3.9 mmol/L (3.5-5.1); Sodium 142 mmol/L (136-145)
[2024-04-02 11:25] LABS: Anion Gap 9 (5-15); Carbon Dioxide 27 mmol/L (20-31)
[2024-04-02 11:26] LABS: Calcium 9.4 mg/dL (8.7-10.4)
[2024-04-02 11:30] LABS: Glucose 95 mg/dL (74-106)
[2024-04-02 11:31] LABS: Magnesium 1.8 mg/dL (1.6-2.6)
[2024-04-02 11:33] LABS: BUN/Creatinine Ratio 5.1 (10.0-20.0); Blood Urea Nitrogen < 5 mg/dL (9-23)
[2024-04-02 12:46] VITALS: BP 113/72; PULSE 80; RESP 14; TEMP 98.1; O2SAT 96
--- NOTE | 2024-04-02 13:18 | DVHPN2 ---
Progress Note Date Seen: Apr 02, 2024 Resident Creating Document: LAURIE FINCH RESIDENT Medical Necessity Reason Pt with a Central, PICC or Fol: No Subjective Review of Systems The patient was seen and examined on the bedside. He is alert oriented x3. Mentioned relief of abdominal pain and mild tenderness in the epigastric region. No other active complaint. Objective vital signs Vital Sign Date Time Temp Pulse Resp B/P (MAP) Pulse Ox O2 Delivery O2 Flow Rate FiO2 04/02/24 12:46 98.1 80 14 113/72 (86) 96 98.1 04/02/24 08:00 Room Air* 0 21 Total Intake and Output 04/01/24 04/01/24 04/02/24 15:00 23:00 07:00 Intake Total 800 ml 1900 ml Balance 800 ml 1900 ml medications Current Medications Medications Dose Ordered Sig/Yasmany Route Start Time Stop Time Status Last Admin Dose Admin Ondansetron HCl 4 mg Q4HP PRN IV 03/31/24 21:30 Enoxaparin Sodium 40 mg DAILY SC 04/01/24 10:00 04/02/24 09:18 40 MG Acetaminophen 650 mg Q6HP PRN PO 03/31/24 21:30 Morphine Sulfate 2 mg Q4HPRN PRN IV 03/31/24 21:30 Nitroglycerin 0.4 mg Q5MINP PRN SL 03/31/24 21:30 Morphine Sulfate 2 mg Q30M PRN IV 03/31/24 21:30 Pantoprazole Sodium 40 mg DAILY IV 04/01/24 10:00 04/02/24 09:18 40 MG Levothyroxine Sodium 100 mcg QAM@0600 PO 04/01/24 06:00 04/02/24 06:09 100 MCG Oseltamivir Phosphate 75 mg Q12HR PO 04/01/24 10:00 04/06/24 09:59 04/02/24 09:18 75 MG Sodium Chloride 1,000 ml @ 100 mls/hr Q10H IV 04/01/24 08:00 04/02/24 04:32 100 MLS/HR Sucralfate 1 gm QID@0600,1130,1700,2200 PO 04/01/24 11:30 04/02/24 12:32 1 GM Ceftriaxone Sodium 50 ml @ 100 mls/hr DAILY@09 IV 04/02/24 09:00 04/02/24 09:17 100 MLS/HR Metronidazole 100 ml @ 100 mls/hr Q8HR IV 04/01/24 14:00 04/02/24 06:09 100 MLS/HR Lactulose 30 ml BID PO 04/01/24 16:45 04/02/24 09:18 30 ML Examination Physical examination: General Appearance: Alert, Oriented X3, Cooperative, No acute distress HEENT: Atraumatic, PERRLA, EOMI, Mucous membrane moist/pink Respiratory: Clear to auscultation, Normal air movement Cardiovascular: Regular rate, Normal S1, Normal S2, No murmurs, no chest wall tenderness Abdominal: Normal bowel sounds, Soft, No tenderness, No hepatospenomegaly, No masses Extremities: No clubbing, No cyanosis, No edema, Normal pulses, No tenderness/swelling Skin: No rashes, No breakdown, No significant lesion Neuro: Normal gait, Normal speech, Strength at 5/5 X4 ext, Normal tone, Sensation intact, Cranial nerves 3-12 NL, Reflexes 2+ Psych/Mental Status: Mental status NL, Mood NL laboratory and microbiology Laboratory Tests 04/02/24 10:17 Test 04/02/24 10:17 Range/Units Serum Glucose 95 74-106 mg/dL Microbiology Date/Time Source Procedure Growth Status 04/01/24 11:45 Stool Stool Culture - Preliminary Resulted 04/01/24 11:45 Stool Shiga Toxin I & II - Final Resulted Labs and/or images reviewed: Labs reviewed by me, Image(s) reviewed by me Problem List/Assessment/Plan Problem List/Assessment/Plan Assessment: # Intractable nausea and vomiting # Ruled out Possible liver mass # cholelithiasis without acute cholecystitis # Abdominal pain secondary to erosive esophagitis and moderate gastritis # 2 cm sliding-type hiatal hernia # Focal wall thickening of the distal transverse colon likely due to constipation # Stercoral colitis # Unintentional weight loss # Hypokalemia # Hypomagnesemia # Influeza A and B infection. CT abdomen pelvis revealed Wall thickening of the mid stomach which may be due to gastritis/neoplasm. Wall thickening of the duodenum and proximal jejunum with fluid-filled distended small bowel loops extending from the wall thickened proximal jejunum which may represent enteritis with associated ileus/ bowel obstruction. There is focal wall thickening of the distal transverse colon concerning for possible neoplasm with liquid stool within the borderline distended proximal large bowel measuring up to 6 cm. MRI abdomen demonstrated Few subcentimeter hepatic cysts. No suspicious liver mass identified. Focal fatty infiltration along the falciform ligament. Gallbladder is distended with sludge and stones. No evidence of biliary obstruction. Subcentimeter left renal cysts. Dilated small and large bowel with large amount of stool in the colon EGD completed on 03/11/24 showed 2 cm sliding-type hiatal hernia with grade B a linear erosive esophagitis with esophageal ulcer extending into the distal 5 cm of the suspicious biopsies were obtained. [id number] gastritis Plan: - Soft diet - Stool occult blood positive and negative for WBC - Continue Protonix 40 mg p.o. daily and Carafate 1 g q.i.d. - AFP is normal and MRI of the abdomen per liver protocol excluded possible liver mass. - Continue IV antibiotics for possible colitis and other management as per primary - Correct underlying electrolyte imbalances - recommended outpatient colonoscopy and follow up with GI service on next available appointment after discharge Plan discussed with Dr. Henderson Plan discussed with: Patient, Other LAURIE FINCH RESIDENT Apr 02, 2024 13:18
--- NOTE | 2024-04-02 14:23 | DVHDSRES ---
Discharge Summary Date of Admission Resident Creating Document: RISA CEE RESIDENT Mar 31, 2024 at 21:18 Date of Discharge: Apr 02, 2024 Labs/Diagnostic Data: Laboratory Results Test 04/02/24 10:17 04/01/24 11:45 04/01/24 09:38 04/01/24 04:30 White Blood Count 6.0 10^3/uL (4.4-10.8) Red Blood Count 4.76 10^6/uL (4.5-5.90) Hemoglobin 13.5 g/dL (13.5-17.5) Hematocrit 40.9 % (41.0-53.0) Mean Corpuscular Volume 86.1 fL (80.0-100.0) Mean Corpuscular Hemoglobin 28.4 pg (28.0-32.0) Mean Corpuscular Hemoglobin Concent 33.0 g/dL (32.0-36.0) Red Cell Distribution Width 14.7 % (11.8-14.3) Platelet Count 314 10^3/uL (140-450) Mean Platelet Volume 7.6 fL (6.9-10.8) Neutrophils (%) (Auto) 77.5 % (37.0-80.0) Lymphocytes (%) (Auto) 12.6 % (10.0-50.0) Monocytes (%) (Auto) 6.1 % (0.0-12.0) Eosinophils (%) (Auto) 3.2 % (0.0-7.0) Basophils (%) (Auto) 0.6 % (0.0-2.0) Neutrophils # (Auto) 4.6 10 ^3/uL (1.6-8.6) Lymphocytes # (Auto) 0.8 10 ^3/uL (0.4-5.4) Monocytes # (Auto) 0.4 10 ^3/uL (0-1.3) Eosinophils # (Auto) 0.2 10 ^3/uL (0-0.8) Basophils # (Auto) 0 10 ^3/uL (0-0.2) Nucleated Red Blood Cells 0.1 % Sodium Level 142 mmol/L (136-145) Potassium Level 3.9 mmol/L (3.5-5.1) Chloride Level 106 mmol/L (98-107) Carbon Dioxide Level 27 mmol/L (20-31) Anion Gap 9 (5-15) Blood Urea Nitrogen < 5 mg/dL (9-23) Creatinine 0.98 mg/dL (0.700-1.30) Glomerular Filtration Rate Calc 92 mL/min (>90) BUN/Creatinine Ratio 5.1 (10.0-20.0) Serum Glucose 95 mg/dL (74-106) Calcium Level 9.4 mg/dL (8.7-10.4) Magnesium Level 1.8 mg/dL (1.6-2.6) Stool Occult Blood Sample #3 Positive (Negative) Stool for White Cells None seen Total Bilirubin 0.5 mg/dL (0.2-1.0) Aspartate Amino Transferase (AST) 9 U/L (13-40) Alanine Aminotransferase (ALT) < 9 U/L (7-40) Alkaline Phosphatase 53 U/L (46-116) Total Protein 5.2 g/dL (5.7-8.2) Albumin 3.4 g/dL (3.2-4.8) Tumor Marker Alpha Fetoprotein <1.8 ng/mL (0.0-8.4) Hepatitis B Surface Antigen Negative (Negative) Hepatitis B Surface Antibody Negative (Negative) Hepatitis C Antibody Negative (Negative) Influenza Type A Antigen Positive (Negative) Influenza Type B Antigen Positive (Negative) SARS-CoV-2 Antigen (Rapid) Negative (NEGATIVE) Test 04/01/24 04:20 03/31/24 22:07 03/31/24 17:29 Urine Color Light-yellow (Yellow) Urine Clarity Clear (Clear) Urine pH 5.5 (5.0-9.0) Urine Specific [place] 1.024 (1.001-1.035) Urine Protein Trace (Negative) Urine Ketones 1+ (Negative) Urine Blood Trace /uL (Negative) Urine Nitrite Negative (Negative) Urine Bilirubin Negative (Negative) Urine Urobilinogen Normal mg/dL (Negative) Urine Leukocyte Esterase Negative /uL (Negative) Urine RBC 5 /hpf (0 - 3) Urine Microscopic WBC 1 /HPF (0-3) Urine Squamous Epithelial Cells None seen /hpf (<5) Urine Bacteria None seen /hpf (None Seen) Urine Mucus Few (None Seen) Urine Glucose Normal mg/dL (Normal) Urine Opiates Screen Neg (NEGATIVE) Urine Fentanyl Screen Neg (NEGATIVE) Urine Barbiturates Screen Neg (NEGATIVE) Urine Phencyclidine Screen Neg (NEGATIVE) Urine Amphetamines Screen Neg (NEGATIVE) Urine Benzodiazepines Screen Neg (NEGATIVE) Urine Cocaine Screen Neg (NEGATIVE) Urine Cannabinoids Screen Neg (NEGATIVE) Prothrombin Time 11.3 sec (9.3-11.8) Prothrombin Time INR 1.07 (0.9-1.15) Activated Partial Thromboplast Time 27.3 SEC (24.5-34.5) B-Type Natriuretic Peptide 7.30 pg/mL (0-100) Lipase 43 U/L (12-53) Thyroid Stimulating Hormone (TSH) 2.29 uIU/mL (0.55-4.78) Plasma/Serum Blood Alcohol < 3.0 mg/dL (<10) Other Laboratory Tests 04/02/24 10:17 Brief Hx & Hospital Course: Mr. Kenyon is a 53-year-old male with intestinal surgery as a child who presented to the ER with the chief complaint of right upper quadrant and epigastric pain for the past 3 months. He has been admitted here twice in the past couple of months for similar complaints. This time, patient reports that he started having worsening right upper quadrant pain along with nausea and vomiting and diarrhea for the same time. He reports that the vomiting preceded the pain which is yellowish greenish in color, he is unable to tolerate any solid or liquid diet. 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 He reports unintentional weight loss of around 20 lb in the past year. He reports intermittent diarrhea for whole of his life which is greenish bilious in color and foul-smelling. He has a colonoscopy more than 20 years back and does not remember the results. 03/09 CT abdomen completed shows wall thickening of med stomach consistent with gastritis. Distal colon thickening and rectal wall thickening. EGD 03/11 showed 2 cm sliding-type hiatal hernia with grade B a linear erosive esophagitis, esophageal ulcer, [id number] gastritis During the hospitalization,03/31 - Liver ultrasound Cholelithiasis with no evidence of acute cholecystitis. 2.1 x 1.8 x 1.6 cm echogenic anterior hepatic lesion. Hepatic protocol CT / MRI is recommended for further evaluation. MRI liver protocol 04/01 showed Few subcentimeter hepatic cysts. No suspicious liver mass identified. Focal fatty infiltration along the falciform ligament. Gallbladder is distended with sludge and stones. No evidence of biliary obstruction. Subcentimeter left renal cysts. Dilated small and large bowel with large amount of stool in the colon. GI was consulted patient was started on IV ceftriaxone and metronidazole, stool studies were performed which showed negative stool WBC, positive stool occult, we continued patient on medication pantoprazole and Carafate. Surgeon was consulted who recommended outpatient elective cholecystectomy. Patient received MiraLax along with lactulose. He tolerated clear liquid diet well and GI recommended outpatient elective colonoscopy. Therefore patient was discharged with the recommendation to follow up with GI insult in his outpatient. Discharge diagnosis: Acute Influenza infection Abdominal pain secondary to erosive esophagitis and moderate gastritis 2 cm sliding-type hiatal hernia Transverse colon wall thickening-proctitis versus neoplasm Chronic foul smelling diarrhea Cholelithiasis, ruled out acute cholecystitis History of abdominal surgery for intestinal blockage as a child Hepatic cysts Unintentional weight loss Positive stool occult Operations or Procedures ORDERING PHYSICIAN: SAPPHIRE LOPEZ MD PROCEDURE(s): GBUS - GALLBLADDER REASON: pain ORDER NUMBER(s): [id number], ACCESSION NUMBER(s): [id number] Procedure: US GALLBLADDER Study Date and Requested Time: 03/31/2024 04:38 PM History: pain Comparison: Abdomen and pelvis 03/09/2024 Technique: Multiple high resolution morrow-scale images obtained of the right upper quadrant of the abdomen with color Doppler for evaluation of blood flow and vascularity as indicated. Findings: Liver normal in size, measuring 14 cm in length, with 2.1 x 1.8 x 1.6 cm echogenic mass of the anterior right hepatic lobe. Common bile duct measures 0.3 cm in diameter. 0.9 cm gallstone within the gallbladder. No gallbladder wall thickening or pericholecystic fluid. Negative sonographic Schwartz's sign. Pancreas is obscured by bowel gas Right kidney measures 9.9 cm in length, with normal contours, echotexture, and cortical thickness. No evidence of hydronephrosis. 0.4 cm echogenic focus of the interpolar region of the right kidney. Partially visualized inferior vena cava unremarkable. Impression: Cholelithiasis with no evidence of acute cholecystitis. 2.1 x 1.8 x 1.6 cm echogenic anterior hepatic lesion. Hepatic protocol CT / MRI is recommended for further evaluation. 0.4 cm nonobstructing right renal calculus. Pancreas is obscured by bowel gas. ATED BY: LILLY PITT DO DICTATED DATE/TIME: 03/31/241756 SIGNED BY: LILLY PITT DO SIGNED DATE/TIME: 03/31/241756 CC: ORDERING PHYSICIAN: RISA CEE RESIDENT PROCEDURE(s): [id number] - MRI ABDOMEN W AND WO REASON: Liver protocol for liver mass ORDER NUMBER(s): [id number], ACCESSION NUMBER(s): [id number] MRI Abdomen, with and without IV Contrast Exam Date: 04/01/2024 11:51 AM Comparison: None History: Liver protocol for liver mass Technique: Multisequence multiplanar MRI images were obtained of the abomen. 20 cc clariscan mL was administered intravenously during this examination. Initial imaging is obtained without intravenous contrast. Findings: Liver: Subcentimeter hepatic cysts. No suspicious liver mass identified. Echogenic lesion seen on prior ultrasound could correspond to focal fatty infiltration along the falciform ligament. Spleen: Unremarkable. Pancreas: The pancreas is normal in appearance without focal lesions. Gallbladder and ducts: Distended gallbladder with sludge and stones. The cystic duct, right and left hepatic ducts, common hepatic duct, and common bile ducts are unremarkable. The pancreatic duct is within normal limits. Adrenal glands: Unremarkable. Kidneys: Subcentimeter left renal cysts. No hydronephrosis. Visualized bowel: Colon appears distended with stool. Small bowel loops appear mildly prominent. Vasculature: Unremarkable. Lymphadenopathy: No evidence for lymphadenopathy. Ascites: Absent. Musculoskeletal: Bone marrow signal is normal. IMPRESSION: 1. Few subcentimeter hepatic cysts. No suspicious liver mass identified. Focal fatty infiltration along the falciform ligament. Gallbladder is distended with sludge and stones. No evidence of biliary obstruction. Subcentimeter left renal cysts. Dilated small and large bowel with large amount of stool in the colon. Consider further evaluation with CT of the abdomen and pelvis. HS:Y. ATED BY: MAURICIO KUHN MD DICTATED DATE/TIME: 04/01/24 1612 SIGNED BY: MAURICIO KUHN MD SIGNED DATE/TIME: 04/01/24 1612 CC: Condition at Discharge: Stable Final Diagnosis/Problems List Abdominal pain secondary to erosive esophagitis and moderate gastritis 2 cm sliding-type hiatal hernia Transverse colon wall thickening-proctitis versus neoplasm Chronic foul smelling diarrhea Active influenza infection A and B Cholelithiasis, ruled out acute cholecystitis History of abdominal surgery for intestinal blockage as a child Hepatic cysts Unintentional weight loss Positive stool occult Discharge Disposition: Home Discharge Instruct/Medications Diet: See Comment Diet comment: Soft diet for now Activity: No Restrictions, As Tolerated Follow Up/Referral: Follow up with surgeon as outpatient for elective cholecystectomy Follow up with GI as outpatient for elective colonoscopy Follow up with primary care physician Follow up with discharge clinic appointment Medications: Per EMR Discharge Statement: "Patient was advised to return to the ER or call 911 if any headaches, dizziness, shortness of breath, chest pain, abdominal pain, bleeding, fevers, or worsening of medical condition. Patient was counseled about treatment plan, medications, possible side effects, patientverbalized understanding. All questions were answered to the best of my ability. This discharge took greater then 30 minutes in planning, reviewing documentation, counseling the patient, and discussing with other team members." ASSESSMENT ASSESSMENT Assessment Abdominal pain secondary to erosive esophagitis and moderate gastritis 2 cm sliding-type hiatal hernia Transverse colon wall thickening-proctitis versus neoplasm Chronic foul smelling diarrhea Active influenza infection A and B Cholelithiasis, ruled out acute cholecystitis History of abdominal surgery for intestinal blockage as a child Hepatic cysts Unintentional weight loss Positive stool occult Date of Service: Apr 02, 2024 Billing Provider: ZOHREH VELIZ MD Common Visit Codes: [id number]-[id number] DISCH DAY >30min RISA CEE Apr 02, 2024 14:23 ZOHREH VELIZ MD Apr 06, 2024 23:55
[2024-04-02 15:26] VITALS: BP 113/72; PULSE 80; RESP 14; TEMP 98.1; O2SAT 96
== END 2024-04-02 16:26 | disposition home or self-care (01) | DRG 381 ==
LOC: ER 16:18 → OVERFLOW 21:18 → WEST WING 04-01 04:02 → EAST 04-02 01:08
PROVIDERS: ADMIT Student in an Organized Health Care Education/Training Program; ATTEND Student in an Organized Health Care Education/Training Program
DX: K22.10 Ulcer of esophagus without bleeding (principal); Z68.1 Body mass index [BMI] 19.9 or less, adult; K29.70 Gastritis, unspecified, without bleeding; K80.20 Calculus of gallbladder without cholecystitis without obstruction; K44.9 Diaphragmatic hernia without obstruction or gangrene; Z20.822 Contact with and (suspected) exposure to COVID-19; E87.6 Hypokalemia; R63.4 Abnormal weight loss; E83.42 Hypomagnesemia; J10.1 Influenza due to other identified influenza virus with other respiratory manifestations; K52.89 Other specified noninfective gastroenteritis and colitis; E03.9 Hypothyroidism, unspecified; K59.00 Constipation, unspecified; Z79.899 Other long term (current) drug therapy; Z83.3 Family history of diabetes mellitus; Z87.11 Personal history of peptic ulcer disease
CPT/HCPCS: 36415; 71045; 74183; 76705; 80048; 80053; 80307; 80320; 81001; 82105; 82270; 83690; 83735; 83880; 84443; 85025; 85048; 85610; 85730; 86706; 86803; 87045; 87340; 87426; 87427; 87804; 96361; 96374; 96375; G0378; J2405; J2470; J3490

== ENCOUNTER 2024-04-05 20:49 | Emergency (ER) | payer SELFPAY ==
[~2024-04-05] VITALS: Ht 180.3 cm; Wt 61.3 kg
[2024-04-05] MEDS: FAMOTIDINE 20 MG TAB PO ONE (22:54)
[2024-04-05] MEDS: MAALOX PLUS or MAALOX 30 ML PO ONE (22:54)
[2024-04-05] MEDS: HYDROcodone-ACET 10/325MG TAB PO ONE (22:54)
[2024-04-05] MEDS: ONDANSETRON ODT 4 MG TAB PO ONE (22:54)
--- NOTE | 2024-04-05 23:27 | ED.PDOC ---
History of Present Illness HPI Comments 53 y/o M presents with c/o non-radiating, epigastric abdominal pain for 3x days, today. Patient endorses on onset of constant pain following pain medication cessation and discharge from [facility] admission for previous episode of same issue 3x days ago. He comments on having a total of 4x previous hospital admission for same pain and being informed on having "gallstones/ulcers" as the underlying cause. He reports no recent injuries, spoiled food intake, or any additional relevant or pertinent information. Patient denies having any nausea, vomiting, diarrhea, urinary symptoms,or other associated symptoms or modifiers at this time. Chief Complaint: Abdominal Pain Time Seen by MD: 22:20 Primary Care Provider: UNKNOWN Reviewed Notes: Nurses Notes, Medications, Allergies Allergies: Coded Allergies: No Known Drug Allergy (Verified Allergy, Unknown, 03/09/24) Home Meds Active Scripts Gabapentin (Once-Daily) (Gabapentin) 300 Mg Tab, 300 MG PO Q6HP PRN, #60 TAB 2 Refills Prov:ELMA BRISENO MD 04/06/24 Famotidine (PEPCID TABLET) 20 Mg Tb, 1 TAB PO BID PRN for 30 Days, #60 TAB 5 Refills Prov:ELMA BRISENO MD 04/06/24 Oxycodone W/ Acetaminophen (Percocet 5/325MG) 1 Tab Tb, 1 TAB PO TID PRN for 3 Days, #9 TAB Prov:SILVANO LAWLER MD 03/20/24 Alum & Mag Hydrox-Simethicone (Maalox Multi Symptom Maxi) Symp Max Jeanne, 1 MAX PO Q6HP PRN for 30 Days, #1200 ML Prov:SILVANO LAWLER MD 03/20/24 Sucralfate (CARAFATE SUSP) 1 Gm/10 Ml Ss, 10 ML PO QID for 30 Days, #1200 ML 3 Refills Prov:SILVANO LAWLER MD 03/20/24 Sucralfate (Carafate) 1 Gm/10 Ml Jeanne, 1 GM PO QID for 30 Days, #120 GM Prov:LAURIE FINCH RESIDENT 03/12/24 Pantoprazole Sodium Sesquihydr (Protonix) 40 Mg Tab, 40 MG PO BID for 30 Days, #60 TAB Prov:LAURIE FINCH RESIDENT 03/12/24 Reported Medications Levothyroxine Sodium (Levothyroxine Sodium) 88 Mcg Tab, 88 MCG PO DAILY, TAB 03/10/24 Information Source: Patient Mode of Arrival: Ambulatory Severity: Moderate Timing: Days Duration: Since onset Prehospital treatment: None Past Medical History PAST MEDICAL HISTORY: Gallstones, Thyroid Past Medical History (Other): Acute Influenza infection Erosive esophagitis and moderate gastritis 2 cm sliding-type hiatal hernia Hepatic cysts Surgical History (Other): History of abdominal surgery for intestinal blockage as a child Family History Family History: Family hx of DM Social History Smoker: Non-Smoker Alcohol: Denies ETOH Use Drugs: Denies Drug Use Lives In: Home Gastrointestinal: reports: abdominal pain All Other Systems: Reviewed and Negative (negative unless otherwise stated above or in HPI) Physical Exam General Appearance: Moderate Distress, Thin, Other (appears uncomfortable ) HEENT: Normal ENT Inspection, Pharynx Normal, TMs Normal Neck: Full Range of Motion, Non-Tender, Normal, Normal Inspection Respiratory: Chest Non-Tender, Lungs Clear, No Accessory Muscle Use, No R espiratory Distress, Normal Breath Sounds Cardiovascular: No Edema, No JVD, No Murmur, No Gallop, Normal Peripheral Pulses, Regular Rate/Rhythm Breast Exam: Deferred Gastrointestinal: Epigastric (tenderness ), No Organomegaly, No Pulsatile Mass, Normal Bowel Sounds, Soft, Tenderness (epigastric region ) Genitalia: Deferred Pelvic: Deferred Rectal: Deferred Extremities: No calf tenderness, Normal capillary refill, Normal inspection, Normal range of motion, Non-tender, No pedal edema Musculoskeletal : Apperance: Normal Neurologic: Alert, president and chief executive officer II-XII nml as Tested, No Motor Deficits, Normal Affect, Normal Mood, No Sensory Deficits Cerebellar Function: Normal Reflexes: Normal Skin: Dry, Normal Color, Warm Lymphatic: No Adenopathy Was a procedure done? Was a procedure done?: No Differential Dx Considerations may include: gastritis, gastroenteritis, PUD, GERD, viral syndrome, spoiled food, UTI, cholecystitis, cholelithiasis X-Ray, Labs, Meds, VS Vital Signs Date Time Temp Pulse Resp B/P (MAP) Pulse Ox O2 Delivery O2 Flow Rate FiO2 04/06/24 01:20 98.1 94 18 121/83 (96) 98 98.1 04/05/24 22:52 97.8 110 22 100/77 (85) 99 97.8 04/05/24 22:52 Room Air* 0 21 04/05/24 21:57 98.9 102 20 113/75 (88) 99 Lab Test 04/05/24 23:06 Range/Units White Blood Count 9.9 # 4.4-10.8 10^3/uL Red Blood Count 4.98 4.5-5.90 10^6/uL Hemoglobin 14.2 13.5-17.5 g/dL Hematocrit 42.9 41.0-53.0 % Mean Corpuscular Volume 86.1 80.0-100.0 fL Mean Corpuscular Hemoglobin 28.4 28.0-32.0 pg Mean Corpuscular Hemoglobin Concent 33.0 32.0-36.0 g/dL Red Cell Distribution Width 15.2 H 11.8-14.3 % Platelet Count 334 140-450 10^3/uL Mean Platelet Volume 7.7 6.9-10.8 fL Neutrophils (%) (Auto) 78.0 37.0-80.0 % Lymphocytes (%) (Auto) 13.8 10.0-50.0 % Monocytes (%) (Auto) 6.3 0.0-12.0 % Eosinophils (%) (Auto) 1.4 0.0-7.0 % Basophils (%) (Auto) 0.5 0.0-2.0 % Neutrophils # (Auto) 7.7 1.6-8.6 10 ^3/uL Lymphocytes # (Auto) 1.4 0.4-5.4 10 ^3/uL Monocytes # (Auto) 0.6 0-1.3 10 ^3/uL Eosinophils # (Auto) 0.1 0-0.8 10 ^3/uL Basophils # (Auto) 0.1 0-0.2 10 ^3/uL Nucleated Red Blood Cells 0.0 % Sodium Level 140 136-145 mmol/L Potassium Level 3.9 3.5-5.1 mmol/L Chloride Level 102 98-107 mmol/L Carbon Dioxide Level 29 20-31 mmol/L Anion Gap 9 5-15 Blood Urea Nitrogen 10 9-23 mg/dL Creatinine 1.24 0.700-1.30 mg/dL Glomerular Filtration Rate Calc 70 >90 mL/min BUN/Creatinine Ratio 8.1 L 10.0-20.0 Serum Glucose 110 H 74-106 mg/dL Calcium Level 10.2 8.7-10.4 mg/dL Total Bilirubin 0.4 0.2-1.0 mg/dL Aspartate Amino Transferase (AST) 11 L 13-40 U/L Alanine Aminotransferase (ALT) 10 7-40 U/L Alkaline Phosphatase 63 46-116 U/L Total Protein 7.3 5.7-8.2 g/dL Albumin 4.8 3.2-4.8 g/dL Lipase 73 H 12-53 U/L Current Medications Medications (Trade) Dose Ordered Sig/Yasmany Route Start Time Stop Time Status Last Admin Ondansetron HCl (Zofran Po) 8 mg ONCE ONCE PO 04/05/24 22:30 04/05/24 22:31 DC 04/05/24 22:54 Al Hydrox/Mg Hydrox/Simethicone (Maalox Plus) 30 ml ONCE ONCE PO 04/05/24 22:30 04/05/24 22:31 DC 04/05/24 22:54 Famotidine (Pepcid Tablet) 40 mg ONCE ONCE PO 04/05/24 22:30 04/05/24 22:31 DC 04/05/24 22:54 Acetaminophen/ Hydrocodone Bitart ([place] 10/325MG Tab) 1 tab ONCE ONCE PO 04/05/24 22:45 04/05/24 22:46 DC 04/05/24 22:54 [place] [address] Ph: [phone] DIAGNOSTIC IMAGING Diagnostic Imaging Report : [id number] Signed PATIENT: DIANA TAMAYO ACCT: [id number] UNIT: [id number] : 1970 LOC: ER ROOM / BED: / AGE / SEX: 53 / M ADM STATUS: REG ER SERVICE 26 ORDERING PHYSICIAN: ELMA BRISENO MD PROCEDURE(s): ABPL - CT AB PEL WO CON-NO ORAL OR IV REASON: abd pain ORDER NUMBER(s): [id number], ACCESSION NUMBER(s): [id number] Exam: CT CT AB PEL WO CON-NO ORAL OR IV History: abd pain Comparison Study: CT CT AB PEL WO CON-NO ORAL OR IV on DOS: 03/09/24 Technique: Multidetector spiral CT of the abdomen was performed from lung bases to pubic symphysis. Imaging was performed without IV contrast. Axial, coronal and sagittal multiplanar reformats were obtained from the axial data set by the technologist. Radiation Dose : 1. Abdomen/Pelvis: CTDIvol 5.3 mGy, DLP 279.0 mGy*cm. Findings: Evaluation of solid organs is limited due to lack of intravenous contrast use. Lung Bases: No acute or significant lung base finding. Normal heart size. No pleural or pericardial effusion. Liver: The liver is normal in size. No focal lesions. Gallbladder and Biliary Tree: Cholelithiasis. Spleen: Unremarkable Pancreas: The pancreas is grossly normal in appearance. Adrenal Glands: Unremarkable Kidneys: Kidneys are grossly normal without calculi or hydronephrosis. Bladder: Grossly unremarkable for degree of distention. Bowel: The stomach is grossly normal in appearance. Small bowel and colon are normal in caliber and distribution. The appendix is not visualized; however, no secondary findings of acute appendicitis identified. Large colonic stool burden. Ascites: Absent Lymphadenopathy: No mesenteric, retroperitoneal or periportal lymphadenopathy. Abdominal Wall and Mesentery: Unremarkable. Vasculature: The visualized abdominal aorta is normal in size and caliber. Evaluation of abdominal and pelvic vessels is limited due to lack of intravenous contrast. Pelvic Organs: Unremarkable Musculoskeletal: No aggressive focal bony lesions, acute fractures or dislocation. IMPRESSION: 1. No acute abdominal or pelvic findings. 2. Large colonic stool burden. Radiation optimization: All CT scans at this facility use at least one of these dose optimization techniques: automated exposure control mA and/or kV adjustment per patient size (includes targeted exams where dose is matched to clinical indication) or iterative reconstruction. ATED BY: LILLI POWERS MD DICTATED DATE/TIME: 04/06/24 0002 SIGNED BY: LILLI POWERS MD SIGNED DATE/TIME: 04/06/24 0002 CC: Time of 1ST Reevaluation: 22:50 Reevaluation 1ST: Unchanged Time of 2ND Reevaluation: 23:30 Reevaluation 2ND: Improved Patient Education/Counseling: Diagnosis, Treatment Family Education/Counseling: No Family Present Departure 1 Departure Time of Disposition: 23:30 Impression: Primary Impression: Abdominal pain Additional Impression: Nausea and vomiting Disposition: 01 HOME / SELF CARE / HOMELESS Condition: Stable e-Prescriptions Gabapentin (Once-Daily) (Gabapentin) 300 Mg Tab 300 MG PO Q6HP PRN, #60 TAB 2 Refills Prov: ELMA BRISENO MD 04/06/24 Famotidine (PEPCID TABLET) 20 Mg Tb 1 TAB PO BID PRN for 30 Days, #60 TAB 5 Refills Prov: ELMA BRISENO MD 04/06/24 Discharged With: Self Critical Care Note Critical Care Time?: No Stability Stability form required: No Heart Score Heart Score: Heart Score Response (Comments) Value History N/A 0 EKG N/A 0 Age N/A 0 Risk Factors N/A 0 Troponin N/A 0 Total 0 I personally scribed for ELMA BRISENO MD ([email or web address]) on 04/05/24 at 23:27. Electronically submitted by Braden Dutton ([email or web address]). I personally scribed for ELMA BRISENO MD ([email or web address]) on 04/06/24 at 00:38. Electronically submitted by Braden Dutton ([email or web address]). ELMA BRISENO MD Apr 05, 2024 23:27
[2024-04-05 23:35] LABS: Basophils # (auto) 0.1 10 ^3/uL (0-0.2); Basophils % (auto) 0.5 % (0.0-2.0); Eosinophils # (auto) 0.1 10 ^3/uL (0-0.8); Eosinophils % (auto) 1.4 % (0.0-7.0); Hematocrit 42.9 % (41.0-53.0); Hemoglobin 14.2 g/dL (13.5-17.5); Lymphocytes # (auto) 1.4 10 ^3/uL (0.4-5.4); Lymphocytes % (auto) 13.8 % (10.0-50.0); Mean Corpuscular Hemoglobin 28.4 pg (28.0-32.0); Mean Corpuscular Volume 86.1 fL (80.0-100.0); Monocytes # (auto) 0.6 10 ^3/uL (0-1.3); Monocytes % (auto) 6.3 % (0.0-12.0); Neutrophils # (auto) 7.7 10 ^3/uL (1.6-8.6); Platelet Count (auto) 334 10^3/uL (140-450); Red Blood Cells 4.98 10^6/uL (4.5-5.90); Red Cell Distribution Width 15.2 % (11.8-14.3); White Blood Cell 9.9 10^3/uL (4.4-10.8)
[2024-04-05 23:51] LABS: Alanine Aminotransferase 10 U/L (7-40); Albumin 4.8 g/dL (3.2-4.8); Alkaline Phosphatase 63 U/L (46-116); Anion Gap 9 (5-15); BUN/Creatinine Ratio 8.1 (10.0-20.0); Blood Urea Nitrogen 10 mg/dL (9-23); Calcium 10.2 mg/dL (8.7-10.4); Carbon Dioxide 29 mmol/L (20-31); Chloride 102 mmol/L (98-107); Potassium 3.9 mmol/L (3.5-5.1); Sodium 140 mmol/L (136-145)
[2024-04-05 23:52] LABS: Bilirubin, Total 0.4 mg/dL (0.2-1.0); Total Protein 7.3 g/dL (5.7-8.2)
[2024-04-05 23:53] LABS: Aspartate Aminotransferase 11 U/L (13-40); Glucose 110 mg/dL (74-106); Lipase 73 U/L (12-53)
--- NOTE | 2024-04-06 00:04 | DVH ---
Exam: CT CT AB PEL WO CON-NO ORAL OR IV History: abd pain Comparison Study: CT CT AB PEL WO CON-NO ORAL OR IV on DOS: 03/09/24 Technique: Multidetector spiral CT of the abdomen was performed from lung bases to pubic symphysis. Imaging was performed without IV contrast. Axial, coronal and sagittal multiplanar reformats were ob tained from the axial data set by the technologist. Radiation Dose : 1. Abdomen/Pelvis: CTDIvol 5.3 mGy, DLP 279.0 mGy*cm. Findings: Evaluation of solid organs is limited due to lack of intravenous contrast use. Lung Bases: No acute or significant lung base finding. Normal heart size. No pleural or pericardial effusion. Liver: The liver is normal in size. No focal lesions. Gallbladder and Biliary Tree: Cholelithiasis. Spleen: Unremarkable Pancreas: The pancreas is grossly normal in appearance. Adrenal Glands: Unremarkable Kidneys: Kidneys are grossly normal without calculi or hydronephrosis. Bladder: Grossly unremarkable for degree of distention. Bowel: The stomach is grossly normal in appearance. Small bowel and colon are normal in caliber and d istribution. The appendix is not visualized; however, no secondary findings of acute appendicitis id entified. Large colonic stool burden. Ascites: Absent Lymphadenopathy: No mesenteric, retroperitoneal or periportal lymphadenopathy. Abdominal Wall and Mesentery: Unremarkable. Vasculature: The visualized abdominal aorta is normal in size and caliber. Evaluation of abdominal a nd pelvic vessels is limited due to lack of intravenous contrast. Pelvic Organs: Unremarkable Musculoskeletal: No aggressive focal bony lesions, acute fractures or dislocation. IMPRESSION: 1. No acute abdominal or pelvic findings. 2. Large colonic stool burden. Radiation optimization: All CT scans at this facility use at least one of these dose optimization shemar hniques: automated exposure control mA and/or kV adjustment per patient size (includes targeted exam s where dose is matched to clinical indication) or iterative reconstruction.
[2024-04-06] MEDS ORDERED: FAMO20TA10 PO (00:59)
[2024-04-06] MEDS ORDERED: GABA300T4 PO (00:59)
[2024-04-06 01:20] VITALS: BP 121/83; PULSE 94; RESP 18; TEMP 98.1; O2SAT 98
== END 2024-04-06 01:25 | disposition home or self-care (01) ==
LOC: ER 20:49
DX: R10.13 Epigastric pain (principal); R11.2 Nausea with vomiting, unspecified; Z98.890 Other specified postprocedural states; Z79.899 Other long term (current) drug therapy
CPT/HCPCS: 36415; 74176; 80053; 83690; 85025; 99284; Q0162

== ENCOUNTER 2024-04-10 14:27 | Inpatient (IN) | payer SELFPAY ==
[~2024-04-10] VITALS: Ht 180.3 cm; Wt 54.1 kg
[~2024-04-10 14:27] MED LIST changes: +FAMO20TA10 PO; +GABA300T4 PO
[2024-04-10] MEDS: SODIUM CHLORIDE 0.9% 1,000 ML IV ONE (15:45)
[2024-04-10 16:11] LABS: Basophils # (auto) 0 10 ^3/uL (0-0.2); Basophils % (auto) 0.4 % (0.0-2.0); Eosinophils # (auto) 0 10 ^3/uL (0-0.8); Eosinophils % (auto) 0.6 % (0.0-7.0); Hematocrit 40.6 % (41.0-53.0); Hemoglobin 13.8 g/dL (13.5-17.5); Lymphocytes # (auto) 0.9 10 ^3/uL (0.4-5.4); Lymphocytes % (auto) 13.2 % (10.0-50.0); Mean Corpuscular Hemoglobin 28.2 pg (28.0-32.0); Mean Corpuscular Hgb Conc. 33.9 g/dL (32.0-36.0); Mean Corpuscular Volume 83.4 fL (80.0-100.0); Monocytes # (auto) 0.8 10 ^3/uL (0-1.3); Monocytes % (auto) 11.5 % (0.0-12.0); Neutrophils # (auto) 5.2 10 ^3/uL (1.6-8.6); Neutrophils % (auto) 74.3 % (37.0-80.0); Platelet Count (auto) 345 10^3/uL (140-450); Red Blood Cells 4.88 10^6/uL (4.5-5.90); Red Cell Distribution Width 14.7 % (11.8-14.3); White Blood Cell 6.9 10^3/uL (4.4-10.8)
--- NOTE | 2024-04-10 16:16 | ED.PDOC ---
GI ASSESSMENT HPI Comments 53Y M with PMHx gallstones, thyroid disease, gastric ulcers, and intestinal blockage surgery presents to ED for chief complaint diffuse abd pain x4days with n/v and constipation. Per pt, he believes LBM was on 5 days ago. Pt denies chest pain, SOB, and fever. Pt was dx with gastric ulcers after having endoscopy performed. Pt has been discharged from [facility] 3 times since the end of 2024. No other symptoms reported. Chief Complaint: Abdominal Pain Time Seen by MD: 16:05 Primary Care Provider: JOYA Reviewed Notes: Nurses Notes, Medications, Allergies Allergies: Coded Allergies: No Known Drug Allergy (Verified Allergy, Unknown, 03/09/24) Home Meds Active Scripts Gabapentin (Once-Daily) (Gabapentin) 300 Mg Tab, 300 MG PO Q6HP PRN, #60 TAB 2 Refills Prov:ELMA BRISENO MD 04/06/24 Famotidine (PEPCID TABLET) 20 Mg Tb, 1 TAB PO BID PRN for 30 Days, #60 TAB 5 Refills Prov:ELMA BRISENO MD 04/06/24 Oxycodone W/ Acetaminophen (Percocet 5/325MG) 1 Tab Tb, 1 TAB PO TID PRN for 3 Days, #9 TAB Prov:SILVANO LAWLER MD 03/20/24 Alum & Mag Hydrox-Simethicone (Maalox Multi Symptom Maxi) Symp Max Jeanne, 1 MAX PO Q6HP PRN for 30 Days, #1200 ML Prov:SILVANO LAWLER MD 03/20/24 Sucralfate (CARAFATE SUSP) 1 Gm/10 Ml Ss, 10 ML PO QID for 30 Days, #1200 ML 3 Refills Prov:SILVANO LAWLER MD 03/20/24 Sucralfate (Carafate) 1 Gm/10 Ml Jeanne, 1 GM PO QID for 30 Days, #120 GM Prov:LAURIE FINCH RESIDENT 03/12/24 Pantoprazole Sodium Sesquihydr (Protonix) 40 Mg Tab, 40 MG PO BID for 30 Days, #60 TAB Prov:LAURIE FINCH RESIDENT 03/12/24 Reported Medications Levothyroxine Sodium (Levothyroxine Sodium) 88 Mcg Tab, 88 MCG PO DAILY, TAB 03/10/24 Information Source: Patient Mode of Arrival: Ambulatory Timing: Days Duration: Since onset Prehospital treatment: None Quality: Sharp Vomitus: Watery Stool: Minimal Severity: Moderate Recent: None Recent Hx of: Other Pain Location: Diffuse Modifying Factors: Nothing Associated sign and symptoms: Nausea, Vomiting, Constipation, Abdominal Pain Past Medical History PAST MEDICAL HISTORY: Gallstones, Thyroid Past Medical History (Other): PUD Surgical History (Other): Intestinal blockage surgery as a child Family History Family History: Family hx of DM Social History Smoker: Non-Smoker Alcohol: Denies ETOH Use Drugs: Denies Drug Use Lives In: Home Constitutional: denies: chills, diaphoresis, fatigue, fever, malaise, sweats, weakness, others EENTM: denies: blurred vision, double vision, ear bleeding, ear discharge, ear drainage, ear pain, ear ringing, eye pain, eye redness, hearing loss, mouth pain, mouth swelling, nasal discharge, nose bleeding, nose congestion, nose pain, photophobia, tearing, throat pain, throat swelling, voice changes, others Respiratory: denies: cough, hemoptysis, orthopnea, SOB at rest, shortness of breath, SOB with excertion, stridor, wheezing, others Cardiovascular: denies: chest pain, dizzy spells, diaphoresis, Dyspnea on exertion, edema, irregular heart beat, left arm pain, lightheadedness, palpitations, PND, syncope, others Gastrointestinal: reports: abdomen distended, abdominal pain, constipated, vomiting; denies: blood streaked bowels, diarrhea, dysphagia, difficulty swallowing, hematemesis, melena, nausea, poor appetite, poor fluid intake, rectal bleeding, rectal pain, others Genitourinary: denies: burning, dysuria, flank pain, frequency, hematuria, incontinence, penile discharge, penile sore, pain, testicle pain, testicle swelling, urgency, others Neurological: denies: dizziness, fainting, headache, left sided numbness, left sided weakness, numbness, paresthesia, pre-existing deficit, right sided numbness, right sided weakness, seizure, speech problems, tingling, tremors, weakness, others Musculoskeletal: denies: back pain, gout, joint pain, joint swelling, muscle pain, muscle stiffness, neck pain, others Integumetry: denies: bruises, change in color, change in hair/nails, dryness, laceration, lesions, lumps, rash, wounds, others Allergic/Immunocompromised: denies: Difficulty Healing, Frequent Infections, Hives, Itching, others Hematologic/Lymphatic: denies: anemia, blood clots, easy bleeding, easy bruising, swollen glands, others Endocrine: denies: excessive hunger, excessive sweating, excessive thirst, excessive urination, flushing, intolerance to cold, intolerance to heat, unexplained weight gain, unexplained weight loss, others Psychiatric: denies: anxiety, bipolar disorder, depression, hopeless, panic disorder, schizophrenia, sleepless, suicidal, others All Other Systems: Reviewed and Negative Physical Exam General Appearance: Moderate Distress HEENT: Other (Pupils and face symmetric. Dry mucous membranes.) Neck: Full Range of Motion, Normal Inspection Respiratory: Lungs Clear, No Accessory Muscle Use, No Respiratory Distress, Normal Breath Sounds Cardiovascular: No Edema, No JVD, Regular Rate/Rhythm Breast Exam: Deferred Gastrointestinal: Diffuse, Distended, Soft, Tenderness Genitalia: Deferred Pelvic: Deferred Rectal: Deferred Extremities: Normal inspection, Normal range of motion, Non-tender, No pedal edema Neurologic: Alert (Oriented x4), Normal Affect, Normal Mood, Other (Ambulatory. No gross focal deficit.) Cerebellar Function: NOT DONE Reflexes: NOT DONE Skin: Dry, Pallor, Warm Lymphatic: NOT DONE Was a procedure done? Was a procedure done?: No GI differential Dx Differential Diagnosis: Bowel Obstruction, Constipation, Diverticular disease, Gastritis/PUD, Gastroenteritis, Inflammatory BD, Dehydration, Diabetes/ DKA, Electrolyte Imbalance, Bacterial, Viral, Hypovolemia, Impaction, Renal Failure, Ischemic Bowel, Stress Ulcer X-Ray, Labs, Meds, VS Vital Signs Date Time Temp Pulse Resp B/P (MAP) Pulse Ox O2 Delivery O2 Flow Rate FiO2 04/10/24 17:33 98.1 91 16 110/76 (87) 98 98.1 04/10/24 17:21 85 16 122/74 04/10/24 17:14 80 20 96 Room Air* 0 21 04/10/24 16:52 98 18 117/80 04/10/24 16:16 98 18 98 Room Air 04/10/24 16:16 98.9 98 18 117/80 (92) 98 98.9 04/10/24 15:33 98.5 108 18 106/73 (84) 97 04/10/24 14:54 114 Lab Test 04/10/24 16:40 04/10/24 16:00 Range/Units Urine Color Yellow Yellow Urine Clarity Clear Clear Urine pH 5.5 5.0-9.0 Urine Specific [place] 1.030 1.001-1.035 Urine Protein Trace H Negative Urine Ketones 1+ H Negative Urine Blood 2+ H Negative /uL Urine Nitrite Negative Negative Urine Bilirubin Negative Negative Urine Urobilinogen Normal Negative mg/dL Urine Leukocyte Esterase Negative Negative /uL Urine RBC 42 0 - 3 /hpf Urine Microscopic WBC 2 0-3 /HPF Urine Squamous Epithelial Cells Few <5 /hpf Urine Bacteria None seen None Seen /hpf Urine Glucose Normal Normal mg/dL White Blood Count 6.9 # 4.4-10.8 10^3/uL Red Blood Count 4.88 4.5-5.90 10^6/uL Hemoglobin 13.8 13.5-17.5 g/dL Hematocrit 40.6 L 41.0-53.0 % Mean Corpuscular Volume 83.4 80.0-100.0 fL Mean Corpuscular Hemoglobin 28.2 28.0-32.0 pg Mean Corpuscular Hemoglobin Concent 33.9 32.0-36.0 g/dL Red Cell Distribution Width 14.7 H 11.8-14.3 % Platelet Count 345 140-450 10^3/uL Mean Platelet Volume 7.5 6.9-10.8 fL Neutrophils (%) (Auto) 74.3 37.0-80.0 % Lymphocytes (%) (Auto) 13.2 10.0-50.0 % Monocytes (%) (Auto) 11.5 0.0-12.0 % Eosinophils (%) (Auto) 0.6 0.0-7.0 % Basophils (%) (Auto) 0.4 0.0-2.0 % Neutrophils # (Auto) 5.2 1.6-8.6 10 ^3/uL Lymphocytes # (Auto) 0.9 0.4-5.4 10 ^3/uL Monocytes # (Auto) 0.8 0-1.3 10 ^3/uL Eosinophils # (Auto) 0 0-0.8 10 ^3/uL Basophils # (Auto) 0 0-0.2 10 ^3/uL Nucleated Red Blood Cells 0.0 % Sodium Level 132 #L 136-145 mmol/L Potassium Level 4.1 3.5-5.1 mmol/L Chloride Level 89 #L 98-107 mmol/L Carbon Dioxide Level 35 H 20-31 mmol/L Anion Gap 8 5-15 Blood Urea Nitrogen 24 H 9-23 mg/dL Creatinine 1.13 0.700-1.30 mg/dL Glomerular Filtration Rate Calc 78 >90 mL/min BUN/Creatinine Ratio 21.2 H 10.0-20.0 Serum Glucose 110 H 74-106 mg/dL Calcium Level 10.2 8.7-10.4 mg/dL Total Bilirubin 0.3 0.2-1.0 mg/dL Aspartate Amino Transferase (AST) 11 L 13-40 U/L Alanine Aminotransferase (ALT) 10 7-40 U/L Alkaline Phosphatase 58 46-116 U/L Troponin I High Sensitivity 4 </=54 ng/L Total Protein 6.6 5.7-8.2 g/dL Albumin 4.5 3.2-4.8 g/dL Lipase 51 12-53 U/L Current Medications Medications (Trade) Dose Ordered Sig/Yasmany Route Start Time Stop Time Status Last Admin Sodium Chloride 1,000 ml @ 1,000 mls/hr Q1H ONCE IV 04/10/24 15:45 04/10/24 16:44 DC 04/10/24 15:45 Morphine Sulfate 4 mg ONCE ONCE IV 04/10/24 15:45 04/10/24 15:46 DC 04/10/24 16:52 Ondansetron HCl (Zofran) 4 mg ONCE ONCE IV 04/10/24 15:45 04/10/24 15:46 DC 04/10/24 16:51 Pantoprazole Sodium (Protonix) 40 mg ONCE ONCE IV 04/10/24 15:45 04/10/24 15:46 DC 04/10/24 16:51 ORDERING PHYSICIAN: SELENE MOLINA MD PROCEDURE(s): ABPL - CT AB PEL WO CON-NO ORAL OR IV REASON: ap ORDER NUMBER(s): [id number], ACCESSION NUMBER(s): [id number] Exam: CT CT AB PEL WO CON-NO ORAL OR IV History: ap Comparison Study: CT CT AB PEL WO CON-NO ORAL OR IV on DOS: 04/05/24, CT CT AB PEL WO CON-NO ORAL OR IV on DOS: 03/09/24 TECHNIQUE: Multidetector CT of the abdomen and pelvis was performed from lung bases to pubic symphysis. Imaging was performed without IV contrast. Axial, coronal, and sagittal multiplanar reformats were obtained from the axial data set by the technologist. RADIATION DOSE: DLP 321.71 mGy.cm; CTDI vol 6.39 mGy. Findings: Limited evaluation given noncontrast technique. Lungs: The lung bases are clear. Heart: No cardiomegaly or pericardial effusion. Liver: Unremarkable. Gallbladder: Unremarkable. Spleen: Unremarkable Pancreas: Unremarkable Adrenals: Unremarkable Kidneys: Unremarkable GI tract: Air-fluid levels within the dilated colon with two transition point. 1 is located at the splenic flexure with associated wall thickening and possible apple-core lesion. The 2nd is near the distal descending/sigmoid colon junction. : Unremarkable. Vasculature: Unremarkable Lymphadenopathy: Absent Peritoneum: No ascites Musculoskeletal: Unremarkable Soft tissues: Unremarkable Impression: 1. Limited evaluation given noncontrast technique. 2. Large bowel obstruction with 2 transition points. 3. 1st transition point at the splenic flexure with wall thickening and possible apple-core lesion. Recommend colonoscopy for further evaluation. 4. 2nd transition point near the distal descending /sigmoid colon junction. Critical Result: Bowel obstruction Findings discussed with SELENE MOLINA at 04/10/2024 04:25 PM, and carlos owledged receipt and understanding of the findings. X-Ray, Labs, Meds, VS Comment 53-year-old male with a history of PUD, thyroid disease, gallstones and prior bowel obstruction presenting with abdominal pain, vomiting and constipation Vitals unremarkable Exam remarkable for diffuse abdominal tenderness, distention and active vomiting Rhythm strip independently interpreted by me: Sinus rhythm, rate 80, no ectopy. CT abdomen and pelvis Impression: 1. Limited evaluation given noncontrast technique. 2. Large bowel obstruction with 2 transition points. 3. 1st transition point at the splenic flexure with wall thickening and possible apple-core lesion. Recommend colonoscopy for further evaluation. 4. 2nd transition point near the distal descending /sigmoid colon junction. Critical Result: Bowel obstruction CBC unremarkable, metabolic panel remarkable for sodium 132, chloride 89, CO2 35, BUN 24, lactate normal, troponin negative, lipase normal, UA positive for protein, ketones, blood and RBCs Patient treated with the following in the ED: 1 L 0.9 normal saline IV bolus, Zofran 4 mg IV, morphine 4 mg IV, Protonix 40 mg IV NG tube to low intermittent suction was ordered On re-evaluation, patient is no longer actively vomiting, pain has improved. Vitals were stable. Plan is to admit the patient for GI and/or surgical evaluation Stat surgical consult was placed. Time of 1ST Reevaluation: 16:35 Reevaluation 1ST: Unchanged Patient Education/Counseling: Diagnosis, Treatment Family Education/Counseling: No Family Present Departure 1 Departure Time of Disposition: 19:00 Impression: Primary Impression: Bowel obstruction Qualified Codes: K56.601 - Complete intestinal obstruction, unspecified as to cause Disposition: ADMITTED INPATIENT Admit to: Med Surg Condition: Guarded Critical Care Note Critical Care Time?: No Stability Stability form required: No Heart Score Heart Score: Heart Score Response (Comments) Value History N/A 0 EKG N/A 0 Age N/A 0 Risk Factors N/A 0 Troponin N/A 0 Total 0 I personally scribed for SELENE MOLINA MD ([facility]) on 04/10/24 at 16:16. Electronically submitted by Alicia Tang ([facility] I personally scribed for SELENE [facility]OLINA MD ([facility] on 04/10/24 at 16:33. Electronically submitted by Alicia Tang ([facility]). SELENE MOLIAN MD Apr 10, 2024 16:16
[2024-04-10 16:27] LABS: Alanine Aminotransferase 10 U/L (7-40); Albumin 4.5 g/dL (3.2-4.8); Alkaline Phosphatase 58 U/L (46-116); Anion Gap 8 (5-15); BUN/Creatinine Ratio 21.2 (10.0-20.0); Bilirubin, Total 0.3 mg/dL (0.2-1.0); Calcium 10.2 mg/dL (8.7-10.4); Lipase 51 U/L (12-53); Potassium 4.1 mmol/L (3.5-5.1); Total Protein 6.6 g/dL (5.7-8.2)
--- NOTE | 2024-04-10 16:29 | DVH ---
Exam: CT CT AB PEL WO CON-NO ORAL OR IV History: ap Comparison Study: CT CT AB PEL WO CON-NO ORAL OR IV on DOS: 04/05/24, CT CT AB PEL WO CON-NO ORAL OR I V on DOS: 03/09/24 TECHNIQUE: Multidetector CT of the abdomen and pelvis was performed from lung bases to pubic symphysi s. Imaging was performed without IV contrast. Axial, coronal, and sagittal multiplanar reformats were obtained from the axial data set by the technologist. RADIATION DOSE: DLP 321.71 mGy.cm; CTDI vol 6.39 mGy. Findings: Limited evaluation given noncontrast technique. Lungs: The lung bases are clear. Heart: No cardiomegaly or pericardial effusion. Liver: Unremarkable. Gallbladder: Unremarkable. Spleen: Unremarkable Pancreas: Unremarkable Adrenals: Unremarkable Kidneys: Unremarkable GI tract: Air-fluid levels within the dilated colon with two transition point. 1 is located at the s plenic flexure with associated wall thickening and possible apple-core lesion. The 2nd is near the d istal descending/sigmoid colon junction. : Unremarkable. Vasculature: Unremarkable Lymphadenopathy: Absent Peritoneum: No ascites Musculoskeletal: Unremarkable Soft tissues: Unremarkable Impression: 1. Limited evaluation given noncontrast technique. 2. Large bowel obstruction with 2 transition points. 3. 1st transition point at the splenic flexure with wall thickening and possible apple-core lesion. R ecommend colonoscopy for further evaluation. 4. 2nd transition point near the distal descending /sigmoid colon junction. Critical Result: Bowel obstruction Findings discussed with SELENE MOLINA at 04/10/2024 04:25 PM, and acknowledged receipt and understanding of the findings.
[2024-04-10 16:32] LABS: Aspartate Aminotransferase 11 U/L (13-40); Blood Urea Nitrogen 24 mg/dL (9-23); Carbon Dioxide 35 mmol/L (20-31); Chloride 89 mmol/L (98-107); Glucose 110 mg/dL (74-106); Sodium 132 mmol/L (136-145)
[2024-04-10] MEDS: PANTOPRAZOLE 40 MG/10 ML VIAL INJ IV ONE (16:51)
[2024-04-10] MEDS: ONDANSETRON HCL 4 MG/2 ML VIAL IV ONE (16:51)
[2024-04-10] MEDS: MORPHINE SULFATE 4 MG/ML SYR/VIAL IV ONE (16:52)
[2024-04-10 17:05] LABS: Urine Bacteria None Seen /hpf (None Seen)
[2024-04-10 17:14] VITALS: PULSE 80; RESP 20; O2SAT 96
[2024-04-10 17:19] LABS: Urine Blood 2+ /uL (Negative); Urine Clarity Clear (Clear); Urine Color Yellow (Yellow); Urine Protein, UAD TRACE (Negative); Urine Squamous Epithelial Cell FEW /hpf (<5); Urine Urobilinogen Normal (Negative); Urine WBC 2 /HPF (0-3); Urine pH 5.5 (5.0-9.0)
--- NOTE | 2024-04-10 18:20 | ECG ---
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
--- NOTE | 2024-04-10 18:48 | DVHHP2 ---
History of Present Illness Reason for Visit: Nausea and vomiting, abdominal pain History of Present Illness The patient was a 53-year-old male presenting to the emergency room with reports of nausea, vomiting, constipation, abdominal pain. Patient was states he was not been able to hold down oral intake since he was last discharged from the emergency room on 04/06/2024, from this facility. Patient was recently admitted prior to that visit, undergoing EGD with noted gastric ulcers. Patient states that he has now worsening abdominal bloating, as well as constipation for the past 5-6 days. He states he has lost weight over the last two months. Recent admission records were reviewed with CEA being normal. Previous CT scan also did not reveal latest findings of large bowel obstruction. GI: Constipation, Gastritis Past Surgical History: None Smoke: # pack years ALCOHOL: none Drugs: None Lives: with Family Domestic Violence: Neg Review of Systems Constitutional: Yes: Weakness Eyes: No: Pain, Vision change, Conjunctivae inflammation, Eyelid inflammation, Other, Redness ENT: No: Ear pain, Ear discharge, Nose pain, Nose discharge, Nose congestion, Mouth pain, Mouth swelling, Throat pain, Throat swelling, Other Respiratory: No: Cough, Dry, Shortness of breath, SOB with excertion, Wheezing, Hemoptysis, Pleuritic Pain, Sputum, Wheezing, Other Cardiovascular: No: Chest Pain, Palpitations, Orthopnea, Paroxysmal Noc. Dyspnea, Edema, Lt Headedness, Other Gastrointestinal: Nausea, Vomiting, Abdominal Pain, Constipation Genitourinary: No Dysuria, No Frequency, No Incontinence, No Hematuria, No Retention, No Other Musculoskeletal: No: other, neck pain, shoulder pain, arm pain, back pain, hand pain, leg pain, foot pain Skin: No: Rash, Lesions, Jaundice, Bruising, Other Neurological: No: Weakness, Numbness, Incoordination, Change in speech, Confusion, Seizures, Other Allergies: Coded Allergies: No Known Drug Allergy (Verified Allergy, Unknown, 03/09/24) Exam Vital Signs Vital Signs Date Time Temp Pulse Resp B/P (MAP) Pulse Ox O2 Delivery O2 Flow Rate FiO2 04/10/24 17:33 98.1 91 16 110/76 (87) 98 98.1 04/10/24 17:14 Room Air* 0 21 General Appearance: Alert, Oriented X3, Cooperative, mild distress HEENT: Atraumatic, PERRLA Respiratory: Clear to auscultation, Normal air movement Cardiovascular: Regular rate, Normal S1, Normal S2 Abdominal: Normal bowel sounds, Soft, Other (Tenderness noted to lower quadrants) Extremities: No clubbing, No cyanosis, No edema, Normal pulses, No tenderness/swelling Skin: No rashes, No breakdown, No significant lesion Neuro: Normal gait, Normal speech, Strength at 5/5 X4 ext Psych/Mental Status: Mental status NL, Mood NL Labs/Xrays Labs Test 04/10/24 16:40 04/10/24 16:00 Range/Units Urine Color Yellow Yellow Urine Clarity Clear Clear Urine pH 5.5 5.0-9.0 Urine Specific [place] 1.030 1.001-1.035 Urine Protein Trace H Negative Urine Ketones 1+ H Negative Urine Blood 2+ H Negative /uL Urine Nitrite Negative Negative Urine Bilirubin Negative Negative Urine Urobilinogen Normal Negative mg/dL Urine Leukocyte Esterase Negative Negative /uL Urine RBC 42 0 - 3 /hpf Urine Microscopic WBC 2 0-3 /HPF Urine Squamous Epithelial Cells Few <5 /hpf Urine Bacteria None seen None Seen /hpf Urine Glucose Normal Normal mg/dL White Blood Count 6.9 # 4.4-10.8 10^3/uL Red Blood Count 4.88 4.5-5.90 10^6/uL Hemoglobin 13.8 13.5-17.5 g/dL Hematocrit 40.6 L 41.0-53.0 % Mean Corpuscular Volume 83.4 80.0-100.0 fL Mean Corpuscular Hemoglobin 28.2 28.0-32.0 pg Mean Corpuscular Hemoglobin Concent 33.9 32.0-36.0 g/dL Red Cell Distribution Width 14.7 H 11.8-14.3 % Platelet Count 345 140-450 10^3/uL Mean Platelet Volume 7.5 6.9-10.8 fL Neutrophils (%) (Auto) 74.3 37.0-80.0 % Lymphocytes (%) (Auto) 13.2 10.0-50.0 % Monocytes (%) (Auto) 11.5 0.0-12.0 % Eosinophils (%) (Auto) 0.6 0.0-7.0 % Basophils (%) (Auto) 0.4 0.0-2.0 % Neutrophils # (Auto) 5.2 1.6-8.6 10 ^3/uL Lymphocytes # (Auto) 0.9 0.4-5.4 10 ^3/uL Monocytes # (Auto) 0.8 0-1.3 10 ^3/uL Eosinophils # (Auto) 0 0-0.8 10 ^3/uL Basophils # (Auto) 0 0-0.2 10 ^3/uL Nucleated Red Blood Cells 0.0 % Sodium Level 132 #L 136-145 mmol/L Potassium Level 4.1 3.5-5.1 mmol/L Chloride Level 89 #L 98-107 mmol/L Carbon Dioxide Level 35 H 20-31 mmol/L Anion Gap 8 5-15 Blood Urea Nitrogen 24 H 9-23 mg/dL Creatinine 1.13 0.700-1.30 mg/dL Glomerular Filtration Rate Calc 78 >90 mL/min BUN/Creatinine Ratio 21.2 H 10.0-20.0 Serum Glucose 110 H 74-106 mg/dL Calcium Level 10.2 8.7-10.4 mg/dL Total Bilirubin 0.3 0.2-1.0 mg/dL Aspartate Amino Transferase (AST) 11 L 13-40 U/L Alanine Aminotransferase (ALT) 10 7-40 U/L Alkaline Phosphatase 58 46-116 U/L Troponin I High Sensitivity 4 </=54 ng/L Total Protein 6.6 5.7-8.2 g/dL Albumin 4.5 3.2-4.8 g/dL Lipase 51 12-53 U/L Assessment/Plan Assessment/Plan Impression: -bowel obstruction -cachexia -intractable nausea and vomiting -gastric ulcers Plan: -admit to Medical/Surgical unit -GI consultation -NPO status -NG tube to low intermittent suction -repeat CT scan in the a.m. with IV and oral contrast once bowels have been decompressed -IV hydration -IV Protonix -repeat labs in a.m. -long discussion made with the patient regarding findings. All questions answered. Total time spent with patient discussing and formulating plan of care: 35 minutes. Total time spent with patient and family regarding advance care plannin minutes. This medical document was created using an electronic medical record system with [employer] system. Although this document has been carefully reviewed, there may still be some phonetic and typographical errors. These areas are purely typographical due to imperfections of the software programs, and do not reflect any compromise in the patient's medical care. Plan discussed with: Patient, Other (RN) My Orders Orders - [facility]KS [facility] NP Procedure Category Date Status Time Admit ADMIT 04/10/24 Verified 18:36 Oxygen By Nasal RT 04/10/24 Verified Cannula 18:36 Pantoprazole PHA 04/11/24 Verified (Protonix) 10:00 * Gi D[facility] Lead Cashier CONS 04/10/24 Verified 18:36 Ondansetron Hcl PHA 04/10/24 Verified (Zofran) 18:45 Npo (Nothing By DIET 04/11/24 Verified Mouth) Diet Breakfast Ct Ab Pelv W Wo CT 04/11/24 Verified Con-Oral & Iv 08:00 Morphine Sulfate PHA 04/10/24 Verified Injection 18:45 Metoclopramide PHA 04/10/24 Verified Injection (Reglan 18:45 Date of Service: Apr 10, 2024 Billing Provider: BROOKS PALM NP Common Visit Codes: [id number] INP/OBS CARE (HIGH) Secondary Visit Codes: 21006-NECLVDAL CARE PLAN 30 MINUTES BROOKS PALM NP Apr 10, 2024 18:48
[2024-04-10 19:30] VITALS: PULSE 89; RESP 13; O2SAT 95
[2024-04-10] MEDS: D5W/ SOD CHL 0.9%/KCL 20MEQ 1,000 ML IV SCH (19:50)
[2024-04-10] MEDS: METOCLOPRAMIDE HCL 5MG/ml INJ 2ml VIAL IV ONE (19:50)
[2024-04-10] MEDS: MORPHINE SULFATE INJ 2 MG/ml SYRG IV PRN (20:23)
--- NOTE | 2024-04-10 21:01 | DVH ---
CHEST RADIOGRAPH Indication: NG tube placement Technique: Single frontal view of the chest was obtained COMPARISON: XY CHEST XRAY 1 VIEW on DOS: 04/01/24, XY CHEST PORTABLE on DOS: 03/10/24 FINDINGS: Lines and Tubes: Tip of the NG tube is in the region of GE junction and should be further advanced. Lungs: Clear Pleura: No effusion. No pneumothorax. Cardiomediastinal contours: Unremarkable Bones: Unremarkable IMPRESSION: Tip of the NG tube is in the region of GE junction and should be further advanced. No cardiopulmonar y abnormality.
[2024-04-10 22:25] VITALS: PULSE 91; RESP 14; O2SAT 94
[2024-04-11 00:09] LABS: Rapid Influenza A Negative (Negative); Rapid Influenza B Negative (Negative)
[2024-04-11 00:10] LABS: COVID19 ANTIGEN SOFIA FIA NEGATIVE (NEGATIVE)
[2024-04-11 06:53] LABS: Basophils # (auto) 0 10 ^3/uL (0-0.2); Basophils % (auto) 0.2 % (0.0-2.0); Eosinophils # (auto) 0.1 10 ^3/uL (0-0.8); Eosinophils % (auto) 1.2 % (0.0-7.0); Hematocrit 34.8 % (41.0-53.0); Hemoglobin 11.3 g/dL (13.5-17.5); Lymphocytes # (auto) 0.8 10 ^3/uL (0.4-5.4); Lymphocytes % (auto) 16.8 % (10.0-50.0); Mean Corpuscular Hemoglobin 27.8 pg (28.0-32.0); Mean Corpuscular Hgb Conc. 32.5 g/dL (32.0-36.0); Mean Corpuscular Volume 85.7 fL (80.0-100.0); Monocytes # (auto) 0.5 10 ^3/uL (0-1.3); Monocytes % (auto) 10.7 % (0.0-12.0); Neutrophils # (auto) 3.3 10 ^3/uL (1.6-8.6); Neutrophils % (auto) 71.1 % (37.0-80.0); Nucleated Red Blood Cells % 0.4 %; Platelet Count (auto) 246 10^3/uL (140-450); Red Blood Cells 4.07 10^6/uL (4.5-5.90); Red Cell Distribution Width 14.8 % (11.8-14.3); White Blood Cell 4.7 10^3/uL (4.4-10.8)
[2024-04-11 07:14] LABS: Albumin 3.4 g/dL (3.2-4.8); Anion Gap 8 (5-15); Blood Urea Nitrogen 16 mg/dL (9-23); Carbon Dioxide 28 mmol/L (20-31); Chloride 100 mmol/L (98-107); Sodium 136 mmol/L (136-145)
[2024-04-11 07:20] LABS: Alanine Aminotransferase < 9 U/L (7-40); Alkaline Phosphatase 45 U/L (46-116); Aspartate Aminotransferase 8 U/L (13-40); Bilirubin, Total 0.2 mg/dL (0.2-1.0); Calcium 8.6 mg/dL (8.7-10.4); Glucose 115 mg/dL (74-106); Potassium 3.4 mmol/L (3.5-5.1); Total Protein 5.4 g/dL (5.7-8.2)
[2024-04-11 08:47] VITALS: PULSE 91
[2024-04-11] MEDS: PANTOPRAZOLE 40 MG/10 ML VIAL INJ IV SCH (10:50)
--- NOTE | 2024-04-11 11:39 | DVH ---
Exam: XY KUB ABDOMEN SINGLE VIEW Indication: r/o colonic distension Comparison: XY KUB ABDOMEN SINGLE VIEW on DOS: 03/12/24 Technique: Supine AP view of the abdomen was performed. Findings: No abnormal small or large bowel dilatation. Gas is present throughout the colon. No abnormal calcifi cations overlying the urinary tract. There is mild lumbar degenerative disc disease. Impression: No evidence of bowel obstruction.
--- NOTE | 2024-04-11 12:23 | DVHINCON2 ---
Date of service: Apr 11, 2024 Family History: Diabetes mellitus G8 MOTHER FH: lupus G8 MOTHER FH: peptic ulcer G8 FATHER Allergies: Coded Allergies: No Known Drug Allergy (Verified Allergy, Unknown, 03/09/24) Home Meds Active Scripts Gabapentin (Once-Daily) (Gabapentin) 300 Mg Tab, 300 MG PO Q6HP PRN, #60 TAB 2 Refills Prov:ELMA BRISENO MD 04/06/24 Famotidine (PEPCID TABLET) 20 Mg Tb, 1 TAB PO BID PRN for 30 Days, #60 TAB 5 Refills Prov:ELMA BRISENO MD 04/06/24 Oxycodone W/ Acetaminophen (Percocet 5/325MG) 1 Tab Tb, 1 TAB PO TID PRN for 3 Days, #9 TAB Prov:SILVANO LAWLER MD 03/20/24 Alum & Mag Hydrox-Simethicone (Maalox Multi Symptom Maxi) Symp Max Jeanne, 1 MAX PO Q6HP PRN for 30 Days, #1200 ML Prov:SILVANO LAWLER MD 03/20/24 Sucralfate (CARAFATE SUSP) 1 Gm/10 Ml Ss, 10 ML PO QID for 30 Days, #1200 ML 3 Refills Prov:SILVANO LAWLER MD 03/20/24 Sucralfate (Carafate) 1 Gm/10 Ml Jeanne, 1 GM PO QID for 30 Days, #120 GM Prov:LAURIE FINCH RESIDENT 03/12/24 Pantoprazole Sodium Sesquihydr (Protonix) 40 Mg Tab, 40 MG PO BID for 30 Days, #60 TAB Prov:LAURIE FINCH RESIDENT 03/12/24 Reported Medications Levothyroxine Sodium (Levothyroxine Sodium) 88 Mcg Tab, 88 MCG PO DAILY, TAB 03/10/24 Current Medications Current Medications Medications (Trade) Dose Ordered Sig/Yasmany Route PRN Reason Start Time Stop Time Status Last Admin Pantoprazole Sodium (Protonix) 40 mg DAILY IV 04/11/24 10:00 04/11/24 10:50 Ondansetron HCl (Zofran) 4 mg Q4HPRN PRN IV NAUSEA / VOMITING 04/10/24 18:45 Morphine Sulfate 1 mg Q4HPRN PRN IV SEVERE PAIN (7-10 PAIN SCALE) 04/10/24 18:45 04/10/24 20:23 Potassium Chloride/Dextrose/ Sod Cl 1,000 ml @ 120 mls/hr Q8H20M IV 04/10/24 18:45 04/11/24 11:41 Vital Signs Vital Signs Date Time Temp Pulse Resp B/P (MAP) Pulse Ox O2 Delivery O2 Flow Rate FiO2 04/11/24 10:00 72 10 99/65 (76) 96 04/11/24 08:47 Room Air* 0 21 04/10/24 22:25 98.1 98.1 Labs/Diagnostic Data Labs Test 04/11/24 06:20 04/10/24 23:10 04/10/24 16:40 04/10/24 16:00 Range/Units White Blood Count 4.7 # 4.4-10.8 10^3/uL Red Blood Count 4.07 L 4.5-5.90 10^6/uL Hemoglobin 11.3 #L 13.5-17.5 g/dL Hematocrit 34.8 #L 41.0-53.0 % Mean Corpuscular Volume 85.7 80.0-100.0 fL Mean Corpuscular Hemoglobin 27.8 L 28.0-32.0 pg Mean Corpuscular Hemoglobin Concent 32.5 32.0-36.0 g/dL Red Cell Distribution Width 14.8 H 11.8-14.3 % Platelet Count 246 140-450 10^3/uL Mean Platelet Volume 8.1 6.9-10.8 fL Neutrophils (%) (Auto) 71.1 37.0-80.0 % Lymphocytes (%) (Auto) 16.8 10.0-50.0 % Monocytes (%) (Auto) 10.7 0.0-12.0 % Eosinophils (%) (Auto) 1.2 0.0-7.0 % Basophils (%) (Auto) 0.2 0.0-2.0 % Neutrophils # (Auto) 3.3 1.6-8.6 10 ^3/uL Lymphocytes # (Auto) 0.8 0.4-5.4 10 ^3/uL Monocytes # (Auto) 0.5 0-1.3 10 ^3/uL Eosinophils # (Auto) 0.1 0-0.8 10 ^3/uL Basophils # (Auto) 0 0-0.2 10 ^3/uL Nucleated Red Blood Cells 0.4 % Sodium Level 136 136-145 mmol/L Potassium Level 3.4 L 3.5-5.1 mmol/L Chloride Level 100 # 98-107 mmol/L Carbon Dioxide Level 28 20-31 mmol/L Anion Gap 8 5-15 Blood Urea Nitrogen 16 9-23 mg/dL Creatinine 0.94 0.700-1.30 mg/dL Glomerular Filtration Rate Calc 97 >90 mL/min BUN/Creatinine Ratio 17.0 10.0-20.0 Serum Glucose 115 H 74-106 mg/dL Calcium Level 8.6 L 8.7-10.4 mg/dL Total Bilirubin 0.2 0.2-1.0 mg/dL Aspartate Amino Transferase (AST) 8 L 13-40 U/L Alanine Aminotransferase (ALT) < 9 7-40 U/L Alkaline Phosphatase 45 L 46-116 U/L Total Protein 5.4 L 5.7-8.2 g/dL Albumin 3.4 3.2-4.8 g/dL Influenza Type A Antigen Negative Negative Influenza Type B Antigen Negative Negative SARS-CoV-2 Antigen (Rapid) Negative NEGATIVE Urine Color Yellow Yellow Urine Clarity Clear Clear Urine pH 5.5 5.0-9.0 Urine Specific [place] 1.030 1.001-1.035 Urine Protein Trace H Negative Urine Ketones 1+ H Negative Urine Blood 2+ H Negative /uL Urine Nitrite Negative Negative Urine Bilirubin Negative Negative Urine Urobilinogen Normal Negative mg/dL Urine Leukocyte Esterase Negative Negative /uL Urine RBC 42 0 - 3 /hpf Urine Microscopic WBC 2 0-3 /HPF Urine Squamous Epithelial Cells Few <5 /hpf Urine Bacteria None seen None Seen /hpf Urine Glucose Normal Normal mg/dL Troponin I High Sensitivity 4 </=54 ng/L Lipase 51 12-53 U/L Assessment [id number] CONSTIPATION COLON OBSTRUCTION NOT AN AC ABD BM + NG IN PLACE GI EVAL FOR POSSIBLE COLONOSCOPY CONSIDER EMERGENT/ELECTIVE SURGERY BASED ON ONGOING EVAL Plan discussed with: Patient BOB HILTON MD Apr 11, 2024 12:23
--- NOTE | 2024-04-11 14:16 | DVHINCON2 ---
Date of service: Apr 11, 2024 Referring Physician Dilip Fuller Reason for Consultation Abdominal pain and possible colonic obstruction History of Present Illness The patient was a 53-year-old male presenting to the emergency room with reports of nausea, vomiting, constipation, abdominal pain. Patient was states he was not been able to hold down oral intake since he was last discharged from the emergency room on 04/06/2024, from this facility. Patient was recently admitted prior to that visit, undergoing EGD with noted gastric ulcers. Patient states that he has now worsening abdominal bloating, as well as constipation for the past 5-6 days. He states he has lost weight over the last two months. Recent admission records were reviewed with CEA being normal. Previous CT scan also did not reveal latest findings of large bowel obstruction. Patient was seen at bedside ER one. He has an NG-tube in place. Patient stated he did have a bowel movement this morning which was a moderate amount of watery stool with a little bit of substance in his Past Medical History GI: Constipation, Gastritis with gastric ulcer Hypothyroidism Anxiety Past Surgical History None Family History: Diabetes mellitus G8 MOTHER FH: lupus G8 MOTHER FH: peptic ulcer G8 FATHER Allergies: Coded Allergies: No Known Drug Allergy (Verified Allergy, Unknown, 03/09/24) Home Meds Active Scripts Gabapentin (Once-Daily) (Gabapentin) 300 Mg Tab, 300 MG PO Q6HP PRN, #60 TAB 2 Refills Prov:ELMA BRISENO MD 04/06/24 Famotidine (PEPCID TABLET) 20 Mg Tb, 1 TAB PO BID PRN for 30 Days, #60 TAB 5 Refills Prov:ELMA BRISENO MD 04/06/24 Oxycodone W/ Acetaminophen (Percocet 5/325MG) 1 Tab Tb, 1 TAB PO TID PRN for 3 Days, #9 TAB Prov:SILVANO LAWLER MD 03/20/24 Alum & Mag Hydrox-Simethicone (Maalox Multi Symptom Maxi) Symp Max Jeanne, 1 MAX PO Q6HP PRN for 30 Days, #1200 ML Prov:SILVANO LAWLER MD 03/20/24 Sucralfate (CARAFATE SUSP) 1 Gm/10 Ml Ss, 10 ML PO QID for 30 Days, #1200 ML 3 Refills Prov:SILVANO LAWLER MD 03/20/24 Sucralfate (Carafate) 1 Gm/10 Ml Jeanne, 1 GM PO QID for 30 Days, #120 GM Prov:LAURIE FINCH RESIDENT 03/12/24 Pantoprazole Sodium Sesquihydr (Protonix) 40 Mg Tab, 40 MG PO BID for 30 Days, #60 TAB Prov:LAURIE FINCH RESIDENT 03/12/24 Reported Medications Levothyroxine Sodium (Levothyroxine Sodium) 88 Mcg Tab, 88 MCG PO DAILY, TAB 03/10/24 Current Medications Current Medications Medications (Trade) Dose Ordered Sig/Yasmany Route PRN Reason Start Time Stop Time Status Last Admin Pantoprazole Sodium (Protonix) 40 mg DAILY IV 04/11/24 10:00 04/11/24 10:50 Ondansetron HCl (Zofran) 4 mg Q4HPRN PRN IV NAUSEA / VOMITING 04/10/24 18:45 Morphine Sulfate 1 mg Q4HPRN PRN IV SEVERE PAIN (7-10 PAIN SCALE) 04/10/24 18:45 04/10/24 20:23 Potassium Chloride/Dextrose/ Sod Cl 1,000 ml @ 120 mls/hr Q8H20M IV 04/10/24 18:45 04/11/24 11:41 Vital Signs Vital Signs Date Time Temp Pulse Resp B/P (MAP) Pulse Ox O2 Delivery O2 Flow Rate FiO2 04/11/24 10:00 72 10 99/65 (76) 96 04/11/24 08:47 Room Air* 0 21 04/10/24 22:25 98.1 98.1 Physical Exam General Appearance: Alert, Oriented X3, Cooperative, mild distress HEENT: Atraumatic, PERRLA; NG-tube in place, draining minimal bilious material Respiratory: Clear to auscultation, Normal air movement Cardiovascular: Regular rate, Normal S1, Normal S2 Abdominal: Normal bowel sounds, Soft, Other (Tenderness noted to lower quadrants) Extremities: No clubbing, No cyanosis, No edema, Normal pulses, No tenderness/swelling Skin: No rashes, No breakdown, No significant lesion Neuro: Normal gait, Normal speech, Strength at 5/5 X4 ext Psych/Mental Status: Mental status NL, Mood NL Labs/Diagnostic Data Labs Test 04/11/24 06:20 3/1/25 23:10 04/10/24 16:40 04/10/24 16:00 Range/Units White Blood Count 4.7 # 4.4-10.8 10^3/uL Red Blood Count 4.07 L 4.5-5.90 10^6/uL Hemoglobin 11.3 #L 13.5-17.5 g/dL Hematocrit 34.8 #L 41.0-53.0 % Mean Corpuscular Volume 85.7 80.0-100.0 fL Mean Corpuscular Hemoglobin 27.8 L 28.0-32.0 pg Mean Corpuscular Hemoglobin Concent 32.5 32.0-36.0 g/dL Red Cell Distribution Width 14.8 H 11.8-14.3 % Platelet Count 246 140-450 10^3/uL Mean Platelet Volume 8.1 6.9-10.8 fL Neutrophils (%) (Auto) 71.1 37.0-80.0 % Lymphocytes (%) (Auto) 16.8 10.0-50.0 % Monocytes (%) (Auto) 10.7 0.0-12.0 % Eosinophils (%) (Auto) 1.2 0.0-7.0 % Basophils (%) (Auto) 0.2 0.0-2.0 % Neutrophils # (Auto) 3.3 1.6-8.6 10 ^3/uL Lymphocytes # (Auto) 0.8 0.4-5.4 10 ^3/uL Monocytes # (Auto) 0.5 0-1.3 10 ^3/uL Eosinophils # (Auto) 0.1 0-0.8 10 ^3/uL Basophils # (Auto) 0 0-0.2 10 ^3/uL Nucleated Red Blood Cells 0.4 % Sodium Level 136 136-145 mmol/L Potassium Level 3.4 L 3.5-5.1 mmol/L Chloride Level 100 # 98-107 mmol/L Carbon Dioxide Level 28 20-31 mmol/L Anion Gap 8 5-15 Blood Urea Nitrogen 16 9-23 mg/dL Creatinine 0.94 0.700-1.30 mg/dL Glomerular Filtration Rate Calc 97 >90 mL/min BUN/Creatinine Ratio 17.0 10.0-20.0 Serum Glucose 115 H 74-106 mg/dL Calcium Level 8.6 L 8.7-10.4 mg/dL Total Bilirubin 0.2 0.2-1.0 mg/dL Aspartate Amino Transferase (AST) 8 L 13-40 U/L Alanine Aminotransferase (ALT) < 9 7-40 U/L Alkaline Phosphatase 45 L 46-116 U/L Total Protein 5.4 L 5.7-8.2 g/dL Albumin 3.4 3.2-4.8 g/dL Influenza Type A Antigen Negative Negative Influenza Type B Antigen Negative Negative SARS-CoV-2 Antigen (Rapid) Negative NEGATIVE Urine Color Yellow Yellow Urine Clarity Clear Clear Urine pH 5.5 5.0-9.0 Urine Specific [place] 1.030 1.001-1.035 Urine Protein Trace H Negative Urine Ketones 1+ H Negative Urine Blood 2+ H Negative /uL Urine Nitrite Negative Negative Urine Bilirubin Negative Negative Urine Urobilinogen Normal Negative mg/dL Urine Leukocyte Esterase Negative Negative /uL Urine RBC 42 0 - 3 /hpf Urine Microscopic WBC 2 0-3 /HPF Urine Squamous Epithelial Cells Few <5 /hpf Urine Bacteria None seen None Seen /hpf Urine Glucose Normal Normal mg/dL Troponin I High Sensitivity 4 </=54 ng/L Lipase 51 12-53 U/L Abdominal X ray Findings: No abnormal small or large bowel dilatation. Gas is present throughout the colon. No abnormal calcifications overlying the urinary tract. There is mild lumbar degenerative disc disease. Impression: No evidence of bowel obstruction. CT SCAN ABD PELVIS Impression: 1. Limited evaluation given noncontrast technique. 2. Large bowel obstruction with 2 transition points. 3. 1st transition point at the splenic flexure with wall thickening and possible apple-core lesion. Recommend colonoscopy for further evaluation. 4. 2nd transition point near the distal descending /sigmoid colon junction. Problems(with codes): (1) Bowel obstruction (2) Abdominal pain (3) Nausea and vomiting (4) Intractable abdominal pain (5) Cholelithiasis (6) Gastric ulcer (7) Abnormal finding on CT scan Plan/Recommendation PLAN Suspected colonic pathology possible large bowel obstruction with either inflammatory or malignant strictures I will start this patient on ice chips then clear liquid diet Patient will be given a bowel prep and we can give it through the NG tube Once the patient is prepped adequately over the next 24-48 hours then I will schedule him for a colonoscopy with possible biopsy possible polypectomy Continue to monitor labs and check CEA level again Protonix 40 mg IV daily IV fluids and pain control IV antibiotics Plan discussed with: Patient, Other (ER Nurse) CHAPO HILTON MD Apr 11, 2024 14:16
--- NOTE | 2024-04-11 14:34 | DVHINCON2 ---
DATE OF CONSULTATION: 04/11/2024 HISTORY OF PRESENT ILLNESS: This patient is 53 years old, came to the Emergency Room with nausea, vomiting, constipation, abdominal pain, now he is feeling better and he has an NG tube in place and no hematemesis, melena. No bleeding per rectum. PAST MEDICAL HISTORY: Constipation, gastritis. PAST SURGICAL HISTORY: He had an abdominal surgery during his childhood. Details are not clear. It was some kind of intestinal issue. PHYSICAL EXAMINATION: VITAL SIGNS: Currently, he is afebrile with stable signs. HEENT: With no evidence of pallor, cyanosis, or jaundice. NECK: Supple, nontender with no thyromegaly, lymphadenopathy. CHEST AND LUNGS: Clear. HEART: Within normal limits. ABDOMEN: Soft, minimally tender. No rebound. EXTREMITIES: Unremarkable. NEUROLOGIC: Intact. CLINICAL IMPRESSION: Constipation, rule out bowel obstruction. CAT scan is suggesting descending colon obstruction. PLAN: Will be to have GI evaluation for possible colonoscopy as his constipation may be resolving and then based upon the findings, surgery can be considered emergently or as elective surgery. MD DONITA Barros/BRAYDEN/GRUPO TID: [id number] RECEIPT: [id number] cc: Dilip Fuller NP
[2024-04-11 16:40] VITALS: BP 97/66; PULSE 72; RESP 19; TEMP 98.4; O2SAT 98
[2024-04-11] MEDS: CEFEPIME 2GM/50ML NS 50 ML IV SCH (16:45)
[2024-04-11 17:00] VITALS: BP 97/66; PULSE 72; RESP 19; TEMP 98.4; O2SAT 98
[2024-04-11] MEDS: GOLYTELY 4L KIT PO ONE (18:33)
[2024-04-11] MEDS: metroNIDAZOLE 500MG/100ML 100 ML IV SCH (21:11)
[2024-04-11 21:20] VITALS: BP 108/70; PULSE 64; RESP 18; TEMP 97.1; O2SAT 98
--- NOTE | 2024-04-11 21:38 | DVH ---
CHEST RADIOGRAPH Indication: ng tube placement verification Technique: Single frontal view of the chest was obtained COMPARISON: XY CHEST XRAY 1 VIEW on DOS: 04/10/24, XY CHEST XRAY 1 VIEW on DOS: 04/01/24, XY CHEST [place] BLE on DOS: 03/10/24 FINDINGS: Lines and Tubes: Tip of the NG tube is again noted in the region of GE junction, not significantly ch anged compared to the prior chest x-ray from an earlier, and should be further advanced. Lungs: Clear Pleura : No effusion. No pneumothorax. Cardiomediastinal contours: Unremarkable Bones: Unremarkable Impression:Tip of the NG tube is again noted in the GE junction region and should be further advanced . No cardiopulmonary abnormality.
--- NOTE | 2024-04-11 22:58 | DVHPN2 ---
Subjective 3/--patient's nausea is improving, has a right nasal NG tube inserted with biliary output in the tube. Patient had just returned from going to the bathroom. Abdominal pain is improving but still has tenderness to infra umbilical and to the right of umbilicus. Bowel sounds are present. Patient is having diarrheal watery BM. GI has been consulted and is planning to do a colonoscopy. Prep tomorrow. Reviewed: H&P Changes from previous H/P or p: No Changes General: Per HPI Eyes: No Pain, No Vision change, No Conjunctivae inflammation, No Eyelid inflammation, No Other, No Redness ENT: No Ear pain, No Ear discharge, No Nose pain, No Nose discharge, No Nose congestion, No Mouth pain, No Mouth swelling, No Throat pain, No Throat swelling, No Other Cardiovascular: No Chest Pain, No Palpitations, No Orthopnea, No Paroxysmal Noc. Dyspnea, No Edema, No Lt Headedness, No Other Respiratory: No Cough, No Dry, No Shortness of breath, No SOB with excertion, No Wheezing, No Hemoptysis, No Pleuritic Pain, No Sputum, No Other Gastrointestinal: Nausea, Vomiting, Abdominal Pain, Constipation Genitourinary: No Dysuria, No Frequency, No Incontinence, No Hematuria, No Retention, No Other Musculoskeletal: No other, No neck pain, No shoulder pain, No arm pain, No back pain, No hand pain, No leg pain, No foot pain Skin: No Rash, No Lesions, No Jaundice, No Bruising, No Other Objective Vitals Vital Signs Date Time Temp Pulse Resp B/P (MAP) Pulse Ox O2 Delivery O2 Flow Rate FiO2 04/11/24 21:20 97.1 64 18 108/70 (83) 98 97.1 04/11/24 16:40 Room Air* 0 21 Intake/Output Intake and Output 04/11/24 07:00 Intake Total 1960 ml Balance 1960 ml IV Total 1960 ml Exam GEN: Healthy appearing, well-developed, NAD. HEENT: NC/AT; MMM. CV: RRR, no m/r/g. LUNGS: CTAB, no w/r/c. ABD: right nasal NG tube inserted with biliary output in the tube. Abdominal pain is improving but still has tenderness to infra umbilical and to the right of umbilicus. Bowel sounds are present. EXT: skin Warm, well perfused. no rashes. No clubbing, cyanosis, or edema. NEURO: Ambulating with no limitations. No focal deficits. Medications Current Medications Medications Dose Ordered Sig/Yasmany Route Start Time Stop Time Status Last Admin Dose Admin Pantoprazole Sodium 40 mg DAILY IV 04/11/24 10:00 04/11/24 10:50 40 MG Ondansetron HCl 4 mg Q4HPRN PRN IV 04/10/24 18:45 Morphine Sulfate 1 mg Q4HPRN PRN IV 04/10/24 18:45 04/10/24 20:23 1 MG Potassium Chloride/Dextrose/ Sod Cl 1,000 ml @ 120 mls/hr Q8H20M IV 04/10/24 18:45 04/11/24 11:41 120 MLS/HR Cefepime HCl 50 ml @ 12.5 mls/hr Q12H IV 04/11/24 15:00 04/11/24 16:45 12.5 MLS/HR Metronidazole 100 ml @ 100 mls/hr Q8HR IV 04/11/24 22:00 04/11/24 21:11 100 MLS/HR Laboratory Results Laboratory Tests 04/11/24 06:20 Chemistry Test 04/11/24 06:20 Albumin 3.4 g/dL (3.2-4.8) Calcium Level 8.6 mg/dL (8.7-10.4) L Total Protein 5.4 g/dL (5.7-8.2) L LFT Test 04/11/24 06:20 Alanine Aminotransferase (ALT) < 9 U/L (7-40) Alkaline Phosphatase 45 U/L (46-116) L Aspartate Amino Transferase (AST) 8 U/L (13-40) L Total Bilirubin 0.2 mg/dL (0.2-1.0) Urinalysis Test 04/10/24 16:40 Urine Color Yellow (Yellow) Urine Clarity Clear (Clear) Urine pH 5.5 (5.0-9.0) Urine Specific [place] 1.030 (1.001-1.035) Urine Protein Trace (Negative) H Urine Ketones 1+ (Negative) H Urine Blood 2+ /uL (Negative) H Urine Nitrite Negative (Negative) Urine Bilirubin Negative (Negative) Urine Urobilinogen Normal mg/dL (Negative) Urine Leukocyte Esterase Negative /uL (Negative) Urine RBC 42 /hpf (0 - 3) Urine Microscopic WBC 2 /HPF (0-3) Urine Squamous Epithelial Cells Few /hpf (<5) Urine Bacteria None seen /hpf (None Seen) Urine Glucose Normal mg/dL (Normal) Labs and/or images reviewed: Labs reviewed by me, Image(s) reviewed by me Assessment/Plan Assessment/Plan Large bowel/colonic obstruction Intractable nausea and vomiting/resolving Intractable abdominal pain, resolving Cholelithiasis Gastric ulcer Cachexia Sliding hiatal hernia History of cholelithiasis Hepatic cyst -GI consulted-plan for colonoscopy after prep General surge consulted-we will be following peripherally, agreed with colonoscopy Bowel prep NPO continued NG tube with intermittent suction on low pressure IV hydration Protonix 40 IV daily Diet NPO, NG tube inserted DVT prophylaxis-Lovenox GI prophylaxis-Protonix IV daily Med tele Full code Plan discussed with: Patient Date of Service: Apr 11, 2024 Billing Provider: ZOHREH VELIZ MD Common Visit Codes: [id number] INP/OBS CARE(HIGH) ZOHREH VELIZ MD Apr 11, 2024 22:58
[2024-04-11] MEDS: D5W/ SOD CHL 0.9%/KCL 20MEQ 1,000 ML IV SCH (23:00)
[2024-04-12] VITALS (8 sets, daily range): BP systolic 92–105; BP diastolic 54–67; PULSE 65–78; RESP 16–20; TEMP 96.9–98; O2SAT 94–99
[2024-04-12 06:33] LABS: Basophils # (auto) 0 10 ^3/uL (0-0.2); Basophils % (auto) 0.3 % (0.0-2.0); Eosinophils # (auto) 0.1 10 ^3/uL (0-0.8); Eosinophils % (auto) 1.4 % (0.0-7.0); Hematocrit 36.3 % (41.0-53.0); Lymphocytes # (auto) 0.8 10 ^3/uL (0.4-5.4); Lymphocytes % (auto) 15.1 % (10.0-50.0); Mean Corpuscular Hgb Conc. 33.1 g/dL (32.0-36.0); Mean Corpuscular Volume 84.4 fL (80.0-100.0); Monocytes # (auto) 0.4 10 ^3/uL (0-1.3); Monocytes % (auto) 7.1 % (0.0-12.0); Neutrophils # (auto) 3.9 10 ^3/uL (1.6-8.6); Neutrophils % (auto) 76.1 % (37.0-80.0); Platelet Count (auto) 248 10^3/uL (140-450); Red Cell Distribution Width 15.2 % (11.8-14.3); White Blood Cell 5.1 10^3/uL (4.4-10.8)
[2024-04-12 06:36] LABS: INR 1.08 (0.9-1.15); Prothrombin Time 11.4 sec (9.3-11.8)
[2024-04-12 07:05] LABS: Albumin 3.5 g/dL (3.2-4.8); Anion Gap 7 (5-15); BUN/Creatinine Ratio 8.5 (10.0-20.0); Calcium 9.2 mg/dL (8.7-10.4); Carbon Dioxide 28 mmol/L (20-31); Chloride 103 mmol/L (98-107); Glucose 104 mg/dL (74-106); Sodium 138 mmol/L (136-145)
[2024-04-12 07:09] LABS: Alanine Aminotransferase < 9 U/L (7-40); Alkaline Phosphatase 46 U/L (46-116); Aspartate Aminotransferase 10 U/L (13-40); Bilirubin, Total 0.2 mg/dL (0.2-1.0); Blood Urea Nitrogen 6 mg/dL (9-23); Potassium 3.1 mmol/L (3.5-5.1); Total Protein 5.6 g/dL (5.7-8.2)
--- NOTE | 2024-04-12 07:18 | DVH ---
EXAM: XR Chest, 1 View CLINICAL INDICATION: ng tube verification TECHNIQUE: Frontal view of the chest. COMPARISON: XY CHEST XRAY 1 VIEW on DOS: 04/11/24, XY CHEST XRAY 1 VIEW on DOS: 04/10/24, XY CHEST XRAY 1 VIEW on DOS: 04/01/24, XY CHEST PORTABLE on DOS: 03/10/24 FINDINGS: LUNGS AND PLEURAL SPACES: Unremarkable. No consolidation. No pneumothorax. HEART: Unremarkable. No cardiomegaly. MEDIASTINUM: Unremarkable. Normal mediastinal contour. BONES/JOINTS: Unremarkable. No acute fracture. TUBES, LINES AND DEVICES: NG tube is in the stomach. OTHER FINDINGS: . IMPRESSION: NG tube is in the stomach.
[2024-04-12] MEDS: GASTROGRAFIN 30 ML SOL ONE (10:14)
[2024-04-12] MEDS: IOHEXOL 300 MG/ML 100ML BOTTLE IJ ONE (15:38)
--- NOTE | 2024-04-12 16:30 | DVHPN2 ---
Subjective Update 04/12 04/11--patient's nausea is improving, has a right nasal NG tube inserted with biliary output in the tube. Patient had just returned from going to the bathroom. Abdominal pain is improving but still has tenderness to infra umbilical and to the right of umbilicus. Bowel sounds are present. Patient is having diarrheal watery BM. GI has been consulted and is planning to do a colonoscopy. Prep tomorrow. 04/12-continues to have a right nasal NG tube causing discomfort. GI following with plan to do bowel prep today with colonoscopy tomorrow. Possible removal of NG tube tomorrow pending GI review. Patient is doing okay otherwise. The bowel session is resolving. Patient was passing watery stools. Reviewed: H&P Changes from previous H/P or p: No Changes General: Per HPI Eyes: No Pain, No Vision change, No Conjunctivae inflammation, No Eyelid inflammation, No Other, No Redness ENT: No Ear pain, No Ear discharge, No Nose pain, No Nose discharge, No Nose congestion, No Mouth pain, No Mouth swelling, No Throat pain, No Throat swelling, No Other Cardiovascular: No Chest Pain, No Palpitations, No Orthopnea, No Paroxysmal Noc. Dyspnea, No Edema, No Lt Headedness, No Other Respiratory: No Cough, No Dry, No Shortness of breath, No SOB with excertion, No Wheezing, No Hemoptysis, No Pleuritic Pain, No Sputum, No Other Gastrointestinal: Nausea, Vomiting, Abdominal Pain, Constipation Genitourinary: No Dysuria, No Frequency, No Incontinence, No Hematuria, No Retention, No Other Musculoskeletal: No other, No neck pain, No shoulder pain, No arm pain, No back pain, No hand pain, No leg pain, No foot pain Skin: No Rash, No Lesions, No Jaundice, No Bruising, No Other Objective Vitals Vital Signs Date Time Temp Pulse Resp B/P (MAP) Pulse Ox O2 Delivery O2 Flow Rate FiO2 04/12/24 13:00 96.9 68 16 94/66 (75) 94 96.9 04/12/24 07:42 Room Air* 0 21 Intake/Output Intake and Output 04/12/24 07:00 Intake Total 1950 ml Output Total 9000 ml Balance -7050 ml Intake Oral 1010 ml IV Total 940 ml Output Urine Total 9000 ml # Bowel Movements 3 Exam GEN: Healthy appearing, well-developed, NAD. HEENT: NC/AT; MMM. CV: RRR, no m/r/g. LUNGS: CTAB, no w/r/c. ABD: right nasal NG tube inserted with biliary output in the tube. Abdominal pain is improving but still has tenderness to infra umbilical and to the right of umbilicus. Bowel sounds are present. EXT: skin Warm, well perfused. no rashes. No clubbing, cyanosis, or edema. NEURO: Ambulating with no limitations. No focal deficits. Medications Current Medications Medications Dose Ordered Sig/Yasmany Route Start Time Stop Time Status Last Admin Dose Admin Pantoprazole Sodium 40 mg DAILY IV 04/11/24 10:00 04/12/24 08:35 40 MG Ondansetron HCl 4 mg Q4HPRN PRN IV 04/10/24 18:45 Morphine Sulfate 1 mg Q4HPRN PRN IV 04/10/24 18:45 04/10/24 20:23 1 MG Cefepime HCl 50 ml @ 12.5 mls/hr Q12H IV 04/11/24 15:00 04/12/24 02:55 12.5 MLS/HR Metronidazole 100 ml @ 100 mls/hr Q8HR IV 04/11/24 22:00 04/12/24 14:10 100 MLS/HR Potassium Chloride/Dextrose/ Sod Cl 1,000 ml @ 80 mls/hr [id number] IV 04/11/24 23:00 04/12/24 14:10 80 MLS/HR Laboratory Results Laboratory Tests 04/12/24 05:47 Chemistry Test 04/12/24 05:47 Albumin 3.5 g/dL (3.2-4.8) Calcium Level 9.2 mg/dL (8.7-10.4) Total Protein 5.6 g/dL (5.7-8.2) L Coagulation Test 04/12/24 05:47 Prothrombin Time 11.4 sec (9.3-11.8) Prothrombin Time INR 1.08 (0.9-1.15) LFT Test 04/12/24 05:47 Alanine Aminotransferase (ALT) < 9 U/L (7-40) Alkaline Phosphatase 46 U/L (46-116) Aspartate Amino Transferase (AST) 10 U/L (13-40) L Total Bilirubin 0.2 mg/dL (0.2-1.0) Urinalysis Test 04/10/24 16:40 Urine Color Yellow (Yellow) Urine Clarity Clear (Clear) Urine pH 5.5 (5.0-9.0) Urine Specific [place] 1.030 (1.001-1.035) Urine Protein Trace (Negative) H Urine Ketones 1+ (Negative) H Urine Blood 2+ /uL (Negative) H Urine Nitrite Negative (Negative) Urine Bilirubin Negative (Negative) Urine Urobilinogen Normal mg/dL (Negative) Urine Leukocyte Esterase Negative /uL (Negative) Urine RBC 42 /hpf (0 - 3) Urine Microscopic WBC 2 /HPF (0-3) Urine Squamous Epithelial Cells Few /hpf (<5) Urine Bacteria None seen /hpf (None Seen) Urine Glucose Normal mg/dL (Normal) Labs and/or images reviewed: Labs reviewed by me, Image(s) reviewed by me Assessment/Plan Assessment/Plan 04/12-continues to have a right nasal NG tube causing discomfort. GI following with plan to do bowel prep today with colonoscopy tomorrow. Possible removal of NG tube tomorrow pending GI review. Patient is doing okay otherwise. The bowel session is resolving. Patient was passing watery stools. Large bowel/colonic obstruction Intractable nausea and vomiting/resolving Intractable abdominal pain, resolving Cholelithiasis Gastric ulcer Cachexia Sliding hiatal hernia History of cholelithiasis Hepatic cyst -GI consulted-plan for colonoscopy after prep General surge consulted-we will be following peripherally, agreed with colonoscopy Bowel prep NPO continued NG tube with intermittent suction on low pressure IV hydration Protonix 40 IV daily Diet NPO, NG tube inserted - ice chips ok small amount DVT prophylaxis-Lovenox GI prophylaxis-Protonix IV daily Med tele Full code Plan discussed with: Patient My Orders Orders - ZOHREH VELIZ MD Procedure Category Date Status Time D5w/ Sod Chl 0.9%/Kcl PHA 04/11/24 In Process 20meq 23:00 Chest Xray 1 View XY 04/12/24 Resulted 05:43 Date of Service: Apr 12, 2024 Billing Provider: ZOHREH VELIZ MD Common Visit Codes: [id number] INP/OBS CARE(HIGH) ZOHREH VELIZ MD Apr 12, 2024 16:30
--- NOTE | 2024-04-12 16:45 | DVHPN2 ---
Progress Note Date Seen: Apr 12, 2024 Resident Creating Document: GALLITO RITCHIE RESIDENT Medical Necessity Reason Pt with a Central, PICC or Fol: No Subjective Patient reports: No new complaints Objective vital signs Vital Sign Date Time Temp Pulse Resp B/P (MAP) Pulse Ox O2 Delivery O2 Flow Rate FiO2 04/12/24 13:00 96.9 68 16 94/66 (75) 94 96.9 04/12/24 07:42 Room Air* 0 21 Total Intake and Output 04/11/24 04/11/24 04/12/24 15:00 23:00 07:00 Intake Total 840 ml 100 ml 1010 ml Output Total 9000 ml Balance 840 ml 100 ml -7990 ml medications Current Medications Medications Dose Ordered Sig/Yasmany Route Start Time Stop Time Status Last Admin Dose Admin Pantoprazole Sodium 40 mg DAILY IV 04/11/24 10:00 04/12/24 08:35 40 MG Ondansetron HCl 4 mg Q4HPRN PRN IV 04/10/24 18:45 Morphine Sulfate 1 mg Q4HPRN PRN IV 04/10/24 18:45 04/10/24 20:23 1 MG Cefepime HCl 50 ml @ 12.5 mls/hr Q12H IV 04/11/24 15:00 04/12/24 02:55 12.5 MLS/HR Metronidazole 100 ml @ 100 mls/hr Q8HR IV 04/11/24 22:00 04/12/24 14:10 100 MLS/HR Potassium Chloride/Dextrose/ Sod Cl 1,000 ml @ 80 mls/hr [id number] IV 04/11/24 23:00 04/12/24 14:10 80 MLS/HR Examination General Appearance: Alert, Oriented X3, Cooperative, mild distress HEENT: Atraumatic, PERRLA; NG-tube in place, draining minimal bilious material Respiratory: Clear to auscultation, Normal air movement Cardiovascular: Regular rate, Normal S1, Normal S2 Abdominal: Normal bowel sounds, Soft, Other (Tenderness noted to lower quadrants) Extremities: No clubbing, No cyanosis, No edema, Normal pulses, No tenderness/swelling Skin: No rashes, No breakdown, No significant lesion Neuro: Normal gait, Normal speech, Strength at 5/5 X4 ext Psych/Mental Status: Mental status NL, Mood NL laboratory and microbiology Laboratory Tests 04/12/24 05:47 Test 04/12/24 05:47 Range/Units Serum Glucose 104 74-106 mg/dL Problem List/Assessment/Plan Problem List/Assessment/Plan (1) Bowel obstruction (2) Abdominal pain (3) Nausea and vomiting (4) Intractable abdominal pain (5) Cholelithiasis (6) Gastric ulcer (7) Abnormal finding on CT scan Plan/Recommendation Dr. Hnederson Suspected colonic pathology possible large bowel obstruction with either inflammatory or malignant strictures Clear liquid diet Bowel prep and we can give it through the NG tube Once the patient is prepped adequately over the next 24-48 hours then I will schedule him for a colonoscopy with possible biopsy possible polypectomy Continue to monitor labs and check CEA level again Protonix 40 mg IV daily IV fluids and pain control IV antibiotics Plan discussed with: Patient, Other (RN) GALLITO RITCHIE RESIDENT Apr 12, 2024 16:45
--- NOTE | 2024-04-12 17:30 | DVHPN2 ---
Progress Note Date Seen: Apr 12, 2024 Medical Necessity Reason Pt with a Central, PICC or Fol: No Objective vital signs Vital Sign Date Time Temp Pulse Resp B/P (MAP) Pulse Ox O2 Delivery O2 Flow Rate FiO2 04/12/24 13:00 96.9 68 16 94/66 (75) 94 96.9 04/12/24 07:42 Room Air* 0 21 Total Intake and Output 04/11/24 04/11/24 04/12/24 15:00 23:00 07:00 Intake Total 840 ml 100 ml 1010 ml Output Total 9000 ml Balance 840 ml 100 ml -7990 ml medications Current Medications Medications Dose Ordered Sig/Yasmany Route Start Time Stop Time Status Last Admin Dose Admin Pantoprazole Sodium 40 mg DAILY IV 04/11/24 10:00 04/12/24 08:35 40 MG Ondansetron HCl 4 mg Q4HPRN PRN IV 04/10/24 18:45 Morphine Sulfate 1 mg Q4HPRN PRN IV 04/10/24 18:45 04/10/24 20:23 1 MG Cefepime HCl 50 ml @ 12.5 mls/hr Q12H IV 04/11/24 15:00 04/12/24 02:55 12.5 MLS/HR Metronidazole 100 ml @ 100 mls/hr Q8HR IV 04/11/24 22:00 04/12/24 14:10 100 MLS/HR Potassium Chloride/Dextrose/ Sod Cl 1,000 ml @ 80 mls/hr [id number] IV 04/11/24 23:00 04/12/24 14:10 80 MLS/HR laboratory and microbiology Laboratory Tests 04/12/24 05:47 Test 04/12/24 05:47 Range/Units Serum Glucose 104 74-106 mg/dL Problem List/Assessment/Plan Problem List/Assessment/Plan AFEBRILE VSS ABD SOFT LESS DISTENDED BM + DIARRHEA GI EVAL ONGOING Plan discussed with: Patient BOB HILTON MD Apr 12, 2024 17:30
--- NOTE | 2024-04-12 18:45 | DVH ---
Exam: CT CT AB PELV W WO CON-ORAL IV History: bowel obstruction, rule out malignancy Comparison Study: None available at time of dictation. Technique: Multidetector spiral CT of the abdomen and pelvis was performed from lung bases to pubic s ymphysis. Initial imaging was done without IV contrast, followed by post contrast images of the abdo men and pelvis. Intravenous contrast was administered during this examination. portal venous/arteria l/multiphase imaging was obtained. Axial, coronal and sagittal multiplanar reformats were performed b y the technologist on a separate workstation. CONTRAST: Type of contrast: Omnipaque 300 Contrast injected: 100 ml Contrast ingested: 0 ml Radiation Dose : CT Dose: CTDI volume is 6.13 mGy. Dose-length product is 321.81 mGy*cm Findings: Lung bases demonstrate probably chronic interstitial changes there are no infiltrates or effusions th ere is evidence for air trapping or mosaic perfusion involving the left lower lobe underlining the an alysis of chronic changes. Heart size is normal lower esophagus is unremarkable there is a nasogastric tube in the stomach and i n the esophagus. Patient has multiple stones in the dependent portion gallbladder these measure approximately 5 mm in size identified possibly 3 stones. Adrenals unremarkable. Kidneys are unremarkable. There may be a small bowel ileus the mid small meagan l is dilated 3.7 cm. There is thickening of the mucosa of the terminal ileum and dilation of the ascending colon colon asc ending colon mucosa measures 10 mm in thickness which is abnormal in his loss of normal mucosal marcia ngs in the distal ileum. In general of the mucosa of the small bowel is thickened mucosa of the jejun um measures as much as 15 mm in thickness which is grossly abnormal. This can be seen on image 45 of coronal images. The rectosigmoid is filled with fluid otherwise unremarkable. No evidence for obstruc tion What is likely the appendix appears to be normal. Aorta is normal. Kidneys and adrenals are normal un remarkable.. Bones are normal no fluid collections are seen. IMPRESSION: 1. No evidence for obstruction. There is an ileus and there is also focal thickening of the proximal small bowel mucosa and also the distal terminal ileum and distal ileum in general . This presentation has a broad differential. Follow-up small-bowel endoscopy may be helpful. Radiation optimization: All CT scans at this facility use at least one of these dose optimization shemar hniques: Automated exposure control mA and/or kV adjustment per patient size (includes targeted exams where dose is matched to clinical indication) or iterative reconstruction. HS:Y
[2024-04-13] VITALS (10 sets, daily range): BP systolic 89–107; BP diastolic 53–70; PULSE 61–84; RESP 15–20; TEMP 97.2–98; O2SAT 82–100
[2024-04-13] MEDS: MAGNESIUM CITRATE SOLUTION 300 ML BTL PO ONE (06:27)
[2024-04-13] MEDS: POLYETHYLENE GLYCOL 17 GM PWDR PO SCH (10:50)
[2024-04-13] MEDS ORDERED: SODIUM CHLORIDE LOCK 10 ML ONE (12:56)
[2024-04-13] MEDS ORDERED: NALOXONE HCL 0.4 MG/ML VIAL ONE (12:57)
[2024-04-13] MEDS ORDERED: SIMETHICONE 40 MG/0.6 ML ORAL DROP ONE (12:57)
[2024-04-13] MEDS ORDERED: FLUMAZENIL 0.1 MG/ML INJ 10ML MDV IV ONE (12:57)
[2024-04-13] MEDS: fentaNYL CITRATE 100 MCG/2 ML VL ONE (13:24)
[2024-04-13] MEDS: diphenhdrAMINE HCL 50 MG/1 ML VL ONE (13:24)
[2024-04-13] MEDS: MIDAZOLAM HCL 5 MG/ML-1ML VIAL ONE (13:24)
--- NOTE | 2024-04-13 14:08 | DVHOP2 ---
Operative Report DATE OF OPERATION: 04/13/24 PROCEDURE: Colonoscopy biopsy, snare polypectomy, Lelo ink tattoo. PREOPERATIVE INDICATION: The patient is a 53 -year-old male undergoing colonoscopy for evaluation of recurrent abdominal pain nausea vomiting weight loss and abnormal finding GI tract imaging POSTOPERATIVE DIAGNOSES: 1. 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 This was difficult to access but I was able to get some pictures and multiple biopsies The distal margin of this was injected with Lelo ink. The colonoscope could not be advanced beyond this point 2. Patient had a 1.5-2 cm distal descending colon polypoid lesion that was seen and removed completely via hot snare polypectomy 3. There was a 5 mm benign-appearing sigmoid polyp that was seen and removed via snare polypectomy 4. 2-3 mm benign-appearing rectal polyp was seen and removed by snare polypectomy 5. 1+ internal hemorrhoids otherwise normal examination up to the splenic flex ure and the distal transverse colon tumor and apple core lesion beyond which the colonoscope could not be advanced PROCEDURE PERFORMED BY: Chapo Henderson M.D. SCOPE: Olympus videocolonoscope. ASA CLASS: 2. PREOPERATIVE MEDICATIONS: Versed 4 mg, Fentanyl 50 mcg, Benadryl 50 mg PROCEDURE IN DETAIL: After obtaining an informed consent, the patient was placed on left lateral decubitus position. He was then sedated with the above medications. A rectal examination was performed that was normal. The colonoscope was then passed through the anus into the rectosigmoid and through the descending colon up to the splenic flexure and to the distal transverse colon area. The patient had a very tortuous colon and there was difficult to access this area. I was able to identify a polypoid mass apple core lesion which appeared to be in the distal transverse colon close to the splenic flexure. Multiple biopsies were obtained and the distal margins were injected with Lelo ink. I was not able to advance the colonoscope beyond this area colonoscope was then withdrawn with careful visualization of all brandt. In the distal descending colon there was a 2 cm polypoid growth This was removed completely via hot snare polypectomy and the specimens were retrieved. In the sigmoid there was a 5 mm polyp that was removed via hot snare polypectomy In the rectum there was a 3-4 mm benign-appearing polyp that was seen and removed by hot snare polypectomy . Patient had a somewhat redundant and tortuo us colon On retroflexion and straight on view he had 1+ internal hemorrhoids. The patient tolerated the procedure well without difficulty. WITHDRAWAL TIME: Not applicable QUALITY OF THE PREP: [place] Bowel Prep score: Not applicable, the visualized portion had a good bowel prep on the left colon COMPLICATIONS : None SPECIMENS: Biopsies of distal transverse colon splenic flexure area mass Descending colon polyp Sigmoid polyp Rectal polyp DISPOSITION: Transfer back to the floor Stable PLAN: 1. Keep NPO except for ice chips at possibly sips of clear liquids 2. NG tube was discontinued 3. Insert PICC line and start him on TPN 4. Surgical follow up as the patient is likely going to need left hemicolectomy 5. Await pathology results 6. Repeat colonoscopy in one year after patient has recovered from his surgical procedure CHAPO HENDERSON MD Apr 13, 2024 14:08
[2024-04-13] MEDS ORDERED: CLINIMIX PER PHARMACY 0 ML IV SCH (16:30)
--- NOTE | 2024-04-13 16:33 | DVHPN2 ---
Subjective Update 04/13 04/11--patient's nausea is improving, has a right nasal NG tube inserted with biliary output in the tube. Patient had just returned from going to the bathroom. Abdominal pain is improving but still has tenderness to infra umbilical and to the right of umbilicus. Bowel sounds are present. Patient is having diarrheal watery BM. GI has been consulted and is planning to do a colonoscopy. Prep tomorrow. 04/12-continues to have a right nasal NG tube causing discomfort. GI following with plan to do bowel prep today with colonoscopy tomorrow. Possible removal of NG tube tomorrow pending GI review. Patient is doing okay otherwise. The bowel session is resolving. Patient was passing watery stools. 04/13-CT abdomen and pelvis repeat today showing no evidence of obstruction, there is ileus, focal thickening in the proximal small bowel mucosa and distal terminal ileum. Done overnight bowel prep for colonoscopy. GI taken for colonoscopy and findings large mass in distal transverse colon near the splenic flexure. Surgery is aware we will continue admission. NG tube removed. We will try clear liquid diet. Reviewed: H&P Changes from previous H/P or p: No Changes General: Per HPI Eyes: No Pain, No Vision change, No Conjunctivae inflammation, No Eyelid inflammation, No Other, No Redness ENT: No Ear pain, No Ear discharge, No Nose pain, No Nose discharge, No Nose congestion, No Mouth pain, No Mouth swelling, No Throat pain, No Throat swelling, No Other Cardiovascular: No Chest Pain, No Palpitations, No Orthopnea, No Paroxysmal Noc. Dyspnea, No Edema, No Lt Headedness, No Other Respiratory: No Cough, No Dry, No Shortness of breath, No SOB with excertion, No Wheezing, No Hemoptysis, No Pleuritic Pain, No Sputum, No Other Gastrointestinal: Nausea, Vomiting, Abdominal Pain, Constipation Genitourinary: No Dysuria, No Frequency, No Incontinence, No Hematuria, No Retention, No Other Musculoskeletal: No other, No neck pain, No shoulder pain, No arm pain, No back pain, No hand pain, No leg pain, No foot pain Skin: No Rash, No Lesions, No Jaundice, No Bruising, No Other Objective Vitals Vital Signs Date Time Temp Pulse Resp B/P (MAP) Pulse Ox O2 Delivery O2 Flow Rate FiO2 04/13/24 15:12 71 16 93/60 (71) 98 04/13/24 15:02 97.2 97.2 04/13/24 14:00 Mask 8.0 04/13/24 08:00 21 Intake/Output Intake and Output 04/13/24 07:00 Intake Total 2640 ml Balance 2640 ml Intake Oral 1390 ml IV Total 1250 ml # Voids 5 # Bowel Movements 3 Exam GEN: Healthy appearing, well-developed, NAD. HEENT: NC/AT; MMM. CV: RRR, no m/r/g. LUNGS: CTAB, no w/r/c. ABD: right nasal NG tube inserted with biliary output in the tube. Abdominal pain is improving but still has tenderness to infra umbilical and to the right of umbilicus. Bowel sounds are present. EXT: skin Warm, well perfused. no rashes. No clubbing, cyanosis, or edema. NEURO: Ambulating with no limitations. No focal deficits. Medications Current Medications Medications Dose Ordered Sig/Yasmany Route Start Time Stop Time Status Last Admin Dose Admin Pantoprazole Sodium 40 mg DAILY IV 04/11/24 10:00 04/13/24 10:49 40 MG Ondansetron HCl 4 mg Q4HPRN PRN IV 04/10/24 18:45 Morphine Sulfate 1 mg Q4HPRN PRN IV 04/10/24 18:45 04/10/24 20:23 1 MG Cefepime HCl 50 ml @ 12.5 mls/hr Q12H IV 04/11/24 15:00 04/13/24 03:27 12.5 MLS/HR Metronidazole 100 ml @ 100 mls/hr Q8HR IV 04/11/24 22:00 04/13/24 06:28 100 MLS/HR Potassium Chloride/Dextrose/ Sod Cl 1,000 ml @ 80 mls/hr [id number] IV 04/11/24 23:00 04/12/24 14:10 80 MLS/HR Polyethylene Glycol 17 gm DAILY PO 04/13/24 10:00 04/13/24 10:50 17 GM Amino Acids 0 ml @ 0 mls/hr PER PHARMACY IV 04/13/24 16:30 Laboratory Results Laboratory Tests 04/12/24 05:47 Urinalysis Test 04/10/24 16:40 Urine Color Yellow (Yellow) Urine Clarity Clear (Clear) Urine pH 5.5 (5.0-9.0) Urine Specific [place] 1.030 (1.001-1.035) Urine Protein Trace (Negative) H Urine Ketones 1+ (Negative) H Urine Blood 2+ /uL (Negative) H Urine Nitrite Negative (Negative) Urine Bilirubin Negative (Negative) Urine Urobilinogen Normal mg/dL (Negative) Urine Leukocyte Esterase Negative /uL (Negative) Urine RBC 42 /hpf (0 - 3) Urine Microscopic WBC 2 /HPF (0-3) Urine Squamous Epithelial Cells Few /hpf (<5) Urine Bacteria None seen /hpf (None Seen) Urine Glucose Normal mg/dL (Normal) Labs and/or images reviewed: Labs reviewed by me, Image(s) reviewed by me Assessment/Plan Assessment/Plan 04/13-CT abdomen and pelvis repeat today showing no evidence of obstruction, there is ileus, focal thickening in the proximal small bowel mucosa and distal terminal ileum. Done overnight bowel prep for colonoscopy. GI taken for colonoscopy and findings large mass in distal transverse colon near the splenic flexure. Surgery is aware we will continue admission. NG tube removed. We will try clear liquid diet. Large bowel/colonic obstruction Intractable nausea and vomiting/resolving Intractable abdominal pain, resolving Cholelithiasis Gastric ulcer Cachexia Sliding hiatal hernia History of cholelithiasis Hepatic cyst -GI consulted-plan for colonoscopy showing large mass in distal transverse colon, near splenic flexure -General surge consulted-we will be following peripherally, agreed with colonoscopy -CLD (s/p Bowel prep) - NG tube removed NG tube with intermittent suction on low pressure - we will insert PICC line and start TPN periods, status post IV fluid hydration -Protonix 40 IV daily Diet NPO, NG tube inserted - ice chips ok small amount DVT prophylaxis-Lovenox GI prophylaxis-Protonix IV daily Med tele Full code Plan discussed with: Patient Date of Service: Apr 13, 2024 Billing Provider: ZOHREH VELIZ MD Common Visit Codes: [id number] INP/OBS CARE(HIGH) ZOHREH VELIZ MD Apr 13, 2024 16:33
[2024-04-13 17:04] LABS: Sodium 139 mmol/L (136-145)
[2024-04-13 17:05] LABS: Anion Gap 10 (5-15); Carbon Dioxide 22 mmol/L (20-31)
[2024-04-13 17:06] LABS: Calcium 9.5 mg/dL (8.7-10.4)
[2024-04-13 17:10] LABS: GFR African American 125 mL/min; GFR Non-African American 103 mL/min; Glucose 97 mg/dL (74-106)
[2024-04-13 17:11] LABS: Blood Urea Nitrogen < 5 mg/dL (9-23); Chloride 107 mmol/L (98-107); Magnesium 1.8 mg/dL (1.6-2.6)
[2024-04-13 17:13] LABS: Phosphorus 3.4 mg/dL (2.4-5.1)
--- NOTE | 2024-04-13 18:45 | DVHPN2 ---
Progress Note Date Seen: Apr 13, 2024 Medical Necessity Reason Pt with a Central, PICC or Fol: No Objective vital signs Vital Sign Date Time Temp Pulse Resp B/P (MAP) Pulse Ox O2 Delivery O2 Flow Rate FiO2 04/13/24 17:00 97.5 61 20 96/63 (74) 95 97.5 04/13/24 14:00 Mask 8.0 04/13/24 08:00 21 Total Intake and Output 04/12/24 04/12/24 04/13/24 15:00 23:00 07:00 Intake Total 1000 ml 750 ml 890 ml Balance 1000 ml 750 ml 890 ml medications Current Medications Medications Dose Ordered Sig/Yasmany Route Start Time Stop Time Status Last Admin Dose Admin Pantoprazole Sodium 40 mg DAILY IV 04/11/24 10:00 04/13/24 10:49 40 MG Ondansetron HCl 4 mg Q4HPRN PRN IV 04/10/24 18:45 Morphine Sulfate 1 mg Q4HPRN PRN IV 04/10/24 18:45 04/10/24 20:23 1 MG Cefepime HCl 50 ml @ 12.5 mls/hr Q12H IV 04/11/24 15:00 04/13/24 16:34 12.5 MLS/HR Metronidazole 100 ml @ 100 mls/hr Q8HR IV 04/11/24 22:00 04/13/24 16:34 100 MLS/HR Potassium Chloride/Dextrose/ Sod Cl 1,000 ml @ 80 mls/hr [id number] IV 04/11/24 23:00 04/12/24 14:10 80 MLS/HR Polyethylene Glycol 17 gm DAILY PO 04/13/24 10:00 04/13/24 10:50 17 GM Amino Acids 0 ml @ 0 mls/hr PER PHARMACY IV 04/13/24 16:30 Amino Acids 1,000 ml @ 41 mls/hr DAILY@2200 IV 04/13/24 22:00 Diagnostic Test (Pha) 1 strip Q6HR 04/14/24 00:00 Insulin Human Regular FOLLOW SLIDING SCALE Q6HR SC 04/14/24 00:00 Dextrose 50 ml UD IV 04/14/24 00:00 laboratory and microbiology Laboratory Tests 04/13/24 16:41 04/12/24 05:47 Test 04/13/24 16:41 Range/Units Serum Glucose 97 74-106 mg/dL Problem List/Assessment/Plan Problem List/Assessment/Plan AFEBRILE VSS ABD SOFT LESS DISTENDED BM + DIARRHEA GI EVAL ONGOING COLONOSCOPY DONE AWAIT PATH ALLOW CLEAR LIQUIDS NURSE AT BEDSIDE Plan discussed with: Patient BOB HILTON MD Apr 13, 2024 18:45
[2024-04-13] MEDS: AMINO ACID INFUSION IN D5W 1,000 ML IV SCH (22:15)
[2024-04-13] MEDS: InsuLIN REG 1unit/0.01ml Soln (100units/ml) SC SCH (23:44)
[2024-04-13] MEDS: ACCU-CHEK COMFORT CURVE STRIP VI SCH (23:44)
[2024-04-14] VITALS (7 sets, daily range): BP systolic 94–107; BP diastolic 61–74; PULSE 61–102; RESP 15–18; TEMP 97.6–98.5; O2SAT 96–99
[2024-04-14] MEDS ORDERED: DEXTROSE (50%) 50ML SYRG IV SCH
[2024-04-14 06:57] LABS: Basophils # (auto) 0 10 ^3/uL (0-0.2); Basophils % (auto) 0.8 % (0.0-2.0); Eosinophils # (auto) 0.2 10 ^3/uL (0-0.8); Eosinophils % (auto) 2.9 % (0.0-7.0); Hematocrit 36.7 % (41.0-53.0); Hemoglobin 12.6 g/dL (13.5-17.5); Lymphocytes # (auto) 0.9 10 ^3/uL (0.4-5.4); Lymphocytes % (auto) 16.9 % (10.0-50.0); Mean Corpuscular Hgb Conc. 34.4 g/dL (32.0-36.0); Mean Corpuscular Volume 87.1 fL (80.0-100.0); Monocytes # (auto) 0.4 10 ^3/uL (0-1.3); Monocytes % (auto) 6.5 % (0.0-12.0); Neutrophils % (auto) 72.9 % (37.0-80.0); Platelet Count (auto) 291 10^3/uL (140-450); Red Blood Cells 4.21 10^6/uL (4.5-5.90); Red Cell Distribution Width 14.7 % (11.8-14.3); White Blood Cell 5.4 10^3/uL (4.4-10.8)
[2024-04-14 07:20] LABS: Alanine Aminotransferase 9 U/L (7-40); Albumin 3.7 g/dL (3.2-4.8); Alkaline Phosphatase 49 U/L (46-116); Anion Gap 9 (5-15); Aspartate Aminotransferase 8 U/L (13-40); BUN/Creatinine Ratio 5.5 (10.0-20.0); Blood Urea Nitrogen 5 mg/dL (9-23); Calcium 9.2 mg/dL (8.7-10.4); Carbon Dioxide 20 mmol/L (20-31); Chloride 110 mmol/L (98-107); Glucose 99 mg/dL (74-106); Magnesium 1.7 mg/dL (1.6-2.6); Potassium 4.2 mmol/L (3.5-5.1); Sodium 139 mmol/L (136-145); Total Protein 5.8 g/dL (5.7-8.2)
[2024-04-14 07:22] LABS: Bilirubin, Total 0.3 mg/dL (0.2-1.0)
--- NOTE | 2024-04-14 14:04 | DVHPN2 ---
Subjective Update 04/14 04/11--patient's nausea is improving, has a right nasal NG tube inserted with biliary output in the tube. Patient had just returned from going to the bathroom. Abdominal pain is improving but still has tenderness to infra umbilical and to the right of umbilicus. Bowel sounds are present. Patient is having diarrheal watery BM. GI has been consulted and is planning to do a colonoscopy. Prep tomorrow. 04/12-continues to have a right nasal NG tube causing discomfort. GI following with plan to do bowel prep today with colonoscopy tomorrow. Possible removal of NG tube tomorrow pending GI review. Patient is doing okay otherwise. The bowel session is resolving. Patient was passing watery stools. 04/13-CT abdomen and pelvis repeat today showing no evidence of obstruction, there is ileus, focal thickening in the proximal small bowel mucosa and distal terminal ileum. Done overnight bowel prep for colonoscopy. GI taken for colonoscopy and findings large mass in distal transverse colon near the splenic flexure. Surgery is aware we will continue admission. NG tube removed. We will try clear liquid diet. 04/14-patient has colonoscopy yesterday 04/13 which finds large obstructing mass with apple-core lesion, surgery is aware and following. Patient is on TPN via PICC line and NPO with ice chips only. Reviewed: H&P Changes from previous H/P or p: No Changes General: Per HPI Eyes: No Pain, No Vision change, No Conjunctivae inflammation, No Eyelid inflammation, No Other, No Redness ENT: No Ear pain, No Ear discharge, No Nose pain, No Nose discharge, No Nose congestion, No Mouth pain, No Mouth swelling, No Throat pain, No Throat swelling, No Other Cardiovascular: No Chest Pain, No Palpitations, No Orthopnea, No Paroxysmal Noc. Dyspnea, No Edema, No Lt Headedness, No Other Respiratory: No Cough, No Dry, No Shortness of breath, No SOB with excertion, No Wheezing, No Hemoptysis, No Pleuritic Pain, No Sputum, No Other Gastrointestinal: No Nausea, No Vomiting, No Abdominal Pain, No Constipation Genitourinary: No Dysuria, No Frequency, No Incontinence, No Hematuria, No Retention, No Other Musculoskeletal: No other, No neck pain, No shoulder pain, No arm pain, No back pain, No hand pain, No leg pain, No foot pain Skin: No Rash, No Lesions, No Jaundice, No Bruising, No Other Objective Vitals Vital Signs Date Time Temp Pulse Resp B/P (MAP) Pulse Ox O2 Delivery O2 Flow Rate FiO2 04/14/24 12:30 98.0 77 18 95/65 (75) 99 98.0 04/14/24 08:00 Room Air* 0 21 Intake/Output Intake and Output 04/14/24 07:00 Intake Total 1818 ml Balance 1818 ml Intake Oral 1040 ml IV Total 778 ml # Voids 5 # Bowel Movements 1 Exam GEN: Healthy appearing, well-developed, NAD. HEENT: NC/AT; MMM. CV: RRR, no m/r/g. LUNGS: CTAB, no w/r/c. ABD: right nasal NG tube inserted with biliary output in the tube. Abdominal pain is improving but still has tenderness to infra umbilical and to the right of umbilicus. Bowel sounds are present. EXT: skin Warm, well perfused. no rashes. No clubbing, cyanosis, or edema. NEURO: Ambulating with no limitations. No focal deficits. Medications Current Medications Medications Dose Ordered Sig/Yasmany Route Start Time Stop Time Status Last Admin Dose Admin Pantoprazole Sodium 40 mg DAILY IV 04/11/24 10:00 04/14/24 10:33 40 MG Ondansetron HCl 4 mg Q4HPRN PRN IV 04/10/24 18:45 Morphine Sulfate 1 mg Q4HPRN PRN IV 04/10/24 18:45 04/10/24 20:23 1 MG Cefepime HCl 50 ml @ 12.5 mls/hr Q12H IV 04/11/24 15:00 04/14/24 02:29 12.5 MLS/HR Metronidazole 100 ml @ 100 mls/hr Q8HR IV 04/11/24 22:00 04/14/24 05:32 100 MLS/HR Potassium Chloride/Dextrose/ Sod Cl 1,000 ml @ 80 mls/hr [id number] IV 04/11/24 23:00 04/13/24 23:45 80 MLS/HR Polyethylene Glycol 17 gm DAILY PO 04/13/24 10:00 04/14/24 10:33 17 GM Amino Acids 0 ml @ 0 mls/hr PER PHARMACY IV 04/13/24 16:30 Amino Acids 1,000 ml @ 41 mls/hr DAILY@2200 IV 04/13/24 22:00 04/13/24 22:15 41 MLS/HR Diagnostic Test (Pha) 1 strip Q6HR 04/14/24 00:00 04/14/24 11:55 1 STRIP Insulin Human Regular FOLLOW SLIDING SCALE Q6HR SC 04/14/24 00:00 Dextrose 50 ml UD IV 04/14/24 00:00 Laboratory Results Laboratory Tests 04/14/24 06:05 Chemistry Test 04/13/24 16:41 04/14/24 06:05 Albumin 4.0 g/dL (3.2-4.8) 3.7 g/dL (3.2-4.8) Calcium Level 9.5 mg/dL (8.7-10.4) 9.2 mg/dL (8.7-10.4) Magnesium Level 1.8 mg/dL (1.6-2.6) 1.7 mg/dL (1.6-2.6) Phosphorus Level 3.4 mg/dL (2.4-5.1) 4.0 mg/dL (2.4-5.1) Total Protein 5.8 g/dL (5.7-8.2) LFT Test 04/14/24 06:05 Alanine Aminotransferase (ALT) 9 U/L (7-40) Alkaline Phosphatase 49 U/L (46-116) Aspartate Amino Transferase (AST) 8 U/L (13-40) L Total Bilirubin 0.3 mg/dL (0.2-1.0) Urinalysis Test 04/10/24 16:40 Urine Color Yellow (Yellow) Urine Clarity Clear (Clear) Urine pH 5.5 (5.0-9.0) Urine Specific [place] 1.030 (1.001-1.035) Urine Protein Trace (Negative) H Urine Ketones 1+ (Negative) H Urine Blood 2+ /uL (Negative) H Urine Nitrite Negative (Negative) Urine Bilirubin Negative (Negative) Urine Urobilinogen Normal mg/dL (Negative) Urine Leukocyte Esterase Negative /uL (Negative) Urine RBC 42 /hpf (0 - 3) Urine Microscopic WBC 2 /HPF (0-3) Urine Squamous Epithelial Cells Few /hpf (<5) Urine Bacteria None seen /hpf (None Seen) Urine Glucose Normal mg/dL (Normal) Labs and/or images reviewed: Labs reviewed by me, Image(s) reviewed by me Assessment/Plan Assessment/Plan 04/14-patient has colonoscopy yesterday 04/13 which finds large obstructing mass with apple-core lesion, surgery is aware and following. Patient is on TPN via PICC line and NPO with ice chips only. Large bowel/colonic obstruction Intractable nausea and vomiting/resolving Intractable abdominal pain, resolving Cholelithiasis Gastric ulcer Cachexia Sliding hiatal hernia History of cholelithiasis Hepatic cyst -GI consulted-plan for colonoscopy showing large mass in distal transverse colon, near splenic flexure -General surge consulted-we will be following peripherally, agreed with colonoscopy -colonoscopy yesterday 04/13 which finds large obstructing mass with apple-core lesion - NG tube removed 04/13 (prior NG tube with intermittent suction on low pressure ) - we will insert PICC line and start TPN periods, status post IV fluid hydration. keep npo w ice chips (sips of CLD ok) -Protonix 40 IV daily - surgery following. Diet NPO, NG tube inserted - ice chips ok small amount DVT prophylaxis-Lovenox GI prophylaxis-Protonix IV daily Med tele Full code Plan discussed with: Patient My Orders Orders - ZOHREH VELIZ MD Procedure Category Date Status Time * Picc Line Consult CONS 04/13/24 Transmitted 16:33 Date of Service: Apr 14, 2024 Billing Provider: ZOHREH VELIZ MD Common Visit Codes: [id number] INP/OBS CARE(HIGH) ZOHREH VELIZ MD Apr 14, 2024 14:04
--- NOTE | 2024-04-14 17:11 | DVHPN2 ---
Progress Note Date Seen: Apr 14, 2024 Medical Necessity Reason Pt with a Central, PICC or Fol: No Objective vital signs Vital Sign Date Time Temp Pulse Resp B/P (MAP) Pulse Ox O2 Delivery O2 Flow Rate FiO2 04/14/24 12:30 98.0 77 18 95/65 (75) 99 98.0 04/14/24 08:00 Room Air* 0 21 Total Intake and Output 04/13/24 04/13/24 04/14/24 15:00 23:00 07:00 Intake Total 100 ml 440 ml 1278 ml Balance 100 ml 440 ml 1278 ml medications Current Medications Medications Dose Ordered Sig/Yasmany Route Start Time Stop Time Status Last Admin Dose Admin Pantoprazole Sodium 40 mg DAILY IV 04/11/24 10:00 04/14/24 10:33 40 MG Ondansetron HCl 4 mg Q4HPRN PRN IV 04/10/24 18:45 Morphine Sulfate 1 mg Q4HPRN PRN IV 04/10/24 18:45 04/10/24 20:23 1 MG Cefepime HCl 50 ml @ 12.5 mls/hr Q12H IV 04/11/24 15:00 04/14/24 16:00 12.5 MLS/HR Metronidazole 100 ml @ 100 mls/hr Q8HR IV 04/11/24 22:00 04/14/24 14:31 100 MLS/HR Potassium Chloride/Dextrose/ Sod Cl 1,000 ml @ 80 mls/hr [id number] IV 04/11/24 23:00 04/13/24 23:45 80 MLS/HR Polyethylene Glycol 17 gm DAILY PO 04/13/24 10:00 04/14/24 10:33 17 GM Amino Acids 0 ml @ 0 mls/hr PER PHARMACY IV 04/13/24 16:30 Amino Acids 1,000 ml @ 41 mls/hr DAILY@2200 IV 04/13/24 22:00 04/13/24 22:15 41 MLS/HR Diagnostic Test (Pha) 1 strip Q6HR 04/14/24 00:00 04/14/24 11:55 1 STRIP Insulin Human Regular FOLLOW SLIDING SCALE Q6HR SC 04/14/24 00:00 Dextrose 50 ml UD IV 04/14/24 00:00 laboratory and microbiology Laboratory Tests 04/14/24 06:05 Test 04/14/24 06:05 Range/Units Serum Glucose 99 74-106 mg/dL Problem List/Assessment/Plan Problem List/Assessment/Plan AFEBRILE VSS ABD SOFT LESS DISTENDED BM + DIARRHEA GI EVAL ONGOING PATH LEFT COLON CA ALLOW CLEAR LIQUIDS PLAN LEFT COLON RESECTION , POSSIBLE COLOSTOMY AM START ON BOWEL PREP PICK LINE FOR TPN NURSE AT BEDSIDE Plan discussed with: Patient BOB HILTON MD Apr 14, 2024 17:11
[2024-04-14] MEDS: GOLYTELY 4L KIT PO ONE (17:49)
[2024-04-14] MEDS: NEOMYCIN SULFATE 500 MG TAB PO ONE ×3 (19:02→21:01)
--- NOTE | 2024-04-14 21:19 | DVHPN2 ---
Progress Note - Dictate Date Seen: Apr 14, 2024 Medical Necessity Reason Pt with a Central, PICC or Fol: No Subjective Patient seen at bedside Patient is still nauseous and does not want to eat food He was tolerating clear liquids and ice chips earlier Pathologist notified me that the biopsies of the distal transverse colon mass were consistent with adenocarcinoma vital signs Vital Sign Date Time Temp Pulse Resp B/P (MAP) Pulse Ox O2 Delivery O2 Flow Rate FiO2 04/14/24 21:00 97.8 73 15 107/74 (85) 96 97.8 04/14/24 20:00 Room Air* 0 21 Total Intake and Output 04/13/24 04/13/24 04/14/24 15:00 23:00 07:00 Intake Total 100 ml 440 ml 1278 ml Balance 100 ml 440 ml 1278 ml medications Current Medications Medications Dose Ordered Sig/Yasmany Route Start Time Stop Time Status Last Admin Dose Admin Pantoprazole Sodium 40 mg DAILY IV 04/11/24 10:00 04/14/24 10:33 40 MG Ondansetron HCl 4 mg Q4HPRN PRN IV 04/10/24 18:45 Morphine Sulfate 1 mg Q4HPRN PRN IV 04/10/24 18:45 04/10/24 20:23 1 MG Cefepime HCl 50 ml @ 12.5 mls/hr Q12H IV 04/11/24 15:00 04/14/24 16:00 12.5 MLS/HR Metronidazole 100 ml @ 100 mls/hr Q8HR IV 04/11/24 22:00 04/14/24 21:00 100 MLS/HR Potassium Chloride/Dextrose/ Sod Cl 1,000 ml @ 80 mls/hr [id number] IV 04/11/24 23:00 04/13/24 23:45 80 MLS/HR Polyethylene Glycol 17 gm DAILY PO 04/13/24 10:00 04/14/24 10:33 17 GM Amino Acids 0 ml @ 0 mls/hr PER PHARMACY IV 04/13/24 16:30 Amino Acids 1,000 ml @ 41 mls/hr DAILY@2200 IV 04/13/24 22:00 04/13/24 22:15 41 MLS/HR Diagnostic Test (Pha) 1 strip Q6HR 04/14/24 00:00 04/14/24 17:27 1 STRIP Insulin Human Regular FOLLOW SLIDING SCALE Q6HR SC 04/14/24 00:00 Dextrose 50 ml UD IV 04/14/24 00:00 objective GEN: Healthy appearing, well-developed, NAD. HEENT: NC/AT; MMM. CV: RRR, no m/r/g. LUNGS: CTAB, no w/r/c. ABD: Soft mild tenderness EXT: skin Warm, well perfused. no rashes. No clubbing, cyanosis, or edema. NEURO: Ambulating with no limitations. No focal deficits. laboratory and microbiology Laboratory Tests 04/14/24 06:05 Test 04/14/24 06:05 Range/Units Serum Glucose 99 74-106 mg/dL Problems(with codes): (1) Adenocarcinoma of transverse colon (2) Intractable abdominal pain (3) Abnormal finding on CT scan (4) Nausea and vomiting (5) Cholelithiasis (6) Bowel obstruction Prognosis Plan Surgical follow up appreciated Patient is tentatively scheduled for left colon resection tomorrow Patient is undergoing another additional half tele in a [facility] bowel prep Keep NPO except for ice chips and clear liquids and NPO after midnight Oncology consult to follow up pending final pathology results Plan discussed with: Patient, Other (Dr Aly Henderson and Dr Lopez) CHAPO HENDERSON MD Apr 14, 2024 21:18
[2024-04-15] VITALS (8 sets, daily range): BP systolic 97–109; BP diastolic 62–75; PULSE 61–108; RESP 14–20; TEMP 97.3–97.9; O2SAT 94–98
[2024-04-15 07:38] LABS: Alanine Aminotransferase 13 U/L (7-40); Alkaline Phosphatase 56 U/L (46-116); Anion Gap 10 (5-15); BUN/Creatinine Ratio 6.6 (10.0-20.0); Calcium 9.6 mg/dL (8.7-10.4); Glucose 98 mg/dL (74-106); Potassium 4.1 mmol/L (3.5-5.1); Sodium 138 mmol/L (136-145)
[2024-04-15 07:39] LABS: Blood Urea Nitrogen 5 mg/dL (9-23); Carbon Dioxide 19 mmol/L (20-31); Chloride 109 mmol/L (98-107); Magnesium 1.5 mg/dL (1.6-2.6); Total Protein 6.1 g/dL (5.7-8.2)
[2024-04-15 07:40] LABS: Albumin 3.8 g/dL (3.2-4.8); Aspartate Aminotransferase 13 U/L (13-40); Phosphorus 2.5 mg/dL (2.4-5.1)
[2024-04-15 07:51] LABS: Bilirubin, Total 0.2 mg/dL (0.2-1.0)
[2024-04-15 10:38] LABS: INR 1.23 (0.9-1.15); Partial Thromboplastin Time 29.4 SEC (24.5-34.5); Prothrombin Time 12.8 sec (9.3-11.8)
[2024-04-15] MEDS: MAGNESIUM SULFATE 1GM/100ML 100 ML IV ONE (12:15)
--- NOTE | 2024-04-15 13:18 | DVHINCON2 ---
Date of service: Apr 15, [address] Erin Lopez Reason for Consultation Transverse colon cancer History of Present Illness 53 years old gentleman who gives a history of intestinal blockage has a and had surgery done. And he has had loose bowel movements all his life. Now the patient was admitted with nausea vomiting abdominal pains and weight loss of 25 lb in the last 4-6 weeks. No bleeding. Had an EGD which showed gastric ulcers He was found to have bowel obstruction and had an NG-tube Had a CT scan of the abdomen pelvis which showed large bowel obstruction with a two transition points. First transition point is at the splenic flexure with wall thickening and possible apple-core lesion Second transition point is near the distal descending colon/sigmoid colon junction no evidence of metastatic disease Chest x-ray was unremarkable 04/13/2024: The patient had colonoscope a which showed a obstructing apple-core type tumor lesion in the distal transverse colon close to the splenic flexure and this was difficult to access and multiple biopsies were taken and the colonoscope could not be advanced beyond this point There was a 1.5-2 cm distal descending colon polypoid lesion and removed by hot snare polypectomy The pathology showed colon cancer The patient is waiting to go for surgery today Otherwise the patient is feeling well Past Medical History Intestinal obstruction as a and had surgery Family History: Diabetes mellitus G8 MOTHER FH: lupus G8 MOTHER FH: peptic ulcer G8 FATHER Family History Unremarkable for malignancy or hematological disorder Social History Quit smoking couple of months back used to smoke one pack every 2-3 days No alcohol or drugs Allergies: Coded Allergies: No Known Drug Allergy (Verified Allergy, Unknown, 03/09/24) Home Meds Active Scripts Gabapentin (Once-Daily) (Gabapentin) 300 Mg Tab, 300 MG PO Q6HP PRN, #60 TAB 2 Refills Prov:ELMA BRISENO MD 04/06/24 Famotidine (PEPCID TABLET) 20 Mg Tb, 1 TAB PO BID PRN for 30 Days, #60 TAB 5 Refills Prov:ELMA BRISENO MD 04/06/24 Oxycodone W/ Acetaminophen (Percocet 5/325MG) 1 Tab Tb, 1 TAB PO TID PRN for 3 Days, #9 TAB Prov:SILVANO LAWLER MD 03/20/24 Alum & Mag Hydrox-Simethicone (Maalox Multi Symptom Maxi) Symp Max Jeanne, 1 MAX PO Q6HP PRN for 30 Days, #1200 ML Prov:SILVANO LAWLER MD 03/20/24 Sucralfate (CARAFATE SUSP) 1 Gm/10 Ml Ss, 10 ML PO QID for 30 Days, #1200 ML 3 Refills Prov:SILVANO LAWLER MD 03/20/24 Sucralfate (Carafate) 1 Gm/10 Ml Jeanne, 1 GM PO QID for 30 Days, #120 GM Prov:LAURIE FINCH RESIDENT 03/12/24 Pantoprazole Sodium Sesquihydr (Protonix) 40 Mg Tab, 40 MG PO BID for 30 Days, #60 TAB Prov:LAURIE FINCH RESIDENT 03/12/24 Reported Medications Levothyroxine Sodium (Levothyroxine Sodium) 88 Mcg Tab, 88 MCG PO DAILY, TAB 03/10/24 Vital Signs Vital Signs Date Time Temp Pulse Resp B/P (MAP) Pulse Ox O2 Delivery O2 Flow Rate FiO2 04/15/24 09:00 97.7 64 16 109/62 (78) 94 97.7 04/15/24 08:00 Room Air* 0 21 Physical Exam Moderately built and nourished, in no acute distress, alert and oriented. No jaundice Head and neck: Unremarkable for any masses or neck nodes. No conjunctival or mucosal hemorrhage Lungs: Clear Cardiovascular: S1-S2 heard well Abdomen: No organomegaly, tenderness or ascites. Bowel sounds are present. Extremities: No clubbing edema cyanosis or calf tenderness. Skin: Unremarkable for petechia purpura ecchymosis Lymphadenopathy: None Neurological exam: No focal deficit Labs/Diagnostic Data Labs Test 04/15/24 10:52 04/15/24 09:55 04/15/24 05:06 04/14/24 06:05 Range/Units POC Glucose 93 70-106 mg/dl Prothrombin Time 12.8 H 9.3-11.8 sec Prothrombin Time INR 1.23 H 0.9-1.15 Activated Partial Thromboplast Time 29.4 24.5-34.5 SEC Sodium Level 138 136-145 mmol/L Potassium Level 4.1 3.5-5.1 mmol/L Chloride Level 109 H 98-107 mmol/L Carbon Dioxide Level 19 L 20-31 mmol/L Anion Gap 10 5-15 Blood Urea Nitrogen 5 L 9-23 mg/dL Creatinine 0.76 0.700-1.30 mg/dL Glomerular Filtration Rate Calc 107 >90 mL/min BUN/Creatinine Ratio 6.6 L 10.0-20.0 Serum Glucose 98 74-106 mg/dL Calcium Level 9.6 8.7-10.4 mg/dL Phosphorus Level 2.5 2.4-5.1 mg/dL Magnesium Level 1.5 L 1.6-2.6 mg/dL Total Bilirubin 0.2 0.2-1.0 mg/dL Aspartate Amino Transferase (AST) 13 13-40 U/L Alanine Aminotransferase (ALT) 13 7-40 U/L Alkaline Phosphatase 56 46-116 U/L Total Protein 6.1 5.7-8.2 g/dL Albumin 3.8 3.2-4.8 g/dL White Blood Count 5.4 4.4-10.8 10^3/uL Red Blood Count 4.21 L 4.5-5.90 10^6/uL Hemoglobin 12.6 L 13.5-17.5 g/dL Hematocrit 36.7 L 41.0-53.0 % Mean Corpuscular Volume 87.1 80.0-100.0 fL Mean Corpuscular Hemoglobin 30.0 28.0-32.0 pg Mean Corpuscular Hemoglobin Concent 34.4 32.0-36.0 g/dL Red Cell Distribution Width 14.7 H 11.8-14.3 % Platelet Count 291 140-450 10^3/uL Mean Platelet Volume 7.7 6.9-10.8 fL Neutrophils (%) (Auto) 72.9 37.0-80.0 % Lymphocytes (%) (Auto) 16.9 10.0-50.0 % Monocytes (%) (Auto) 6.5 0.0-12.0 % Eosinophils (%) (Auto) 2.9 0.0-7.0 % Basophils (%) (Auto) 0.8 0.0-2.0 % Neutrophils # (Auto) 4.0 1.6-8.6 10 ^3/uL Lymphocytes # (Auto) 0.9 0.4-5.4 10 ^3/uL Monocytes # (Auto) 0.4 0-1.3 10 ^3/uL Eosinophils # (Auto) 0.2 0-0.8 10 ^3/uL Basophils # (Auto) 0 0-0.2 10 ^3/uL Nucleated Red Blood Cells 0.0 % Test 04/13/24 16:41 04/12/24 05:47 04/10/24 23:10 04/10/24 16:40 Range/Units Estimated GFR () 125 mL/min Estimated GFR (Non- 103 mL/min Carcinoembryonic Antigen 2.64 <=5.0 ng/mL Influenza Type A Antigen Negative Negative Influenza Type B Antigen Negative Negative SARS-CoV-2 Antigen (Rapid) Negative NEGATIVE Urine Color Yellow Yellow Urine Clarity Clear Clear Urine pH 5.5 5.0-9.0 Urine Specific [place] 1.030 1.001-1.035 Urine Protein Trace H Negative Urine Ketones 1+ H Negative Urine Blood 2+ H Negative /uL Urine Nitrite Negative Negative Urine Bilirubin Negative Negative Urine Urobilinogen Normal Negative mg/dL Urine Leukocyte Esterase Negative Negative /uL Urine RBC 42 0 - 3 /hpf Urine Microscopic WBC 2 0-3 /HPF Urine Squamous Epithelial Cells Few <5 /hpf Urine Bacteria None seen None Seen /hpf Urine Glucose Normal Normal mg/dL Test 04/10/24 16:00 Range/Units Troponin I High Sensitivity 4 </=54 ng/L Lipase 51 12-53 U/L Assessment 1. 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 Patient presenting with nausea vomiting abdominal pains and bowel obstruction CEA 2.64. CMP unremarkable. CBC showed a white count 5.4 hemoglobin 12.6 platelets 291 Patient waiting for surgery today Plan/Recommendation I will evaluate the patient after surgery. Depending on the stage patient may need adjuvant systemic treatment Plan discussed with: Patient PRETTY CURRAN MD Apr 15, 2024 13:18
[2024-04-15] MEDS: BUPIVACAINE 0.5% P/F INJ 10 ML VIAL ONE (13:32)
[2024-04-15] MEDS: LIDOCAINE W/ EPINEPHRINE 1% 20ML VIAL ONE (13:33)
[2024-04-15] MEDS ORDERED: HYDROmorphone HCL 2 MG/ML VL/or syr ONE (13:54)
[2024-04-15] MEDS ORDERED: fentaNYL CITRATE 100 MCG/2 ML VL ONE ×2 (13:54→13:58)
[2024-04-15] MEDS ORDERED: MIDAZOLAM HCL 2MG/2ML 2ml VIAL (1mg/ml) ONE (13:54)
[2024-04-15] MEDS ORDERED: PROPOFOL 10 MG/ML 20 ML IV ONE (13:58)
[2024-04-15] MEDS ORDERED: DexAMETHasone SOD PHOS 10MG/1ML VIAL INJ ONE (13:58)
[2024-04-15] MEDS: ceFAZolin 2 GM/D5W100ml 100 ML IV ONE (14:10)
--- NOTE | 2024-04-15 14:37 | DVHPN2 ---
Subjective Update 04/15 04/11--patient's nausea is improving, has a right nasal NG tube inserted with biliary output in the tube. Patient had just returned from going to the bathroom. Abdominal pain is improving but still has tenderness to infra umbilical and to the right of umbilicus. Bowel sounds are present. Patient is having diarrheal watery BM. GI has been consulted and is planning to do a colonoscopy. Prep tomorrow. 04/12-continues to have a right nasal NG tube causing discomfort. GI following with plan to do bowel prep today with colonoscopy tomorrow. Possible removal of NG tube tomorrow pending GI review. Patient is doing okay otherwise. The bowel session is resolving. Patient was passing watery stools. 04/13-CT abdomen and pelvis repeat today showing no evidence of obstruction, there is ileus, focal thickening in the proximal small bowel mucosa and distal terminal ileum. Done overnight bowel prep for colonoscopy. GI taken for colonoscopy and findings large mass in distal transverse colon near the splenic flexure. Surgery is aware we will continue admission. NG tube removed. We will try clear liquid diet. 04/14-patient has colonoscopy yesterday 04/13 which finds large obstructing mass with apple-core lesion, surgery is aware and following. Patient is on TPN via PICC line and NPO with ice chips only. 04/15 yesterday biopsy showed colorectal adenocarcinoma. plan for surgery today likely. Oncology following. [facility] offered was patient declines, he prefers to be followed up here in [facility]. Reviewed: H&P Changes from previous H/P or p: No Changes General: Per HPI Eyes: No Pain, No Vision change, No Conjunctivae inflammation, No Eyelid inflammation, No Other, No Redness ENT: No Ear pain, No Ear discharge, No Nose pain, No Nose discharge, No Nose congestion, No Mouth pain, No Mouth swelling, No Throat pain, No Throat swelling, No Other Cardiovascular: No Chest Pain, No Palpitations, No Orthopnea, No Paroxysmal Noc. Dyspnea, No Edema, No Lt Headedness, No Other Respiratory: No Cough, No Dry, No Shortness of breath, No SOB with excertion, No Wheezing, No Hemoptysis, No Pleuritic Pain, No Sputum, No Other Gastrointestinal: No Nausea, No Vomiting, No Abdominal Pain, No Constipation Genitourinary: No Dysuria, No Frequency, No Incontinence, No Hematuria, No Retention, No Other Musculoskeletal: No other, No neck pain, No shoulder pain, No arm pain, No back pain, No hand pain, No leg pain, No foot pain Skin: No Rash, No Lesions, No Jaundice, No Bruising, No Other Objective Vitals Vital Signs Date Time Temp Pulse Resp B/P (MAP) Pulse Ox O2 Delivery O2 Flow Rate FiO2 04/15/24 12:30 97.9 76 17 97/70 (79) 98 97.9 04/15/24 08:00 Room Air* 0 21 Intake/Output Intake and Output 04/15/24 07:00 Intake Total 940 ml Output Total 2200 ml Balance -1260 ml Intake Oral 590 ml IV Total 350 ml Output Urine Total 2200 ml # Bowel Movements 7 Exam GEN: Healthy appearing, well-developed, NAD. HEENT: NC/AT; MMM. CV: RRR, no m/r/g. LUNGS: CTAB, no w/r/c. ABD: right nasal NG tube inserted with biliary output in the tube. Abdominal pain is improving but still has tenderness to infra umbilical and to the right of umbilicus. Bowel sounds are present. EXT: skin Warm, well perfused. no rashes. No clubbing, cyanosis, or edema. NEURO: Ambulating with no limitations. No focal deficits. Medications Current Medications Medications Dose Ordered Sig/Yasmany Route Start Time Stop Time Status Last Admin Dose Admin Pantoprazole Sodium 40 mg DAILY IV 04/11/24 10:00 04/15/24 10:36 40 MG Ondansetron HCl 4 mg Q4HPRN PRN IV 04/10/24 18:45 Morphine Sulfate 1 mg Q4HPRN PRN IV 04/10/24 18:45 04/10/24 20:23 1 MG Cefepime HCl 50 ml @ 12.5 mls/hr Q12H IV 04/11/24 15:00 04/15/24 02:47 12.5 MLS/HR Metronidazole 100 ml @ 100 mls/hr Q8HR IV 04/11/24 22:00 04/15/24 05:40 100 MLS/HR Potassium Chloride/Dextrose/ Sod Cl 1,000 ml @ 80 mls/hr [id number] IV 04/11/24 23:00 04/13/24 23:45 80 MLS/HR Polyethylene Glycol 17 gm DAILY PO 04/13/24 10:00 04/14/24 10:33 17 GM Amino Acids 0 ml @ 0 mls/hr PER PHARMACY IV 04/13/24 16:30 Diagnostic Test (Pha) 1 strip Q6HR 04/14/24 00:00 04/15/24 10:57 1 STRIP Insulin Human Regular FOLLOW SLIDING SCALE Q6HR SC 04/14/24 00:00 Dextrose 50 ml UD IV 04/14/24 00:00 Amino Acids/ Electrolytes/ Dextrose 1,000 ml @ 41 mls/hr DAILY@2200 IV 04/15/24 22:00 Laboratory Results Laboratory Tests 04/14/24 06:05 04/15/24 05:06 Chemistry Test 04/15/24 05:06 Albumin 3.8 g/dL (3.2-4.8) Calcium Level 9.6 mg/dL (8.7-10.4) Magnesium Level 1.5 mg/dL (1.6-2.6) L Phosphorus Level 2.5 mg/dL (2.4-5.1) Total Protein 6.1 g/dL (5.7-8.2) Coagulation Test 04/15/24 09:55 Prothrombin Time 12.8 sec (9.3-11.8) H Prothrombin Time INR 1.23 (0.9-1.15) H Activated Partial Thromboplast Time 29.4 SEC (24.5-34.5) LFT Test 04/15/24 05:06 Alanine Aminotransferase (ALT) 13 U/L (7-40) Alkaline Phosphatase 56 U/L (46-116) Aspartate Amino Transferase (AST) 13 U/L (13-40) Total Bilirubin 0.2 mg/dL (0.2-1.0) Urinalysis Test 04/10/24 16:40 Urine Color Yellow (Yellow) Urine Clarity Clear (Clear) Urine pH 5.5 (5.0-9.0) Urine Specific Sullivan 1.030 (1.001-1.035) Urine Protein Trace (Negative) H Urine Ketones 1+ (Negative) H Urine Blood 2+ /uL (Negative) H Urine Nitrite Negative (Negative) Urine Bilirubin Negative (Negative) Urine Urobilinogen Normal mg/dL (Negative) Urine Leukocyte Esterase Negative /uL (Negative) Urine RBC 42 /hpf (0 - 3) Urine Microscopic WBC 2 /HPF (0-3) Urine Squamous Epithelial Cells Few /hpf (<5) Urine Bacteria None seen /hpf (None Seen) Urine Glucose Normal mg/dL (Normal) Labs and/or images reviewed: Labs reviewed by me, Image(s) reviewed by me Assessment/Plan Assessment/Plan 04/15 yesterday biopsy showed colorectal adenocarcinoma. plan for surgery today likely. Oncology following. [facility] offered was patient declines, he prefers to be followed up here in the [facility]. Large bowel/colonic obstruction Intractable nausea and vomiting/resolving Intractable abdominal pain, resolving Cholelithiasis Gastric ulcer Cachexia Sliding hiatal hernia History of cholelithiasis Hepatic cyst -GI consulted-plan for colonoscopy showing large mass in distal transverse colon, near splenic flexure -General surge consulted-we will be following peripherally, agreed with colonoscopy -colonoscopy yesterday 04/13 which finds large obstructing mass with apple-core lesion - NG tube removed 04/13 (prior NG tube with intermittent suction on low pressure ) - we will insert PICC line and start TPN periods, status post IV fluid hydration. keep npo w ice chips (sips of CLD ok) -Protonix 40 IV daily - surgery following. Diet NPO, NG tube inserted - ice chips ok small amount DVT prophylaxis-Lovenox GI prophylaxis-Protonix IV daily Med tele Full code Plan discussed with: Patient My Orders Orders - ZOHREH VELIZ MD Procedure Category Date Status Time * Hematology/Oncology CONS 04/15/24 Transmitted Consult 12:42 Date of Service: Apr 15, 2024 Billing Provider: ZOHREH VELIZ MD Common Visit Codes: [id number] INP/OBS CARE([facility]) ZOHREH VELIZ MD Apr 15, 2024 14:36
--- NOTE | 2024-04-15 16:50 | DVHOP2 ---
Operative Report [id number] DISTAL TRANSVERSE COLON CANCER/TUMOR TRANSVERSE COLON PARTIAL COLECTOMY, PRIMARY ANASTOMOSIS LYSIS OF ADHESIONS SURGEON R LIDA MCCRACKEN EBL 50 CC NO DRAIN NO COMPLICATIONS BOB HILTON MD Apr 15, 2024 16:50
[2024-04-15] MEDS ORDERED: ePHEDrine SULFATE 50 MG/ML AMP IV PRN (17:00)
[2024-04-15] MEDS ORDERED: hydrALAZINE HCL 20 MG/ML VL IV PRN (17:00)
[2024-04-15] MEDS: ONDANSETRON HCL 4 MG/2 ML VIAL IV ONE (17:00)
[2024-04-15] MEDS ORDERED: MORPHINE SULFATE 4 MG/ML SYR/VIAL IV PRN (17:00)
[2024-04-15] MEDS ORDERED: MIDAZOLAM HCL 2MG/2ML 2ml VIAL (1mg/ml) IV PRN (17:00)
[2024-04-15] MEDS: KETOROLAC TROMETH 30 MG/ML 1ML VIAL IV ONE (17:00)
--- NOTE | 2024-04-15 17:23 | DVH ---
CHEST RADIOGRAPH Indication: POST OP NG PLACEMENT Technique: Single frontal view of the chest was obtained Comparison: XY CHEST XRAY 1 VIEW on DOS: 04/12/24, XY CHEST XRAY 1 VIEW on DOS: 04/11/24, XY CHEST XRAY 1 VIEW on DOS: 04/10/24 FINDINGS: Lines and Tubes: Endotracheal tube 5.1 cm above the monserrat. Enteric tube below the left diaphragm in the stomach. Lungs: Bibasilar airspace disease noted Pleura: No effusion. No pneumothorax. Cardiomediastinal contours: Unremarkable Bones: No acute osseous abnormality. IMPRESSION: 1. Endotracheal tube 5.1 cm above the monserrat. 2. Enteric tube below the left diaphragm in the stomach. 3. Bowel gas under the left diaphragm or gastric air. If pneumoperitoneum is of clinical concern rec ommend CT abdomen pelvis. 4. Bibasilar airspace disease worse on the right than the left..
[2024-04-15] MEDS: HYDROmorphone HCL 2 MG/ML VL/or syr IV PRN (17:32)
--- NOTE | 2024-04-15 19:52 | DVHPN2 ---
Progress Note - Dictate Date Seen: Apr 15, 2024 Medical Necessity Reason Pt with a Central, PICC or Fol: No Subjective S/P laparotomy today Resection of transverse colon mass partial colectomy with primary anastamosis lysis of adhesions; suspected previous partial colectomy Pathologist notified me that the biopsies of the distal transverse colon mass were consistent with adenocarcinoma vital signs Vital Sign Date Time Temp Pulse Resp B/P (MAP) Pulse Ox O2 Delivery O2 Flow Rate FiO2 04/15/24 12:30 97.9 76 17 97/70 (79) 98 97.9 04/15/24 08:00 Room Air* 0 21 Total Intake and Output 04/14/24 04/14/24 04/15/24 15:00 23:00 07:00 Intake Total 790 ml 150 ml Output Total 1200 ml 1000 ml Balance -410 ml -850 ml medications Current Medications Medications Dose Ordered Sig/Yasmany Route Start Time Stop Time Status Last Admin Dose Admin Pantoprazole Sodium 40 mg DAILY IV 04/11/24 10:00 04/15/24 10:36 40 MG Ondansetron HCl 4 mg Q4HPRN PRN IV 04/10/24 18:45 Morphine Sulfate 1 mg Q4HPRN PRN IV 04/10/24 18:45 04/10/24 20:23 1 MG Cefepime HCl 50 ml @ 12.5 mls/hr Q12H IV 04/11/24 15:00 04/15/24 02:47 12.5 MLS/HR Metronidazole 100 ml @ 100 mls/hr Q8HR IV 04/11/24 22:00 04/15/24 05:40 100 MLS/HR Potassium Chloride/Dextrose/ Sod Cl 1,000 ml @ 80 mls/hr [id number] IV 04/11/24 23:00 04/13/24 23:45 80 MLS/HR Polyethylene Glycol 17 gm DAILY PO 04/13/24 10:00 04/14/24 10:33 17 GM Amino Acids 0 ml @ 0 mls/hr PER PHARMACY IV 04/13/24 16:30 Diagnostic Test (Pha) 1 strip Q6HR 04/14/24 00:00 04/15/24 19:02 1 STRIP Insulin Human Regular FOLLOW SLIDING SCALE Q6HR SC 04/14/24 00:00 Dextrose 50 ml UD IV 04/14/24 00:00 Amino Acids/ Electrolytes/ Dextrose 1,000 ml @ 41 mls/hr DAILY@2200 IV 04/15/24 22:00 objective GEN: Healthy appearing, well-developed, NAD. HEENT: NC/AT; MMM. CV: RRR, no m/r/g. LUNGS: CTAB, no w/r/c. ABD: Soft mild tenderness EXT: skin Warm, well perfused. no rashes. No clubbing, cyanosis, or edema. NEURO: Ambulating with no limitations. No focal deficits. laboratory and microbiology Laboratory Tests 04/15/24 05:06 04/14/24 06:05 Test 04/15/24 05:06 Range/Units Serum Glucose 98 74-106 mg/dL Problems(with codes): (1) Adenocarcinoma of transverse colon (2) Intractable abdominal pain (3) Abnormal finding on CT scan Prognosis PLAN NPO; NGT LIS IV ABX TPN Monitor labs Oncology consult appreciated Plan discussed with: Other (Dr Aly Henderson) CHAPO HENDERSON MD Apr 15, 2024 19:52
[2024-04-15] MEDS: ONDANSETRON HCL 4 MG/2 ML VIAL IV PRN (20:00)
--- NOTE | 2024-04-15 20:47 | DVH ---
CHEST RADIOGRAPH Indication: S/P NGT Technique: Single frontal view of the chest was obtained Comparison: XY CHEST PORTABLE on DOS: 04/15/24, XY CHEST XRAY 1 VIEW on DOS: 04/12/24, XY CHEST XRAY 1 EW on DOS: 04/11/24 FINDINGS: Lines and Tubes: Enteric tube below the left hemidiaphragm in the stomach. Lungs: No focal consolidation. Pleura: No effusion. No pneumothorax. Cardiomediastinal contours: Unremarkable Bones: No acute osseous abnormality. IMPRESSION: 1. Enteric tube below the left diaphragm in the stomach.
--- NOTE | 2024-04-15 20:53 | DVHOP ---
DATE OF SURGERY: 04/15/2024 PREOPERATIVE DIAGNOSIS: Transverse colon cancer with obstruction. POSTOPERATIVE DIAGNOSIS: Transverse colon cancer with obstruction. PROCEDURE: Exploratory laparotomy with extensive lysis of adhesions and a partial transverse colectomy with primary anastomosis. SURGEON: Raimundo Henderson MD CINDER PIT WORKER: Ilya ANESTHESIA: General. ESTIMATED BLOOD LOSS: Close to 25-50 mL. DRAINS: No drains were used. COMPLICATIONS: No complications were encountered. DESCRIPTION OF PROCEDURE: The patient was prepped and draped in the usual sterile fashion in the supine position and a vertical midline incision was applied to the right of the umbilicus supraumbilically and infraumbilically and it was difficult incision because of the previous scar tissue. It was very dense scar tissue, but the incision was carried out without any problems and the abdomen was entered. Adhesions were noted. The small bowel was adherent in the upper abdomen. It was released without any complications and it was difficult to identify the anatomy because of his previous surgery. There were no details of the previous surgery that were given to us. Apparently it was then realized it is a possibility of an ascending colon removal with an anastomosis between the distal cecal area with the transverse colon and the tumor was located distal to that, so based upon that, a decision was made to do a transverse colectomy and a suitable spot was selected after identification of the transverse colon and releasing it from the adhesions and also releasing it from the small bowel that was adherent in some locations using the Harmonic device. A suitable spot was selected in the distal transverse colon close to the splenic flexure away from the main tumor and the Lelo ink elle. That is where the tumor was located. It was also palpable and the colon was transected using the PHIL stapling device and a suitable spot was selected proximally to the lesion away from the main tumor and this was close to probably the hepatic flexure or the transverse colon itself, because the previous anatomy was not clearly identified based upon his previous surgery and this area also was transected using the PHIL stapling device and then after mobilization of the right side of the colon or the transverse colon, it was brought up against the distal transverse colon and a [id number] staple anastomosis was carried out and closing the final opening with the stapling device as well and then reinforcing it with 3-0 silk sutures at various locations. The mesenteric tissue was obviously divided using the LigaSure device and attempts were made to remove as much of the mesenteric tissue along with the lymph nodes. The specimen was released in this fashion and submitted for pathology. The proximal side was located, was marked with a suture and the distal side with the Lelo ink elle, and with the anastomosis done, the bowel was replaced back into the abdomen without any complication. Hemostasis was secured. Irrigation fluid was removed in all 4 quadrants of the pelvis as well as the pelvis. The descending colon was clearly identified along with the sigmoid colon as well and there were no issues noted in the rest of the colon. With this being done, sponge count, needle count was reported correct. The fascia was brought together using a PDS suture. Skin incisions were brought together using stapling device after the subcutaneous tissue was brought together using Vicryl suture at various locations and then a dressing was applied. The patient tolerated the procedure well and was taken back to the recovery room in a stable condition. MD DONITA Barros/RAFAELA/SUMAN TID: [id number] RECEIPT: [id number] cc: Ilya Sterling DNP, Dilip Fuller NP
[2024-04-15] MEDS: AMINO ACID INFUSION IN D10W 1,000 ML IV SCH (22:03)
[2024-04-16] VITALS (8 sets, daily range): BP systolic 106–155; BP diastolic 69–85; PULSE 77–96; RESP 16–18; TEMP 97.4–98.4; O2SAT 95–97
[2024-04-16 07:55] LABS: Basophils # (auto) 0 10 ^3/uL (0-0.2); Basophils % (auto) 0.2 % (0.0-2.0); Eosinophils # (auto) 0 10 ^3/uL (0-0.8); Eosinophils % (auto) 0.3 % (0.0-7.0); Hematocrit 43.4 % (41.0-53.0); Hemoglobin 14.5 g/dL (13.5-17.5); Lymphocytes # (auto) 0.7 10 ^3/uL (0.4-5.4); Lymphocytes % (auto) 6.6 % (10.0-50.0); Mean Corpuscular Hemoglobin 28.4 pg (28.0-32.0); Mean Corpuscular Hgb Conc. 33.4 g/dL (32.0-36.0); Mean Corpuscular Volume 85.2 fL (80.0-100.0); Monocytes # (auto) 0.7 10 ^3/uL (0-1.3); Monocytes % (auto) 6.5 % (0.0-12.0); Neutrophils # (auto) 9.1 10 ^3/uL (1.6-8.6); Neutrophils % (auto) 86.4 % (37.0-80.0); Platelet Count (auto) 310 10^3/uL (140-450); Red Cell Distribution Width 14.7 % (11.8-14.3); White Blood Cell 10.5 10^3/uL (4.4-10.8)
[2024-04-16 08:17] LABS: Alanine Aminotransferase 11 U/L (7-40); Albumin 3.7 g/dL (3.2-4.8); Alkaline Phosphatase 59 U/L (46-116); Anion Gap 5 (5-15); BUN/Creatinine Ratio 9.1 (10.0-20.0); Calcium 9.3 mg/dL (8.7-10.4); Carbon Dioxide 27 mmol/L (20-31); Chloride 104 mmol/L (98-107); Potassium 4.7 mmol/L (3.5-5.1); Sodium 136 mmol/L (136-145); Total Protein 6.1 g/dL (5.7-8.2)
[2024-04-16 08:18] LABS: Bilirubin, Total 0.3 mg/dL (0.2-1.0); Phosphorus 3.8 mg/dL (2.4-5.1)
[2024-04-16 08:20] LABS: Glucose 157 mg/dL (74-106)
[2024-04-16 08:21] LABS: Aspartate Aminotransferase 10 U/L (13-40); Blood Urea Nitrogen 8 mg/dL (9-23); Magnesium 1.2 mg/dL (1.6-2.6)
[2024-04-16] MEDS: MORPHINE SULFATE INJ 2 MG/ml SYRG IV PRN ×2 (10:06→16:28)
[2024-04-16] MEDS ORDERED: TPN PER PHARMACY 0 ML IV SCH (11:00)
[2024-04-16] MEDS: KETOROLAC TROMETH 30 MG/ML 1ML VIAL IV ONE (14:52)
--- NOTE | 2024-04-16 14:58 | DVH ---
BILATERAL UPPER EXTREMITY VENOUS DOPPLER CLINICAL HISTORY: R/O DVT, bilateral TECHNIQUE: Upper extremity venous Doppler study was performed. Comparison: None FINDINGS: The left cephalic and basilic veins are thrombosed and occluded. The bilateralinternal jugular, subcl rupesh, axillary, brachial, radial, ulnar and right cephalic and basilic veins appear patent with no rmal augmentation, phasicity, compressibility and color-flow. IMPRESSION: 1. The left cephalic and basilic veins are thrombosed and occluded. 2. There is no sonographic evidence for DVT in the right arm. HS:Y
[2024-04-16] MEDS: LIDOCAINE 1% (LOCAL ANESTH.) PF 5ml SDV ID ONE (16:00)
[2024-04-16] MEDS: MAGNESIUM SULFATE 1GM/100ML 100 ML IV SCH (16:24)
--- NOTE | 2024-04-16 17:34 | DVHPN2 ---
Subjective Update 04/16 04/11--patient's nausea is improving, has a right nasal NG tube inserted with biliary output in the tube. Patient had just returned from going to the bathroom. Abdominal pain is improving but still has tenderness to infra umbilical and to the right of umbilicus. Bowel sounds are present. Patient is having diarrheal watery BM. GI has been consulted and is planning to do a colonoscopy. Prep tomorrow. 04/12-continues to have a right nasal NG tube causing discomfort. GI following with plan to do bowel prep today with colonoscopy tomorrow. Possible removal of NG tube tomorrow pending GI review. Patient is doing okay otherwise. The bowel session is resolving. Patient was passing watery stools. 04/13-CT abdomen and pelvis repeat today showing no evidence of obstruction, there is ileus, focal thickening in the proximal small bowel mucosa and distal terminal ileum. Done overnight bowel prep for colonoscopy. GI taken for colonoscopy and findings large mass in distal transverse colon near the splenic flexure. Surgery is aware we will continue admission. NG tube removed. We will try clear liquid diet. 04/14-patient has colonoscopy yesterday 04/13 which finds large obstructing mass with apple-core lesion, surgery is aware and following. Patient is on TPN via PICC line and NPO with ice chips only. 04/15 yesterday biopsy showed colorectal adenocarcinoma. plan for surgery today likely. Oncology following. [facility] offered was patient declines, he prefers to be followed up here in the [facility]. 04/16 - patient is pod 1, he is in significant pain has NG tube inserted abdominal wall binder, dressings are CDI. We will continue p.r.n. pain control. Left arm superficial basilic and cephalic thrombosis, PICC line inserted right hand we will start TPN today. Surgery and and oncology and GI following. Reviewed: H&P Changes from previous H/P or p: No Changes General: Per HPI Eyes: No Pain, No Vision change, No Conjunctivae inflammation, No Eyelid inflammation, No Other, No Redness ENT: No Ear pain, No Ear discharge, No Nose pain, No Nose discharge, No Nose congestion, No Mouth pain, No Mouth swelling, No Throat pain, No Throat swelling, No Other Cardiovascular: No Chest Pain, No Palpitations, No Orthopnea, No Paroxysmal Noc. Dyspnea, No Edema, No Lt Headedness, No Other Respiratory: No Cough, No Dry, No Shortness of breath, No SOB with excertion, No Wheezing, No Hemoptysis, No Pleuritic Pain, No Sputum, No Other Gastrointestinal: No Nausea, No Vomiting, No Abdominal Pain, No Constipation Genitourinary: No Dysuria, No Frequency, No Incontinence, No Hematuria, No Retention, No Other Musculoskeletal: No other, No neck pain, No shoulder pain, No arm pain, No back pain, No hand pain, No leg pain, No foot pain Skin: No Rash, No Lesions, No Jaundice, No Bruising, No Other Objective Vitals Vital Signs Date Time Temp Pulse Resp B/P (MAP) Pulse Ox O2 Delivery O2 Flow Rate FiO2 04/16/24 16:28 102 18 121/86 04/16/24 13:00 98.1 97 98.1 04/16/24 08:00 Room Air* 0 21 Intake/Output Intake and Output 04/16/24 07:00 Intake Total 600 ml Output Total 20 ml Balance 580 ml Intake Oral 300 ml IV Total 300 ml Output Urine Total 20 ml # Voids 4 Exam GEN: Healthy appearing, well-developed, NAD. HEENT: NC/AT; MMM. CV: RRR, no m/r/g. LUNGS: CTAB, no w/r/c. ABD: right nasal NG tube inserted with biliary output in the tube. Abdominal pain is improving but still has tenderness to infra umbilical and to the right of umbilicus. Bowel sounds are present. EXT: skin Warm, well perfused. no rashes. No clubbing, cyanosis, or edema. NEURO: Ambulating with no limitations. No focal deficits. Medications Current Medications Medications Dose Ordered Sig/Yasmany Route Start Time Stop Time Status Last Admin Dose Admin Pantoprazole Sodium 40 mg DAILY IV 04/11/24 10:00 04/16/24 10:01 40 MG Ondansetron HCl 4 mg Q4HPRN PRN IV 04/10/24 18:45 04/15/24 20:00 4 MG Cefepime HCl 50 ml @ 12.5 mls/hr Q12H IV 04/11/24 15:00 04/16/24 16:40 12.5 MLS/HR Metronidazole 100 ml @ 100 mls/hr Q8HR IV 04/11/24 22:00 04/16/24 14:26 100 MLS/HR Potassium Chloride/Dextrose/ Sod Cl 1,000 ml @ 80 mls/hr [id number] IV 04/11/24 23:00 04/16/24 04:04 80 MLS/HR Polyethylene Glycol 17 gm DAILY PO 04/13/24 10:00 04/14/24 10:33 17 GM Diagnostic Test (Pha) 1 strip Q6HR 04/14/24 00:00 04/16/24 12:07 1 STRIP Insulin Human Regular FOLLOW SLIDING SCALE Q6HR SC 04/14/24 00:00 Dextrose 50 ml UD IV 04/14/24 00:00 Amino Acids/ Electrolytes/ Dextrose 1,000 ml @ 41 mls/hr DAILY@2200 IV 04/15/24 22:00 04/16/24 21:59 04/15/24 22:03 41 MLS/HR Amino Acids 0 ml @ 0 mls/hr PER PHARMACY IV 04/16/24 11:00 Sodium Chloride 20 meq/Sodium Phosphate 10 meq/ Magnesium Sulfate 16 meq/ Multivitamins 10 ml/Chromium/ Copper/Manganese/ Zinc 1 ml/Amino Acids/Dextrose/ Purified Water 1,422.5 ml @ 59 mls/hr Q24H7M IV 04/16/24 22:00 04/17/24 21:59 Morphine Sulfate 3 mg Q2HPRN PRN IV 04/16/24 16:30 04/16/24 16:28 3 MG Sodium Chloride 10 ml QSHIFT@10,22 IV 04/16/24 22:00 Laboratory Results Laboratory Tests 04/16/24 07:23 Chemistry Test 04/16/24 07:23 Albumin 3.7 g/dL (3.2-4.8) Calcium Level 9.3 mg/dL (8.7-10.4) Magnesium Level 1.2 mg/dL (1.6-2.6) L Phosphorus Level 3.8 mg/dL (2.4-5.1) Total Protein 6.1 g/dL (5.7-8.2) LFT Test 04/16/24 07:23 Alanine Aminotransferase (ALT) 11 U/L (7-40) Alkaline Phosphatase 59 U/L (46-116) Aspartate Amino Transferase (AST) 10 U/L (13-40) L Total Bilirubin 0.3 mg/dL (0.2-1.0) Urinalysis Test 04/10/24 16:40 Urine Color Yellow (Yellow) Urine Clarity Clear (Clear) Urine pH 5.5 (5.0-9.0) Urine Specific [place] 1.030 (1.001-1.035) Urine Protein Trace (Negative) H Urine Ketones 1+ (Negative) H Urine Blood 2+ /uL (Negative) H Urine Nitrite Negative (Negative) Urine Bilirubin Negative (Negative) Urine Urobilinogen Normal mg/dL (Negative) Urine Leukocyte Esterase Negative /uL (Negative) Urine RBC 42 /hpf (0 - 3) Urine Microscopic WBC 2 /HPF (0-3) Urine Squamous Epithelial Cells Few /hpf (<5) Urine Bacteria None seen /hpf (None Seen) Urine Glucose Normal mg/dL (Normal) Labs and/or images reviewed: Labs reviewed by me, Image(s) reviewed by me Assessment/Plan Assessment/Plan 04/16 - patient is pod 1, he is in significant pain has NG tube inserted abdominal wall binder, dressings are CDI. We will continue p.r.n. pain control. Left arm superficial basilic and cephalic thrombosis, PICC line inserted right hand we will start TPN today. Surgery and and oncology and GI following. Large bowel/colonic obstruction Intractable nausea and vomiting/resolving Intractable abdominal pain, resolving Thrombosis, superficial veins, left basilic and cephalic Cholelithiasis Gastric ulcer Cachexia Sliding hiatal hernia History of cholelithiasis Hepatic cyst - GI consulted-plan for colonoscopy showing large mass in distal transverse colon, near splenic flexure - General surge consulted-we will be following peripherally, agreed with colonoscopy - colonoscopy yesterday 04/13 which finds large obstructing mass with apple-core lesion - NG tube removed 04/13 (prior NG tube with intermittent suction on low pressure ) - we will insert PICC line and start TPN periods, status post IV fluid hydration. keep npo w ice chips (sips of CLD ok) - Protonix 40 IV daily - surgery following. - colectomy 04/16/23 Diet NPO, NG tube inserted - npo TPN started. DVT prophylaxis-Lovenox GI prophylaxis-Protonix IV daily Med tele Full code Plan discussed with: Patient My Orders Orders - ZOHREH VELIZ MD Procedure Category Date Status Time Chest Xray 1 View XY 04/15/24 Resulted 18:54 Tpn Per Pharmacy PHA 04/16/24 In Process 11:00 Amino Acid PHA 04/16/24 In Process Infusion... W/Sodium 22:00 Renal Function Test LAB 04/17/24 Verified 04:00 Magnesium LAB 04/17/24 Verified 04:00 Triglycerides LAB 04/17/24 Verified 04:00 Tpn Per Pharmacy [facility] 04/16/24 In Process 22:00 Bi Lat Upper Dvt US 04/16/24 Resulted 13:31 Morphine Sulfate PHA 04/16/24 In Process Injection 16:30 Us Guided Vascular US 04/16/24 Logged Access 15:54 Nursing Protocol Picc [facility] 04/16/24 In Process 15:54 Change Dressing Prn [facility] 04/16/24 In Process 15:54 Sodium Chloride Lock [facility] 04/16/24 In Process (Saline Lock Ns) 22:00 Do Not Use Picc For [facility] 04/16/24 In Process Blood Cult 15:54 May Draw Blood From [facility] 04/16/24 In Process Picc 15:54 Ok To Use Picc [facility] 04/16/24 In Process 15:54 Change Picc Dressing [facility] 04/16/24 In Process Q7 Days 15:54 Date of Service: Apr 16, 2024 Billing Provider: ZOHREH VELIZ MD Common Visit Codes: [id number] INP/OBS CARE(HIGH) ZOHREH VELIZ MD Apr 16, 2024 17:34
--- NOTE | 2024-04-16 20:16 | DVHPN2 ---
Progress Note Date Seen: Apr 16, 2024 Medical Necessity Reason Pt with a Central, PICC or Fol: No Objective vital signs Vital Sign Date Time Temp Pulse Resp B/P (MAP) Pulse Ox O2 Delivery O2 Flow Rate FiO2 04/16/24 19:09 78 18 119/71 04/16/24 17:00 98.3 98.3 04/16/24 13:00 97 04/16/24 08:00 Room Air* 0 21 Total Intake and Output 04/15/24 04/15/24 04/16/24 15:00 23:00 07:00 Intake Total 200 ml 0 ml 400 ml Output Total 20 ml Balance 200 ml -20 ml 400 ml medications Current Medications Medications Dose Ordered Sig/Yasmany Route Start Time Stop Time Status Last Admin Dose Admin Pantoprazole Sodium 40 mg DAILY IV 04/11/24 10:00 04/16/24 10:01 40 MG Ondansetron HCl 4 mg Q4HPRN PRN IV 04/10/24 18:45 04/15/24 20:00 4 MG Cefepime HCl 50 ml @ 12.5 mls/hr Q12H IV 04/11/24 15:00 04/16/24 16:40 12.5 MLS/HR Metronidazole 100 ml @ 100 mls/hr Q8HR IV 04/11/24 22:00 04/16/24 14:26 100 MLS/HR Polyethylene Glycol 17 gm DAILY PO 04/13/24 10:00 04/14/24 10:33 17 GM Diagnostic Test (Pha) 1 strip Q6HR 04/14/24 00:00 04/16/24 18:10 1 STRIP Insulin Human Regular FOLLOW SLIDING SCALE Q6HR SC 04/14/24 00:00 04/16/24 18:09 2 UNITS Dextrose 50 ml UD IV 04/14/24 00:00 Amino Acids/ Electrolytes/ Dextrose 1,000 ml @ 41 mls/hr DAILY@2200 IV 04/15/24 22:00 04/16/24 21:59 04/15/24 22:03 41 MLS/HR Amino Acids 0 ml @ 0 mls/hr PER PHARMACY IV 04/16/24 11:00 Sodium Chloride 20 meq/Sodium Phosphate 10 meq/ Magnesium Sulfate 16 meq/ Multivitamins 10 ml/Chromium/ Copper/Manganese/ Zinc 1 ml/Amino Acids/Dextrose/ Purified Water 1,422.5 ml @ 59 mls/hr Q24H7M IV 04/16/24 22:00 04/17/24 21:59 Sodium Chloride 10 ml QSHIFT@10,22 IV 04/16/24 22:00 Hydromorphone HCl 0.25 mg Q3HPRN PRN IV 04/16/24 20:15 laboratory and microbiology Laboratory Tests 04/16/24 07:23 Test 04/16/24 07:23 Range/Units Serum Glucose 157 H 74-106 mg/dL Problem List/Assessment/Plan Problem List/Assessment/Plan AFEBRILE VSS ABD SOFT LESS DISTENDED NO BM NO FLATUS S/P COLON RESECTION KEEP NPO NG PICK LINE FOR TPN NURSE AT BEDSIDE OPERATIVE FINDINGS DISCUSSED Plan discussed with: Patient My Orders My Orders Orders - BOB HILTON MD Procedure Category Date Status Time Hydromorphone PHA 04/16/24 In Process Injection (Dilaudid 20:15 BOB HILTON MD Apr 16, 2024 20:16
[2024-04-16] MEDS: HYDROmorphone HCL 2 MG/ML VL/or syr IV PRN (21:07)
[2024-04-16] MEDS: SODIUM CHLOR 0.9% PF (SALINE LOCK) 10ML VIAL/SYR IV SCH (22:00)
[2024-04-16] MEDS: PPN PER PHARMACY IV NR (22:00)
[2024-04-17] VITALS (7 sets, daily range): BP systolic 98–165; BP diastolic 59–83; PULSE 77–94; RESP 13–19; TEMP 98–98.6; O2SAT 95–99
[2024-04-17 06:45] LABS: Basophils # (auto) 0 10 ^3/uL (0-0.2); Basophils % (auto) 0.2 % (0.0-2.0); Eosinophils # (auto) 0.2 10 ^3/uL (0-0.8); Eosinophils % (auto) 2.1 % (0.0-7.0); Hemoglobin 11.6 g/dL (13.5-17.5); Lymphocytes # (auto) 0.7 10 ^3/uL (0.4-5.4); Lymphocytes % (auto) 8.9 % (10.0-50.0); Mean Corpuscular Hgb Conc. 32.2 g/dL (32.0-36.0); Mean Corpuscular Volume 86.9 fL (80.0-100.0); Monocytes # (auto) 0.5 10 ^3/uL (0-1.3); Monocytes % (auto) 7.2 % (0.0-12.0); Neutrophils % (auto) 81.6 % (37.0-80.0); Platelet Count (auto) 223 10^3/uL (140-450); Red Blood Cells 4.14 10^6/uL (4.5-5.90); Red Cell Distribution Width 15.1 % (11.8-14.3); White Blood Cell 7.4 10^3/uL (4.4-10.8)
[2024-04-17 10:41] LABS: Anion Gap 5 (5-15)
[2024-04-17 10:46] LABS: GFR African American 138 mL/min; GFR Non-African American 114 mL/min
[2024-04-17 10:47] LABS: BUN/Creatinine Ratio 15.8 (10.0-20.0)
[2024-04-17 10:48] LABS: Alkaline Phosphatase 49 U/L (46-116); Blood Urea Nitrogen 12 mg/dL (9-23); Carbon Dioxide 27 mmol/L (20-31); Chloride 103 mmol/L (98-107); Glucose 115 mg/dL (74-106); Potassium 3.7 mmol/L (3.5-5.1); Sodium 135 mmol/L (136-145)
[2024-04-17 10:49] LABS: Alanine Aminotransferase < 9 U/L (7-40); Albumin 3.2 g/dL (3.2-4.8); Calcium 8.8 mg/dL (8.7-10.4); Magnesium 1.9 mg/dL (1.6-2.6); Total Protein 5.4 g/dL (5.7-8.2); Triglycerides 82 mg/dL (< 150)
[2024-04-17 10:50] LABS: Aspartate Aminotransferase < 8 U/L (13-40); Bilirubin, Total 0.3 mg/dL (0.2-1.0); Phosphorus 3.1 mg/dL (2.4-5.1)
--- NOTE | 2024-04-17 11:02 | DVHPN2 ---
Progress Note Date Seen: Apr 17, 2024 Medical Necessity Reason Pt with a Central, PICC or Fol: No Objective vital signs Vital Sign Date Time Temp Pulse Resp B/P (MAP) Pulse Ox O2 Delivery O2 Flow Rate FiO2 04/17/24 09:38 92 18 111/60 04/17/24 09:00 98.2 97 98.2 04/16/24 20:00 Room Air* 0 21 Total Intake and Output 04/16/24 04/16/24 04/17/24 15:00 23:00 07:00 Intake Total 150 ml 300 ml 0 ml Output Total 1200 ml 850 ml Balance 150 ml -900 ml -850 ml medications Current Medications Medications Dose Ordered Sig/Yasmany Route Start Time Stop Time Status Last Admin Dose Admin Pantoprazole Sodium 40 mg DAILY IV 04/11/24 10:00 04/17/24 09:39 40 MG Ondansetron HCl 4 mg Q4HPRN PRN IV 04/10/24 18:45 04/15/24 20:00 4 MG Cefepime HCl 50 ml @ 12.5 mls/hr Q12H IV 04/11/24 15:00 04/17/24 03:28 12.5 MLS/HR Metronidazole 100 ml @ 100 mls/hr Q8HR IV 04/11/24 22:00 04/17/24 05:13 100 MLS/HR Diagnostic Test (Pha) 1 strip Q6HR 04/14/24 00:00 04/17/24 05:37 1 STRIP Insulin Human Regular FOLLOW SLIDING SCALE Q6HR SC 04/14/24 00:00 04/16/24 23:55 2 UNITS Dextrose 50 ml UD IV 04/14/24 00:00 Amino Acids 0 ml @ 0 mls/hr PER PHARMACY IV 04/16/24 11:00 Sodium Chloride 20 meq/Sodium Phosphate 10 meq/ Magnesium Sulfate 16 meq/ Multivitamins 10 ml/Chromium/ Copper/Manganese/ Zinc 1 ml/Amino Acids/Dextrose/ Purified Water 1,422.5 ml @ 59 mls/hr Q24H7M IV 04/16/24 22:00 04/17/24 21:59 04/16/24 22:00 59 MLS/HR Sodium Chloride 10 ml QSHIFT@10,22 IV 04/16/24 22:00 04/16/24 22:00 10 ML Hydromorphone HCl 0.25 mg Q3HPRN PRN IV 04/16/24 20:15 04/17/24 09:38 0.25 MG laboratory and microbiology Laboratory Tests 04/17/24 10:15 04/17/24 06:13 Test 04/17/24 10:15 Range/Units Serum Glucose 115 H 74-106 mg/dL Problem List/Assessment/Plan Problem List/Assessment/Plan AFEBRILE VSS ABD SOFT LESS DISTENDED NO BM NO FLATUS S/P COLON RESECTION KEEP NPO NG PICK LINE FOR TPN NURSE AT BEDSIDE DC GALLARDO Plan discussed with: Patient My Orders My Orders Orders - BOB HILTON MD Procedure Category Date Status Time Hydromorphone PHA 04/16/24 In Process Injection (Dilaudid 20:15 BOB HILTON MD Apr 17, 2024 11:02
--- NOTE | 2024-04-17 13:24 | DVHPN2 ---
Subjective The patient is seen and examined at bedside. Complain of abdominal pain. Reviewed: Care Plan, H&P, Labs, Medications, Previous Orders, Radiology Changes from previous H/P or p: No Changes General: Per HPI Eyes: No Pain, No Vision change, No Conjunctivae inflammation, No Eyelid inflammation, No Other, No Redness ENT: No Ear pain, No Ear discharge, No Nose pain, No Nose discharge, No Nose congestion, No Mouth pain, No Mouth swelling, No Throat pain, No Throat swelling, No Other Cardiovascular: No Chest Pain, No Palpitations, No Orthopnea, No Paroxysmal Noc. Dyspnea, No Edema, No Lt Headedness, No Other Respiratory: No Cough, No Dry, No Shortness of breath, No SOB with excertion, No Wheezing, No Hemoptysis, No Pleuritic Pain, No Sputum, No Other Gastrointestinal: No Nausea, No Vomiting, No Abdominal Pain, No Constipation Genitourinary: No Dysuria, No Frequency, No Incontinence, No Hematuria, No Retention, No Other Musculoskeletal: No other, No neck pain, No shoulder pain, No arm pain, No back pain, No hand pain, No leg pain, No foot pain Skin: No Rash, No Lesions, No Jaundice, No Bruising, No Other Objective Vitals Vital Signs Date Time Temp Pulse Resp B/P (MAP) Pulse Ox O2 Delivery O2 Flow Rate FiO2 04/17/24 13:15 80 15 118/63 04/17/24 09:00 98.2 97 98.2 04/17/24 08:10 Room Air* 0 21 Intake/Output Intake and Output 04/17/24 07:00 Intake Total 450 ml Output Total 2050 ml Balance -1600 ml Intake Oral 0 ml IV Total 450 ml Output Urine Total 2050 ml General Appearance: Alert, Cooperative, No acute distress HEENT: Atraumatic, PERRLA, EOMI, Mucous membr. moist/pink Neck: Supple Lungs: Clear to auscultation, Normal air movement Cardiovascular: Regular rate, Normal S1, Normal S2, No murmurs, Gallops, Rubs Abdomen: Normal bowel sounds, Other (Mild tender on four quadrant) Neuro: Cranial nerves 3-12 NL Psych/Mental Status: Mental status NL Medications Current Medications Medications Dose Ordered Sig/Yasmany Route Start Time Stop Time Status Last Admin Dose Admin Pantoprazole Sodium 40 mg DAILY IV 04/11/24 10:00 04/17/24 09:39 40 MG Ondansetron HCl 4 mg Q4HPRN PRN IV 04/10/24 18:45 04/15/24 20:00 4 MG Cefepime HCl 50 ml @ 12.5 mls/hr Q12H IV 04/11/24 15:00 04/17/24 03:28 12.5 MLS/HR Metronidazole 100 ml @ 100 mls/hr Q8HR IV 04/11/24 22:00 04/17/24 05:13 100 MLS/HR Diagnostic Test (Pha) 1 strip Q6HR 04/14/24 00:00 04/17/24 12:00 1 STRIP Insulin Human Regular FOLLOW SLIDING SCALE Q6HR SC 04/14/24 00:00 04/17/24 12:34 2 UNITS Dextrose 50 ml UD IV 04/14/24 00:00 Amino Acids 0 ml @ 0 mls/hr PER PHARMACY IV 04/16/24 11:00 Sodium Chloride 20 meq/Sodium Phosphate 10 meq/ Magnesium Sulfate 16 meq/ Multivitamins 10 ml/Chromium/ Copper/Manganese/ Zinc 1 ml/Amino Acids/Dextrose/ Purified Water 1,422.5 ml @ 59 mls/hr Q24H7M IV 04/16/24 22:00 04/17/24 21:59 04/16/24 22:00 59 MLS/HR Sodium Chloride 10 ml QSHIFT@10,22 IV 04/16/24 22:00 04/17/24 12:15 10 ML Hydromorphone HCl 0.25 mg Q3HPRN PRN IV 04/16/24 20:15 04/17/24 13:15 0.25 MG Fat Emulsion Intravenous 100 ml/Sodium Chloride 40 meq/ Sodium Phosphate 20 meq/Potassium Chloride 40 meq/ Calcium Gluconate 2.3 meq/Magnesium Sulfate 20 meq/ Multivitamins 10 ml/Chromium/ Copper/Manganese/ Zinc 1 ml/Amino Acids/Dextrose 1,155.9462 ml @ 48 mls/hr Q24H5M IV 04/17/24 22:00 04/18/24 21:59 Laboratory Results Laboratory Tests 04/17/24 06:13 04/17/24 10:15 Chemistry Test 04/17/24 10:15 Albumin 3.2 g/dL (3.2-4.8) Calcium Level 8.8 mg/dL (8.7-10.4) Magnesium Level 1.9 mg/dL (1.6-2.6) Phosphorus Level 3.1 mg/dL (2.4-5.1) Total Protein 5.4 g/dL (5.7-8.2) L Lipid panel Test 04/17/24 10:15 Triglycerides Level 82 mg/dL (< 150) LFT Test 04/17/24 10:15 Alanine Aminotransferase (ALT) < 9 U/L (7-40) Alkaline Phosphatase 49 U/L (46-116) Aspartate Amino Transferase (AST) < 8 U/L (13-40) L Total Bilirubin 0.3 mg/dL (0.2-1.0) Urinalysis Test 04/10/24 16:40 Urine Color Yellow (Yellow) Urine Clarity Clear (Clear) Urine pH 5.5 (5.0-9.0) Urine Specific [place] 1.030 (1.001-1.035) Urine Protein Trace (Negative) H Urine Ketones 1+ (Negative) H Urine Blood 2+ /uL (Negative) H Urine Nitrite Negative (Negative) Urine Bilirubin Negative (Negative) Urine Urobilinogen Normal mg/dL (Negative) Urine Leukocyte Esterase Negative /uL (Negative) Urine RBC 42 /hpf (0 - 3) Urine Microscopic WBC 2 /HPF (0-3) Urine Squamous Epithelial Cells Few /hpf (<5) Urine Bacteria None seen /hpf (None Seen) Urine Glucose Normal mg/dL (Normal) Labs and/or images reviewed: Labs reviewed by me Assessment/Plan Assessment/Plan Large bowel/colonic obstruction Intractable nausea and vomiting/resolving Intractable abdominal pain, resolving Thrombosis, superficial veins, left basilic and cephalic Cholelithiasis Gastric ulcer Cachexia Sliding hiatal hernia History of cholelithiasis Hepatic cyst - GI consulted-plan for colonoscopy showing large mass in distal transverse colon, near splenic flexure - General surge consulted-we will be following peripherally, agreed with colonoscopy - colonoscopy yesterday 04/13 which finds large obstructing mass with apple-core lesion - NG tube removed 04/13 (prior NG tube with intermittent suction on low pressure ) - we will insert PICC line and start TPN periods, status post IV fluid hydration. keep npo w ice chips (sips of CLD ok) - Protonix 40 IV daily - surgery following. - colectomy 04/16/23 Diet NPO, NG tube inserted - npo TPN started. DVT prophylaxis-Lovenox GI prophylaxis-Protonix IV daily Med tele Full code Continuing current management This medical document was created using an electronic medical record system with [employer] Tabbed[employer] direct computerized dictation system. Although this document has been carefully reviewed, there may still be some phonetic and typographical errors. These areas are purely typographical due to imperfections of the software programs, and do not reflect any compromise in the patient's medical care. Plan discussed with: Patient Date of Service: Apr 17, 2024 Billing Provider: MAUREEN VERAS MD Common Visit Codes: [id number] INP/OBS CARE(HIGH) MAUREEN VERAS MD Apr 17, 2024 13:24
--- NOTE | 2024-04-17 15:32 | DVHPN2 ---
Progress Note - Dictate Date Seen: Apr 17, 2024 Medical Necessity Reason Pt with a Central, PICC or Fol: No Subjective Post op Day # 2 S/P laparotomy Resection of transverse colon mass partial colectomy with primary anastamosis lysis of adhesions; suspected previous partial colectomy No bowel movement yet NG tube to low intermittent suction Pathologist notified me that the biopsies of the distal transverse colon mass were consistent with adenocarcinoma vital signs Vital Sign Date Time Temp Pulse Resp B/P (MAP) Pulse Ox O2 Delivery O2 Flow Rate FiO2 04/17/24 13:45 81 13 110/60 04/17/24 13:00 98.6 99 98.6 04/17/24 08:10 Room Air* 0 21 Total Intake and Output 04/16/24 04/16/24 04/17/24 15:00 23:00 07:00 Intake Total 150 ml 300 ml 0 ml Output Total 1200 ml 850 ml Balance 150 ml -900 ml -850 ml medications Current Medications Medications Dose Ordered Sig/Yasmany Route Start Time Stop Time Status Last Admin Dose Admin Pantoprazole Sodium 40 mg DAILY IV 04/11/24 10:00 04/17/24 09:39 40 MG Ondansetron HCl 4 mg Q4HPRN PRN IV 04/10/24 18:45 04/15/24 20:00 4 MG Cefepime HCl 50 ml @ 12.5 mls/hr Q12H IV 04/11/24 15:00 04/17/24 03:28 12.5 MLS/HR Metronidazole 100 ml @ 100 mls/hr Q8HR IV 04/11/24 22:00 04/17/24 14:02 100 MLS/HR Diagnostic Test (Pha) 1 strip Q6HR 04/14/24 00:00 04/17/24 12:00 1 STRIP Insulin Human Regular FOLLOW SLIDING SCALE Q6HR SC 04/14/24 00:00 04/17/24 12:34 2 UNITS Dextrose 50 ml UD IV 04/14/24 00:00 Amino Acids 0 ml @ 0 mls/hr PER PHARMACY IV 04/16/24 11:00 Sodium Chloride 20 meq/Sodium Phosphate 10 meq/ Magnesium Sulfate 16 meq/ Multivitamins 10 ml/Chromium/ Copper/Manganese/ Zinc 1 ml/Amino Acids/Dextrose/ Purified Water 1,422.5 ml @ 59 mls/hr Q24H7M IV 04/16/24 22:00 04/17/24 21:59 04/16/24 22:00 59 MLS/HR Sodium Chloride 10 ml QSHIFT@10,22 IV 04/16/24 22:00 04/17/24 12:15 10 ML Hydromorphone HCl 0.25 mg Q3HPRN PRN IV 04/16/24 20:15 04/17/24 13:15 0.25 MG Fat Emulsion Intravenous 100 ml/Sodium Chloride 40 meq/ Sodium Phosphate 20 meq/Potassium Chloride 40 meq/ Calcium Gluconate 2.3 meq/Magnesium Sulfate 20 meq/ Multivitamins 10 ml/Chromium/ Copper/Manganese/ Zinc 1 ml/Amino Acids/Dextrose 1,155.9462 ml @ 48 mls/hr Q24H5M IV 04/17/24 22:00 04/18/24 21:59 objective GEN: Healthy appearing, well-developed, NAD. HEENT: NC/AT; MMM. CV: RRR, no m/r/g. LUNGS: CTAB, no w/r/c. ABD: Soft mild tenderness EXT: skin Warm, well perfused. no rashes. No clubbing, cyanosis, or edema. NEURO: Ambulating with no limitations. No focal deficits. laboratory and microbiology Laboratory Tests 04/17/24 10:15 04/17/24 06:13 Test 04/17/24 10:15 Range/Units Serum Glucose 115 H 74-106 mg/dL Problems(with codes): (1) Adenocarcinoma of transverse colon (2) Intractable abdominal pain (3) Abnormal finding on CT scan (4) Nausea and vomiting Prognosis Plan Continue supportive care IV fluid hydration IV antibiotics NG tube to low intermittent suction IV TPN Monitor for bowel activity Monitor labs I will follow Await final pathology Plan discussed with: Other (Dr Aly Henderson) CHAPO HENDERSON MD Apr 17, 2024 15:32
[2024-04-17] MEDS: TPN PER PHARMACY IV NR (21:35)
[2024-04-17] MEDS: MELATONIN 5 MG TAB PO ONE (23:28)
[2024-04-18 01:00] VITALS: BP 122/66; PULSE 81; RESP 19; TEMP 98.2; O2SAT 95
--- NOTE | 2024-04-18 01:32 | DVH ---
CHEST RADIOGRAPH Indication: NGT Technique: Single frontal view of the chest was obtained COMPARISON: XY CHEST XRAY 1 VIEW on DOS: 04/15/24, XY CHEST PORTABLE on DOS: 04/15/24, XY CHEST XRAY 1 EW on DOS: 04/12/24, XY CHEST XRAY 1 VIEW on DOS: 04/11/24, XY CHEST XRAY 1 VIEW on DOS: 04/10/24 FINDINGS/IMPRESSION: Lines and Tubes: Tip of the NG tube is in the GE junction region and should be further advanced. Righ t-sided PICC noted with its tip projecting over SVC. Lungs: No abnormality demonstrated. Pleura: No effusion. No pneumothorax. Cardiomediastinal contours: Unremarkable Evidence of air under the right hemidiaphragm which was also present on the prior chest x-rays from and concerning for pneumoperitoneum.
[2024-04-18 07:06] LABS: Albumin 3.3 g/dL (3.2-4.8); Anion Gap 8 (5-15); BUN/Creatinine Ratio 20.4 (10.0-20.0); Blood Urea Nitrogen 11 mg/dL (9-23); Calcium 9.2 mg/dL (8.7-10.4); Carbon Dioxide 28 mmol/L (20-31); Chloride 101 mmol/L (98-107); Magnesium 1.9 mg/dL (1.6-2.6); Sodium 137 mmol/L (136-145)
[2024-04-18 07:07] LABS: Phosphorus 3.4 mg/dL (2.4-5.1)
[2024-04-18 07:17] LABS: Alanine Aminotransferase < 9 U/L (7-40); Alkaline Phosphatase 45 U/L (46-116); Aspartate Aminotransferase 9 U/L (13-40); Bilirubin, Total 0.2 mg/dL (0.2-1.0); Glucose 130 mg/dL (74-106); Potassium 3.3 mmol/L (3.5-5.1); Total Protein 5.5 g/dL (5.7-8.2)
[2024-04-18 09:00] VITALS: BP 127/68; PULSE 83; RESP 15; TEMP 98; O2SAT 97
--- NOTE | 2024-04-18 11:54 | DVHPN2 ---
Progress Note Date Seen: Apr 18, 2024 Medical Necessity Reason Pt with a Central, PICC or Fol: No Objective vital signs Vital Sign Date Time Temp Pulse Resp B/P (MAP) Pulse Ox O2 Delivery O2 Flow Rate FiO2 04/18/24 11:25 82 18 124/76 04/18/24 09:00 98.0 97 98.0 04/18/24 07:30 Room Air* 0 21 Total Intake and Output 04/17/24 04/17/24 04/18/24 15:00 23:00 07:00 Intake Total 1300 ml 556 ml Output Total 1300 ml Balance 1300 ml -744 ml medications Current Medications Medications Dose Ordered Sig/Yasmany Route Start Time Stop Time Status Last Admin Dose Admin Pantoprazole Sodium 40 mg DAILY IV 04/11/24 10:00 04/18/24 08:35 40 MG Ondansetron HCl 4 mg Q4HPRN PRN IV 04/10/24 18:45 04/15/24 20:00 4 MG Cefepime HCl 50 ml @ 12.5 mls/hr Q12H IV 04/11/24 15:00 04/18/24 03:52 12.5 MLS/HR Metronidazole 100 ml @ 100 mls/hr Q8HR IV 04/11/24 22:00 04/18/24 05:16 100 MLS/HR Diagnostic Test (Pha) 1 strip Q6HR 04/14/24 00:00 04/18/24 11:25 1 STRIP Insulin Human Regular FOLLOW SLIDING SCALE Q6HR SC 04/14/24 00:00 04/17/24 12:34 2 UNITS Dextrose 50 ml UD IV 04/14/24 00:00 Amino Acids 0 ml @ 0 mls/hr PER PHARMACY IV 04/16/24 11:00 Sodium Chloride 10 ml QSHIFT@10,22 IV 04/16/24 22:00 04/18/24 08:35 10 ML Hydromorphone HCl 0.25 mg Q3HPRN PRN IV 04/16/24 20:15 04/18/24 11:25 0.25 MG Fat Emulsion Intravenous 100 ml/Sodium Chloride 40 meq/ Sodium Phosphate 20 meq/Potassium Chloride 40 meq/ Calcium Gluconate 2.3 meq/Magnesium Sulfate 20 meq/ Multivitamins 10 ml/Chromium/ Copper/Manganese/ Zinc 1 ml/Amino Acids/Dextrose 1,155.9462 ml @ 48 mls/hr Q24H5M IV 04/17/24 22:00 04/18/24 21:59 04/17/24 21:35 48 MLS/HR laboratory and microbiology Laboratory Tests 04/18/24 06:02 04/17/24 06:13 Test 04/18/24 06:02 Range/Units Serum Glucose 130 H 74-106 mg/dL Problem List/Assessment/Plan Problem List/Assessment/Plan AFEBRILE VSS ABD SOFT LESS DISTENDED NO BM NO FLATUS S/P COLON RESECTION KEEP NPO NG PICK LINE FOR TPN NURSE AT BEDSIDE ALLOW ICE CHIPS Plan discussed with: Patient My Orders My Orders Orders - BOB HILTON MD Procedure Category Date Status Time Npo Except Ice Chips ORDERS 04/18/24 Verified 11:52 BOB HILTON MD Apr 18, 2024 11:54
[2024-04-18 13:00] VITALS: BP 126/74; PULSE 79; RESP 15; TEMP 97.5; O2SAT 97
--- NOTE | 2024-04-18 13:11 | DVHPN2 ---
Subjective The patient is seen and examined at bedside. Still complain of abdominal pain. No flatus. Reviewed: Care Plan, H&P, Labs, Medications, Previous Orders, Radiology Changes from previous H/P or p: No Changes General: Per HPI Eyes: No Pain, No Vision change, No Conjunctivae inflammation, No Eyelid inflammation, No Other, No Redness ENT: No Ear pain, No Ear discharge, No Nose pain, No Nose discharge, No Nose congestion, No Mouth pain, No Mouth swelling, No Throat pain, No Throat swelling, No Other Cardiovascular: No Chest Pain, No Palpitations, No Orthopnea, No Paroxysmal Noc. Dyspnea, No Edema, No Lt Headedness, No Other Respiratory: No Cough, No Dry, No Shortness of breath, No SOB with excertion, No Wheezing, No Hemoptysis, No Pleuritic Pain, No Sputum, No Other Gastrointestinal: No Nausea, No Vomiting, No Abdominal Pain, No Constipation Genitourinary: No Dysuria, No Frequency, No Incontinence, No Hematuria, No Retention, No Other Musculoskeletal: No other, No neck pain, No shoulder pain, No arm pain, No back pain, No hand pain, No leg pain, No foot pain Skin: No Rash, No Lesions, No Jaundice, No Bruising, No Other Objective Vitals Vital Signs Date Time Temp Pulse Resp B/P (MAP) Pulse Ox O2 Delivery O2 Flow Rate FiO2 04/18/24 11:25 82 18 124/76 04/18/24 09:00 98.0 97 98.0 04/18/24 07:30 Room Air* 0 21 Intake/Output Intake and Output 04/18/24 07:00 Intake Total 1856 ml Output Total 1300 ml Balance 556 ml Intake Oral 1200 ml IV Total 656 ml Output Urine Total 1000 ml Gastric Drainage Total 300 ml General Appearance: Alert, Cooperative, No acute distress HEENT: Atraumatic, PERRLA, EOMI, Mucous membr. moist/pink Neck: Supple Lungs: Clear to auscultation, Normal air movement Cardiovascular: Regular rate, Normal S1, Normal S2, No murmurs, Gallops, Rubs Abdomen: Normal bowel sounds, Soft, No tenderness Neuro: Cranial nerves 3-12 NL Psych/Mental Status: Mental status NL Medications Current Medications Medications Dose Ordered Sig/Yasmany Route Start Time Stop Time Status Last Admin Dose Admin Pantoprazole Sodium 40 mg DAILY IV 04/11/24 10:00 04/18/24 08:35 40 MG Ondansetron HCl 4 mg Q4HPRN PRN IV 04/10/24 18:45 04/15/24 20:00 4 MG Cefepime HCl 50 ml @ 12.5 mls/hr Q12H IV 04/11/24 15:00 04/18/24 03:52 12.5 MLS/HR Metronidazole 100 ml @ 100 mls/hr Q8HR IV 04/11/24 22:00 04/18/24 05:16 100 MLS/HR Diagnostic Test (Pha) 1 strip Q6HR 04/14/24 00:00 04/18/24 11:25 1 STRIP Insulin Human Regular FOLLOW SLIDING SCALE Q6HR SC 04/14/24 00:00 04/17/24 12:34 2 UNITS Dextrose 50 ml UD IV 04/14/24 00:00 Amino Acids 0 ml @ 0 mls/hr PER PHARMACY IV 04/16/24 11:00 Sodium Chloride 10 ml QSHIFT@10,22 IV 04/16/24 22:00 04/18/24 08:35 10 ML Hydromorphone HCl 0.25 mg Q3HPRN PRN IV 04/16/24 20:15 04/18/24 11:25 0.25 MG Fat Emulsion Intravenous 100 ml/Sodium Chloride 40 meq/ Sodium Phosphate 20 meq/Potassium Chloride 40 meq/ Calcium Gluconate 2.3 meq/Magnesium Sulfate 20 meq/ Multivitamins 10 ml/Chromium/ Copper/Manganese/ Zinc 1 ml/Amino Acids/Dextrose 1,155.9462 ml @ 48 mls/hr Q24H5M IV 04/17/24 22:00 04/18/24 21:59 04/17/24 21:35 48 MLS/HR Laboratory Results Laboratory Tests 04/17/24 06:13 04/18/24 06:02 Chemistry Test 04/18/24 06:02 Albumin 3.3 g/dL (3.2-4.8) Calcium Level 9.2 mg/dL (8.7-10.4) Magnesium Level 1.9 mg/dL (1.6-2.6) Phosphorus Level 3.4 mg/dL (2.4-5.1) Total Protein 5.5 g/dL (5.7-8.2) L LFT Test 04/18/24 06:02 Alanine Aminotransferase (ALT) < 9 U/L (7-40) Alkaline Phosphatase 45 U/L (46-116) L Aspartate Amino Transferase (AST) 9 U/L (13-40) L Total Bilirubin 0.2 mg/dL (0.2-1.0) Urinalysis Test 04/10/24 16:40 Urine Color Yellow (Yellow) Urine Clarity Clear (Clear) Urine pH 5.5 (5.0-9.0) Urine Specific [place] 1.030 (1.001-1.035) Urine Protein Trace (Negative) H Urine Ketones 1+ (Negative) H Urine Blood 2+ /uL (Negative) H Urine Nitrite Negative (Negative) Urine Bilirubin Negative (Negative) Urine Urobilinogen Normal mg/dL (Negative) Urine Leukocyte Esterase Negative /uL (Negative) Urine RBC 42 /hpf (0 - 3) Urine Microscopic WBC 2 /HPF (0-3) Urine Squamous Epithelial Cells Few /hpf (<5) Urine Bacteria None seen /hpf (None Seen) Urine Glucose Normal mg/dL (Normal) Labs and/or images reviewed: Labs reviewed by me Assessment/Plan Assessment/Plan Large bowel/colonic obstruction Intractable nausea and vomiting/resolving Intractable abdominal pain, resolving Thrombosis, superficial veins, left basilic and cephalic Cholelithiasis Gastric ulcer Cachexia Sliding hiatal hernia History of cholelithiasis Hepatic cyst - GI consulted-plan for colonoscopy showing large mass in distal transverse colon, near splenic flexure - General surge consulted-we will be following peripherally, agreed with colonoscopy - colonoscopy yesterday 04/13 which finds large obstructing mass with apple-core lesion - NG tube removed 04/13 (prior NG tube with intermittent suction on low pressure ) - we will insert PICC line and start TPN periods, status post IV fluid hydration. keep npo w ice chips (sips of CLD ok) - Protonix 40 IV daily - surgery following. - colectomy 04/16/23 Diet NPO, NG tube inserted - npo TPN started. DVT prophylaxis-Lovenox GI prophylaxis-Protonix IV daily Med tele Full code Continuing current management This medical document was created using an electronic medical record system with [employer] direct computerized dictation system. Although this document has been carefully reviewed, there may still be some phonetic and typographical errors. These areas are purely typographical due to imperfections of the software programs, and do not reflect any compromise in the patient's medical care. Plan discussed with: Patient Date of Service: Apr 18, 2024 Billing Provider: MAUREEN VERAS MD Common Visit Codes: [id number] INP/OBS CARE(HIGH) MAUREEN VERAS MD Apr 18, 2024 13:11
[2024-04-18] MEDS: POTASSIUM CHLORIDE 40 MEQ, LIDOCAINE 1% (LOCAL ANESTH.) 4 ML in SODIUM CHL 0.9% 250 ML IV ONE (14:35)
[2024-04-18 17:00] VITALS: BP 118/70; PULSE 86; RESP 15; TEMP 98.2; O2SAT 97
[2024-04-18 20:00] VITALS: PULSE 81; RESP 19
[2024-04-18 21:00] VITALS: BP 129/78; PULSE 81; RESP 19; TEMP 97.7; O2SAT 97
[2024-04-18] MEDS: MELATONIN 5 MG TAB PO ONE (22:00)
[2024-04-18] MEDS: TPN PER PHARMACY IV NR (22:14)
--- NOTE | 2024-04-18 22:34 | DVHPN2 ---
Progress Note - Dictate Date Seen: Apr 18, 2024 Medical Necessity Reason Pt with a Central, PICC or Fol: No Subjective Post op Day # 3 S/P laparotomy Resection of transverse colon mass partial colectomy with primary anastamosis lysis of adhesions; suspected previous partial colectomy No bowel movement yet; no passage of gas NG tube to low intermittent suction Pathologist notified me that the biopsies of the distal transverse colon mass were consistent with adenocarcinoma vital signs Vital Sign Date Time Temp Pulse Resp B/P (MAP) Pulse Ox O2 Delivery O2 Flow Rate FiO2 04/18/24 22:00 81 19 129/78 04/18/24 17:00 98.2 97 98.2 04/18/24 07:30 Room Air* 0 21 Total Intake and Output 04/17/24 04/17/24 04/18/24 15:00 23:00 07:00 Intake Total 1300 ml 556 ml Output Total 1300 ml Balance 1300 ml -744 ml medications Current Medications Medications Dose Ordered Sig/Yasmany Route Start Time Stop Time Status Last Admin Dose Admin Pantoprazole Sodium 40 mg DAILY IV 04/11/24 10:00 04/18/24 08:35 40 MG Ondansetron HCl 4 mg Q4HPRN PRN IV 04/10/24 18:45 04/15/24 20:00 4 MG Cefepime HCl 50 ml @ 12.5 mls/hr Q12H IV 04/11/24 15:00 04/18/24 14:36 12.5 MLS/HR Metronidazole 100 ml @ 100 mls/hr Q8HR IV 04/11/24 22:00 04/18/24 22:14 100 MLS/HR Diagnostic Test (Pha) 1 strip Q6HR 04/14/24 00:00 04/18/24 17:50 1 STRIP Insulin Human Regular FOLLOW SLIDING SCALE Q6HR SC 04/14/24 00:00 04/17/24 12:34 2 UNITS Dextrose 50 ml UD IV 04/14/24 00:00 Amino Acids 0 ml @ 0 mls/hr PER PHARMACY IV 04/16/24 11:00 Sodium Chloride 10 ml QSHIFT@10,22 IV 04/16/24 22:00 04/18/24 08:35 10 ML Hydromorphone HCl 0.25 mg Q3HPRN PRN IV 04/16/24 20:15 04/18/24 22:00 0.25 MG Fat Emulsion Intravenous 100 ml/Sodium Chloride 40 meq/ Sodium Phosphate 20 meq/Potassium Chloride 40 meq/ Calcium Gluconate 2.3 meq/Magnesium Sulfate 20 meq/ Multivitamins 10 ml/Chromium/ Copper/Manganese/ Zinc 1 ml/Amino Acids/Dextrose/ Purified Water 1,355.9462 ml @ 56 mls/hr [id number] IV 04/18/24 22:00 04/19/24 21:59 04/18/24 22:14 56 MLS/HR objective GEN: Healthy appearing, well-developed, NAD. HEENT: NC/AT; MMM. CV: RRR, no m/r/g. LUNGS: CTAB, no w/r/c. ABD: Soft mild tenderness EXT: skin Warm, well perfused. no rashes. No clubbing, cyanosis, or edema. NEURO: Ambulating with no limitations. No focal deficits. laboratory and microbiology Laboratory Tests 04/18/24 06:02 04/17/24 06:13 Test 04/18/24 06:02 Range/Units Serum Glucose 130 H 74-106 mg/dL Problems(with codes): (1) Adenocarcinoma of transverse colon (2) Intractable abdominal pain (3) Abnormal finding on CT scan (4) Nausea and vomiting (5) Cholelithiasis Prognosis Plan Patient will be started on ice chips today Ambulate patient Supportive care IV antibiotics Await final pathology results Surgical follow up Plan discussed with: Patient CHAPO HILTON MD Apr 18, 2024 22:34
[2024-04-19] VITALS (8 sets, daily range): BP systolic 119–148; BP diastolic 65–84; PULSE 71–92; RESP 16–20; TEMP 97.6–98; O2SAT 95–100
[2024-04-19 06:15] LABS: Alanine Aminotransferase 16 U/L (7-40); Alkaline Phosphatase 55 U/L (46-116); Anion Gap 8 (5-15); Aspartate Aminotransferase 30 U/L (13-40); BUN/Creatinine Ratio 22.6 (10.0-20.0); Blood Urea Nitrogen 12 mg/dL (9-23); Carbon Dioxide 23 mmol/L (20-31); Sodium 139 mmol/L (136-145)
[2024-04-19 06:16] LABS: Phosphorus 2.8 mg/dL (2.4-5.1)
[2024-04-19 06:33] LABS: Albumin 2.8 g/dL (3.2-4.8); Bilirubin, Total 0.2 mg/dL (0.2-1.0); Calcium 8.2 mg/dL (8.7-10.4); Chloride 108 mmol/L (98-107); Glucose 107 mg/dL (74-106); Magnesium 1.6 mg/dL (1.6-2.6); Potassium 3.5 mmol/L (3.5-5.1); Total Protein 4.8 g/dL (5.7-8.2)
--- NOTE | 2024-04-19 13:33 | DVHPN2 ---
Progress Note Date Seen: Apr 19, 2024 Resident Creating Document: JOANNA WEBB RESIDENT Medical Necessity Reason Pt with a Central, PICC or Fol: No Subjective Review of Systems Post op Day # 4 S/P laparotomy Resection of transverse colon mass partial colectomy with primary anastomosis lysis of adhesions; suspected previous partial colectomy No bowel movement yet; no passage of gas NG tube to low intermittent suction Objective vital signs Vital Sign Date Time Temp Pulse Resp B/P (MAP) Pulse Ox O2 Delivery O2 Flow Rate FiO2 04/19/24 13:20 97.9 84 16 119/72 (88) 97 97.9 04/19/24 08:08 Room Air* 0 21 Total Intake and Output 04/18/24 04/18/24 04/19/24 15:00 23:00 07:00 Intake Total 274 ml 0 ml Output Total 350 ml 700 ml Balance -76 ml -700 ml medications Current Medications Medications Dose Ordered Sig/Yasmany Route Start Time Stop Time Status Last Admin Dose Admin Pantoprazole Sodium 40 mg DAILY IV 04/11/24 10:00 04/19/24 09:39 40 MG Ondansetron HCl 4 mg Q4HPRN PRN IV 04/10/24 18:45 04/15/24 20:00 4 MG Cefepime HCl 50 ml @ 12.5 mls/hr Q12H IV 04/11/24 15:00 04/19/24 02:55 12.5 MLS/HR Metronidazole 100 ml @ 100 mls/hr Q8HR IV 04/11/24 22:00 04/19/24 05:28 100 MLS/HR Diagnostic Test (Pha) 1 strip Q6HR 04/14/24 00:00 04/19/24 12:25 1 STRIP Insulin Human Regular FOLLOW SLIDING SCALE Q6HR SC 04/14/24 00:00 04/17/24 12:34 2 UNITS Dextrose 50 ml UD IV 04/14/24 00:00 Amino Acids 0 ml @ 0 mls/hr PER PHARMACY IV 04/16/24 11:00 Sodium Chloride 10 ml QSHIFT@10,22 IV 04/16/24 22:00 04/19/24 09:44 10 ML Hydromorphone HCl 0.25 mg Q3HPRN PRN IV 04/16/24 20:15 04/19/24 09:40 0.25 MG Fat Emulsion Intravenous 100 ml/Sodium Chloride 40 meq/ Sodium Phosphate 20 meq/Potassium Chloride 40 meq/ Calcium Gluconate 2.3 meq/Magnesium Sulfate 20 meq/ Multivitamins 10 ml/Chromium/ Copper/Manganese/ Zinc 1 ml/Amino Acids/Dextrose/ Purified Water 1,355.9462 ml @ 56 mls/hr [id number] IV 04/18/24 22:00 04/19/24 21:59 04/18/24 22:14 56 MLS/HR Fat Emulsion Intravenous 150 ml/Sodium Acetate 20 meq/Sodium Phosphate 40 meq/ Potassium Acetate 20 meq/Potassium Phosphate 22 meq/ Calcium Gluconate 2.3 meq/Magnesium Sulfate 24 meq/ Multivitamins 10 ml/Chromium/ Copper/Manganese/ Zinc 1 ml/Amino Acids/Dextrose/ Purified Water 1,606.9462 ml @ 67 mls/hr Q24H IV 04/19/24 22:00 04/20/24 21:59 Examination GEN: Healthy appearing, well-developed, NAD. HEENT: NC/AT; MMM. CV: RRR, no m/r/g. LUNGS: CTAB, no w/r/c. ABD: Soft mild tenderness EXT: skin Warm, well perfused. no rashes. No clubbing, cyanosis, or edema. NEURO: Ambulating with no limitations. No focal deficits. laboratory and microbiology Laboratory Tests 04/19/24 05:33 04/17/24 06:13 Test 04/19/24 05:33 Range/Units Serum Glucose 107 H 74-106 mg/dL Problem List/Assessment/Plan Problem List/Assessment/Plan (1) Adenocarcinoma of transverse colon (2) Intractable abdominal pain (3) Abnormal finding on CT scan (4) Nausea and vomiting (5) Cholelithiasis Plan Cont on ice chips Ambulate patient as tolerated Supportive care IV antibiotics Oncology follow up Surgical follow up Thank you so much for the opportunity to consult on your patient. GI team will follow the patient. In case of any questions or concerns please feel free to reach out. Case discussed with Dr. Mat Henderson. The patient and caregiver team agreed to the plan. Plan discussed with: Patient YURI WEBBREED RESIDENT Apr 19, 2024 13:33
--- NOTE | 2024-04-19 16:00 | DVHPN2 ---
Subjective Update 04/19 04/11--patient's nausea is improving, has a right nasal NG tube inserted with biliary output in the tube. Patient had just returned from going to the bathroom. Abdominal pain is improving but still has tenderness to infra umbilical and to the right of umbilicus. Bowel sounds are present. Patient is having diarrheal watery BM. GI has been consulted and is planning to do a colonoscopy. Prep tomorrow. 04/12-continues to have a right nasal NG tube causing discomfort. GI following with plan to do bowel prep today with colonoscopy tomorrow. Possible removal of NG tube tomorrow pending GI review. Patient is doing okay otherwise. The bowel session is resolving. Patient was passing watery stools. 04/13-CT abdomen and pelvis repeat today showing no evidence of obstruction, there is ileus, focal thickening in the proximal small bowel mucosa and distal terminal ileum. Done overnight bowel prep for colonoscopy. GI taken for colonoscopy and findings large mass in distal transverse colon near the splenic flexure. Surgery is aware we will continue admission. NG tube removed. We will try clear liquid diet. 04/14-patient has colonoscopy yesterday 04/13 which finds large obstructing mass with apple-core lesion, surgery is aware and following. Patient is on TPN via PICC line and NPO with ice chips only. 04/15 yesterday biopsy showed colorectal adenocarcinoma. plan for surgery today likely. Oncology following. [facility], [place] offered was patient declines, [place]. 04/16 - patient is pod 1, he is in significant pain has NG tube inserted abdominal wall binder, dressings are CDI. We will continue p.r.n. pain control. Left arm superficial basilic and cephalic thrombosis, PICC line inserted right hand we will start TPN today. Surgery and and oncology and GI following. 04/17 - 04/18 weekend coverage. no significant notable events 04/19 - patient is imporving. BS hypoactive present, passing gas x2 this AM. NG tube in place still, abd dressing CDI. patient asking for diet and NG removal, will defer to surgery. CPT. cont TPN. per surgery CLD w NG tube clamp, reassess am. Reviewed: H&P Changes from previous H/P or p: No Changes General: Per HPI Eyes: No Pain, No Vision change, No Conjunctivae inflammation, No Eyelid inflammation, No Other, No Redness ENT: No Ear pain, No Ear discharge, No Nose pain, No Nose discharge, No Nose congestion, No Mouth pain, No Mouth swelling, No Throat pain, No Throat swelling, No Other Cardiovascular: No Chest Pain, No Palpitations, No Orthopnea, No Paroxysmal Noc. Dyspnea, No Edema, No Lt Headedness, No Other Respiratory: No Cough, No Dry, No Shortness of breath, No SOB with excertion, No Wheezing, No Hemoptysis, No Pleuritic Pain, No Sputum, No Other Gastrointestinal: No Nausea, No Vomiting, No Abdominal Pain, No Constipation Genitourinary: No Dysuria, No Frequency, No Incontinence, No Hematuria, No Retention, No Other Musculoskeletal: No other, No neck pain, No shoulder pain, No arm pain, No back pain, No hand pain, No leg pain, No foot pain Skin: No Rash, No Lesions, No Jaundice, No Bruising, No Other Objective Vitals Vital Signs Date Time Temp Pulse Resp B/P (MAP) Pulse Ox O2 Delivery O2 Flow Rate FiO2 04/19/24 13:58 80 18 141/83 04/19/24 13:20 97.9 97 97.9 04/19/24 08:08 Room Air* 0 21 Intake/Output Intake and Output 04/19/24 07:00 Intake Total 274 ml Output Total 1050 ml Balance -776 ml Intake Oral 0 ml IV Total 274 ml Output Urine Total 1050 ml Exam GEN: Healthy appearing, well-developed, NAD. HEENT: NC/AT; MMM. CV: RRR, no m/r/g. LUNGS: CTAB, no w/r/c. ABD: right nasal NG tube inserted with biliary output in the tube. Abdominal pain is improving but still has tenderness to infra umbilical and to the right of umbilicus. Bowel sounds are present. abdominal dressing CDI EXT: skin Warm, well perfused. no rashes. No clubbing, cyanosis, or edema. NEURO: Ambulating with no limitations. No focal deficits. Medications Current Medications Medications Dose Ordered Sig/Yasmany Route Start Time Stop Time Status Last Admin Dose Admin Pantoprazole Sodium 40 mg DAILY IV 04/11/24 10:00 04/19/24 09:39 40 MG Ondansetron HCl 4 mg Q4HPRN PRN IV 04/10/24 18:45 04/15/24 20:00 4 MG Cefepime HCl 50 ml @ 12.5 mls/hr Q12H IV 04/11/24 15:00 04/19/24 15:09 12.5 MLS/HR Metronidazole 100 ml @ 100 mls/hr Q8HR IV 04/11/24 22:00 04/19/24 13:29 100 MLS/HR Diagnostic Test (Pha) 1 strip Q6HR 04/14/24 00:00 04/19/24 12:25 1 STRIP Insulin Human Regular FOLLOW SLIDING SCALE Q6HR SC 04/14/24 00:00 04/17/24 12:34 2 UNITS Dextrose 50 ml UD IV 04/14/24 00:00 Amino Acids 0 ml @ 0 mls/hr PER PHARMACY IV 04/16/24 11:00 Sodium Chloride 10 ml QSHIFT@10,22 IV 04/16/24 22:00 04/19/24 09:44 10 ML Hydromorphone HCl 0.25 mg Q3HPRN PRN IV 04/16/24 20:15 04/19/24 13:28 0.25 MG Fat Emulsion Intravenous 100 ml/Sodium Chloride 40 meq/ Sodium Phosphate 20 meq/Potassium Chloride 40 meq/ Calcium Gluconate 2.3 meq/Magnesium Sulfate 20 meq/ Multivitamins 10 ml/Chromium/ Copper/Manganese/ Zinc 1 ml/Amino Acids/Dextrose/ Purified Water 1,355.9462 ml @ 56 mls/hr [id number] IV 04/18/24 22:00 04/19/24 21:59 04/18/24 22:14 56 MLS/HR Fat Emulsion Intravenous 150 ml/Sodium Acetate 20 meq/Sodium Phosphate 40 meq/ Potassium Acetate 20 meq/Potassium Phosphate 22 meq/ Calcium Gluconate 2.3 meq/Magnesium Sulfate 24 meq/ Multivitamins 10 ml/Chromium/ Copper/Manganese/ Zinc 1 ml/Amino Acids/Dextrose/ Purified Water 1,606.9462 ml @ 67 mls/hr Q24H IV 04/19/24 22:00 04/20/24 21:59 Laboratory Results Laboratory Tests 04/17/24 06:13 04/19/24 05:33 Chemistry Test 04/19/24 05:33 Albumin 2.8 g/dL (3.2-4.8) L Calcium Level 8.2 mg/dL (8.7-10.4) L Magnesium Level 1.6 mg/dL (1.6-2.6) Phosphorus Level 2.8 mg/dL (2.4-5.1) Total Protein 4.8 g/dL (5.7-8.2) L LFT Test 04/19/24 05:33 Alanine Aminotransferase (ALT) 16 U/L (7-40) Alkaline Phosphatase 55 U/L (46-116) Aspartate Amino Transferase (AST) 30 U/L (13-40) Total Bilirubin 0.2 mg/dL (0.2-1.0) Urinalysis Test 04/10/24 16:40 Urine Color Yellow (Yellow) Urine Clarity Clear (Clear) Urine pH 5.5 (5.0-9.0) Urine Specific [place] 1.030 (1.001-1.035) Urine Protein Trace (Negative) H Urine Ketones 1+ (Negative) H Urine Blood 2+ /uL (Negative) H Urine Nitrite Negative (Negative) Urine Bilirubin Negative (Negative) Urine Urobilinogen Normal mg/dL (Negative) Urine Leukocyte Esterase Negative /uL (Negative) Urine RBC 42 /hpf (0 - 3) Urine Microscopic WBC 2 /HPF (0-3) Urine Squamous Epithelial Cells Few /hpf (<5) Urine Bacteria None seen /hpf (None Seen) Urine Glucose Normal mg/dL (Normal) Assessment/Plan Assessment/Plan 04/19 - patient is imporving. BS hypoactive present, passing gas x2 this AM. NG tube in place still, abd dressing CDI. patient asking for diet and NG removal, will defer to surgery. CPT. cont TPN. per surgery CLD w NG tube clamp, reassess am. Large bowel/colonic obstruction Intractable nausea and vomiting/resolving Intractable abdominal pain, resolving Thrombosis, superficial veins, left basilic and cephalic Cholelithiasis Gastric ulcer Cachexia Sliding hiatal hernia History of cholelithiasis Hepatic cyst - GI consulted-plan for colonoscopy showing large mass in distal transverse colon, near splenic flexure - General surge consulted-we will be following peripherally, agreed with colonoscopy - colonoscopy yesterday 04/13 which finds large obstructing mass with apple-core lesion - NG tube removed 04/13 (prior NG tube with intermittent suction on low pressure ) - we will insert PICC line and start TPN periods, status post IV fluid hydration. keep npo w ice chips (sips of CLD ok) - Protonix 40 IV daily - surgery following. - partial colectomy 04/16/23, primary anastomosis Diet NPO, NG tube inserted - npo. TPN started. DVT prophylaxis-Lovenox GI prophylaxis-Protonix IV daily Med tele Full code Plan discussed with: Patient My Orders Orders - ZOHREH VELIZ MD Procedure Category Date Status Time Amino Acid PHA 04/19/24 In Process Infusion... W/Fat 22:00 Comprehensive LAB 04/20/24 Verified Metabolic Panel 04:00 Magnesium LAB 04/20/24 Verified 04:00 Phosphorus LAB 04/20/24 Verified 04:00 Tpn Per Pharmacy [facility] 04/19/24 In Process 22:00 Date of Service: Apr 19, 2024 Billing Provider: ZOHREH VELIZ MD Common Visit Codes: [id number] INP/OBS CARE(HIGH) ZOHREH VELIZ MD Apr 19, 2024 16:00
--- NOTE | 2024-04-19 17:45 | DVHPN2 ---
Progress Note Date Seen: Apr 19, 2024 Medical Necessity Reason Pt with a Central, PICC or Fol: No Objective vital signs Vital Sign Date Time Temp Pulse Resp B/P (MAP) Pulse Ox O2 Delivery O2 Flow Rate FiO2 04/19/24 17:14 82 14 134/68 04/19/24 17:00 97.9 97 97.9 04/19/24 08:08 Room Air* 0 21 Total Intake and Output 04/18/24 04/18/24 04/19/24 15:00 23:00 07:00 Intake Total 274 ml 0 ml Output Total 350 ml 700 ml Balance -76 ml -700 ml medications Current Medications Medications Dose Ordered Sig/Yasmany Route Start Time Stop Time Status Last Admin Dose Admin Pantoprazole Sodium 40 mg DAILY IV 04/11/24 10:00 04/19/24 09:39 40 MG Ondansetron HCl 4 mg Q4HPRN PRN IV 04/10/24 18:45 04/15/24 20:00 4 MG Cefepime HCl 50 ml @ 12.5 mls/hr Q12H IV 04/11/24 15:00 04/19/24 15:09 12.5 MLS/HR Metronidazole 100 ml @ 100 mls/hr Q8HR IV 04/11/24 22:00 04/19/24 13:29 100 MLS/HR Diagnostic Test (Pha) 1 strip Q6HR 04/14/24 00:00 04/19/24 17:21 1 STRIP Insulin Human Regular FOLLOW SLIDING SCALE Q6HR SC 04/14/24 00:00 04/17/24 12:34 2 UNITS Dextrose 50 ml UD IV 04/14/24 00:00 Amino Acids 0 ml @ 0 mls/hr PER PHARMACY IV 04/16/24 11:00 Sodium Chloride 10 ml QSHIFT@10,22 IV 04/16/24 22:00 04/19/24 09:44 10 ML Hydromorphone HCl 0.25 mg Q3HPRN PRN IV 04/16/24 20:15 04/19/24 16:43 0.25 MG Fat Emulsion Intravenous 100 ml/Sodium Chloride 40 meq/ Sodium Phosphate 20 meq/Potassium Chloride 40 meq/ Calcium Gluconate 2.3 meq/Magnesium Sulfate 20 meq/ Multivitamins 10 ml/Chromium/ Copper/Manganese/ Zinc 1 ml/Amino Acids/Dextrose/ Purified Water 1,355.9462 ml @ 56 mls/hr [id number] IV 04/18/24 22:00 04/19/24 21:59 04/18/24 22:14 56 MLS/HR Fat Emulsion Intravenous 150 ml/Sodium Acetate 20 meq/Sodium Phosphate 40 meq/ Potassium Acetate 20 meq/Potassium Phosphate 22 meq/ Calcium Gluconate 2.3 meq/Magnesium Sulfate 24 meq/ Multivitamins 10 ml/Chromium/ Copper/Manganese/ Zinc 1 ml/Amino Acids/Dextrose/ Purified Water 1,606.9462 ml @ 67 mls/hr Q24H IV 04/19/24 22:00 04/20/24 21:59 laboratory and microbiology Laboratory Tests 04/19/24 05:33 04/17/24 06:13 Test 04/19/24 05:33 Range/Units Serum Glucose 107 H 74-106 mg/dL Problem List/Assessment/Plan Problem List/Assessment/Plan AFEBRILE VSS ABD SOFT LESS DISTENDED FLATUS + S/P COLON RESECTION CLAMP NG ALLOW CLEAR LIQUIDS PICK LINE FOR TPN NURSE AT BEDSIDE ALLOW ICE CHIPS Plan discussed with: Patient BOB HILTON MD Apr 19, 2024 17:45
[2024-04-19] MEDS: TPN PER PHARMACY IV NR (21:13)
[2024-04-20] VITALS (8 sets, daily range): BP systolic 97–137; BP diastolic 67–92; PULSE 79–109; RESP 14–20; TEMP 97.9–98.2; O2SAT 93–97
[2024-04-20 07:53] LABS: Albumin 3.5 g/dL (3.2-4.8); Alkaline Phosphatase 98 U/L (46-116); Anion Gap 8 (5-15); BUN/Creatinine Ratio 19.4 (10.0-20.0); Blood Urea Nitrogen 13 mg/dL (9-23); Carbon Dioxide 29 mmol/L (20-31); Chloride 100 mmol/L (98-107); Phosphorus 4.2 mg/dL (2.4-5.1); Potassium 3.7 mmol/L (3.5-5.1); Sodium 137 mmol/L (136-145)
[2024-04-20 07:56] LABS: Alanine Aminotransferase 42 U/L (7-40); Aspartate Aminotransferase 55 U/L (13-40); Bilirubin, Total 0.2 mg/dL (0.2-1.0); Glucose 137 mg/dL (74-106)
--- NOTE | 2024-04-20 09:02 | DVHPN2 ---
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 Aly Henderson. The pathology report is pending The patient has an NG tube He is passing some gas vital signs Vital Sign Date Time Temp Pulse Resp B/P (MAP) Pulse Ox O2 Delivery O2 Flow Rate FiO2 04/20/24 06:54 98 17 124/72 04/20/24 05:00 98.0 96 98.0 04/19/24 19:48 Room Air* 0 21 Total Intake and Output 04/19/24 04/19/24 04/20/24 15:00 23:00 07:00 Intake Total 100 ml 50 ml 833 ml Output Total 1600 ml 1300 ml Balance 100 ml -1550 ml -467 ml medications Current Medications Medications Dose Ordered Sig/Yasmany Route Start Time Stop Time Status Last Admin Dose Admin Pantoprazole Sodium 40 mg DAILY IV 04/11/24 10:00 04/19/24 09:39 40 MG Ondansetron HCl 4 mg Q4HPRN PRN IV 04/10/24 18:45 04/15/24 20:00 4 MG Cefepime HCl 50 ml @ 12.5 mls/hr Q12H IV 04/11/24 15:00 04/20/24 02:20 12.5 MLS/HR Metronidazole 100 ml @ 100 mls/hr Q8HR IV 04/11/24 22:00 04/20/24 06:25 100 MLS/HR Diagnostic Test (Pha) 1 strip Q6HR 04/14/24 00:00 04/20/24 05:56 1 STRIP Insulin Human Regular FOLLOW SLIDING SCALE Q6HR SC 04/14/24 00:00 04/17/24 12:34 2 UNITS Dextrose 50 ml UD IV 04/14/24 00:00 Amino Acids 0 ml @ 0 mls/hr PER PHARMACY IV 04/16/24 11:00 Sodium Chloride 10 ml QSHIFT@10,22 IV 04/16/24 22:00 04/19/24 21:12 10 ML Hydromorphone HCl 0.25 mg Q3HPRN PRN IV 04/16/24 20:15 04/20/24 06:24 0.25 MG Fat Emulsion Intravenous 150 ml/Sodium Acetate 20 meq/Sodium Phosphate 40 meq/ Potassium Acetate 20 meq/Potassium Phosphate 22 meq/ Calcium Gluconate 2.3 meq/Magnesium Sulfate 24 meq/ Multivitamins 10 ml/Chromium/ Copper/Manganese/ Zinc 1 ml/Amino Acids/Dextrose/ Purified Water 1,606.9462 ml @ 67 mls/hr Q24H IV 04/19/24 22:00 04/20/24 21:59 04/19/24 21:13 67 MLS/HR objective Head and neck: Unremarkable for any masses or neck nodes. Has an NG tube Lungs: Clear Cardiovascular: Regular sinus rhythm Abdomen: No organomegaly, tenderness or ascites. Bowel sounds are present. Status post surgery Extremities: No clubbing edema cyanosis or calf tenderness. Skin: Unremarkable for petechia purpura ecchymosis Lymphadenopathy: None laboratory and microbiology Laboratory Tests 04/20/24 04:55 04/17/24 06:13 Test 04/20/24 04:55 Range/Units Serum Glucose 137 H 74-106 mg/dL Assessment/Plan 1. 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 Patient presenting with nausea vomiting abdominal pains and bowel obstruction CEA 2.64. CMP unremarkable. CBC showed a white count 5.4 hemoglobin 12.6 platelets 291 Status post transverse colon resection for obstructed colon cancer with extensive lysis of adhesions on 04/15/2024 and the pathology report pending Plan: We will wait for the pathology report and then discuss the treatment options The patient presented with obstruction so more likely he will need adjuvant chemotherapy Plan discussed with: Patient PRETTY CURRAN MD Apr 20, 2024 09:02
[2024-04-20] MEDS: GASTROGRAFIN 120 ML SOL ONE (09:10)
--- NOTE | 2024-04-20 09:37 | DVHPN2 ---
Progress Note Date Seen: Apr 20, 2024 Has the PT tested + for MRSA If YES, has PT been informed?: Yes Medical Necessity Reason Pt with a Central, PICC or Fol: No Objective vital signs Vital Sign Date Time Temp Pulse Resp B/P (MAP) Pulse Ox O2 Delivery O2 Flow Rate FiO2 04/20/24 06:54 98 17 124/72 04/20/24 05:00 98.0 96 98.0 04/19/24 19:48 Room Air* 0 21 Total Intake and Output 04/19/24 04/19/24 04/20/24 15:00 23:00 07:00 Intake Total 100 ml 50 ml 833 ml Output Total 1600 ml 1300 ml Balance 100 ml -1550 ml -467 ml medications Current Medications Medications Dose Ordered Sig/Yasmany Route Start Time Stop Time Status Last Admin Dose Admin Pantoprazole Sodium 40 mg DAILY IV 04/11/24 10:00 04/19/24 09:39 40 MG Ondansetron HCl 4 mg Q4HPRN PRN IV 04/10/24 18:45 04/15/24 20:00 4 MG Cefepime HCl 50 ml @ 12.5 mls/hr Q12H IV 04/11/24 15:00 04/20/24 02:20 12.5 MLS/HR Metronidazole 100 ml @ 100 mls/hr Q8HR IV 04/11/24 22:00 04/20/24 06:25 100 MLS/HR Diagnostic Test (Pha) 1 strip Q6HR 04/14/24 00:00 04/20/24 05:56 1 STRIP Insulin Human Regular FOLLOW SLIDING SCALE Q6HR SC 04/14/24 00:00 04/17/24 12:34 2 UNITS Dextrose 50 ml UD IV 04/14/24 00:00 Amino Acids 0 ml @ 0 mls/hr PER PHARMACY IV 04/16/24 11:00 Sodium Chloride 10 ml QSHIFT@10,22 IV 04/16/24 22:00 04/19/24 21:12 10 ML Fat Emulsion Intravenous 150 ml/Sodium Acetate 20 meq/Sodium Phosphate 40 meq/ Potassium Acetate 20 meq/Potassium Phosphate 22 meq/ Calcium Gluconate 2.3 meq/Magnesium Sulfate 24 meq/ Multivitamins 10 ml/Chromium/ Copper/Manganese/ Zinc 1 ml/Amino Acids/Dextrose/ Purified Water 1,606.9462 ml @ 67 mls/hr Q24H IV 04/19/24 22:00 04/20/24 21:59 04/19/24 21:13 67 MLS/HR laboratory and microbiology Laboratory Tests 04/20/24 04:55 04/17/24 06:13 Test 04/20/24 04:55 Range/Units Serum Glucose 137 H 74-106 mg/dL Problem List/Assessment/Plan Problem List/Assessment/Plan AFEBRILE VSS ABD SOFT LESS DISTENDED FLATUS + S/P COLON RESECTION CLAMP NG ALLOW CLEAR LIQUIDS PICK LINE FOR TPN NURSE AT BEDSIDE NPO FOR GASTROGRAFIN STUDY Plan discussed with: Patient My Orders My Orders Orders - BOB HILTON MD Procedure Category Date Status Time Hydromorphone PHA 04/20/24 Transmitted Injection (Dilaudid 09:45 BOB HILTON MD Apr 20, 2024 09:37
[2024-04-20] MEDS: HYDROmorphone HCL 2 MG/ML VL/or syr IV PRN (09:54)
[2024-04-20 10:21] LABS: Basophils # (auto) 0 10 ^3/uL (0-0.2); Basophils % (auto) 0.6 % (0.0-2.0); Eosinophils # (auto) 0.2 10 ^3/uL (0-0.8); Eosinophils % (auto) 3.1 % (0.0-7.0); Hematocrit 32.8 % (41.0-53.0); Hemoglobin 11.8 g/dL (13.5-17.5); Lymphocytes # (auto) 0.5 10 ^3/uL (0.4-5.4); Lymphocytes % (auto) 8.9 % (10.0-50.0); Mean Corpuscular Hemoglobin 31.7 pg (28.0-32.0); Mean Corpuscular Hgb Conc. 36.1 g/dL (32.0-36.0); Mean Corpuscular Volume 87.9 fL (80.0-100.0); Monocytes # (auto) 0.4 10 ^3/uL (0-1.3); Monocytes % (auto) 6.5 % (0.0-12.0); Neutrophils # (auto) 4.7 10 ^3/uL (1.6-8.6); Neutrophils % (auto) 80.9 % (37.0-80.0); Nucleated Red Blood Cells % 0.1 %; Platelet Count (auto) 305 10^3/uL (140-450); Red Blood Cells 3.74 10^6/uL (4.5-5.90); Red Cell Distribution Width 15.1 % (11.8-14.3); White Blood Cell 5.8 10^3/uL (4.4-10.8)
--- NOTE | 2024-04-20 13:27 | DVH ---
Procedure: XY SMALL BOWEL SERIES-W BARIUM Exam Date: 04/20/2024 12:17 PM Reason for study/Clinical History: BOWEL OBSTRUCTION Comparison Study: None available at time of dictation. Technique: Single contrast small bowel series performed. Findings: Initial activities counselor view of the abdomen and pelvis appears demonstrates no acute process. Contrast is identified within the colon by 1 hour . This represents a normal small bowel transit robi e. Small bowel loops are normal in size. Normal mucosal pattern. No evidence of small bowel obstructi on, stricture, or mucosal abnormality. The terminal ileum is well visualized and is unremarkable. IMPRESSION: Normal small bowel series. END IMPRESSION:
--- NOTE | 2024-04-20 16:55 | DVHPN2 ---
Progress Note Date Seen: Apr 20, 2024 Resident Creating Document: JOANNA WEBB RESIDENT Has the PT tested + for MRSA If YES, has PT been informed?: Yes Medical Necessity Reason Pt with a Central, PICC or Fol: No Subjective Review of Systems Post op Day # 5 S/P laparotomy Resection of transverse colon mass partial colectomy with primary anastomosis lysis of adhesions; suspected previous partial colectomy No bowel movement yet; passage of gas Objective vital signs Vital Sign Date Time Temp Pulse Resp B/P (MAP) Pulse Ox O2 Delivery O2 Flow Rate FiO2 04/20/24 13:33 90 17 136/92 04/20/24 12:30 98.1 96 98.1 04/20/24 08:00 Room Air* 0 21 Total Intake and Output 04/19/24 04/19/24 04/20/24 15:00 23:00 07:00 Intake Total 100 ml 50 ml 833 ml Output Total 1600 ml 1300 ml Balance 100 ml -1550 ml -467 ml medications Current Medications Medications Dose Ordered Sig/Yasmany Route Start Time Stop Time Status Last Admin Dose Admin Pantoprazole Sodium 40 mg DAILY IV 04/11/24 10:00 04/20/24 09:53 40 MG Ondansetron HCl 4 mg Q4HPRN PRN IV 04/10/24 18:45 04/15/24 20:00 4 MG Cefepime HCl 50 ml @ 12.5 mls/hr Q12H IV 04/11/24 15:00 04/20/24 02:20 12.5 MLS/HR Metronidazole 100 ml @ 100 mls/hr Q8HR IV 04/11/24 22:00 04/20/24 14:00 100 MLS/HR Diagnostic Test (Pha) 1 strip Q6HR 04/14/24 00:00 04/20/24 05:56 1 STRIP Insulin Human Regular FOLLOW SLIDING SCALE Q6HR SC 04/14/24 00:00 04/17/24 12:34 2 UNITS Dextrose 50 ml UD IV 04/14/24 00:00 Amino Acids 0 ml @ 0 mls/hr PER PHARMACY IV 04/16/24 11:00 Sodium Chloride 10 ml QSHIFT@10,22 IV 04/16/24 22:00 04/20/24 10:01 10 ML Fat Emulsion Intravenous 150 ml/Sodium Acetate 20 meq/Sodium Phosphate 40 meq/ Potassium Acetate 20 meq/Potassium Phosphate 22 meq/ Calcium Gluconate 2.3 meq/Magnesium Sulfate 24 meq/ Multivitamins 10 ml/Chromium/ Copper/Manganese/ Zinc 1 ml/Amino Acids/Dextrose/ Purified Water 1,606.9462 ml @ 67 mls/hr Q24H IV 04/19/24 22:00 04/20/24 21:59 04/19/24 21:13 67 MLS/HR Hydromorphone HCl 0.5 mg Q3HPRN PRN IV 04/20/24 09:45 04/20/24 13:33 0.5 MG Fat Emulsion Intravenous 100 ml/Sodium Chloride 50 meq/ Potassium Chloride 20 meq/ Potassium Acetate 20 meq/Calcium Gluconate 2.3 meq/ Magnesium Sulfate 24 meq/ Multivitamins 10 ml/Chromium/ Copper/Manganese/ Zinc 1 ml/Amino Acids/Dextrose/ Purified Water 1,554.4462 ml @ 64 mls/hr [id number] IV 04/20/24 22:00 04/21/24 21:59 Morphine Sulfate 2 mg Q4HPRN PRN IV 04/20/24 16:45 Examination GEN: Healthy appearing, well-developed, NAD. HEENT: NC/AT; MMM. CV: RRR, no m/r/g. LUNGS: CTAB, no w/r/c. ABD: Soft mild tenderness EXT: skin Warm, well perfused. no rashes. No clubbing, cyanosis, or edema. NEURO: Ambulating with no limitations. No focal deficits. laboratory and microbiology Laboratory Tests 04/20/24 04:55 Test 04/20/24 04:55 Range/Units Serum Glucose 137 H 74-106 mg/dL Problem List/Assessment/Plan Problem List/Assessment/Plan (1) Adenocarcinoma of transverse colon (2) Intractable abdominal pain (3) Abnormal finding on CT scan (4) Nausea and vomiting (5) Cholelithiasis Plan Cont on ice chips Ambulate patient as tolerated Supportive care IV antibiotics Clear liquid diet PICC line for TPN NPO for Gastrografin study Oncology follow up Surgical follow up Thank you so much for the opportunity to consult on your patient. GI team will follow the patient. In case of any questions or concerns please feel free to reach out. Case discussed with Dr. Mat Henderson. The patient and caregiver team agreed to the plan. Plan discussed with: Patient JOANNA WEBB RESIDENT Apr 20, 2024 16:55
--- NOTE | 2024-04-20 16:59 | DVHPN2 ---
Subjective Update 04/20 04/11--patient's nausea is improving, has a right nasal NG tube inserted with biliary output in the tube. Patient had just returned from going to the bathroom. Abdominal pain is improving but still has tenderness to infra umbilical and to the right of umbilicus. Bowel sounds are present. Patient is having diarrheal watery BM. GI has been consulted and is planning to do a colonoscopy. Prep tomorrow. 04/12-continues to have a right nasal NG tube causing discomfort. GI following with plan to do bowel prep today with colonoscopy tomorrow. Possible removal of NG tube tomorrow pending GI review. Patient is doing okay otherwise. The bowel session is resolving. Patient was passing watery stools. 04/13-CT abdomen and pelvis repeat today showing no evidence of obstruction, there is ileus, focal thickening in the proximal small bowel mucosa and distal terminal ileum. Done overnight bowel prep for colonoscopy. GI taken for colonoscopy and findings large mass in distal transverse colon near the splenic flexure. Surgery is aware we will continue admission. NG tube removed. We will try clear liquid diet. 04/14-patient has colonoscopy yesterday 04/13 which finds large obstructing mass with apple-core lesion, surgery is aware and following. Patient is on TPN via PICC line and NPO with ice chips only. 04/15 yesterday biopsy showed colorectal adenocarcinoma. plan for surgery today likely. Oncology following. [facility] offered was patient declines, [place]. 04/16 - patient is pod 1, he is in significant pain has NG tube inserted abdominal wall binder, dressings are CDI. We will continue p.r.n. pain control. Left arm superficial basilic and cephalic thrombosis, PICC line inserted right hand we will start TPN today. Surgery and and oncology and GI following. 04/17 - 04/18 weekend coverage. no significant notable events 04/19 - patient is imporving. BS hypoactive present, passing gas x2 this AM. NG tube in place still, abd dressing CDI. patient asking for diet and NG removal, will defer to surgery. CPT. cont TPN. per surgery CLD w NG tube clamp, reassess am. 04/20- tolerating CLD. still aabd pain, surgery plan SBS w barium, goes well. pending surgery re-eval NG tube need. ooncology following, pending colectomy biopsy results for decision for possible treatmnet options. increased opiates prn for pain control. Reviewed: Care Plan, H&P, Labs, Medications, Previous Orders, Radiology Changes from previous H/P or p: No Changes General: Per HPI Eyes: No Pain, No Vision change, No Conjunctivae inflammation, No Eyelid inflammation, No Other, No Redness ENT: No Ear pain, No Ear discharge, No Nose pain, No Nose discharge, No Nose congestion, No Mouth pain, No Mouth swelling, No Throat pain, No Throat swelling, No Other Cardiovascular: No Chest Pain, No Palpitations, No Orthopnea, No Paroxysmal Noc. Dyspnea, No Edema, No Lt Headedness, No Other Respiratory: No Cough, No Dry, No Shortness of breath, No SOB with excertion, No Wheezing, No Hemoptysis, No Pleuritic Pain, No Sputum, No Other Gastrointestinal: No Nausea, No Vomiting, No Abdominal Pain, No Constipation Genitourinary: No Dysuria, No Frequency, No Incontinence, No Hematuria, No Retention, No Other Musculoskeletal: No other, No neck pain, No shoulder pain, No arm pain, No back pain, No hand pain, No leg pain, No foot pain Skin: No Rash, No Lesions, No Jaundice, No Bruising, No Other Objective Vitals Vital Signs Date Time Temp Pulse Resp B/P (MAP) Pulse Ox O2 Delivery O2 Flow Rate FiO2 04/20/24 13:33 90 17 136/92 04/20/24 12:30 98.1 96 98.1 04/20/24 08:00 Room Air* 0 21 Intake/Output Intake and Output 04/20/24 07:00 Intake Total 983 ml Output Total 2900 ml Balance -1917 ml Intake Oral 833 ml IV Total 150 ml Output Urine Total 2900 ml Exam GEN: Healthy appearing, well-developed, NAD. HEENT: NC/AT; MMM. CV: RRR, no m/r/g. LUNGS: CTAB, no w/r/c. ABD: right nasal NG tube inserted with biliary output in the tube. Abdominal pain is improving but still has tenderness to infra umbilical and to the right of umbilicus. Bowel sounds are present. abdominal dressing CDI EXT: skin Warm, well perfused. no rashes. No clubbing, cyanosis, or edema. NEURO: Ambulating with no limitations. No focal deficits. General Appearance: Alert, Cooperative, No acute distress HEENT: Atraumatic, PERRLA, EOMI, Mucous membr. moist/pink Neck: Supple Lungs: Clear to auscultation, Normal air movement Cardiovascular: Regular rate, Normal S1, Normal S2, No murmurs, Gallops, Rubs Abdomen: Normal bowel sounds, Soft, No tenderness Neuro: Cranial nerves 3-12 NL Psych/Mental Status: Mental status NL Medications Current Medications Medications Dose Ordered Sig/Yasmany Route Start Time Stop Time Status Last Admin Dose Admin Pantoprazole Sodium 40 mg DAILY IV 04/11/24 10:00 04/20/24 09:53 40 MG Ondansetron HCl 4 mg Q4HPRN PRN IV 04/10/24 18:45 04/15/24 20:00 4 MG Cefepime HCl 50 ml @ 12.5 mls/hr Q12H IV 04/11/24 15:00 04/20/24 02:20 12.5 MLS/HR Metronidazole 100 ml @ 100 mls/hr Q8HR IV 04/11/24 22:00 04/20/24 14:00 100 MLS/HR Diagnostic Test (Pha) 1 strip Q6HR 04/14/24 00:00 04/20/24 05:56 1 STRIP Insulin Human Regular FOLLOW SLIDING SCALE Q6HR SC 04/14/24 00:00 04/17/24 12:34 2 UNITS Dextrose 50 ml UD IV 04/14/24 00:00 Amino Acids 0 ml @ 0 mls/hr PER PHARMACY IV 04/16/24 11:00 Sodium Chloride 10 ml QSHIFT@10,22 IV 04/16/24 22:00 04/20/24 10:01 10 ML Fat Emulsion Intravenous 150 ml/Sodium Acetate 20 meq/Sodium Phosphate 40 meq/ Potassium Acetate 20 meq/Potassium Phosphate 22 meq/ Calcium Gluconate 2.3 meq/Magnesium Sulfate 24 meq/ Multivitamins 10 ml/Chromium/ Copper/Manganese/ Zinc 1 ml/Amino Acids/Dextrose/ Purified Water 1,606.9462 ml @ 67 mls/hr Q24H IV 04/19/24 22:00 04/20/24 21:59 04/19/24 21:13 67 MLS/HR Hydromorphone HCl 0.5 mg Q3HPRN PRN IV 04/20/24 09:45 04/20/24 13:33 0.5 MG Fat Emulsion Intravenous 100 ml/Sodium Chloride 50 meq/ Potassium Chloride 20 meq/ Potassium Acetate 20 meq/Calcium Gluconate 2.3 meq/ Magnesium Sulfate 24 meq/ Multivitamins 10 ml/Chromium/ Copper/Manganese/ Zinc 1 ml/Amino Acids/Dextrose/ Purified Water 1,554.4462 ml @ 64 mls/hr [id number] IV 04/20/24 22:00 04/21/24 21:59 Morphine Sulfate 2 mg Q4HPRN PRN IV 04/20/24 16:45 Laboratory Results Laboratory Tests 04/20/24 04:55 Chemistry Test 04/20/24 04:55 Albumin 3.5 g/dL (3.2-4.8) Calcium Level 9.0 mg/dL (8.7-10.4) Magnesium Level 2.0 mg/dL (1.6-2.6) Phosphorus Level 4.2 mg/dL (2.4-5.1) Total Protein 6.0 g/dL (5.7-8.2) LFT Test 04/20/24 04:55 Alanine Aminotransferase (ALT) 42 U/L (7-40) H Alkaline Phosphatase 98 U/L (46-116) Aspartate Amino Transferase (AST) 55 U/L (13-40) H Total Bilirubin 0.2 mg/dL (0.2-1.0) Urinalysis Test 04/10/24 16:40 Urine Color Yellow (Yellow) Urine Clarity Clear (Clear) Urine pH 5.5 (5.0-9.0) Urine Specific [place] 1.030 (1.001-1.035) Urine Protein Trace (Negative) H Urine Ketones 1+ (Negative) H Urine Blood 2+ /uL (Negative) H Urine Nitrite Negative (Negative) Urine Bilirubin Negative (Negative) Urine Urobilinogen Normal mg/dL (Negative) Urine Leukocyte Esterase Negative /uL (Negative) Urine RBC 42 /hpf (0 - 3) Urine Microscopic WBC 2 /HPF (0-3) Urine Squamous Epithelial Cells Few /hpf (<5) Urine Bacteria None seen /hpf (None Seen) Urine Glucose Normal mg/dL (Normal) Labs and/or images reviewed: Labs reviewed by me, Image(s) reviewed by me Assessment/Plan Assessment/Plan 3/11- tolerating CLD. still aabd pain, surgery plan SBS w barium, goes well. pending surgery re-eval NG tube need. ooncology following, pending colectomy biopsy results for decision for possible treatmnet options. increased opiates prn for pain control. Large bowel/colonic obstruction due to gastric adenocarcinoma colonic mass (transverse colon), colorectal adenocarcinoma mass, s/p colectomy with primary anastomosis and adhesion lysis. Intractable nausea and vomiting Intractable abdominal pain Thrombosis, superficial veins, left basilic and cephalic Cholelithiasis Gastric ulcer Cachexia Sliding hiatal hernia History of cholelithiasis Hepatic cyst - GI consulted-plan for colonoscopy showing large mass in distal transverse colon, near splenic flexure - General surge consulted-we will be following peripherally, agreed with colonoscopy - colonoscopy yesterday 04/13 which finds large obstructing mass with apple-core lesion - NG tube removed 04/13 (prior NG tube with intermittent suction on low pressure ) - we will insert PICC line and start TPN periods, status post IV fluid hydration. keep npo w ice chips (sips of CLD ok) - Protonix 40 IV daily - surgery following. - partial colectomy 04/16/23, primary anastomosis Diet NPO, NG tube inserted - npo. TPN started. DVT prophylaxis-Lovenox GI prophylaxis-Protonix IV daily Med tele Full code Plan discussed with: Patient My Orders Orders - ZOHREH VELIZ MD Procedure Category Date Status Time Clear Liq Diet DIET 04/19/24 Transmitted Dinner Amino Acid PHA 04/20/24 In Process Infusion... W/Fat 22:00 Comprehensive LAB 04/21/24 Verified Metabolic Panel 06:00 Magnesium LAB 04/21/24 Verified 06:00 Phosphorus LAB 04/21/24 Verified 06:00 Tpn Per Pharmacy [facility] 04/20/24 In Process 22:00 Morphine Sulfate PHA 04/20/24 In Process Injection 16:45 Date of Service: Apr 20, 2024 Billing Provider: ZOHREH VELIZ MD Common Visit Codes: [id number] INP/OBS CARE(HIGH) ZOHREH VELIZ MD Apr 20, 2024 16:59
[2024-04-20] MEDS: KETOROLAC TROMETH 30 MG/ML 1ML VIAL IV ONE (17:04)
[2024-04-20] MEDS: TPN PER PHARMACY IV NR (21:34)
[2024-04-20] MEDS: MORPHINE SULFATE INJ 2 MG/ml SYRG IV PRN (21:47)
[2024-04-21] VITALS (7 sets, daily range): BP systolic 104–139; BP diastolic 64–71; PULSE 91–105; RESP 16–18; TEMP 98.1–98.9; O2SAT 90–99
[2024-04-21 06:48] LABS: Alkaline Phosphatase 116 U/L (46-116); Anion Gap 7 (5-15); Calcium 9.6 mg/dL (8.7-10.4); Carbon Dioxide 30 mmol/L (20-31); Chloride 102 mmol/L (98-107); Magnesium 2.3 mg/dL (1.6-2.6); Potassium 4.3 mmol/L (3.5-5.1); Sodium 139 mmol/L (136-145)
[2024-04-21 06:49] LABS: BUN/Creatinine Ratio 27.7 (10.0-20.0); Phosphorus 3.3 mg/dL (2.4-5.1); Total Protein 6.8 g/dL (5.7-8.2)
[2024-04-21 06:52] LABS: Blood Urea Nitrogen 26 mg/dL (9-23); Glucose 117 mg/dL (74-106)
[2024-04-21 06:53] LABS: Alanine Aminotransferase 46 U/L (7-40); Aspartate Aminotransferase 43 U/L (13-40); Bilirubin, Total 0.3 mg/dL (0.2-1.0)
--- NOTE | 2024-04-21 09:00 | DVHPN2 ---
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 Aly Henderson. 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 The patient had obstruction. Moderately differentiated, G2. No LVI or PNI tumor budding score was high (10 or more) and the margins were clear Low probability of MSI-H vital signs Vital Sign Date Time Temp Pulse Resp B/P (MAP) Pulse Ox O2 Delivery O2 Flow Rate FiO2 04/21/24 06:19 84 18 126/76 04/21/24 05:00 98.9 90 98.9 04/20/24 20:00 Room Air* 0 21 Total Intake and Output 04/20/24 04/20/24 04/21/24 15:00 23:00 07:00 Intake Total 100 ml 1498 ml 350 ml Balance 100 ml 1498 ml 350 ml medications Current Medications Medications Dose Ordered Sig/Yasmany Route Start Time Stop Time Status Last Admin Dose Admin Pantoprazole Sodium 40 mg DAILY IV 04/11/24 10:00 04/20/24 09:53 40 MG Ondansetron HCl 4 mg Q4HPRN PRN IV 04/10/24 18:45 04/15/24 20:00 4 MG Cefepime HCl 50 ml @ 12.5 mls/hr Q12H IV 04/11/24 15:00 04/21/24 02:30 12.5 MLS/HR Metronidazole 100 ml @ 100 mls/hr Q8HR IV 04/11/24 22:00 04/21/24 06:45 100 MLS/HR Diagnostic Test (Pha) 1 strip Q6HR 04/14/24 00:00 04/21/24 06:22 1 STRIP Insulin Human Regular FOLLOW SLIDING SCALE Q6HR SC 04/14/24 00:00 04/17/24 12:34 2 UNITS Dextrose 50 ml UD IV 04/14/24 00:00 Amino Acids 0 ml @ 0 mls/hr PER PHARMACY IV 04/16/24 11:00 Sodium Chloride 10 ml QSHIFT@10,22 IV 04/16/24 22:00 04/20/24 21:52 10 ML Hydromorphone HCl 0.5 mg Q3HPRN PRN IV 04/20/24 09:45 04/21/24 05:49 0.5 MG Fat Emulsion Intravenous 100 ml/Sodium Chloride 50 meq/ Potassium Chloride 20 meq/ Potassium Acetate 20 meq/Calcium Gluconate 2.3 meq/ Magnesium Sulfate 24 meq/ Multivitamins 10 ml/Chromium/ Copper/Manganese/ Zinc 1 ml/Amino Acids/Dextrose/ Purified Water 1,554.4462 ml @ 64 mls/hr [id number] IV 04/20/24 22:00 04/21/24 21:59 04/20/24 21:34 64 MLS/HR Morphine Sulfate 2 mg Q4HPRN PRN IV 04/20/24 16:45 04/20/24 21:47 2 MG objective Head and neck: Unremarkable for any masses or neck nodes. Has an NG tube Lungs: Clear Cardiovascular: Regular sinus rhythm Abdomen: No organomegaly, tenderness or ascites. Bowel sounds are present. Status post surgery Extremities: No clubbing edema cyanosis or calf tenderness. Skin: Unremarkable for petechia purpura ecchymosis Lymphadenopathy: None laboratory and microbiology Laboratory Tests 04/21/24 05:53 04/20/24 04:55 Test 04/21/24 05:53 Range/Units Serum Glucose 117 H 74-106 mg/dL Assessment/Plan 1. 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 Patient presenting with nausea vomiting abdominal pains and bowel obstruction CEA 2.64. CMP unremarkable. 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 The patient had obstruction. Moderately differentiated, G2. No LVI or PNI tumor budding score was high (10 or more) and the margins were clear Low probability of MSI-H Plan: Patient is advised to see me in the office. The patient will need adjuvant chemotherapy because of obstruction and high tumor budding score of 10 or more Plan discussed with: Patient PRETTY CURRAN MD Apr 21, 2024 09:00
--- NOTE | 2024-04-21 11:38 | DVHPN2 ---
Subjective Update 04/21 04/11--patient's nausea is improving, has a right nasal NG tube inserted with biliary output in the tube. Patient had just returned from going to the bathroom. Abdominal pain is improving but still has tenderness to infra umbilical and to the right of umbilicus. Bowel sounds are present. Patient is having diarrheal watery BM. GI has been consulted and is planning to do a colonoscopy. Prep tomorrow. 04/12-continues to have a right nasal NG tube causing discomfort. GI following with plan to do bowel prep today with colonoscopy tomorrow. Possible removal of NG tube tomorrow pending GI review. Patient is doing okay otherwise. The bowel session is resolving. Patient was passing watery stools. 04/13-CT abdomen and pelvis repeat today showing no evidence of obstruction, there is ileus, focal thickening in the proximal small bowel mucosa and distal terminal ileum. Done overnight bowel prep for colonoscopy. GI taken for colonoscopy and findings large mass in distal transverse colon near the splenic flexure. Surgery is aware we will continue admission. NG tube removed. We will try clear liquid diet. 04/14-patient has colonoscopy yesterday 04/13 which finds large obstructing mass with apple-core lesion, surgery is aware and following. Patient is on TPN via PICC line and NPO with ice chips only. 04/15 yesterday biopsy showed colorectal adenocarcinoma. plan for surgery today likely. Oncology following. [facility] offered was patient declines, he prefers to be followed up here in the [facility]. 04/16 - patient is pod 1 . ng tube re-inserted during surgery., he is in significant pain, has NG tube inserted , abdominal wall binder, surgical dressings are CDI. We will continue p.r.n. pain control. Left arm superficial basilic and cephalic thrombosis, PICC line inserted right hand we will start TPN today. Surgery and and oncology and GI following. 04/17 - 04/18 weekend coverage. no significant notable events 04/19 - patient is imporving. BS hypoactive present, passing gas x2 this AM. NG tube in place still, abd dressing CDI. patient asking for diet and NG removal, will defer to surgery. CPT. cont TPN. per surgery CLD w NG tube clamp, reassess am. 04/20- tolerating CLD. still aabd pain, surgery plan SBS w barium, goes well. pending surgery re-eval NG tube need. ooncology following, pending colectomy biopsy results for decision for possible treatmnet options. increased opiates prn for pain control. 04/21 - tolerating CLD. barium series passed yesterday. Surgery to eval, expecting NG removal today, will f/u with surgery. change abx cefepime/flagyl to unasyn. change pain to norco10/morphine3. continue CLD. Reviewed: Care Plan, H&P, Labs, Medications, Previous Orders, Radiology Changes from previous H/P or p: No Changes General: Per HPI Eyes: No Pain, No Vision change, No Conjunctivae inflammation, No Eyelid inflammation, No Other, No Redness ENT: No Ear pain, No Ear discharge, No Nose pain, No Nose discharge, No Nose congestion, No Mouth pain, No Mouth swelling, No Throat pain, No Throat swelling, No Other Cardiovascular: No Chest Pain, No Palpitations, No Orthopnea, No Paroxysmal Noc. Dyspnea, No Edema, No Lt Headedness, No Other Respiratory: No Cough, No Dry, No Shortness of breath, No SOB with excertion, No Wheezing, No Hemoptysis, No Pleuritic Pain, No Sputum, No Other Gastrointestinal: No Nausea, No Vomiting, No Abdominal Pain, No Constipation Genitourinary: No Dysuria, No Frequency, No Incontinence, No Hematuria, No Retention, No Other Musculoskeletal: No other, No neck pain, No shoulder pain, No arm pain, No back pain, No hand pain, No leg pain, No foot pain Skin: No Rash, No Lesions, No Jaundice, No Bruising, No Other Objective Vitals Vital Signs Date Time Temp Pulse Resp B/P (MAP) Pulse Ox O2 Delivery O2 Flow Rate FiO2 04/21/24 09:14 91 16 121/70 04/21/24 09:00 98.5 96 98.5 04/21/24 08:00 Room Air* 0 21 Intake/Output Intake and Output 04/21/24 07:00 Intake Total 1948 ml Balance 1948 ml Intake Oral 1634 ml IV Total 314 ml # Voids 5 # Bowel Movements 2 Exam GEN: Healthy appearing, well-developed, NAD. HEENT: NC/AT; MMM. CV: RRR, no m/r/g. LUNGS: CTAB, no w/r/c. ABD: right nasal NG tube inserted with biliary output in the tube. Abdominal pain is improving but still has tenderness to infra umbilical and to the right of umbilicus. Bowel sounds are present. abdominal dressing CDI EXT: skin Warm, well perfused. no rashes. No clubbing, cyanosis, or edema. NEURO: Ambulating with no limitations. No focal deficits. General Appearance: Alert, Cooperative, No acute distress HEENT: Atraumatic, PERRLA, EOMI, Mucous membr. moist/pink Neck: Supple Lungs: Clear to auscultation, Normal air movement Cardiovascular: Regular rate, Normal S1, Normal S2, No murmurs, Gallops, Rubs Abdomen: Normal bowel sounds, Soft, No tenderness Neuro: Cranial nerves 3-12 NL Psych/Mental Status: Mental status NL Medications Current Medications Medications Dose Ordered Sig/Yasmany Route Start Time Stop Time Status Last Admin Dose Admin Pantoprazole Sodium 40 mg DAILY IV 04/11/24 10:00 04/21/24 09:14 40 MG Ondansetron HCl 4 mg Q4HPRN PRN IV 04/10/24 18:45 04/15/24 20:00 4 MG Cefepime HCl 50 ml @ 12.5 mls/hr Q12H IV 04/11/24 15:00 04/21/24 02:30 12.5 MLS/HR Metronidazole 100 ml @ 100 mls/hr Q8HR IV 04/11/24 22:00 04/21/24 06:45 100 MLS/HR Diagnostic Test (Pha) 1 strip Q6HR 04/14/24 00:00 04/21/24 06:22 1 STRIP Insulin Human Regular FOLLOW SLIDING SCALE Q6HR SC 04/14/24 00:00 04/17/24 12:34 2 UNITS Dextrose 50 ml UD IV 04/14/24 00:00 Amino Acids 0 ml @ 0 mls/hr PER PHARMACY IV 04/16/24 11:00 Sodium Chloride 10 ml QSHIFT@10,22 IV 04/16/24 22:00 04/20/24 21:52 10 ML Fat Emulsion Intravenous 100 ml/Sodium Chloride 50 meq/ Potassium Chloride 20 meq/ Potassium Acetate 20 meq/Calcium Gluconate 2.3 meq/ Magnesium Sulfate 24 meq/ Multivitamins 10 ml/Chromium/ Copper/Manganese/ Zinc 1 ml/Amino Acids/Dextrose/ Purified Water 1,554.4462 ml @ 64 mls/hr [id number] IV 04/20/24 22:00 04/21/24 21:59 04/20/24 21:34 64 MLS/HR Acetaminophen/ Hydrocodone Bitart 1 tab Q4HP PRN PO 04/21/24 11:30 UNV Morphine Sulfate 3 mg Q3HPRN PRN IV 04/21/24 11:30 UNV Laboratory Results Laboratory Tests 04/20/24 04:55 04/21/24 05:53 Chemistry Test 04/21/24 05:53 Albumin 4.0 g/dL (3.2-4.8) Calcium Level 9.6 mg/dL (8.7-10.4) Magnesium Level 2.3 mg/dL (1.6-2.6) Phosphorus Level 3.3 mg/dL (2.4-5.1) Total Protein 6.8 g/dL (5.7-8.2) LFT Test 04/21/24 05:53 Alanine Aminotransferase (ALT) 46 U/L (7-40) H Alkaline Phosphatase 116 U/L (46-116) Aspartate Amino Transferase (AST) 43 U/L (13-40) H Total Bilirubin 0.3 mg/dL (0.2-1.0) Urinalysis Test 04/10/24 16:40 Urine Color Yellow (Yellow) Urine Clarity Clear (Clear) Urine pH 5.5 (5.0-9.0) Urine Specific [place] 1.030 (1.001-1.035) Urine Protein Trace (Negative) H Urine Ketones 1+ (Negative) H Urine Blood 2+ /uL (Negative) H Urine Nitrite Negative (Negative) Urine Bilirubin Negative (Negative) Urine Urobilinogen Normal mg/dL (Negative) Urine Leukocyte Esterase Negative /uL (Negative) Urine RBC 42 /hpf (0 - 3) Urine Microscopic WBC 2 /HPF (0-3) Urine Squamous Epithelial Cells Few /hpf (<5) Urine Bacteria None seen /hpf (None Seen) Urine Glucose Normal mg/dL (Normal) Labs and/or images reviewed: Labs reviewed by me, Image(s) reviewed by me Assessment/Plan Assessment/Plan 04/21 - tolerating CLD. barium series passed yesterday. Surgery to eval, expecting NG removal today, will f/u with surgery. change abx cefepime/flagyl to unasyn. change pain to norco10/morphine3. continue CLD. Large bowel/colonic obstruction due to gastric adenocarcinoma colonic mass (transverse colon), colorectal adenocarcinoma mass, s/p colectomy with primary anastomosis and adhesion lysis. Intractable nausea and vomiting Intractable abdominal pain Thrombosis, superficial veins, left basilic and cephalic Cholelithiasis Gastric ulcer Cachexia Sliding hiatal hernia History of cholelithiasis Hepatic cyst - GI consulted-plan for colonoscopy showing large mass in distal transverse colon, near splenic flexure - General surge consulted-we will be following peripherally, agreed with colonoscopy - colonoscopy yesterday 04/13 which finds large obstructing mass with apple-core lesion - NG tube inserted again with surgery on 04/15 . prior NG tube removed 04/13 (prior NG tube with intermittent suction on low pressure ) - PICC line and TPN , status post IV fluid hydration. keep npo w ice chips (sips of CLD ok) - Protonix 40 IV daily - surgery following. - partial colectomy 04/16/23, primary anastomosis - prn analgesia - CLD trial. continue TPN. Diet CLD, NG tube inserted - TPN started. DVT prophylaxis-Lovenox GI prophylaxis-Protonix IV daily Medsurg Full code Plan discussed with: Patient My Orders Orders - ZOHREH VELIZ MD Procedure Category Date Status Time Amino Acid PHA 04/20/24 In Process Infusion... W/Fat 22:00 Tpn Per Pharmacy [facility] 04/20/24 In Process 22:00 Hydrocodone-Acet PHA 04/21/24 Logged 10/325mg Tab ([place] 11:30 Morphine Sulfate PHA 04/21/24 Logged Injection 11:30 Unasyn PHA 04/21/24 Verified Ampicillin/Sulbactam 11:45 Date of Service: Apr 21, 2024 Billing Provider: ZOHREH VELIZ MD Common Visit Codes: [id number] INP/OBS CARE(HIGH) ZOHREH VELIZ MD Apr 21, 2024 11:38
[2024-04-21] MEDS: AMPICILLIN & SULBACTAM SODIUM 3 GM in SODIUM CHL 0.9% 100 ML IV SCH (11:45)
[2024-04-21] MEDS: MORPHINE SULFATE 4 MG/ML SYR/VIAL IV PRN (14:06)
--- NOTE | 2024-04-21 14:17 | DVHPN2 ---
Progress Note Date Seen: Apr 21, 2024 Resident Creating Document: JOANNA WEBB RESIDENT Has the PT tested + for MRSA If YES, has PT been informed?: Yes Medical Necessity Reason Pt with a Central, PICC or Fol: No Subjective Review of Systems Post op Day # 6 S/P laparotomy Resection of transverse colon mass partial colectomy with primary anastomosis lysis of adhesions; suspected previous partial colectomy Had two bowel movements Objective vital signs Vital Sign Date Time Temp Pulse Resp B/P (MAP) Pulse Ox O2 Delivery O2 Flow Rate FiO2 04/21/24 14:06 99 18 117/71 04/21/24 09:00 98.5 96 98.5 04/21/24 08:00 Room Air* 0 21 Total Intake and Output 04/20/24 04/20/24 04/21/24 15:00 23:00 07:00 Intake Total 100 ml 1498 ml 350 ml Balance 100 ml 1498 ml 350 ml medications Current Medications Medications Dose Ordered Sig/Yasmany Route Start Time Stop Time Status Last Admin Dose Admin Pantoprazole Sodium 40 mg DAILY IV 04/11/24 10:00 04/21/24 09:14 40 MG Ondansetron HCl 4 mg Q4HPRN PRN IV 04/10/24 18:45 04/15/24 20:00 4 MG Diagnostic Test (Pha) 1 strip Q6HR 04/14/24 00:00 04/21/24 12:14 1 STRIP Insulin Human Regular FOLLOW SLIDING SCALE Q6HR SC 04/14/24 00:00 04/17/24 12:34 2 UNITS Dextrose 50 ml UD IV 04/14/24 00:00 Amino Acids 0 ml @ 0 mls/hr PER PHARMACY IV 04/16/24 11:00 Sodium Chloride 10 ml QSHIFT@10,22 IV 04/16/24 22:00 04/21/24 10:00 10 ML Fat Emulsion Intravenous 100 ml/Sodium Chloride 50 meq/ Potassium Chloride 20 meq/ Potassium Acetate 20 meq/Calcium Gluconate 2.3 meq/ Magnesium Sulfate 24 meq/ Multivitamins 10 ml/Chromium/ Copper/Manganese/ Zinc 1 ml/Amino Acids/Dextrose/ Purified Water 1,554.4462 ml @ 64 mls/hr [id number] IV 04/20/24 22:00 04/21/24 21:59 04/20/24 21:34 64 MLS/HR Acetaminophen/ Hydrocodone Bitart 1 tab Q4HP PRN PO 04/21/24 11:30 Morphine Sulfate 3 mg Q3HPRN PRN IV 04/21/24 11:30 04/21/24 14:06 3 MG Ampicillin Sodium/ Sulbactam Sodium 3 gm/Sodium Chloride 100 ml @ 100 mls/hr Q6H IV 04/21/24 11:45 Examination GEN: Healthy appearing, well-developed, NAD. HEENT: NC/AT; MMM. CV: RRR, no m/r/g. LUNGS: CTAB, no w/r/c. ABD: Soft mild tenderness EXT: skin Warm, well perfused. no rashes. No clubbing, cyanosis, or edema. NEURO: Ambulating with no limitations. No focal deficits. laboratory and microbiology Laboratory Tests 04/21/24 05:53 04/20/24 04:55 Test 04/21/24 05:53 Range/Units Serum Glucose 117 H 74-106 mg/dL Problem List/Assessment/Plan Problem List/Assessment/Plan (1) Adenocarcinoma of transverse colon (2) Intractable abdominal pain (3) Abnormal finding on CT scan (4) Nausea and vomiting (5) Cholelithiasis Plan Cont on ice chips Ambulate patient as tolerated Supportive care IV antibiotics PICC line for TPN Patient had two bowel movements Advanced diet as tolerated Oncology follow up Surgical follow up Thank you so much for the opportunity to consult on your patient. GI team will follow the patient. In case of any questions or concerns please feel free to reach out. Case discussed with Dr. Mat Henderson. The patient and caregiver team agreed to the plan. Plan discussed with: Patient JOANNA WEBB RESIDENT Apr 21, 2024 14:17
--- NOTE | 2024-04-21 16:57 | DVH ---
EXAM: XY KUB ABDOMEN SINGLE VIEW HISTORY: abdominal pain COMPARISON: XY KUB ABDOMEN SINGLE VIEW on DOS: 04/11/24, XY KUB ABDOMEN SINGLE VIEW on DOS: 03/12/24 TECHNIQUE: Single AP of the abdomen and pelvis was obtained. Findings: Frontal view of the abdomen demonstrates gaseous dilated loops of bowel and contrast noted within the colon. No visualized renal calculi. There is no evidence of an acute fracture, dislocation, blastic, or lytic lesions. The visualized portions of the lung bases are unremarkable. Midline joey. Partially visualized enteric tube. No superficial soft tissue abnormalities. Impression: 1. Gaseous dilated loops of bowel and contrast noted within the colon. Findings may reflect postoper ative ileus versus partial obstruction.
--- NOTE | 2024-04-21 18:10 | DVHPN2 ---
Progress Note Date Seen: Apr 21, 2024 Has the PT tested + for MRSA If YES, has PT been informed?: Yes Medical Necessity Reason Pt with a Central, PICC or Fol: No Objective vital signs Vital Sign Date Time Temp Pulse Resp B/P (MAP) Pulse Ox O2 Delivery O2 Flow Rate FiO2 04/21/24 17:46 87 19 139/71 04/21/24 16:50 98.1 99 98.1 04/21/24 08:00 Room Air* 0 21 Total Intake and Output 04/20/24 04/20/24 04/21/24 15:00 23:00 07:00 Intake Total 100 ml 1498 ml 350 ml Balance 100 ml 1498 ml 350 ml medications Current Medications Medications Dose Ordered Sig/Yasmany Route Start Time Stop Time Status Last Admin Dose Admin Pantoprazole Sodium 40 mg DAILY IV 04/11/24 10:00 04/21/24 09:14 40 MG Ondansetron HCl 4 mg Q4HPRN PRN IV 04/10/24 18:45 04/15/24 20:00 4 MG Diagnostic Test (Pha) 1 strip Q6HR 04/14/24 00:00 04/21/24 12:14 1 STRIP Insulin Human Regular FOLLOW SLIDING SCALE Q6HR SC 04/14/24 00:00 04/17/24 12:34 2 UNITS Dextrose 50 ml UD IV 04/14/24 00:00 Amino Acids 0 ml @ 0 mls/hr PER PHARMACY IV 04/16/24 11:00 Sodium Chloride 10 ml QSHIFT@10,22 IV 04/16/24 22:00 04/21/24 10:00 10 ML Fat Emulsion Intravenous 100 ml/Sodium Chloride 50 meq/ Potassium Chloride 20 meq/ Potassium Acetate 20 meq/Calcium Gluconate 2.3 meq/ Magnesium Sulfate 24 meq/ Multivitamins 10 ml/Chromium/ Copper/Manganese/ Zinc 1 ml/Amino Acids/Dextrose/ Purified Water 1,554.4462 ml @ 64 mls/hr [id number] IV 04/20/24 22:00 04/21/24 21:59 04/20/24 21:34 64 MLS/HR Acetaminophen/ Hydrocodone Bitart 1 tab Q4HP PRN PO 04/21/24 11:30 Morphine Sulfate 3 mg Q3HPRN PRN IV 04/21/24 11:30 04/21/24 17:46 3 MG Ampicillin Sodium/ Sulbactam Sodium 3 gm/Sodium Chloride 100 ml @ 100 mls/hr Q6H IV 04/21/24 11:45 04/21/24 11:45 100 MLS/HR laboratory and microbiology Laboratory Tests 04/21/24 05:53 04/20/24 04:55 Test 04/21/24 05:53 Range/Units Serum Glucose 117 H 74-106 mg/dL Problem List/Assessment/Plan Problem List/Assessment/Plan AFEBRILE VSS ABD SOFT LESS DISTENDED FLATUS + BM + S/P COLON RESECTION DC NG HOLD CLEAR LIQUIDS DUE TO ABD PAIN SEC TO ILEUS PICK LINE FOR TPN NURSE AT BEDSIDE GASTROGRAFIN STUDY NO SBO AND FUNCTIONAL COLONIC ANASTOMOSIS CLOSE OBSERVATION Plan discussed with: Patient My Orders My Orders Orders - BOB HILTON MD Procedure Category Date Status Time Hydromorphone PHA 04/21/24 Verified Injection (Dilaudid 18:15 BOB HILTON MD Apr 21, 2024 18:10
[2024-04-21] MEDS: HYDROcodone-ACET 10/325MG TAB PO PRN (18:57)
[2024-04-21] MEDS: HYDROmorphone HCL 2 MG/ML VL/or syr IV PRN (21:48)
[2024-04-21] MEDS: AMINO ACID INFUSION IN D10W 2,000 ML IV SCH (22:41)
[2024-04-22] VITALS (8 sets, daily range): BP systolic 110–139; BP diastolic 62–90; PULSE 82–105; RESP 16–18; TEMP 97.9–99.2; O2SAT 94–99
[2024-04-22 08:01] LABS: Basophils # (auto) 0 10 ^3/uL (0-0.2); Basophils % (auto) 0.3 % (0.0-2.0); Eosinophils # (auto) 0.3 10 ^3/uL (0-0.8); Eosinophils % (auto) 2.7 % (0.0-7.0); Hematocrit 33.4 % (41.0-53.0); Hemoglobin 11.3 g/dL (13.5-17.5); Lymphocytes # (auto) 0.7 10 ^3/uL (0.4-5.4); Lymphocytes % (auto) 5.6 % (10.0-50.0); Mean Corpuscular Hemoglobin 29.9 pg (28.0-32.0); Mean Corpuscular Hgb Conc. 33.9 g/dL (32.0-36.0); Mean Corpuscular Volume 88.3 fL (80.0-100.0); Monocytes # (auto) 0.6 10 ^3/uL (0-1.3); Monocytes % (auto) 5.2 % (0.0-12.0); Neutrophils # (auto) 10.3 10 ^3/uL (1.6-8.6); Neutrophils % (auto) 86.2 % (37.0-80.0); Platelet Count (auto) 300 10^3/uL (140-450); Red Blood Cells 3.78 10^6/uL (4.5-5.90)
[2024-04-22 08:05] LABS: Alanine Aminotransferase 31 U/L (7-40); Albumin 3.5 g/dL (3.2-4.8); Alkaline Phosphatase 97 U/L (46-116); Anion Gap 7 (5-15); Aspartate Aminotransferase 24 U/L (13-40); BUN/Creatinine Ratio 29.2 (10.0-20.0); Bilirubin, Total 0.4 mg/dL (0.2-1.0); Blood Urea Nitrogen 21 mg/dL (9-23); Calcium 9.1 mg/dL (8.7-10.4); Carbon Dioxide 29 mmol/L (20-31); Chloride 100 mmol/L (98-107); Glucose 104 mg/dL (74-106); Magnesium 1.7 mg/dL (1.6-2.6); Potassium 4.1 mmol/L (3.5-5.1); Total Protein 5.9 g/dL (5.7-8.2)
[2024-04-22 08:10] LABS: Sodium 136 mmol/L (136-145)
--- NOTE | 2024-04-22 12:46 | DVHPN2 ---
Progress Note Date Seen: Apr 22, 2024 Resident Creating Document: JOANNA WEBB RESIDENT Has the PT tested + for MRSA If YES, has PT been informed?: Yes Medical Necessity Reason Pt with a Central, PICC or Fol: No Subjective Review of Systems Post op Day # 7 S/P laparotomy Resection of transverse colon mass partial colectomy with primary anastomosis lysis of adhesions; suspected previous partial colectomy Had bowel movements Objective vital signs Vital Sign Date Time Temp Pulse Resp B/P (MAP) Pulse Ox O2 Delivery O2 Flow Rate FiO2 04/22/24 09:00 97.9 101 16 121/66 (84) 96 97.9 04/22/24 08:20 Room Air* 0 21 Total Intake and Output 04/21/24 04/21/24 04/22/24 15:00 23:00 07:00 Intake Total 100 ml 790 ml 350 ml Output Total 200 ml Balance 100 ml 790 ml 150 ml medications Current Medications Medications Dose Ordered Sig/Yasmany Route Start Time Stop Time Status Last Admin Dose Admin Pantoprazole Sodium 40 mg DAILY IV 04/11/24 10:00 04/22/24 10:06 40 MG Ondansetron HCl 4 mg Q4HPRN PRN IV 04/10/24 18:45 04/15/24 20:00 4 MG Diagnostic Test (Pha) 1 strip Q6HR 04/14/24 00:00 04/22/24 11:58 1 STRIP Insulin Human Regular FOLLOW SLIDING SCALE Q6HR SC 04/14/24 00:00 04/17/24 12:34 2 UNITS Dextrose 50 ml UD IV 04/14/24 00:00 Amino Acids 0 ml @ 0 mls/hr PER PHARMACY IV 04/16/24 11:00 Sodium Chloride 10 ml QSHIFT@10,22 IV 04/16/24 22:00 04/22/24 10:06 10 ML Acetaminophen/ Hydrocodone Bitart 1 tab Q4HP PRN PO 04/21/24 11:30 04/22/24 12:27 1 TAB Ampicillin Sodium/ Sulbactam Sodium 3 gm/Sodium Chloride 100 ml @ 100 mls/hr Q6H IV 04/21/24 11:45 04/22/24 12:12 100 MLS/HR Hydromorphone HCl 0.5 mg Q3HPRN PRN IV 04/21/24 18:15 04/22/24 04:23 0.5 MG Amino Acids/ Electrolytes/ Dextrose 2,000 ml @ 41 mls/hr DAILY@2200 IV 04/21/24 22:00 04/22/24 21:59 04/21/24 22:41 41 MLS/HR Examination GEN: Healthy appearing, well-developed, NAD. HEENT: NC/AT; MMM. CV: RRR, no m/r/g. LUNGS: CTAB, no w/r/c. ABD: Soft mild tenderness EXT: skin Warm, well perfused. no rashes. No clubbing, cyanosis, or edema. NEURO: Ambulating with no limitations. No focal deficits. laboratory and microbiology Laboratory Tests 04/22/24 06:19 Test 04/22/24 06:19 Range/Units Serum Glucose 104 74-106 mg/dL Problem List/Assessment/Plan Problem List/Assessment/Plan (1) Adenocarcinoma of transverse colon (2) Intractable abdominal pain (3) Abnormal finding on CT scan (4) Nausea and vomiting (5) Cholelithiasis Plan NG tube was DC'd Hold clear liquid diet due to abdominal pain secondary to ileus Gastrografin study: No small bowel obstruction and functional colonic anastomosis. Ambulate patient as tolerated Supportive care IV antibiotics PICC line for TPN Patient had bowel movements Advanced diet as tolerated Oncology follow up Surgical follow up Thank you so much for the opportunity to consult on your patient. GI team will follow the patient. In case of any questions or concerns please feel free to reach out. Case discussed with Dr. Mat Henderson. The patient and caregiver team agreed to the plan. Plan discussed with: Patient JOANNA WEBB RESIDENT Apr 22, 2024 12:46
--- NOTE | 2024-04-22 14:27 | DVHPN2 ---
Subjective Update 04/22 04/11--patient's nausea is improving, has a right nasal NG tube inserted with biliary output in the tube. Patient had just returned from going to the bathroom. Abdominal pain is improving but still has tenderness to infra umbilical and to the right of umbilicus. Bowel sounds are present. Patient is having diarrheal watery BM. GI has been consulted and is planning to do a colonoscopy. Prep tomorrow. 04/12-continues to have a right nasal NG tube causing discomfort. GI following with plan to do bowel prep today with colonoscopy tomorrow. Possible removal of NG tube tomorrow pending GI review. Patient is doing okay otherwise. The bowel session is resolving. Patient was passing watery stools. 04/13-CT abdomen and pelvis repeat today showing no evidence of obstruction, there is ileus, focal thickening in the proximal small bowel mucosa and distal terminal ileum. Done overnight bowel prep for colonoscopy. GI taken for colonoscopy and findings large mass in distal transverse colon near the splenic flexure. Surgery is aware we will continue admission. NG tube removed. We will try clear liquid diet. 04/14-patient has colonoscopy yesterday 04/13 which finds large obstructing mass with apple-core lesion, surgery is aware and following. Patient is on TPN via PICC line and NPO with ice chips only. 04/15 yesterday biopsy showed colorectal adenocarcinoma. plan for surgery today likely. Oncology following. [facility] offered was patient declines, he prefers to be followed up [facility]. 04/16 - patient is pod 1 . ng tube re-inserted during surgery., he is in significant pain, has NG tube inserted , abdominal wall binder, surgical dressings are CDI. We will continue p.r.n. pain control. Left arm superficial basilic and cephalic thrombosis, PICC line inserted right hand we will start TPN today. Surgery and and oncology and GI following. 04/17 - 04/18 weekend coverage. no significant notable events 04/19 - patient is imporving. BS hypoactive present, passing gas x2 this AM. NG tube in place still, abd dressing CDI. patient asking for diet and NG removal, will defer to surgery. CPT. cont TPN. per surgery CLD w NG tube clamp, reassess am. 04/20- tolerating CLD. still aabd pain, surgery plan SBS w barium, goes well. pending surgery re-eval NG tube need. ooncology following, pending colectomy biopsy results for decision for possible treatmnet options. increased opiates prn for pain control. 04/21 - tolerating CLD. barium series passed yesterday. Surgery to eval, expecting NG removal today, will f/u with surgery. change abx cefepime/flagyl to unasyn. change pain to norco10/morphine3. continue CLD. 04/22-patient was NPO for surgery recs. He was tolerating pain controlled with p.r.n. analgesia IV NPO. NG tube was removed yesterday. Continuing antibiotic Unasyn. Pending surgical eval today. Given amount of pain patient will likely need 1-2 more days Reviewed: Care Plan, H&P, Labs, Medications, Previous Orders, Radiology Changes from previous H/P or p: No Changes General: Per HPI Objective Vitals Vital Signs Date Time Temp Pulse Resp B/P (MAP) Pulse Ox O2 Delivery O2 Flow Rate FiO2 04/22/24 13:00 98.2 89 16 112/70 (84) 99 98.2 04/22/24 08:20 Room Air* 0 21 Intake/Output Intake and Output 04/22/24 07:00 Intake Total 1240 ml Output Total 200 ml Balance 1040 ml Intake Oral 940 ml IV Total 300 ml Output Urine Total 200 ml # Voids 3 Exam GEN: Healthy appearing, well-developed, NAD. HEENT: NC/AT; MMM. CV: RRR, no m/r/g. LUNGS: CTAB, no w/r/c. ABD: right nasal NG tube inserted with biliary output in the tube. Abdominal pain is improving but still has tenderness to infra umbilical and to the right of umbilicus. Bowel sounds are present. abdominal dressing CDI EXT: skin Warm, well perfused. no rashes. No clubbing, cyanosis, or edema. NEURO: Ambulating with no limitations. No focal deficits. General Appearance: Alert, Cooperative, No acute distress HEENT: Atraumatic, PERRLA, EOMI, Mucous membr. moist/pink Neck: Supple Lungs: Clear to auscultation, Normal air movement Cardiovascular: Regular rate, Normal S1, Normal S2, No murmurs, Gallops, Rubs Abdomen: Normal bowel sounds, Soft, No tenderness Neuro: Cranial nerves 3-12 NL Psych/Mental Status: Mental status NL Medications Current Medications Medications Dose Ordered Sig/Yasmany Route Start Time Stop Time Status Last Admin Dose Admin Pantoprazole Sodium 40 mg DAILY IV 04/11/24 10:00 04/22/24 10:06 40 MG Ondansetron HCl 4 mg Q4HPRN PRN IV 04/10/24 18:45 04/15/24 20:00 4 MG Diagnostic Test (Pha) 1 strip Q6HR 04/14/24 00:00 04/22/24 11:58 1 STRIP Insulin Human Regular FOLLOW SLIDING SCALE Q6HR SC 04/14/24 00:00 04/17/24 12:34 2 UNITS Dextrose 50 ml UD IV 04/14/24 00:00 Amino Acids 0 ml @ 0 mls/hr PER PHARMACY IV 04/16/24 11:00 Sodium Chloride 10 ml QSHIFT@10,22 IV 04/16/24 22:00 04/22/24 10:06 10 ML Acetaminophen/ Hydrocodone Bitart 1 tab Q4HP PRN PO 04/21/24 11:30 04/22/24 12:27 1 TAB Ampicillin Sodium/ Sulbactam Sodium 3 gm/Sodium Chloride 100 ml @ 100 mls/hr Q6H IV 04/21/24 11:45 04/22/24 12:12 100 MLS/HR Hydromorphone HCl 0.5 mg Q3HPRN PRN IV 04/21/24 18:15 04/22/24 04:23 0.5 MG Amino Acids/ Electrolytes/ Dextrose 2,000 ml @ 41 mls/hr DAILY@2200 IV 04/21/24 22:00 04/22/24 21:59 04/21/24 22:41 41 MLS/HR Fat Emulsion Intravenous 100 ml/Sodium Chloride 50 meq/ Potassium Chloride 20 meq/ Potassium Acetate 20 meq/Calcium Gluconate 2.3 meq/ Magnesium Sulfate 24 meq/ Multivitamins 10 ml/Chromium/ Copper/Manganese/ Zinc 1 ml/Amino Acids/Dextrose/ Purified Water 1,354.4462 ml @ 56 mls/hr [id number] IV 04/22/24 22:00 04/23/24 21:59 Laboratory Results Laboratory Tests 04/22/24 06:19 Chemistry Test 04/22/24 06:19 Albumin 3.5 g/dL (3.2-4.8) Calcium Level 9.1 mg/dL (8.7-10.4) Magnesium Level 1.7 mg/dL (1.6-2.6) Phosphorus Level 3.0 mg/dL (2.4-5.1) Total Protein 5.9 g/dL (5.7-8.2) LFT Test 04/22/24 06:19 Alanine Aminotransferase (ALT) 31 U/L (7-40) Alkaline Phosphatase 97 U/L (46-116) Aspartate Amino Transferase (AST) 24 U/L (13-40) Total Bilirubin 0.4 mg/dL (0.2-1.0) Urinalysis Test 04/10/24 16:40 Urine Color Yellow (Yellow) Urine Clarity Clear (Clear) Urine pH 5.5 (5.0-9.0) Urine Specific [place] 1.030 (1.001-1.035) Urine Protein Trace (Negative) H Urine Ketones 1+ (Negative) H Urine Blood 2+ /uL (Negative) H Urine Nitrite Negative (Negative) Urine Bilirubin Negative (Negative) Urine Urobilinogen Normal mg/dL (Negative) Urine Leukocyte Esterase Negative /uL (Negative) Urine RBC 42 /hpf (0 - 3) Urine Microscopic WBC 2 /HPF (0-3) Urine Squamous Epithelial Cells Few /hpf (<5) Urine Bacteria None seen /hpf (None Seen) Urine Glucose Normal mg/dL (Normal) Labs and/or images reviewed: Labs reviewed by me, Image(s) reviewed by me Assessment/Plan Assessment/Plan 04/22-patient was NPO for surgery recs. He was tolerating pain controlled with p.r.n. analgesia IV NPO. NG tube was removed yesterday. Continuing antibiotic Unasyn. Pending surgical eval today. Given amount of pain patient will likely need 1-2 more days Large bowel/colonic obstruction due to gastric adenocarcinoma colonic mass (transverse colon), colorectal adenocarcinoma mass, s/p colectomy with primary anastomosis and adhesion lysis. Expected postop ileus, likely Intractable nausea and vomiting Intractable abdominal pain Thrombosis, superficial veins, left basilic and cephalic Cholelithiasis Gastric ulcer Cachexia Sliding hiatal hernia History of cholelithiasis Hepatic cyst - GI consulted-plan for colonoscopy showing large mass in distal transverse colon, near splenic flexure - General surge consulted-we will be following peripherally, agreed with colonoscopy - colonoscopy on 04/13 which finds large obstructing mass with apple-core lesion - NG tube inserted again with surgery on 04/15 . prior NG tube removed 04/13 (prior NG tube with intermittent suction on low pressure ) - postop NG tube removed on 04/21 -small-bowel series barium 04/20 is normal, normal transition time with good passage of contrast through primary anastomosis. - repeat KUB on 04/21 showing concern for ileus - PICC line and TPN , status post IV fluid hydration. - Protonix 40 IV daily - surgery following. - partial colectomy 04/16/23, primary anastomosis - prn analgesia - NPO. continue TPN. Diet NPO - TPN continued DVT prophylaxis-Lovenox GI prophylaxis-Protonix IV daily Medsurg Full code Plan discussed with: Patient My Orders Orders - ZOHREH VELIZ MD Procedure Category Date Status Time Amino Acid Infusion PHA 04/21/24 In Process In D10w (Clinimix 4. 22:00 Clinimix Per Pharmacy [facility] 04/21/24 In Process 23:33 Amino Acid PHA 04/22/24 In Process Infusion... W/Fat 22:00 Comprehensive LAB 04/23/24 Verified Metabolic Panel 05:00 Phosphorus LAB 04/23/24 Verified 05:00 Magnesium LAB 04/23/24 Verified 05:00 Tpn Per Pharmacy [facility] 04/22/24 In Process 22:00 Date of Service: Apr 22, 2024 Billing Provider: ZOHREH VELIZ MD Common Visit Codes: [id number] INP/OBS CARE(HIGH) ZOHREH VELIZ MD Apr 22, 2024 14:27
[2024-04-22] MEDS: [UNRECOGNIZED DRUG - OTHER] IV NR (22:03)
[2024-04-22] MEDS: SODIUM CHLORIDE IV NR (22:03)
[2024-04-22] MEDS: FAT EMULSION IV NR (22:03)
[2024-04-22] MEDS: POTASSIUM CHLORIDE IV NR (22:03)
[2024-04-23] VITALS (7 sets, daily range): BP systolic 116–124; BP diastolic 65–74; PULSE 85–102; RESP 16–18; TEMP 98.2–98.9; O2SAT 93–100
[2024-04-23 06:38] LABS: Basophils # (auto) 0 10 ^3/uL (0-0.2); Basophils % (auto) 0.3 % (0.0-2.0); Eosinophils # (auto) 0.4 10 ^3/uL (0-0.8); Eosinophils % (auto) 3.5 % (0.0-7.0); Hematocrit 32.3 % (41.0-53.0); Hemoglobin 11.3 g/dL (13.5-17.5); Lymphocytes # (auto) 0.6 10 ^3/uL (0.4-5.4); Lymphocytes % (auto) 5.5 % (10.0-50.0); Mean Corpuscular Hgb Conc. 34.9 g/dL (32.0-36.0); Monocytes # (auto) 0.6 10 ^3/uL (0-1.3); Monocytes % (auto) 5.9 % (0.0-12.0); Neutrophils # (auto) 9.3 10 ^3/uL (1.6-8.6); Neutrophils % (auto) 84.8 % (37.0-80.0); Platelet Count (auto) 284 10^3/uL (140-450); Red Blood Cells 3.76 10^6/uL (4.5-5.90); Red Cell Distribution Width 14.8 % (11.8-14.3); White Blood Cell 10.9 10^3/uL (4.4-10.8)
[2024-04-23 06:49] LABS: Alanine Aminotransferase 24 U/L (7-40); Albumin 3.4 g/dL (3.2-4.8); Alkaline Phosphatase 90 U/L (46-116); Anion Gap 6 (5-15); Aspartate Aminotransferase 17 U/L (13-40); BUN/Creatinine Ratio 26.5 (10.0-20.0); Blood Urea Nitrogen 18 mg/dL (9-23); Calcium 8.9 mg/dL (8.7-10.4); Carbon Dioxide 30 mmol/L (20-31); Chloride 100 mmol/L (98-107); Magnesium 1.8 mg/dL (1.6-2.6); Potassium 3.8 mmol/L (3.5-5.1); Total Protein 5.8 g/dL (5.7-8.2)
[2024-04-23 06:50] LABS: Phosphorus 3.7 mg/dL (2.4-5.1)
[2024-04-23 06:51] LABS: Bilirubin, Total 0.3 mg/dL (0.2-1.0); Glucose 111 mg/dL (74-106); Sodium 136 mmol/L (136-145)
--- NOTE | 2024-04-23 12:58 | DVHPN2 ---
Progress Note Date Seen: Apr 23, 2024 Has the PT tested + for MRSA If YES, has PT been informed?: Yes Medical Necessity Reason Pt with a Central, PICC or Fol: No Objective vital signs Vital Sign Date Time Temp Pulse Resp B/P (MAP) Pulse Ox O2 Delivery O2 Flow Rate FiO2 04/23/24 08:40 98.3 89 16 122/72 (89) 96 98.3 04/23/24 08:00 Room Air* 0 21 Total Intake and Output 04/22/24 04/22/24 04/23/24 15:00 23:00 07:00 Intake Total 200 ml 200 ml Output Total 300 ml Balance 200 ml -100 ml medications Current Medications Medications Dose Ordered Sig/Yasmany Route Start Time Stop Time Status Last Admin Dose Admin Pantoprazole Sodium 40 mg DAILY IV 04/11/24 10:00 04/23/24 10:42 40 MG Ondansetron HCl 4 mg Q4HPRN PRN IV 04/10/24 18:45 04/15/24 20:00 4 MG Diagnostic Test (Pha) 1 strip Q6HR 04/14/24 00:00 04/23/24 12:14 1 STRIP Insulin Human Regular FOLLOW SLIDING SCALE Q6HR SC 04/14/24 00:00 04/23/24 12:18 2 UNITS Dextrose 50 ml UD IV 04/14/24 00:00 Amino Acids 0 ml @ 0 mls/hr PER PHARMACY IV 04/16/24 11:00 Sodium Chloride 10 ml QSHIFT@10,22 IV 04/16/24 22:00 04/23/24 10:00 10 ML Acetaminophen/ Hydrocodone Bitart 1 tab Q4HP PRN PO 04/21/24 11:30 04/23/24 10:41 1 TAB Ampicillin Sodium/ Sulbactam Sodium 3 gm/Sodium Chloride 100 ml @ 100 mls/hr Q6H IV 04/21/24 11:45 04/23/24 12:47 100 MLS/HR Hydromorphone HCl 0.5 mg Q3HPRN PRN IV 04/21/24 18:15 04/22/24 04:23 0.5 MG Fat Emulsion Intravenous 100 ml/Sodium Chloride 50 meq/ Potassium Chloride 20 meq/ Potassium Acetate 20 meq/Calcium Gluconate 2.3 meq/ Magnesium Sulfate 24 meq/ Multivitamins 10 ml/Chromium/ Copper/Manganese/ Zinc 1 ml/Amino Acids/Dextrose/ Purified Water 1,354.4462 ml @ 56 mls/hr [id number] IV 04/22/24 22:00 04/23/24 21:59 04/22/24 22:03 56 MLS/HR Fat Emulsion Intravenous 150 ml/Sodium Chloride 50 meq/ Potassium Chloride 40 meq/ Potassium Acetate 20 meq/Calcium Gluconate 2.3 meq/ Magnesium Sulfate 24 meq/ Multivitamins 10 ml/Chromium/ Copper/Manganese/ Zinc 1 ml/Amino Acids/Dextrose/ Purified Water 1,614.4462 ml @ 67 mls/hr Q24H6M IV 04/23/24 22:00 04/24/24 21:59 laboratory and microbiology Laboratory Tests 04/23/24 06:10 Test 04/23/24 06:10 Range/Units Serum Glucose 111 H 74-106 mg/dL Problem List/Assessment/Plan Problem List/Assessment/Plan AFEBRILE VSS ABD SOFT LESS PAIN LESS DISTENDED FLATUS + BM + S/P COLON RESECTION HOLD CLEAR LIQUIDS DUE TO ABD PAIN SEC TO ILEUS PICK LINE FOR TPN NURSE AT BEDSIDE GASTROGRAFIN STUDY NO SBO AND FUNCTIONAL COLONIC ANASTOMOSIS CLOSE OBSERVATION Plan discussed with: Patient My Orders My Orders Orders - BOB HILTON MD Procedure Category Date Status Time Clear Liq Diet DIET 04/23/24 Transmitted Lunch BOB HILTON MD Apr 23, 2024 12:58
--- NOTE | 2024-04-23 12:59 | DVHPN2 ---
Progress Note Date Seen: Apr 23, 2024 Has the PT tested + for MRSA If YES, has PT been informed?: Yes Medical Necessity Reason Pt with a Central, PICC or Fol: No Objective vital signs Vital Sign Date Time Temp Pulse Resp B/P (MAP) Pulse Ox O2 Delivery O2 Flow Rate FiO2 04/23/24 08:40 98.3 89 16 122/72 (89) 96 98.3 04/23/24 08:00 Room Air* 0 21 Total Intake and Output 04/22/24 04/22/24 04/23/24 15:00 23:00 07:00 Intake Total 200 ml 200 ml Output Total 300 ml Balance 200 ml -100 ml medications Current Medications Medications Dose Ordered Sig/Yasmany Route Start Time Stop Time Status Last Admin Dose Admin Pantoprazole Sodium 40 mg DAILY IV 04/11/24 10:00 04/23/24 10:42 40 MG Ondansetron HCl 4 mg Q4HPRN PRN IV 04/10/24 18:45 04/15/24 20:00 4 MG Diagnostic Test (Pha) 1 strip Q6HR 04/14/24 00:00 04/23/24 12:14 1 STRIP Insulin Human Regular FOLLOW SLIDING SCALE Q6HR SC 04/14/24 00:00 04/23/24 12:18 2 UNITS Dextrose 50 ml UD IV 04/14/24 00:00 Amino Acids 0 ml @ 0 mls/hr PER PHARMACY IV 04/16/24 11:00 Sodium Chloride 10 ml QSHIFT@10,22 IV 04/16/24 22:00 04/23/24 10:00 10 ML Acetaminophen/ Hydrocodone Bitart 1 tab Q4HP PRN PO 04/21/24 11:30 04/23/24 10:41 1 TAB Ampicillin Sodium/ Sulbactam Sodium 3 gm/Sodium Chloride 100 ml @ 100 mls/hr Q6H IV 04/21/24 11:45 04/23/24 12:47 100 MLS/HR Hydromorphone HCl 0.5 mg Q3HPRN PRN IV 04/21/24 18:15 04/22/24 04:23 0.5 MG Fat Emulsion Intravenous 100 ml/Sodium Chloride 50 meq/ Potassium Chloride 20 meq/ Potassium Acetate 20 meq/Calcium Gluconate 2.3 meq/ Magnesium Sulfate 24 meq/ Multivitamins 10 ml/Chromium/ Copper/Manganese/ Zinc 1 ml/Amino Acids/Dextrose/ Purified Water 1,354.4462 ml @ 56 mls/hr [id number] IV 04/22/24 22:00 04/23/24 21:59 04/22/24 22:03 56 MLS/HR Fat Emulsion Intravenous 150 ml/Sodium Chloride 50 meq/ Potassium Chloride 40 meq/ Potassium Acetate 20 meq/Calcium Gluconate 2.3 meq/ Magnesium Sulfate 24 meq/ Multivitamins 10 ml/Chromium/ Copper/Manganese/ Zinc 1 ml/Amino Acids/Dextrose/ Purified Water 1,614.4462 ml @ 67 mls/hr Q24H6M IV 04/23/24 22:00 04/24/24 21:59 laboratory and microbiology Laboratory Tests 04/23/24 06:10 Test 04/23/24 06:10 Range/Units Serum Glucose 111 H 74-106 mg/dL Problem List/Assessment/Plan Problem List/Assessment/Plan AFEBRILE VSS ABD SOFT LESS PAIN LESS DISTENDED FLATUS + BM + S/P COLON RESECTION ALLOW CLEAR LIQUIDS TERRY NURSE AT BEDSIDE CLOSE OBSERVATION Plan discussed with: Patient My Orders My Orders Orders - BOB HILTON MD Procedure Category Date Status Time Clear Liq Diet DIET 04/23/24 Transmitted Lunch BOB HILTON MD Apr 23, 2024 12:59
--- NOTE | 2024-04-23 13:13 | DVHPN2 ---
Progress Note Date Seen: Apr 23, 2024 Resident Creating Document: JOANNA WEBB RESIDENT Has the PT tested + for MRSA If YES, has PT been informed?: Yes Medical Necessity Reason Pt with a Central, PICC or Fol: No Subjective Review of Systems Post op Day # 8 S/P laparotomy Resection of transverse colon mass partial colectomy with primary anastomosis lysis of adhesions; suspected previous partial colectomy Had bowel movements Objective vital signs Vital Sign Date Time Temp Pulse Resp B/P (MAP) Pulse Ox O2 Delivery O2 Flow Rate FiO2 04/23/24 08:40 98.3 89 16 122/72 (89) 96 98.3 04/23/24 08:00 Room Air* 0 21 Total Intake and Output 04/22/24 04/22/24 04/23/24 15:00 23:00 07:00 Intake Total 200 ml 200 ml Output Total 300 ml Balance 200 ml -100 ml medications Current Medications Medications Dose Ordered Sig/Yasmany Route Start Time Stop Time Status Last Admin Dose Admin Pantoprazole Sodium 40 mg DAILY IV 04/11/24 10:00 04/23/24 10:42 40 MG Ondansetron HCl 4 mg Q4HPRN PRN IV 04/10/24 18:45 04/15/24 20:00 4 MG Diagnostic Test (Pha) 1 strip Q6HR 04/14/24 00:00 04/23/24 12:14 1 STRIP Insulin Human Regular FOLLOW SLIDING SCALE Q6HR SC 04/14/24 00:00 04/23/24 12:18 2 UNITS Dextrose 50 ml UD IV 04/14/24 00:00 Amino Acids 0 ml @ 0 mls/hr PER PHARMACY IV 04/16/24 11:00 Sodium Chloride 10 ml QSHIFT@10,22 IV 04/16/24 22:00 04/23/24 10:00 10 ML Acetaminophen/ Hydrocodone Bitart 1 tab Q4HP PRN PO 04/21/24 11:30 04/23/24 10:41 1 TAB Ampicillin Sodium/ Sulbactam Sodium 3 gm/Sodium Chloride 100 ml @ 100 mls/hr Q6H IV 04/21/24 11:45 04/23/24 12:47 100 MLS/HR Hydromorphone HCl 0.5 mg Q3HPRN PRN IV 04/21/24 18:15 04/22/24 04:23 0.5 MG Fat Emulsion Intravenous 100 ml/Sodium Chloride 50 meq/ Potassium Chloride 20 meq/ Potassium Acetate 20 meq/Calcium Gluconate 2.3 meq/ Magnesium Sulfate 24 meq/ Multivitamins 10 ml/Chromium/ Copper/Manganese/ Zinc 1 ml/Amino Acids/Dextrose/ Purified Water 1,354.4462 ml @ 56 mls/hr [id number] IV 04/22/24 22:00 04/23/24 21:59 04/22/24 22:03 56 MLS/HR Fat Emulsion Intravenous 150 ml/Sodium Chloride 50 meq/ Potassium Chloride 40 meq/ Potassium Acetate 20 meq/Calcium Gluconate 2.3 meq/ Magnesium Sulfate 24 meq/ Multivitamins 10 ml/Chromium/ Copper/Manganese/ Zinc 1 ml/Amino Acids/Dextrose/ Purified Water 1,614.4462 ml @ 67 mls/hr Q24H6M IV 04/23/24 22:00 04/24/24 21:59 Examination GEN: Healthy appearing, well-developed, NAD. HEENT: NC/AT; MMM. CV: RRR, no m/r/g. LUNGS: CTAB, no w/r/c. ABD: Soft mild tenderness EXT: skin Warm, well perfused. no rashes. No clubbing, cyanosis, or edema. NEURO: Ambulating with no limitations. No focal deficits. laboratory and microbiology Laboratory Tests 04/23/24 06:10 Test 04/23/24 06:10 Range/Units Serum Glucose 111 H 74-106 mg/dL Problem List/Assessment/Plan Problem List/Assessment/Plan (1) Adenocarcinoma of transverse colon (2) Intractable abdominal pain (3) Abnormal finding on CT scan (4) Nausea and vomiting (5) Cholelithiasis Plan NG tube was DC'd Start clear liquid diet as tolerated Gastrografin study: No small bowel obstruction and functional colonic anastomosis. Ambulate patient as tolerated Supportive care IV antibiotics PICC line for TPN Patient had bowel movements Advanced diet as tolerated Oncology follow up Surgical follow up Thank you so much for the opportunity to consult on your patient. GI team will follow the patient. In case of any questions or concerns please feel free to reach out. Case discussed with Dr. Mat Henderson. The patient and caregiver team agreed to the plan. Plan discussed with: Patient JOANNA WEBB RESIDENT Apr 23, 2024 13:13
--- NOTE | 2024-04-23 17:29 | DVHPN2 ---
Subjective Update 04/23 04/11--patient's nausea is improving, has a right nasal NG tube inserted with biliary output in the tube. Patient had just returned from going to the bathroom. Abdominal pain is improving but still has tenderness to infra umbilical and to the right of umbilicus. Bowel sounds are present. Patient is having diarrheal watery BM. GI has been consulted and is planning to do a colonoscopy. Prep tomorrow. 04/12-continues to have a right nasal NG tube causing discomfort. GI following with plan to do bowel prep today with colonoscopy tomorrow. Possible removal of NG tube tomorrow pending GI review. Patient is doing okay otherwise. The bowel session is resolving. Patient was passing watery stools. 04/13-CT abdomen and pelvis repeat today showing no evidence of obstruction, there is ileus, focal thickening in the proximal small bowel mucosa and distal terminal ileum. Done overnight bowel prep for colonoscopy. GI taken for colonoscopy and findings large mass in distal transverse colon near the splenic flexure. Surgery is aware we will continue admission. NG tube removed. We will try clear liquid diet. 04/14-patient has colonoscopy yesterday 04/13 which finds large obstructing mass with apple-core lesion, surgery is aware and following. Patient is on TPN via PICC line and NPO with ice chips only. 04/15 yesterday biopsy showed colorectal adenocarcinoma. plan for surgery today likely. Oncology following. [facility] offered was patient declines, he prefers to be followed up here in the [facility] [place]. 04/16 - patient is pod 1 . ng tube re-inserted during surgery., he is in significant pain, has NG tube inserted , abdominal wall binder, surgical dressings are CDI. We will continue p.r.n. pain control. Left arm superficial basilic and cephalic thrombosis, PICC line inserted right hand we will start TPN today. Surgery and and oncology and GI following. 04/17 - 04/18 weekend coverage. no significant notable events 04/19 - patient is imporving. BS hypoactive present, passing gas x2 this AM. NG tube in place still, abd dressing CDI. patient asking for diet and NG removal, will defer to surgery. CPT. cont TPN. per surgery CLD w NG tube clamp, reassess am. 04/20- tolerating CLD. still aabd pain, surgery plan SBS w barium, goes well. pending surgery re-eval NG tube need. ooncology following, pending colectomy biopsy results for decision for possible treatmnet options. increased opiates prn for pain control. 04/21 - tolerating CLD. barium series passed yesterday. Surgery to eval, expecting NG removal today, will f/u with surgery. change abx cefepime/flagyl to unasyn. change pain to norco10/morphine3. continue CLD. 04/22 - patient was NPO for surgery recs. He was tolerating pain controlled with p.r.n. analgesia IV NPO. NG tube was removed yesterday. Continuing antibiotic Unasyn. Pending surgical eval today. Given amount of pain patient will likely need 1-2 more days 04/23 - NG tube has been out, patient is on clear liquid diet, surgery weaning off TPN as patient tolerates CLD. Continues to have abdominal pain requiring some p.r.n. analgesia, no IV analgesia being used for past 24 hours. Surgery following. Reviewed: Care Plan, H&P, Labs, Medications, Previous Orders, Radiology Changes from previous H/P or p: No Changes General: Per HPI Objective Vitals Vital Signs Date Time Temp Pulse Resp B/P (MAP) Pulse Ox O2 Delivery O2 Flow Rate FiO2 04/23/24 12:40 98.7 97 16 118/69 (85) 93 98.7 04/23/24 08:00 Room Air* 0 21 Intake/Output Intake and Output 04/23/24 07:00 Intake Total 400 ml Output Total 300 ml Balance 100 ml Intake Oral 0 ml IV Total 400 ml Output Urine Total 300 ml # Voids 2 # Bowel Movements 1 Exam GEN: Healthy appearing, well-developed, NAD. HEENT: NC/AT; MMM. CV: RRR, no m/r/g. LUNGS: CTAB, no w/r/c. ABD: right nasal NG tube removed. . Abdominal pain is improving but still has tenderness around surgical regions. Bowel sounds are hypoactive. abdominal dressing CDI and binder in place EXT: skin Warm, well perfused. no rashes. No clubbing, cyanosis, or edema. NEURO: Ambulating with no limitations. No focal deficits. Neuro: Cranial nerves 3-12 NL Psych/Mental Status: Mental status NL Medications Current Medications Medications Dose Ordered Sig/Yasmany Route Start Time Stop Time Status Last Admin Dose Admin Pantoprazole Sodium 40 mg DAILY IV 04/11/24 10:00 04/23/24 10:42 40 MG Ondansetron HCl 4 mg Q4HPRN PRN IV 04/10/24 18:45 04/15/24 20:00 4 MG Diagnostic Test (Pha) 1 strip Q6HR 04/14/24 00:00 04/23/24 17:10 1 STRIP Insulin Human Regular FOLLOW SLIDING SCALE Q6HR SC 04/14/24 00:00 04/23/24 12:18 2 UNITS Dextrose 50 ml UD IV 04/14/24 00:00 Amino Acids 0 ml @ 0 mls/hr PER PHARMACY IV 04/16/24 11:00 Sodium Chloride 10 ml QSHIFT@10,22 IV 04/16/24 22:00 04/23/24 10:00 10 ML Acetaminophen/ Hydrocodone Bitart 1 tab Q4HP PRN PO 04/21/24 11:30 04/23/24 15:26 1 TAB Ampicillin Sodium/ Sulbactam Sodium 3 gm/Sodium Chloride 100 ml @ 100 mls/hr Q6H IV 04/21/24 11:45 04/23/24 12:47 100 MLS/HR Hydromorphone HCl 0.5 mg Q3HPRN PRN IV 04/21/24 18:15 04/22/24 04:23 0.5 MG Fat Emulsion Intravenous 100 ml/Sodium Chloride 50 meq/ Potassium Chloride 20 meq/ Potassium Acetate 20 meq/Calcium Gluconate 2.3 meq/ Magnesium Sulfate 24 meq/ Multivitamins 10 ml/Chromium/ Copper/Manganese/ Zinc 1 ml/Amino Acids/Dextrose/ Purified Water 1,354.4462 ml @ 56 mls/hr [id number] IV 04/22/24 22:00 04/23/24 21:59 04/22/24 22:03 56 MLS/HR Fat Emulsion Intravenous 150 ml/Sodium Chloride 50 meq/ Potassium Chloride 40 meq/ Potassium Acetate 20 meq/Calcium Gluconate 2.3 meq/ Magnesium Sulfate 24 meq/ Multivitamins 10 ml/Chromium/ Copper/Manganese/ Zinc 1 ml/Amino Acids/Dextrose/ Purified Water 1,614.4462 ml @ 67 mls/hr Q24H6M IV 04/23/24 22:00 04/24/24 21:59 Laboratory Results Laboratory Tests 04/23/24 06:10 Chemistry Test 04/23/24 06:10 Albumin 3.4 g/dL (3.2-4.8) Calcium Level 8.9 mg/dL (8.7-10.4) Magnesium Level 1.8 mg/dL (1.6-2.6) Phosphorus Level 3.7 mg/dL (2.4-5.1) Total Protein 5.8 g/dL (5.7-8.2) LFT Test 04/23/24 06:10 Alanine Aminotransferase (ALT) 24 U/L (7-40) Alkaline Phosphatase 90 U/L (46-116) Aspartate Amino Transferase (AST) 17 U/L (13-40) Total Bilirubin 0.3 mg/dL (0.2-1.0) Urinalysis Test 04/10/24 16:40 Urine Color Yellow (Yellow) Urine Clarity Clear (Clear) Urine pH 5.5 (5.0-9.0) Urine Specific [place] 1.030 (1.001-1.035) Urine Protein Trace (Negative) H Urine Ketones 1+ (Negative) H Urine Blood 2+ /uL (Negative) H Urine Nitrite Negative (Negative) Urine Bilirubin Negative (Negative) Urine Urobilinogen Normal mg/dL (Negative) Urine Leukocyte Esterase Negative /uL (Negative) Urine RBC 42 /hpf (0 - 3) Urine Microscopic WBC 2 /HPF (0-3) Urine Squamous Epithelial Cells Few /hpf (<5) Urine Bacteria None seen /hpf (None Seen) Urine Glucose Normal mg/dL (Normal) Labs and/or images reviewed: Labs reviewed by me, Image(s) reviewed by me Assessment/Plan Assessment/Plan 04/23 - NG tube has been out, patient is on clear liquid diet, surgery weaning off TPN as patient tolerates CLD. Continues to have abdominal pain requiring some p.r.n. analgesia, no IV analgesia being used for past 24 hours. Surgery following. Large bowel/colonic obstruction due to gastric adenocarcinoma colonic mass (transverse colon), colorectal adenocarcinoma mass, s/p colectomy with primary anastomosis and adhesion lysis. Expected postop ileus, likely Intractable nausea and vomiting Intractable abdominal pain Thrombosis, superficial veins, left basilic and cephalic Cholelithiasis Gastric ulcer Cachexia Sliding hiatal hernia History of cholelithiasis Hepatic cyst - GI consulted-plan for colonoscopy showing large mass in distal transverse colon, near splenic flexure - General surge consulted-we will be following peripherally, agreed with colonoscopy - colonoscopy on 04/13 which finds large obstructing mass with apple-core lesion - NG tube inserted again with surgery on 04/15 . prior NG tube removed 04/13 (prior NG tube with intermittent suction on low pressure ) - postop NG tube removed on 04/21 -small-bowel series barium 04/20 is normal, normal transition time with good passage of contrast through primary anastomosis. - repeat KUB on 04/21 showing concern for ileus - PICC line and TPN , status post IV fluid hydration. - Protonix 40 IV daily - surgery following. - partial colectomy 04/16/23, primary anastomosis - prn analgesia - NPO. continue TPN. Diet CLD- TPN weaning DVT prophylaxis-Lovenox GI prophylaxis-Protonix IV daily Medsurg Full code Plan discussed with: Patient My Orders Orders - ZOHREH VELIZ MD Procedure Category Date Status Time Amino Acid PHA 04/23/24 In Process Infusion... W/Fat 22:00 Comprehensive LAB 04/24/24 Verified Metabolic Panel 04:00 Phosphorus LAB 04/24/24 Verified 04:00 Magnesium LAB 04/24/24 Verified 04:00 Triglycerides LAB 04/24/24 Verified 04:00 Tpn Per Pharmacy [facility] 04/23/24 In Process 22:00 Date of Service: Apr 23, 2024 Billing Provider: ZOHREH VELIZ MD Common Visit Codes: [id number] INP/OBS CARE(HIGH) ZOHREH VELIZ MD Apr 23, 2024 17:29
[2024-04-23] MEDS: TPN PER PHARMACY IV NR (22:17)
[2024-04-24] VITALS (7 sets, daily range): BP systolic 110–149; BP diastolic 61–89; PULSE 83–99; RESP 18–20; TEMP 98.2–98.7; O2SAT 95–97
[2024-04-24 07:10] LABS: Alanine Aminotransferase 27 U/L (7-40); Albumin 3.6 g/dL (3.2-4.8); Alkaline Phosphatase 109 U/L (46-116); Anion Gap 6 (5-15); Aspartate Aminotransferase 23 U/L (13-40); BUN/Creatinine Ratio 19.7 (10.0-20.0); Blood Urea Nitrogen 14 mg/dL (9-23); Calcium 9.2 mg/dL (8.7-10.4); Chloride 99 mmol/L (98-107); Glucose 98 mg/dL (74-106); Magnesium 1.8 mg/dL (1.6-2.6); Potassium 4.2 mmol/L (3.5-5.1); Sodium 138 mmol/L (136-145); Total Protein 6.2 g/dL (5.7-8.2); Triglycerides 75 mg/dL (< 150)
[2024-04-24 07:11] LABS: Phosphorus 3.1 mg/dL (2.4-5.1)
[2024-04-24 07:13] LABS: Bilirubin, Total 0.2 mg/dL (0.2-1.0); Carbon Dioxide 33 mmol/L (20-31)
--- NOTE | 2024-04-24 09:29 | DVHPN2 ---
Progress Note Date Seen: Apr 24, 2024 Has the PT tested + for MRSA If YES, has PT been informed?: Yes Medical Necessity Reason Pt with a Central, PICC or Fol: No Objective vital signs Vital Sign Date Time Temp Pulse Resp B/P (MAP) Pulse Ox O2 Delivery O2 Flow Rate FiO2 04/24/24 08:58 98.5 83 18 110/61 (77) 96 98.5 04/24/24 08:00 Room Air* 0 21 Total Intake and Output 04/23/24 04/23/24 04/24/24 15:00 23:00 07:00 Intake Total 100 ml 659 ml 700 ml Output Total 576 ml 800 ml Balance 100 ml 83 ml -100 ml medications Current Medications Medications Dose Ordered Sig/Yasmany Route Start Time Stop Time Status Last Admin Dose Admin Pantoprazole Sodium 40 mg DAILY IV 04/11/24 10:00 04/23/24 10:42 40 MG Ondansetron HCl 4 mg Q4HPRN PRN IV 04/10/24 18:45 04/15/24 20:00 4 MG Diagnostic Test (Pha) 1 strip Q6HR 04/14/24 00:00 04/24/24 05:36 1 STRIP Insulin Human Regular FOLLOW SLIDING SCALE Q6HR SC 04/14/24 00:00 04/23/24 12:18 2 UNITS Dextrose 50 ml UD IV 04/14/24 00:00 Amino Acids 0 ml @ 0 mls/hr PER PHARMACY IV 04/16/24 11:00 Sodium Chloride 10 ml QSHIFT@10,22 IV 04/16/24 22:00 04/23/24 22:07 10 ML Acetaminophen/ Hydrocodone Bitart 1 tab Q4HP PRN PO 04/21/24 11:30 04/24/24 04:35 1 TAB Ampicillin Sodium/ Sulbactam Sodium 3 gm/Sodium Chloride 100 ml @ 100 mls/hr Q6H IV 04/21/24 11:45 04/24/24 04:35 100 MLS/HR Hydromorphone HCl 0.5 mg Q3HPRN PRN IV 04/21/24 18:15 04/22/24 04:23 0.5 MG Fat Emulsion Intravenous 150 ml/Sodium Chloride 50 meq/ Potassium Chloride 40 meq/ Potassium Acetate 20 meq/Calcium Gluconate 2.3 meq/ Magnesium Sulfate 24 meq/ Multivitamins 10 ml/Chromium/ Copper/Manganese/ Zinc 1 ml/Amino Acids/Dextrose/ Purified Water 1,614.4462 ml @ 67 mls/hr Q24H6M IV 04/23/24 22:00 04/24/24 21:59 04/23/24 22:17 67 MLS/HR laboratory and microbiology Laboratory Tests 04/24/24 04:59 04/23/24 06:10 Test 04/24/24 04:59 Range/Units Serum Glucose 98 74-106 mg/dL Problem List/Assessment/Plan Problem List/Assessment/Plan AFEBRILE VSS ABD SOFT LESS PAIN LESS DISTENDED FLATUS + S/P COLON RESECTION TERRY CLEAR LIQUIDS ADVANCE TO FULL LIQUIDS Plan discussed with: Other My Orders My Orders Orders - BOB HILTON MD Procedure Category Date Status Time Clear Liq Diet DIET 04/23/24 Transmitted Lunch BOB HILTON MD Apr 24, 2024 09:29
[2024-04-24] MEDS: ACETAMINOPHEN 325 MG TAB PO PRN (10:34)
--- NOTE | 2024-04-24 12:29 | DVHPN2 ---
Reviewed: Care Plan, H&P, Labs, Medications, Previous Orders, Radiology Changes from previous H/P or p: No Changes General: Per HPI Objective Vitals Vital Signs Date Time Temp Pulse Resp B/P (MAP) Pulse Ox O2 Delivery O2 Flow Rate FiO2 04/24/24 08:58 98.5 83 18 110/61 (77) 96 98.5 04/24/24 08:00 Room Air* 0 21 Intake/Output Intake and Output 04/24/24 07:00 Intake Total 1459 ml Output Total 1376 ml Balance 83 ml Intake Oral 1159 ml IV Total 300 ml Output Urine Total 1376 ml # Bowel Movements 1 Neuro: Cranial nerves 3-12 NL Psych/Mental Status: Mental status NL Medications Current Medications Medications Dose Ordered Sig/Yasmany Route Start Time Stop Time Status Last Admin Dose Admin Pantoprazole Sodium 40 mg DAILY IV 04/11/24 10:00 04/24/24 10:33 40 MG Ondansetron HCl 4 mg Q4HPRN PRN IV 04/10/24 18:45 04/15/24 20:00 4 MG Sodium Chloride 10 ml QSHIFT@10,22 IV 04/16/24 22:00 04/24/24 10:00 10 ML Acetaminophen/ Hydrocodone Bitart 1 tab Q4HP PRN PO 04/21/24 11:30 04/24/24 04:35 1 TAB Ampicillin Sodium/ Sulbactam Sodium 3 gm/Sodium Chloride 100 ml @ 100 mls/hr Q6H IV 04/21/24 11:45 04/24/24 11:32 100 MLS/HR Hydromorphone HCl 0.5 mg Q3HPRN PRN IV 04/21/24 18:15 04/22/24 04:23 0.5 MG Acetaminophen 650 mg Q4HP PRN PO 04/24/24 10:15 04/24/24 10:34 650 MG Laboratory Results Laboratory Tests 04/23/24 06:10 04/24/24 04:59 Chemistry Test 04/24/24 04:59 Albumin 3.6 g/dL (3.2-4.8) Calcium Level 9.2 mg/dL (8.7-10.4) Magnesium Level 1.8 mg/dL (1.6-2.6) Phosphorus Level 3.1 mg/dL (2.4-5.1) Total Protein 6.2 g/dL (5.7-8.2) Lipid panel Test 04/24/24 04:59 Triglycerides Level 75 mg/dL (< 150) LFT Test 04/24/24 04:59 Alanine Aminotransferase (ALT) 27 U/L (7-40) Alkaline Phosphatase 109 U/L (46-116) Aspartate Amino Transferase (AST) 23 U/L (13-40) Total Bilirubin 0.2 mg/dL (0.2-1.0) Urinalysis Test 04/10/24 16:40 Urine Color Yellow (Yellow) Urine Clarity Clear (Clear) Urine pH 5.5 (5.0-9.0) Urine Specific [place] 1.030 (1.001-1.035) Urine Protein Trace (Negative) H Urine Ketones 1+ (Negative) H Urine Blood 2+ /uL (Negative) H Urine Nitrite Negative (Negative) Urine Bilirubin Negative (Negative) Urine Urobilinogen Normal mg/dL (Negative) Urine Leukocyte Esterase Negative /uL (Negative) Urine RBC 42 /hpf (0 - 3) Urine Microscopic WBC 2 /HPF (0-3) Urine Squamous Epithelial Cells Few /hpf (<5) Urine Bacteria None seen /hpf (None Seen) Urine Glucose Normal mg/dL (Normal) Labs and/or images reviewed: Labs reviewed by me, Image(s) reviewed by me Assessment/Plan Assessment/Plan Covering for Dr. Lopez Large bowel/colonic obstruction due to gastric adenocarcinoma colonic mass (transverse colon), colorectal adenocarcinoma mass, s/p colectomy with primary anastomosis and adhesion lysis. Expected postop ileus, likely Intractable nausea and vomiting Intractable abdominal pain Thrombosis, superficial veins, left basilic and cephalic Cholelithiasis Gastric ulcer Cachexia Sliding hiatal hernia History of cholelithiasis Hepatic cyst Continue current management Advanced to full liquid diet per surgeon Dr. Aly Henderson Plan discussed with: Patient Date of Service: Apr 24, 2024 Billing Provider: LUDY ESPINOZA MD Common Visit Codes: [id number] INP/OBS CARE(HIGH) LUDY ESPINOZA MD Apr 24, 2024 12:29
[2024-04-25] VITALS (8 sets, daily range): BP systolic 107–151; BP diastolic 57–83; PULSE 81–98; RESP 16–19; TEMP 98–98.9; O2SAT 93–97
--- NOTE | 2024-04-25 11:56 | DVHPN2 ---
Reviewed: Care Plan, H&P, Labs, Medications, Previous Orders, Radiology Changes from previous H/P or p: No Changes General: Per HPI Objective Vitals Vital Signs Date Time Temp Pulse Resp B/P (MAP) Pulse Ox O2 Delivery O2 Flow Rate FiO2 04/25/24 08:54 98.0 83 16 109/57 (74) 97 98.0 04/24/24 20:00 Room Air* 0 21 Intake/Output Intake and Output 04/25/24 06:59 Intake Total 2774 ml Output Total 302 ml Balance 2472 ml Intake Oral 1570 ml IV Total 1204 ml Output Urine Total 300 ml Stool Total 2 ml # Voids 4 Neuro: Cranial nerves 3-12 NL Psych/Mental Status: Mental status NL Medications Current Medications Medications Dose Ordered Sig/Yasmany Route Start Time Stop Time Status Last Admin Dose Admin Pantoprazole Sodium 40 mg DAILY IV 04/11/24 10:00 04/25/24 09:29 40 MG Ondansetron HCl 4 mg Q4HPRN PRN IV 04/10/24 18:45 04/15/24 20:00 4 MG Sodium Chloride 10 ml QSHIFT@10,22 IV 04/16/24 22:00 04/25/24 09:29 10 ML Acetaminophen/ Hydrocodone Bitart 1 tab Q4HP PRN PO 04/21/24 11:30 04/25/24 09:30 1 TAB Ampicillin Sodium/ Sulbactam Sodium 3 gm/Sodium Chloride 100 ml @ 100 mls/hr Q6H IV 04/21/24 11:45 04/25/24 05:45 100 MLS/HR Hydromorphone HCl 0.5 mg Q3HPRN PRN IV 04/21/24 18:15 04/22/24 04:23 0.5 MG Acetaminophen 650 mg Q4HP PRN PO 04/24/24 10:15 04/24/24 15:07 650 MG Laboratory Results Laboratory Tests 04/23/24 06:10 04/24/24 04:59 Urinalysis Test 04/10/24 16:40 Urine Color Yellow (Yellow) Urine Clarity Clear (Clear) Urine pH 5.5 (5.0-9.0) Urine Specific [place] 1.030 (1.001-1.035) Urine Protein Trace (Negative) H Urine Ketones 1+ (Negative) H Urine Blood 2+ /uL (Negative) H Urine Nitrite Negative (Negative) Urine Bilirubin Negative (Negative) Urine Urobilinogen Normal mg/dL (Negative) Urine Leukocyte Esterase Negative /uL (Negative) Urine RBC 42 /hpf (0 - 3) Urine Microscopic WBC 2 /HPF (0-3) Urine Squamous Epithelial Cells Few /hpf (<5) Urine Bacteria None seen /hpf (None Seen) Urine Glucose Normal mg/dL (Normal) Labs and/or images reviewed: Labs reviewed by me, Image(s) reviewed by me Assessment/Plan Assessment/Plan Covering for Dr. Lopez Large bowel/colonic obstruction due to gastric adenocarcinoma colonic mass (transverse colon), colorectal adenocarcinoma mass, s/p colectomy with primary anastomosis and adhesion lysis. Expected postop ileus, likely Intractable nausea and vomiting Intractable abdominal pain Thrombosis, superficial veins, left basilic and cephalic Cholelithiasis Gastric ulcer Cachexia Sliding hiatal hernia History of cholelithiasis Hepatic cyst Continue current management Advanced to full liquid diet per surgeon Dr. Aly Henderson Continue Current management Plan discussed with: Patient Date of Service: Apr 25, 2024 Billing Provider: LUDY ESPINOZA MD Common Visit Codes: [id number] INP/OBS CARE(HIGH) LUDY ESPINOZA MD Apr 25, 2024 11:56
[2024-04-25 13:21] LABS: Basophils # (auto) 0 10 ^3/uL (0-0.2); Basophils % (auto) 0.6 % (0.0-2.0); Eosinophils # (auto) 0.3 10 ^3/uL (0-0.8); Eosinophils % (auto) 3.5 % (0.0-7.0); Hematocrit 33.5 % (41.0-53.0); Hemoglobin 11.2 g/dL (13.5-17.5); Lymphocytes # (auto) 0.6 10 ^3/uL (0.4-5.4); Lymphocytes % (auto) 7.8 % (10.0-50.0); Mean Corpuscular Hemoglobin 28.5 pg (28.0-32.0); Mean Corpuscular Hgb Conc. 33.5 g/dL (32.0-36.0); Mean Corpuscular Volume 85.1 fL (80.0-100.0); Monocytes # (auto) 0.4 10 ^3/uL (0-1.3); Monocytes % (auto) 5.3 % (0.0-12.0); Neutrophils # (auto) 6.5 10 ^3/uL (1.6-8.6); Neutrophils % (auto) 82.8 % (37.0-80.0); Platelet Count (auto) 420 10^3/uL (140-450); Red Blood Cells 3.94 10^6/uL (4.5-5.90); Red Cell Distribution Width 14.9 % (11.8-14.3); White Blood Cell 7.9 10^3/uL (4.4-10.8)
[2024-04-25 13:38] LABS: Albumin 3.5 g/dL (3.2-4.8); Anion Gap 6 (5-15); Chloride 99 mmol/L (98-107); Glucose 102 mg/dL (74-106); Potassium 3.9 mmol/L (3.5-5.1); Sodium 137 mmol/L (136-145); Total Protein 6.3 g/dL (5.7-8.2)
[2024-04-25 13:46] LABS: Alanine Aminotransferase 54 U/L (7-40); Alkaline Phosphatase 130 U/L (46-116); Aspartate Aminotransferase 55 U/L (13-40); Bilirubin, Total 0.2 mg/dL (0.2-1.0); Blood Urea Nitrogen 9 mg/dL (9-23); Carbon Dioxide 32 mmol/L (20-31)
--- NOTE | 2024-04-25 21:22 | DVHPN2 ---
Progress Note Date Seen: Apr 25, 2024 Has the PT tested + for MRSA If YES, has PT been informed?: Yes Medical Necessity Reason Pt with a Central, PICC or Fol: No Objective vital signs Vital Sign Date Time Temp Pulse Resp B/P (MAP) Pulse Ox O2 Delivery O2 Flow Rate FiO2 04/25/24 21:00 98.4 98 16 130/81 (97) 93 98.4 04/25/24 08:00 Room Air* 0 21 Total Intake and Output 04/24/24 04/24/24 04/25/24 15:00 23:00 07:00 Intake Total 1004 ml 650 ml 1120 ml Output Total 2 ml 300 ml Balance 1004 ml 648 ml 820 ml medications Current Medications Medications Dose Ordered Sig/Yasmany Route Start Time Stop Time Status Last Admin Dose Admin Pantoprazole Sodium 40 mg DAILY IV 04/11/24 10:00 04/25/24 09:29 40 MG Ondansetron HCl 4 mg Q4HPRN PRN IV 04/10/24 18:45 04/15/24 20:00 4 MG Sodium Chloride 10 ml QSHIFT@10,22 IV 04/16/24 22:00 04/25/24 09:29 10 ML Acetaminophen/ Hydrocodone Bitart 1 tab Q4HP PRN PO 04/21/24 11:30 04/25/24 14:52 1 TAB Ampicillin Sodium/ Sulbactam Sodium 3 gm/Sodium Chloride 100 ml @ 100 mls/hr Q6H IV 04/21/24 11:45 04/25/24 17:44 100 MLS/HR Hydromorphone HCl 0.5 mg Q3HPRN PRN IV 04/21/24 18:15 04/22/24 04:23 0.5 MG Acetaminophen 650 mg Q4HP PRN PO 04/24/24 10:15 04/25/24 19:35 650 MG laboratory and microbiology Laboratory Tests 04/25/24 13:02 Test 04/25/24 13:02 Range/Units Serum Glucose 102 74-106 mg/dL Problem List/Assessment/Plan Problem List/Assessment/Plan AFEBRILE VSS ABD SOFT LESS PAIN LESS DISTENDED FLATUS + BM = S/P COLON RESECTION TERRY FULL LIQUIDS ADVANCE TO SOFT DIET CLEARED FOR DISCHARGE AM Plan discussed with: Patient BOB HILTON MD Apr 25, 2024 21:21
[2024-04-26 01:00] VITALS: BP_SYST 120; BP_SYST 127; BP_DIAS 64; BP_DIAS 80; PULSE 98; RESP 17; TEMP 97.7; TEMP 98; O2SAT 94; O2SAT 96
[2024-04-26 05:00] VITALS: BP 112/60; PULSE 79; RESP 17; TEMP 98.4; O2SAT 94
[2024-04-26 08:00] VITALS: RESP 18; O2SAT 95
[2024-04-26 08:56] LABS: Hepatitis B Core Total AB Negative (Negative)
[2024-04-26 09:00] VITALS: BP 103/61; PULSE 77; RESP 17; TEMP 97.8; O2SAT 97
[2024-04-26 09:36] LABS: Basophils # (auto) 0 10 ^3/uL (0-0.2); Basophils % (auto) 0.4 % (0.0-2.0); Eosinophils # (auto) 0.3 10 ^3/uL (0-0.8); Eosinophils % (auto) 3.9 % (0.0-7.0); Hematocrit 32.6 % (41.0-53.0); Lymphocytes # (auto) 0.8 10 ^3/uL (0.4-5.4); Lymphocytes % (auto) 11.4 % (10.0-50.0); Mean Corpuscular Hemoglobin 30.5 pg (28.0-32.0); Mean Corpuscular Hgb Conc. 33.8 g/dL (32.0-36.0); Mean Corpuscular Volume 90.2 fL (80.0-100.0); Monocytes # (auto) 0.5 10 ^3/uL (0-1.3); Monocytes % (auto) 6.9 % (0.0-12.0); Neutrophils # (auto) 5.7 10 ^3/uL (1.6-8.6); Neutrophils % (auto) 77.4 % (37.0-80.0); Nucleated Red Blood Cells % 0.1 %; Platelet Count (auto) 385 10^3/uL (140-450); Red Blood Cells 3.61 10^6/uL (4.5-5.90); Red Cell Distribution Width 14.8 % (11.8-14.3); White Blood Cell 7.3 10^3/uL (4.4-10.8)
[2024-04-26 09:43] LABS: Albumin 3.4 g/dL (3.2-4.8); Anion Gap 4 (5-15); BUN/Creatinine Ratio 9.7 (10.0-20.0); Calcium 9.2 mg/dL (8.7-10.4); Carbon Dioxide 30 mmol/L (20-31); Chloride 104 mmol/L (98-107); Glucose 95 mg/dL (74-106); Potassium 4.3 mmol/L (3.5-5.1); Sodium 138 mmol/L (136-145); Total Protein 6.1 g/dL (5.7-8.2)
[2024-04-26 09:54] LABS: Alanine Aminotransferase 58 U/L (7-40); Alkaline Phosphatase 137 U/L (46-116); Aspartate Aminotransferase 46 U/L (13-40); Blood Urea Nitrogen 7 mg/dL (9-23)
[2024-04-26 09:55] LABS: Bilirubin, Total 0.2 mg/dL (0.2-1.0)
[2024-04-26 10:22] LABS: Hepatitis A Total Antibody Positive (Negative); Hepatitis B Surface Antibody Negative (Negative); Hepatitis B Surface Antigen Negative (Negative); Hepatitis C Antibody Negative (Negative)
--- NOTE | 2024-04-26 10:55 | DVHPN2 ---
Progress Note Date Seen: Apr 26, 2024 Resident Creating Document: JOANNA WEBB RESIDENT Has the PT tested + for MRSA If YES, has PT been informed?: Yes Medical Necessity Reason Pt with a Central, PICC or Fol: No Subjective Review of Systems Post op Day # 11 S/P laparotomy Resection of transverse colon mass partial colectomy with primary anastomosis lysis of adhesions; suspected previous partial colectomy Objective vital signs Vital Sign Date Time Temp Pulse Resp B/P (MAP) Pulse Ox O2 Delivery O2 Flow Rate FiO2 04/26/24 09:00 97.8 77 17 103/61 (75) 97 97.8 04/26/24 08:00 Room Air* 0 21 Total Intake and Output 04/25/24 04/25/24 04/26/24 15:00 23:00 07:00 Intake Total 100 ml 1020 ml 650 ml Output Total 450 ml 550 ml Balance 100 ml 570 ml 100 ml medications Current Medications Medications Dose Ordered Sig/Yasmany Route Start Time Stop Time Status Last Admin Dose Admin Pantoprazole Sodium 40 mg DAILY IV 04/11/24 10:00 04/26/24 09:43 40 MG Ondansetron HCl 4 mg Q4HPRN PRN IV 04/10/24 18:45 04/15/24 20:00 4 MG Sodium Chloride 10 ml QSHIFT@10,22 IV 04/16/24 22:00 04/26/24 09:43 10 ML Acetaminophen/ Hydrocodone Bitart 1 tab Q4HP PRN PO 04/21/24 11:30 04/25/24 23:44 1 TAB Ampicillin Sodium/ Sulbactam Sodium 3 gm/Sodium Chloride 100 ml @ 100 mls/hr Q6H IV 04/21/24 11:45 04/26/24 05:54 100 MLS/HR Hydromorphone HCl 0.5 mg Q3HPRN PRN IV 04/21/24 18:15 04/22/24 04:23 0.5 MG Acetaminophen 650 mg Q4HP PRN PO 04/24/24 10:15 04/26/24 05:55 650 MG Examination GEN: Healthy appearing, well-developed, NAD. HEENT: NC/AT; MMM. CV: RRR, no m/r/g. LUNGS: CTAB, no w/r/c. ABD: Soft mild tenderness EXT: skin Warm, well perfused. no rashes. No clubbing, cyanosis, or edema. NEURO: Ambulating with no limitations. No focal deficits. laboratory and microbiology Laboratory Tests 04/26/24 05:27 Test 04/26/24 05:27 Range/Units Serum Glucose 95 74-106 mg/dL Problem List/Assessment/Plan Problem List/Assessment/Plan (1) Adenocarcinoma of transverse colon (2) Intractable abdominal pain (3) Abnormal finding on CT scan (4) Nausea and vomiting (5) Cholelithiasis Plan NG tube was DC'd Start clear liquid diet as tolerated Gastrografin study: No small bowel obstruction and functional colonic anastomosis. Ambulate patient as tolerated Supportive care IV antibiotics PICC line for TPN Patient had bowel movements Patient is on soft mechanical diet Advanced diet as tolerated Oncology follow up Surgical follow up Patient is cleared be discharged from GI point of view Thank you so much for the opportunity to consult on your patient. GI team will follow the patient. In case of any questions or concerns please feel free to reach out. Case discussed with Dr. Mat Henderson. The patient and caregiver team agreed to the plan. Plan discussed with: Patient JOANNA WEBB RESIDENT Apr 26, 2024 10:55
[2024-04-26 13:00] VITALS: BP 112/70; PULSE 84; RESP 17; TEMP 98.9; O2SAT 98
[2024-04-26] MEDS ORDERED: ZOFR4T PO (13:44)
[2024-04-26] MEDS ORDERED: HYDR-4798 PO (13:44)
[2024-04-26 14:00] VITALS: TEMP 37.2
--- NOTE | 2024-04-26 14:16 | DVHDS2 ---
Discharge Summary Date of Admission Apr 10, 2024 at 18:36 Date of Discharge: Apr 26, 2024 Admitting Diagnosis abdominal pain Labs/Diagnostic Data: Laboratory Results Test 04/26/24 05:27 04/24/24 04:59 04/24/24 00:10 04/17/24 10:15 White Blood Count 7.3 10^3/uL (4.4-10.8) Red Blood Count 3.61 10^6/uL (4.5-5.90) Hemoglobin 11.0 g/dL (13.5-17.5) Hematocrit 32.6 % (41.0-53.0) Mean Corpuscular Volume 90.2 fL (80.0-100.0) Mean Corpuscular Hemoglobin 30.5 pg (28.0-32.0) Mean Corpuscular Hemoglobin Concent 33.8 g/dL (32.0-36.0) Red Cell Distribution Width 14.8 % (11.8-14.3) Platelet Count 385 10^3/uL (140-450) Mean Platelet Volume 7.2 fL (6.9-10.8) Neutrophils (%) (Auto) 77.4 % (37.0-80.0) Lymphocytes (%) (Auto) 11.4 % (10.0-50.0) Monocytes (%) (Auto) 6.9 % (0.0-12.0) Eosinophils (%) (Auto) 3.9 % (0.0-7.0) Basophils (%) (Auto) 0.4 % (0.0-2.0) Neutrophils # (Auto) 5.7 10 ^3/uL (1.6-8.6) Lymphocytes # (Auto) 0.8 10 ^3/uL (0.4-5.4) Monocytes # (Auto) 0.5 10 ^3/uL (0-1.3) Eosinophils # (Auto) 0.3 10 ^3/uL (0-0.8) Basophils # (Auto) 0 10 ^3/uL (0-0.2) Nucleated Red Blood Cells 0.1 % Sodium Level 138 mmol/L (136-145) Potassium Level 4.3 mmol/L (3.5-5.1) Chloride Level 104 mmol/L (98-107) Carbon Dioxide Level 30 mmol/L (20-31) Anion Gap 4 (5-15) Blood Urea Nitrogen 7 mg/dL (9-23) Creatinine 0.72 mg/dL (0.700-1.30) Glomerular Filtration Rate Calc 109 mL/min (>90) BUN/Creatinine Ratio 9.7 (10.0-20.0) Serum Glucose 95 mg/dL (74-106) Calcium Level 9.2 mg/dL (8.7-10.4) Total Bilirubin 0.2 mg/dL (0.2-1.0) Aspartate Amino Transferase (AST) 46 U/L (13-40) Alanine Aminotransferase (ALT) 58 U/L (7-40) Alkaline Phosphatase 137 U/L (46-116) Total Protein 6.1 g/dL (5.7-8.2) Albumin 3.4 g/dL (3.2-4.8) Hepatitis A Antibody Total Positive (Negative) Hepatitis B Surface Antigen Negative (Negative) Hepatitis B Surface Antibody Negative (Negative) Hepatitis B Core Total Antibody Negative (Negative) Hepatitis C Antibody Negative (Negative) Phosphorus Level 3.1 mg/dL (2.4-5.1) Magnesium Level 1.8 mg/dL (1.6-2.6) Triglycerides Level 75 mg/dL (< 150) POC Glucose 119 mg/dl (70-106) Estimated GFR () 138 mL/min Estimated GFR (Non- 114 mL/min Test 04/15/24 09:55 04/12/24 05:47 04/10/24 23:10 04/10/24 16:40 Prothrombin Time 12.8 sec (9.3-11.8) Prothrombin Time INR 1.23 (0.9-1.15) Activated Partial Thromboplast Time 29.4 SEC (24.5-34.5) Carcinoembryonic Antigen 2.64 ng/mL (<=5.0) Influenza Type A Antigen Negative (Negative) Influenza Type B Antigen Negative (Negative) SARS-CoV-2 Antigen (Rapid) Negative (NEGATIVE) Urine Color Yellow (Yellow) Urine Clarity Clear (Clear) Urine pH 5.5 (5.0-9.0) Urine Specific [place] 1.030 (1.001-1.035) Urine Protein Trace (Negative) Urine Ketones 1+ (Negative) Urine Blood 2+ /uL (Negative) Urine Nitrite Negative (Negative) Urine Bilirubin Negative (Negative) Urine Urobilinogen Normal mg/dL (Negative) Urine Leukocyte Esterase Negative /uL (Negative) Urine RBC 42 /hpf (0 - 3) Urine Microscopic WBC 2 /HPF (0-3) Urine Squamous Epithelial Cells Few /hpf (<5) Urine Bacteria None seen /hpf (None Seen) Urine Glucose Normal mg/dL (Normal) Test 04/10/24 16:00 Troponin I High Sensitivity 4 ng/L (</=54) Lipase 51 U/L (12-53) Other Laboratory Tests 04/26/24 05:27 Brief Hx & Hospital Course: HPI: 53-year-old male presenting to the emergency room with reports of nausea, vomiting, constipation, abdominal pain. Patient was states he was not been able to hold down oral intake since he was last discharged from the emergency room on 04/06/2024, from this facility. Patient was recently admitted prior to that visit, undergoing EGD with noted gastric ulcers. Patient states that he has now worsening abdominal bloating, as well as constipation for the past 5-6 days. He states he has lost weight over the last two months. Recent admission records were reviewed with CEA being normal. Previous CT scan also did not reveal latest findings of large bowel obstruction. Summary: Patient admitted with concern for recurrent abdominal pain with nausea and vomiting. On admit labs patient is hyponatremic 132, alkalotic bicarb 35, intravascularly volume depleted with specific gravity 1.030 and +1 ketones, 2+ blood. CT abdomen done showing concern for large bowel obstruction with 2 transition points, 1st undigested point as splenic flexure with wall thickening and possible apical lesion and 2nd transition point near the distal descending/sigmoid colon junction. NG tube inserted. GI consulted-plan for colonoscopy. Colonoscopy done 04/13/2024 showing obstructing apple-core type tumor/lesion in distal transverse area close to splenic flexure; 1.5-2 cm distal descending colon polypoid lesion removed with hot snare polypectomy; 5 mm benign sigmoid polyp, removed; 2-3 mm benign rectal polyp, removed; insert 1+ internal hemorrhoids on exam. Colonoscopy done until distal transverse colon where apple core lesion exists and colonoscope could not be advanced further. PICC line and TPN , status post IV fluid hydration. NG tube removed 04/13. Patient taken to surgery on 04/15/2024, procedure done is Exploratory laparotomy with extensive lysis of adhesions and a partial transverse colectomy with primary anastomosis. NG tube inserted again with surgery on 04/15. Pathology sample from colonoscopy returns back as adenocarcinoma. Oncology consulted and wants to follow up with the patient outpatient to likely start mychal-adjuvant chemotherapy. Patient postop course includes expected ileus, significant intractable abdominal pain, intractable nausea/vomiting. postop NG tube removed on 04/21. small-bowel series barium 04/20 is normal, normal transition time with good passage of contrast through primary anastomosis. repeat KUB on 04/21 showing concern for ileus. Patient was given cefazolin during preop postop. And given IV Protonix NPO Carafate. Patient continues to improve postop after pain control and possible waiting and antiemetic p.r.n. control on 04/25 patient was back to baseline and stable for discharge. There is mild transaminitis on 04/25- 04/26 which is likely part of postop recovery, patient asymptomatic. Patient is stable vitals, tolerating p.o., and ready for discharge as per plan below. Diagnosis: Large bowel/colonic obstruction due to colonic adenocarcinoma colonic mass (transverse colon), colorectal adenocarcinoma, s/p colectomy with primary anastomosis and adhesion lysis. Expected postoperative ileus, resolved Intractable nausea and vomiting, resolved Intractable abdominal pain, resolved Thrombosis, superficial veins, left basilic and cephalic Cholelithiasis Gastric ulcer Cachexia Sliding hiatal hernia History of cholelithiasis Hepatic cyst Discharge plan: - Continue to take gabapentin, Synthroid, Protonix, Carafate, - Stopped taking Maalox, Pepcid, - for nausea take Zofran as needed - For pain control. Take Tylenol OTC, then ibuprofen OTC, then if pain still uncontrolled take [place] 10 up to 3 times daily as needed for pain control - mechanical soft tissue diet until cleared by surgery on follow up - keep abdominal binder on to help with pain control, removal to be evaluated by surgery on follow up appointment - follow-up with oncology - Follow up with PCP for discharge review Visitation and planning required 35 minutes Condition at Discharge: Fair Final Diagnosis/Problems List Large bowel/colonic obstruction due to colonic adenocarcinoma colonic mass (transverse colon), colorectal adenocarcinoma, s/p colectomy with primary anastomosis and adhesion lysis. Expected postoperative ileus, resolved Intractable nausea and vomiting, resolved Intractable abdominal pain, resolved Thrombosis, superficial veins, left basilic and cephalic Cholelithiasis Gastric ulcer Cachexia Sliding hiatal hernia History of cholelithiasis Hepatic cyst Discharge Disposition: Home Discharge Instruct/Medications Diet: See Comment Diet comment: soft chew Activity: No Restrictions, As Tolerated Follow Up/Referral: pcp, surgery, oncology Medications: below Discharge Statement: "Patient was advised to return to the ER or call 911 if any headaches, dizziness, shortness of breath, chest pain, abdominal pain, bleeding, fevers, or worsening of medical condition. Patient was counseled about treatment plan, medications, possible side effects, patientverbalized understanding. All questions were answered to the best of my ability. This discharge took greater then 30 minutes in planning, reviewing documentation, counseling the patient, and discussing with other team members." Date of Service: Apr 26, 2024 Billing Provider: ZOHREH VELIZ MD Common Visit Codes: 83055-HQD/OBS DISCH DAY >30min ZOHREH VELIZ MD Apr 26, 2024 14:16
== END 2024-04-26 14:56 | disposition home or self-care (01) | DRG 330 ==
LOC: ER 14:27 → OVERFLOW 18:36 → WEST WING 04-11 16:04
PROVIDERS: ADMIT Student in an Organized Health Care Education/Training Program; ATTEND Student in an Organized Health Care Education/Training Program
PROC: 0D9670Z Drainage of Stomach with Drainage Device, Via Natural or Artificial Opening (ICD-10-PCS; 2024-04-10)
PROC: 0DBL8ZX Excision of Transverse Colon, Via Natural or Artificial Opening Endoscopic, Diagnostic (ICD-10-PCS; 2024-04-13)
PROC: 0DBM8ZZ Excision of Descending Colon, Via Natural or Artificial Opening Endoscopic (ICD-10-PCS; 2024-04-13)
PROC: 0DBN8ZZ Excision of Sigmoid Colon, Via Natural or Artificial Opening Endoscopic (ICD-10-PCS; 2024-04-13)
PROC: 0DBP8ZZ Excision of Rectum, Via Natural or Artificial Opening Endoscopic (ICD-10-PCS; 2024-04-13)
PROC: 0DNL0ZZ Release Transverse Colon, Open Approach (ICD-10-PCS; 2024-04-15)
PROC: 0DN80ZZ Release Small Intestine, Open Approach (ICD-10-PCS; 2024-04-15)
PROC: 0DBL0ZZ Excision of Transverse Colon, Open Approach (ICD-10-PCS; principal; 2024-04-15 14:08)
PROC: 02HV33Z Insertion of Infusion Device into Superior Vena Cava, Percutaneous Approach (ICD-10-PCS; 2024-04-16)
PROC: B548ZZA Ultrasonography of Superior Vena Cava, Guidance (ICD-10-PCS; 2024-04-16)
DX: C18.4 Malignant neoplasm of transverse colon (principal); C19 Malignant neoplasm of rectosigmoid junction; R64 Cachexia; I82.612 Acute embolism and thrombosis of superficial veins of left upper extremity; K56.52 Intestinal adhesions [bands] with complete obstruction; K91.89 Other postprocedural complications and disorders of digestive system; K56.7 Ileus, unspecified; Z68.1 Body mass index [BMI] 19.9 or less, adult; E87.1 Hypo-osmolality and hyponatremia; Z20.822 Contact with and (suspected) exposure to COVID-19; K25.9 Gastric ulcer, unspecified as acute or chronic, without hemorrhage or perforation; K29.70 Gastritis, unspecified, without bleeding; K44.9 Diaphragmatic hernia without obstruction or gangrene; K76.89 Other specified diseases of liver; K80.20 Calculus of gallbladder without cholecystitis without obstruction; K63.5 Polyp of colon; E03.9 Hypothyroidism, unspecified; F41.9 Anxiety disorder, unspecified; R74.01 Elevation of levels of liver transaminase levels; E86.9 Volume depletion, unspecified; K62.1 Rectal polyp; K64.8 Other hemorrhoids; Z79.891 Long term (current) use of opiate analgesic; Z83.3 Family history of diabetes mellitus; Z79.899 Other long term (current) drug therapy; Y84.8 Other medical procedures as the cause of abnormal reaction of the patient, or of later complication, without mention of misadventure at the time of the procedure; Y92.238 Other place in hospital as the place of occurrence of the external cause
CPT/HCPCS: 36415; 36569; 45380; 45385; 71045; 74018; 74176; 74178; 74250; 76937; 80053; 80069; 81001; 82378; 82962; 83690; 83735; 84100; 84478; 84484; 85025; 85610; 85730; 86704; 86706; 86708; 86803; 86850; 86900; 86901; 87340; 87426; 87804; 93005; 93970; 96361; 96374; 96375; G0378; J0692; J1100; J1815; J1885; J2003; J2250; J2405; J2470; J2704; J3490; J7131